=== PATIENT | female | born 1955 | race Caucasian/White ===

== ENCOUNTER 2019-06-24 10:07 | Outpatient (CLI) | payer MEDICARE, SELFPAY ==
[2019-06-24 10:50] LABS: Hemoglobin 11.7 g/dL (12.0-15.0); Mean Corpuscular HGB Conc 31.6 g/dl (32-36); Mean Corpuscular Hemoglobin 30.5 pg (26-34); Mean Corpuscular Volume 96.6 fl (80-100); Mean Platelet Volume 9.6 fl (7.4-10.4); Platelet Count Result 159 k/mm3 (150-375); Red Blood Count 3.83 M/mm3 (4.2-5.4); Red Cell Distribution Width 13.7 % (11.5-14.5); White Blood Count 4.2 K/mm3 (4.5-10.0)
[2019-06-24 10:52] LABS: Add Urine Microscopic? NO; Appearance Urine Clear (Clear); Bilirubin Urine Negative (Negative); Blood Urine Negative (Negative); Color Urine Yellow (Yellow); Glucose Urine UA Negative (Negative); Ketones Urine Negative (Negative); Leukocyte Esterase Ur Negative LEU/UL (Negative); Nitrate Urine Negative (Negative); Protein Urine Negative (Negative); Specific Grav Ur 1.021 (1.001-1.035); Urobilinogen Urine Negative mg/dL (<2.0)
[2019-06-24 11:02] LABS: Alanine Aminotransferase 18 U/L (4-35); Albumin Level 4.1 g/dL (3.5-5.1); Alkaline Phosphatase 88 U/L (38-126); Aspartate Amino Transferase 24 U/L (14-36); Bilirubin,Total 0.3 mg/dL (0.2-1.3); Blood Urea Nitrogen 20 mg/dL (7-17); CRP 0.8 mg/dL (<1.0); Calcium 9.1 mg/dL (8.4-10.2); Carbon Dioxide 27 mmol/L (22-30); Chloride 107 mmol/L (98-107); Estimated Glomerular Filt Rate > 60; Glucose 76 mg/dL (65-105); Sodium 139 mmol/L (137-145)
== END 2019-06-24 10:08 | disposition home or self-care (01) ==
PROVIDERS: PCP Internal Medicine; Visit Provider Internal Medicine
DX: M06.4 Inflammatory polyarthropathy (principal)
CPT/HCPCS: 36415; 80053; 81003; 85027; 86140

== ENCOUNTER 2020-01-25 12:08 | Outpatient (CLI) | payer MEDICARE, SELFPAY ==
[2020-01-25 13:16] LABS: Hematocrit 35.8 % (37.0-47.0); Hemoglobin 11.2 g/dL (12.0-15.0); Mean Corpuscular HGB Conc 31.3 g/dl (32-36); Mean Corpuscular Hemoglobin 30.7 pg (26-34); Mean Corpuscular Volume 98.1 fl (80-100); Mean Platelet Volume 9.8 fl (7.4-10.4); Platelet Count Result 199 k/mm3 (150-375); Red Blood Count 3.65 M/mm3 (4.2-5.4); Red Cell Distribution Width 16.4 % (11.5-14.5)
[2020-01-25 13:27] LABS: Add Urine Microscopic? YES; Appearance Urine Clear (Clear); Bilirubin Urine Negative (Negative); Blood Urine Negative (Negative); Color Urine Yellow (Yellow); Glucose Urine UA Negative (Negative); Ketones Urine Negative (Negative); Leukocyte Esterase Ur Trace LEU/UL (Negative); Nitrate Urine Negative (Negative); Protein Urine Negative (Negative); RBC Urine 0-2 /hpf (0-2); Specific Grav Ur 1.017 (1.001-1.035); Squamous Epithelial Cell Urine Occasional /hpf (Few); Urobilinogen Urine Negative mg/dL (<2.0); WBC Urine 0-3 /hpf
[2020-01-25 13:35] LABS: Alanine Aminotransferase 18 U/L (4-35); Albumin Level 4.1 g/dL (3.5-5.1); Alkaline Phosphatase 83 U/L (38-126); Anion Gap 5 mmol/L (8-16); Aspartate Amino Transferase 25 U/L (14-36); Bilirubin,Total 0.4 mg/dL (0.2-1.3); Blood Urea Nitrogen 22 mg/dL (7-17); CRP 0.7 mg/dL (<1.0); Calcium 9.5 mg/dL (8.4-10.2); Carbon Dioxide 28 mmol/L (22-30); Chloride 106 mmol/L (98-107); Estimated Glomerular Filt Rate 50; Glucose 82 mg/dL (65-105); Sodium 139 mmol/L (137-145)
[2020-01-25 14:02] LABS: Erythrocyte Sedimentation Rate 28 mm/hr (0-20)
== END 2020-01-25 12:09 | disposition home or self-care (01) ==
LOC: ANHLAB 12:10
PROVIDERS: PCP Internal Medicine; Visit Provider Internal Medicine
DX: L93.0 Discoid lupus erythematosus (principal); M19.90 Unspecified osteoarthritis, unspecified site
CPT/HCPCS: 36415; 80053; 81001; 85027; 85652; 86140

== ENCOUNTER 2020-03-30 09:16 | Outpatient (CLI) | payer MEDICARE, SELFPAY ==
--- NOTE | ~2020-03-30 | MM_ITS ---
EXAMINATION: MM screening [facility] BI w juany HISTORY: Screening mammogram TECHNIQUE: Craniocaudal and mediolateral oblique 3-D tomosynthesis images were obtained and synthetic 2-D images were generated. CAD analysis was submitted and interpreted. COMPARISON: 03/03/2019, 02/26/2018, 02/21/2017 BREAST PARENCHYMAL COMPOSITION: The breasts are almost entirely fatty. FINDINGS: There is no evidence of suspicious mass, calcification, or architectural distortion to sugg est malignancy in either breast. There has been no suspicious interval change. IMPRESSION: 1. No mammographic evidence of malignancy. 2. Recommend routine screening mammography in one year. BI-RADS Category 1: Negative Reviewed, dictated and finalized at location A. 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
== END 2020-03-30 09:17 | disposition home or self-care (01) ==
LOC: ANHIMG 09:21
PROVIDERS: PCP Internal Medicine; Visit Provider Obstetrics & Gynecology
DX: Z12.31 Encounter for screening mammogram for malignant neoplasm of breast (principal)
CPT/HCPCS: 77063; 77067

== ENCOUNTER 2021-04-28 10:23 | Outpatient (CLI) | payer MEDICARE, SELFPAY ==
[2021-04-28 10:52] LABS: Hematocrit 43.2 % (37.0-47.0); Hemoglobin 13.2 g/dL (12.0-15.0); Mean Corpuscular HGB Conc 30.6 g/dl (32-36); Mean Corpuscular Hemoglobin 31.1 pg (26-34); Mean Corpuscular Volume 101.9 fl (80-100); Mean Platelet Volume 8.8 fl (7.4-10.4); Platelet Count Result 192 k/mm3 (150-375); Red Blood Count 4.24 M/mm3 (4.2-5.4); Red Cell Distribution Width 14.1 % (11.5-14.5); White Blood Count 5.3 K/mm3 (4.5-10.0)
[2021-04-28 11:41] LABS: Add Urine Microscopic? NO; Appearance Urine Clear (Clear); Bilirubin Urine Negative (Negative); Blood Urine Negative (Negative); Color Urine Colorless (Yellow); Glucose Urine UA Negative (Negative); Ketones Urine Negative (Negative); Leukocyte Esterase Ur Negative LEU/UL (Negative); Nitrate Urine Negative (Negative); Protein Urine Negative (Negative); Specific Grav Ur 1.006 (1.001-1.035); Urobilinogen Urine Negative mg/dL (<2.0)
[2021-04-28 11:43] LABS: Alanine Aminotransferase 23 U/L (4-35); Albumin Level 4.5 g/dL (3.5-5.1); Alkaline Phosphatase 92 U/L (38-126); Anion Gap 10 mmol/L (8-16); Aspartate Amino Transferase 36 U/L (14-36); Bilirubin,Total 0.5 mg/dL (0.2-1.3); Blood Urea Nitrogen 15 mg/dL (7-17); CRP 0.9 mg/dL (<1.0); Carbon Dioxide 28 mmol/L (22-30); Chloride 105 mmol/L (98-107); Estimated Glomerular Filt Rate 56; Glucose 88 mg/dL (65-110); Sodium 143 mmol/L (137-145)
[2021-04-28 12:49] LABS: Erythrocyte Sedimentation Rate 16 mm/hr (0-20)
[2021-05-02 12:55] LABS: NIL 0.02 IU/mL; Quantiferon TB Plus, 1T NEGATIVE (NEGATIVE); TB1-NIL 0.04 IU/mL; TB2-NIL 0.03 IU/mL
== END 2021-04-28 10:24 | disposition home or self-care (01) ==
LOC: ANHLAB 10:25
PROVIDERS: PCP Internal Medicine; Visit Provider Internal Medicine
DX: M06.041 Rheumatoid arthritis without rheumatoid factor, right hand (principal); M06.042 Rheumatoid arthritis without rheumatoid factor, left hand; M19.90 Unspecified osteoarthritis, unspecified site; M06.9 Rheumatoid arthritis, unspecified; Z79.899 Other long term (current) drug therapy; Z11.59 Encounter for screening for other viral diseases
CPT/HCPCS: 36415; 80053; 81003; 85027; 85652; 86140; 86480

== ENCOUNTER 2021-06-22 10:27 | Outpatient (CLI) | payer MEDICARE, SELFPAY ==
--- NOTE | ~2021-06-22 | MM_ITS ---
EXAMINATION: MM screening [facility] w juany HISTORY: Screening TECHNIQUE: Craniocaudal and mediolateral oblique 3-D tomosynthesis images were obtained and synthetic 2-D images were generated. CAD analysis was submitted and interpreted. COMPARISON: Comparison to multiple prior studies sequentially, with oldest reviewed study dated 01/14. BREAST PARENCHYMAL COMPOSITION: The breasts are almost entirely fatty. FINDINGS: There is no evidence of suspicious mass, calcification, or architectural distortion to sugg est malignancy in either breast. There has been no suspicious interval change. IMPRESSION: 1. No mammographic evidence of malignancy. 2. Recommend routine screening mammography in one year. BI-RADS Category 1: Negative Reviewed, dictated and finalized at location A. 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
== END 2021-06-22 10:28 | disposition home or self-care (01) ==
LOC: ANHIMG 10:28
PROVIDERS: PCP Obstetrics & Gynecology; Visit Provider Obstetrics & Gynecology
DX: Z12.31 Encounter for screening mammogram for malignant neoplasm of breast (principal)
CPT/HCPCS: 77063; 77067

== ENCOUNTER 2022-09-04 14:57 | Outpatient (CLI) | payer MEDICARE, MEDICAID, SELFPAY ==
--- NOTE | ~2022-09-04 | MM_ITS ---
EXAMINATION: MM screening [facility] BI w juany HISTORY: Screening mammogram TECHNIQUE: Craniocaudal and mediolateral oblique 3-D tomosynthesis images were obtained and synthetic 2-D images were generated. CAD analysis was submitted and interpreted. COMPARISON: 06/22/2021, 03/30/2020, 03/03/2019 BREAST PARENCHYMAL COMPOSITION: There are scattered areas of fibroglandular density. FINDINGS: No suspicious mass, calcification, or architectural distortion are identified in either juaquin ast to suggest malignancy. There has been no suspicious interval change. IMPRESSION: 1. No mammographic evidence of malignancy. 2. Recommend routine screening mammography in one year. BI-RADS Category 1: Negative Reviewed, dictated and finalized at location A.
== END 2022-09-04 14:58 | disposition home or self-care (01) ==
PROVIDERS: PCP Internal Medicine; Visit Provider Obstetrics & Gynecology
DX: Z12.31 Encounter for screening mammogram for malignant neoplasm of breast (principal)
CPT/HCPCS: 36415; 77063; 77067; 80053; 81001; 85027; 85652; 86140; 86706; 87340; 96365; 96366; Q5104; A9270; J7050

== ENCOUNTER 2024-06-20 09:22 | Outpatient (CLI) | payer MEDICARE, MEDICAID, SELFPAY ==
--- NOTE | ~2024-06-20 | MM_ITS ---
EXAMINATION: MM screening bob BI w juany HISTORY: Screening mammogram TECHNIQUE: Craniocaudal and mediolateral oblique 3-D tomosynthesis images were obtained and synthetic 2-D images were generated. CAD analysis was submitted and interpreted. COMPARISON: 09/04/2022, 06/22/2021, 03/30/2020 BREAST PARENCHYMAL COMPOSITION:Not Dense. The breasts are almost entirely fatty FINDINGS: No suspicious mass, calcification, or architectural distortion are identified in either juaquin ast to suggest malignancy. There has been no suspicious interval change. IMPRESSION: No mammographic evidence of malignancy. Recommend routine screening mammography in one year. BI-RADS Category 1: Negative Reviewed, dictated and finalized at location .
--- OUTSIDE RECORDS SUMMARY | 2024-06-20 09:26 | XMS_ITS ---
Author Organization [facility] S Address [address] [place] [address] Phone Care Team Providers Care [employer] Name Role Phone LZI DOYLE, ELOINA ORTEGA Unavailable [phone] Problems Includes: Active, inactive, and resolved Problems All Visits Onset Date Resolved Date Provider Condition S tatus Vitamin Deficiency 08/13/2018 ELOINA CHAIDEZ MD Active Last Documented On 9 7:40AM ; [facility] Panic Disorder 12/14/2017 ELOINA Lew Active Last Documented On 8 7:49AM ; [facility] Psychophysiological Insomnia 08/17/2016 ELOINA LYNCH MD Active Last Documented On 7 9:38AM ; [facility] Anemia 02/16/2016 ELOINA LYNCH MD Ac tive Last Documented On 6 9:21AM ; [facility] Cath Mitral Regurgitation 07/28/2012 ELOINA LYNCH MD Active Last Documented On 3 11:16AM ; [facility] 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 ELOINA LYNCH MD Active Last Documented On 3 11:15AM ; [facility] Migraine Headache 07/28/2012 ELOINA Adrian MD Active Last Documented On 0 10:11AM ; [facility] 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 ELOINA LYNCH MD Inactive Last Documented On 3 2:59PM ; [facility] Major Depression, Recurrent 07/14/2012 ELOINA LYNCH MD Active Last Documented On 3 12:01PM ; [facility] Fracture Hip 05/08/2012 Unknown ELOINA LYNCH MD Resolved Last Documented On 3 10:58AM ; [facility] Generalized Anxiety Disorder 05/08/2012 ELOINA LYNCH MD Active Last Documented On 3 1:29PM ; [facility] Gerd 05/08/2012 ELOINA LYNCH MD Ac tive Last Documented On 3 1:28PM ; [facility] Hypertension Systemic 05/08/2012 ELOINA CUEVAS MD Active Last Documented On 3 1:28PM ; [facility] Hypothyroidism 05/08/2012 ELOINA eLw Active Last Documented On 3 1:28PM ; [facility] Pelvic Fracture 05/08/2012 Unknown ELOINA LYNCH MD Resolved Last Documented On 3 10:58AM ; [facility] Plan of Treatment Instructions to patient Lose weight Last Documented On 3 11:32AM ; [facility] Lose weight - continue elva jorge l meal plan Last Documented On 2 12:40PM ; [facility] Lose weight - portion contro l Last Documented On 2 9:03AM ; [facility] Lose weight Last Documented On 1 9:39AM ; [facility] Lose weight Last Documented On 1 10:29AM ; [facility] Lose weight Last Documented On 0 9:42AM ; [facility] Education and Decision Aids were provided during visit for: Patient education about medi cation ---Education was given on medication(s) and diagnosis. I reviewed the risks, benefits and side effects of patient's medications Last Documented On 3 11:10AM ; [facility] Discussed calming techniques such as breathing exercises and other relaxation techniques Last Documented On 3 11:10AM ; [facility] Counseling for nutrition/eden ght management provided Last Documented On 3 11:32AM ; [facility] Discussed good sleep hygiene habits Last Documented On 3 11:32AM ; [facility] Discussed calming techniques such as breathing exercises and other relaxation techniques if and when anxious Last Documented On 2 12:40PM ; [facility] Counseling for nutrition/eden ght management provided Last Documented On 2 11:28AM ; [facility] Patient education about medi cation --- I educated patient on medication(s) and diagnosis. I reviewed the risks, benefits and side effects of patient's medications Last Documented On 2 10:23AM ; [facility] Discussed calming techniques such as breathing exercises and other relaxation techniques Last Documented On 2 10:23AM ; [facility] Counseling for nutrition/eden ght management provided Last Documented On 2 10:56AM ; [facility] Discussed good sleep hygiene habits Last Documented On 2 10:56AM ; [facility] Patient education about medi cation --- I educated patient on medication(s) and diagnosis. I reviewed the risks, benefits and side effects of patient's medications Last Documented On 1 9:09AM ; [facility] Discussed calming techniques such as breathing exercises and other relaxation techniques Last Documented On 1 9:09AM ; [facility] Counseling for nutrition/eden ght management provided Last Documented On 1 9:39AM ; [facility] Discussed good sleep hygiene habits Last Documented On 1 9:39AM ; [facility] Patient education about medi cation --- I educated patient on medication(s) and diagnosis. I reviewed the risks, benefits and side effects of patient's medications Last Documented On 1 10:04AM ; [facility] Discussed calming techniques such as breathing exercises and other relaxation techniques Last Documented On 1 10:04AM ; [facility] Counseling for nutrition/eden ght management provided Last Documented On 1 10:29AM ; [facility] Patient education about medi cation --- I educated patient on medication(s) and diagnosis. I reviewed the risks, benefits and side effects of patient's medications Last Documented On 0 8:56AM ; [facility] Discussed calming techniques such as breathing exercises and other relaxation techniques Last Documented On 0 8:56AM ; [facility] Counseling for nutrition/eden ght management provided Last Documented On 0 9:42AM ; [facility] Patient education about a pr oper diet Last Documented On 0 9:27AM ; [facility] Patient education about medi cation --- I educated patient on medication(s) and diagnosis. I reviewed the risks, benefits and side effects of patient's medications Last Documented On 0 9:04AM ; [facility] Discussed calming techniques such as breathing exercises and other relaxation techniques Last Documented On 0 9:04AM ; [facility] Counseling for nutrition/eden ght management provided Last Documented On 0 9:27AM ; [facility] Patient education about a pr oper diet Last Documented On 9 9:36AM ; [facility] Patient education about medi cation --- I educated patient on medication(s) and diagnosis. I reviewed the risks, benefits and side effects of patient's medications Last Documented On 9 9:10AM ; [facility] Discussed calming techniques such as breathing exercises and other relaxation techniques Last Documented On 9 9:10AM ; [facility] Counseling for nutrition/eden ght management provided Last Documented On 9 9:36AM ; [facility] Discussed good sleep hygiene habits Last Documented On 9 11:16PM ; [facility] Patient education about a pr oper diet Last Documented On 9 10:09AM ; [facility] Patient education about medi cation --- I educated patient on medication(s) and diagnosis. I reviewed the risks, benefits and side effects of patient's medications Last Documented On 9 9:49AM ; [facility] Discussed calming techniques such as breathing exercises and other relaxation techniques Last Documented On 9 9:49AM ; [facility] Counseling for nutrition/eden ght management provided Last Documented On 9 10:09AM ; [facility] Discussed good sleep hygiene habits Last Documented On 9 7:37AM ; [facility] Patient education about a pr oper diet Last Documented On 9 10:41AM ; [facility] Patient education about medi cation --- I educated patient on medication(s) and diagnosis. I reviewed the risks, benefits and side effects of patient's medications Last Documented On 9 10:19AM ; [facility] Discussed calming techniques such as breathing exercises and other relaxation techniques Last Documented On 9 10:19AM ; [facility] Counseling for nutrition/eden ght management provided Last Documented On 9 10:41AM ; [facility] Discussed good sleep hygiene habits Last Documented On 9 8:00PM ; [facility] Patient education about a pr oper diet Last Documented On 8 9:51AM ; [facility] Patient education about medi cation --- I educated patient on medication(s) and diagnosis. I reviewed the risks, benefits and side effects of patient's medications Last Documented On 8 9:42AM ; [facility] Discussed calming techniques such as breathing exercises and other relaxation techniques Last Documented On 8 9:42AM ; [facility] Counseling for nutrition/eden ght management provided Last Documented On 8 9:51AM ; [facility] Patient education about medi cation --- I educated patient on medication(s) and diagnosis. I reviewed the risks, benefits and side effects of patient's medications Last Documented On 8 9:30AM ; [facility] Discussed calming techniques such as breathing exercises and other relaxation techniques Last Documented On 8 9:30AM ; [facility] Counseling for nutrition/eden ght management provided Last Documented On 8 4:00AM ; [facility] Discussed good sleep hygiene habits Last Documented On 8 4:00AM ; [facility] Patient education about medi cation --- I educated patient on medication(s) and diagnosis. I reviewed the risks, benefits and side effects of patient's medications Last Documented On 8 9:34AM ; [facility] Discussed calming techniques such as breathing exercises and other relaxation techniques Last Documented On 8 9:34AM ; [facility] Patient counseling I discuss ed risk, benefits, and side effects of sleep aid - Trazodone including the possibility of sleep related behaviors i.e. sleepwalking, sleeptalking, sleepdriving, etc... Pt verbalized understanding Last Documented On 8 9:58AM ; [facility] Patient education about medi cation --- I educated patient on medication(s) and diagnosis. I reviewed the risks, benefits and side effects of patient's medications Last Documented On 7 9:04AM ; [facility] Discussed calming techniques such as breathing exercises/meditation and other relaxation techniques Last Documented On 7 9:04AM ; [facility] Counseling for nutrition/eden ght management provided Last Documented On 7 7:04PM ; [facility] Patient education about medi cation --- I educated patient on medication(s) and diagnosis. I reviewed the risks, benefits and side effects of patient's medications Last Documented On 6 9:02AM ; [facility] Discussed calming techniques such as breathing exercises/meditation and other relaxation techniques Last Documented On 6 9:02AM ; [facility] Counseling for nutrition/eden ght management provided Last Documented On 6 7:52AM ; [facility] Discussed good sleep hygiene habits Last Documented On 6 7:52AM ; [facility] Patient education about medi cation --- I educated patient on medication(s) and diagnosis. I reviewed the risks, benefits and side effects of patient's medications Last Documented On 6 9:02AM ; [facility] Discussed calming techniques such as breathing exercises/meditation and other relaxation techniques Last Documented On 6 9:02AM ; [facility] Counseling for nutrition/eden ght management provided Last Documented On 6 10:11AM ; [facility] Patient education about medi cation --- I educated patient on medication(s) and diagnosis. I reviewed the risks, benefits and side effects of patient's medications Last Documented On 5 9:32AM ; [facility] Discussed calming techniques such as breathing exercises/meditation and other relaxation techniques Last Documented On 5 9:32AM ; [facility] Counseling for nutrition/eden ght management provided Last Documented On 5 9:31PM ; [facility] Patient education about medi cation --- I educated patient on medication(s) and diagnosis. I reviewed the risks, benefits and side effects of patient's medications Last Documented On 5 11:02AM ; [facility] Discussed calming techniques such as breathing exercises/meditation and other relaxation techniques Last Documented On 5 10:14AM ; [facility] Counseling for nutrition/eden ght management provided Last Documented On 5 11:02AM ; [facility] Patient education about medi cation --- I educated patient on medication(s) and diagnosis. I reviewed the risks, benefits and side effects of patient's medications Last Documented On 5 11:41AM ; [facility] Discussed calming techniques such as breathing exercises/meditation and other relaxation techniques Last Documented On 5 10:32AM ; [facility] Counseling for nutrition/eden ght management provided Last Documented On 5 11:41AM ; [facility] Discussed good sleep hygiene habits Last Documented On 5 11:41AM ; [facility] Patient education about medi cation --- I educated patient on medication(s) and diagnosis. I reviewed the risks, benefits and side effects of patient's medications Last Documented On 4 6:33PM ; [facility] Discussed calming techniques such as breathing exercises/meditation and other relaxation techniques Last Documented On 4 9:03AM ; [facility] Counseling for nutrition/eden ght management provided Last Documented On 4 6:33PM ; [facility] Patient education about medi cation --- I educated patient on medication(s) and diagnosis. I reviewed the risks, benefits and side effects of patient's medications Last Documented On 4 11:50AM ; [facility] Discussed calming techniques such as breathing exercises/meditation and other relaxation techniques Last Documented On 4 9:43AM ; [facility] Counseling for nutrition/eden ght management provided Last Documented On 4 11:50AM ; [facility] Patient education about medi cation --- I educated patient on medication(s) and diagnosis Last Documented On 3 11:36AM ; [facility] Discussed calming techniques such as breathing exercises/meditation and other relaxation techniques Last Documented On 3 9:34AM ; [facility] Counseling for nutrition/eden ght management provided Last Documented On 3 11:36AM ; [facility] Reviewed side effects and Ri sks/Benefits analysis Last Documented On 3 11:36AM ; [facility] Patient education about medi cation --- I educated patient on medication(s) and diagnosis Last Documented On 3 11:14PM ; [facility] Discussed calming techniques such as yoga meditation to help relieve some anxiety symptoms Last Documented On 3 11:01PM ; [facility] Discussed calming techniques such as breathing exercises and other relaxation techniques Last Documented On 3 11:01PM ; [facility] Discussed good sleep hygiene habits Last Documented On 3 11:14PM ; [facility] Assessments Includes: Assessments for all patient encounters Findings Encounter Date Generalized anxiety disorder TELEHEALTH with MET EULALIO LYNCH MD 05/23/2022 Last Documented On 3 9:24AM ; [facility] Major depression, recurrent TELEHEALTH with LAUREN LYNCH MD 05/23/2022 Last Documented On 3 9:24AM ; [facility] Migraine headache TELEHEALTH with ELOINA CUEVAS MD 05/23/2022 Last Documented On 3 9:24AM ; [facility] Panic disorder TELEHEALTH with ELOINA CASTELLANOS MD 05/23/2022 Last Documented On 3 9:24AM ; [facility] Psychophysiological insomnia TELEHEALTH with MET EULALIO LYNCH MD 05/23/2022 Last Documented On 3 9:24AM ; [facility] Generalized anxiety disorder TELEHEALTH with MET EULALIO LYNCH MD 11/23/2021 Last Documented On 2 9:31AM ; [facility] Major depression, recurrent TELEHEALTH with LAUREN LYNCH MD 11/23/2021 Last Documented On 2 9:31AM ; [facility] Migraine headache TELEHEALTH with ELOINA CUEVAS MD 11/23/2021 Last Documented On 2 9:31AM ; [facility] Panic disorder TELEHEALTH with ELOINA CASTELLANOS MD 11/23/2021 Last Documented On 2 9:31AM ; [facility] Psychophysiological insomnia TELEHEALTH with MET EULALIO LYNCH MD 11/23/2021 Last Documented On 2 9:31AM ; [facility] Generalized anxiety disorder TELEHEALTH with MET EULALIO LYNCH MD 05/17/2021 Last Documented On 2 9:04AM ; [facility] Major depression, recurrent TELEHEALTH with LAUREN LYNCH MD 05/17/2021 Last Documented On 2 9:04AM ; [facility] Migraine headache TELEHEALTH with ELOINA CUEVAS MD 05/17/2021 Last Documented On 2 9:04AM ; [facility] Panic disorder TELEHEALTH with ELOINA CASTELLANOS MD 05/17/2021 Last Documented On 2 9:04AM ; [facility] Psychophysiological insomnia TELEHEALTH with MET ODIA BARBARA LYNCH MD 05/17/2021 Last Documented On 2 9:04AM ; [facility] Generalized anxiety disorder TELEHEALTH with MET EULALIO LYNCH MD 11/22/2020 Last Documented On 1 9:00AM ; [facility] Major depression, recurrent TELEHEALTH with LAUREN LYNCH MD 11/22/2020 Last Documented On 1 9:00AM ; [facility] Migraine headache TELEHEALTH with ELOINA CUEVAS MD 11/22/2020 Last Documented On 1 9:00AM ; [facility] Panic disorder TELEHEALTH with ELOINA CASTELLANOS MD 11/22/2020 Last Documented On 1 9:00AM ; [facility] Psychophysiological insomnia TELEHEALTH with MET EULALIO LYNCH MD 11/22/2020 Last Documented On 1 9:00AM ; [facility] Generalized anxiety disorder TELEHEALTH with MET EULALIO LYNCH MD 05/25/2020 Last Documented On 1 9:49AM ; [facility] Major depression, recurrent TELEHEALTH with LAUREN LYNCH MD 05/25/2020 Last Documented On 1 9:49AM ; [facility] Migraine headache TELEHEALTH with ELOINA CUEVAS MD 05/25/2020 Last Documented On 1 9:49AM ; [facility] Panic disorder TELEHEALTH with ELOINA CASTELLANOS MD 05/25/2020 Last Documented On 1 9:49AM ; [facility] Psychophysiological insomnia TELEHEALTH with MET EULALIO LYNCH MD 05/25/2020 Last Documented On 1 9:49AM ; [facility] Generalized anxiety disorder GENERAL OFF ICE VISIT with ELOINA LYNCH MD 12/03/2019 Last Documented On 0 1:39AM ; [facility] Major depression, recurrent GENERAL OFFI CE VISIT with ELOINA LYNCH MD 12/03/2019 Last Documented On 0 1:39AM ; [facility] Migraine headache GENERAL OFFICE VISIT with LAUREN LYNCH MD 12/03/2019 Last Documented On 0 1:39AM ; [facility] Panic disorder GENERAL OFFICE VISIT with STEFFEN LYNCH MD 12/03/2019 Last Documented On 0 1:39AM ; [facility] Psychophysiological insomnia GENERAL OFF ICE VISIT with ELOINA LYNCH MD 12/03/2019 Last Documented On 0 1:39AM ; [facility] Generalized anxiety disorder GENERAL OFF ICE VISIT with ELOINA LYNCH MD 07/24/2019 Last Documented On 0 7:13AM ; [facility] Major depression, recurrent GENERAL OFFI CE VISIT with ELOINA LYNCH MD 07/24/2019 Last Documented On 0 7:13AM ; [facility] Panic disorder GENERAL OFFICE VISIT with STEFFEN LYNCH MD 07/24/2019 Last Documented On 0 7:13AM ; [facility] Psychophysiological insomnia GENERAL OFF ICE VISIT with ELOINA LYNCH MD 07/24/2019 Last Documented On 0 7:13AM ; [facility] Generalized anxiety disorder GENERAL OFF ICE VISIT with ELOINA LYNCH MD 02/25/2019 Last Documented On 9 11:25PM ; [facility] Major depression, recurrent GENERAL OFFI CE VISIT with ELOINA LYNCH MD 02/25/2019 Last Documented On 9 11:25PM ; [facility] Panic disorder GENERAL OFFICE VISIT with STEFFEN LYNCH MD 02/25/2019 Last Documented On 9 11:25PM ; [facility] Psychophysiological insomnia GENERAL OFF ICE VISIT with ELOINA LYNCH MD 02/25/2019 Last Documented On 9 11:25PM ; [facility] Generalized anxiety disorder GENERAL OFF ICE VISIT with ELOINA LYNCH MD 09/19/2018 Last Documented On 9 7:44AM ; [facility] Major depression, recurrent GENERAL OFFI CE VISIT with ELOINA LYNCH MD 09/19/2018 Last Documented On 9 7:44AM ; [facility] Panic disorder GENERAL OFFICE VISIT with STEFFEN LYNCH MD 09/19/2018 Last Documented On 9 7:44AM ; [facility] Psychophysiological insomnia GENERAL OFF ICE VISIT with ELOINA LYNCH MD 09/19/2018 Last Documented On 9 7:44AM ; [facility] Vitamin deficiency GENERAL OFFICE VISIT with MET EULALIO LYNCH MD 09/19/2018 Last Documented On 9 7:44AM ; [facility] Generalized anxiety disorder GENERAL OFF ICE VISIT with ELOINA LYNCH MD 06/12/2018 Last Documented On 9 8:08PM ; [facility] Major depression, recurrent GENERAL OFFI CE VISIT with ELOINA LYNCH MD 06/12/2018 Last Documented On 9 8:08PM ; [facility] Panic disorder GENERAL OFFICE VISIT with STEFFEN LYNCH MD 06/12/2018 Last Documented On 9 8:08PM ; [facility] Psychophysiological insomnia GENERAL OFF ICE VISIT with ELOINA LYNCH MD 06/12/2018 Last Documented On 9 8:08PM ; [facility] Generalized anxiety disorder GENERAL OFF ICE VISIT with ELOINA LYNCH MD 02/20/2018 Last Documented On 8 7:56AM ; [facility] Major depression, recurrent GENERAL OFFI CE VISIT with ELOINA LYNCH MD 02/20/2018 Last Documented On 8 7:56AM ; [facility] Panic disorder GENERAL OFFICE VISIT with STEFFEN LYNCH MD 02/20/2018 Last Documented On 8 7:56AM ; [facility] Psychophysiological insomnia GENERAL OFF ICE VISIT with ELOINA LYNCH MD 02/20/2018 Last Documented On 8 7:56AM ; [facility] Generalized anxiety disorder GENERAL OFF ICE VISIT with ELOINA LYNCH MD 10/23/2017 Last Documented On 8 4:01AM ; [facility] Major depression, recurrent GENERAL OFFI CE VISIT with ELOINA LYNCH MD 10/23/2017 Last Documented On 8 4:01AM ; [facility] Psychophysiological insomnia GENERAL OFF ICE VISIT with ELOINA LYNCH MD 10/23/2017 Last Documented On 8 4:01AM ; [facility] Generalized anxiety disorder GENERAL OFF ICE VISIT with ELOINA LYNCH MD 04/24/2017 Last Documented On 8 1:20AM ; [facility] Major depression, recurrent GENERAL OFFI CE VISIT with ELOINA LYNCH MD 04/24/2017 Last Documented On 8 1:20AM ; [facility] Psychophysiological insomnia GENERAL OFF ICE VISIT with ELOINA LYNCH MD 04/24/2017 Last Documented On 8 1:20AM ; [facility] Generalized anxiety disorder GENERAL OFF ICE VISIT with ELOINA LYNCH MD 08/17/2016 Last Documented On 7 7:11PM ; [facility] Major depression, recurrent GENERAL OFFI CE VISIT with ELOINA LYNCH MD 08/17/2016 Last Documented On 7 7:11PM ; [facility] Psychophysiological insomnia GENERAL OFF ICE VISIT with ELOINA LYNCH MD 08/17/2016 Last Documented On 7 7:11PM ; [facility] Generalized anxiety disorder GENERAL OFF ICE VISIT with ELOINA LYNCH MD 02/16/2016 Last Documented On 6 7:54AM ; [facility] Major depression, recurrent GENERAL OFFI CE VISIT with ELOINA LYNCH MD 02/16/2016 Last Documented On 6 7:54AM ; [facility] Persistent insomnia GENERAL OFFICE VISIT with ME MATTIE LYNCH MD 02/16/2016 Last Documented On 6 7:54AM ; [facility] Generalized anxiety disorder GENERAL OFF ICE VISIT with ELOINA LYNCH MD 08/15/2015 Last Documented On 6 10:12AM ; [facility] Major depression, recurrent GENERAL OFFI CE VISIT with ELOINA LYNCH MD 08/15/2015 Last Documented On 6 10:12AM ; [facility] Persistent insomnia GENERAL OFFICE VISIT with ME MATTIE LYNCH MD 08/15/2015 Last Documented On 6 10:12AM ; [facility] Generalized anxiety disorder GENERAL OFF ICE VISIT with ELOINA LYNCH MD 03/15/2015 Last Documented On 5 9:33PM ; [facility] Major depression, recurrent GENERAL OFFI CE VISIT with ELOINA LYNCH MD 03/15/2015 Last Documented On 5 9:33PM ; [facility] Persistent insomnia GENERAL OFFICE VISIT with ME MATTIE LYNCH MD 03/15/2015 Last Documented On 5 9:33PM ; [facility] Generalized anxiety disorder GENERAL OFF ICE VISIT with ELOINA LYNCH MD 10/26/2014 Last Documented On 5 3:37PM ; [facility] Major depression, recurrent GENERAL OFFI CE VISIT with ELOINA LYNCH MD 10/26/2014 Last Documented On 5 3:37PM ; [facility] Persistent insomnia GENERAL OFFICE VISIT with ME MATTIE LYNCH MD 10/26/2014 Last Documented On 5 3:37PM ; [facility] Generalized anxiety disorder GENERAL OFF ICE VISIT with ELOINA LYNCH MD 05/14/2014 Last Documented On 5 11:43AM ; [facility] Major depression, recurrent GENERAL OFFI CE VISIT with ELOINA LYNCH MD 05/14/2014 Last Documented On 5 11:43AM ; [facility] Persistent insomnia GENERAL OFFICE VISIT with ME MATTIE LYNCH MD 05/14/2014 Last Documented On 5 11:43AM ; [facility] Persistent insomnia * PHONE CALL with ELOINA LYNCH MD 03/16/2014 Last Documented On 4 5:05PM ; [facility] Generalized anxiety disorder GENERAL OFF ICE VISIT with ELOINA LYNCH MD 12/17/2013 Last Documented On 4 6:38PM ; [facility] Major depression, recurrent GENERAL OFFI CE VISIT with ELOINA LYNCH MD 12/17/2013 Last Documented On 4 6:38PM ; [facility] Persistent insomnia GENERAL OFFICE VISIT with ME MATTIE LYNCH MD 12/17/2013 Last Documented On 4 6:38PM ; [facility] Generalized anxiety disorder GENERAL OFF ICE VISIT with ELOINA LYNCH MD 07/20/2013 Last Documented On 4 11:56AM ; [facility] Major depression, recurrent GENERAL OFFI CE VISIT with ELOINA LYNCH MD 07/20/2013 Last Documented On 4 11:56AM ; [facility] Persistent insomnia GENERAL OFFICE VISIT with ME MATTIE LYNCH MD 07/20/2013 Last Documented On 4 11:56AM ; [facility] Generalized anxiety disorder GENERAL OFF ICE VISIT with ELOINA LYNCH MD 01/19/2013 Last Documented On 3 11:45AM ; [facility] Major depression, recurrent GENERAL OFFI CE VISIT with ELOINA LYNCH MD 01/19/2013 Last Documented On 3 11:45AM ; [facility] Persistent insomnia GENERAL OFFICE VISIT with ME MATTIE LYNCH MD 01/19/2013 Last Documented On 3 11:45AM ; [facility] Generalized anxiety disorder GENERAL OFF ICE VISIT with ELOINA LYNCH MD 07/28/2012 Last Documented On 3 11:16PM ; [facility] Major depression, recurrent GENERAL OFFI CE VISIT with ELOINA LYNCH MD 07/28/2012 Last Documented On 3 11:16PM ; [facility] Organic insomnia due to ment al disorder GENERAL OFFICE VISIT with ELOINA LYNCH MD 07/28/2012 Last Documented On 3 11:16PM ; [facility] Instructions Includes: Instructions for all patient encounters Instructions to patient Lose weight Last Documented On 3 11:32AM ; [facility] Lose weight - continue elva jorge l meal plan Last Documented On 2 12:40PM ; [facility] Lose weight - portion contro l Last Documented On 2 9:03AM ; [facility] Lose weight Last Documented On 1 9:39AM ; [facility] Lose weight Last Documented On 1 10:29AM ; [facility] Lose weight Last Documented On 0 9:42AM ; [facility] Education and Decision Aids were provided during visit for: Patient education about medi cation ---Education was given on medication(s) and diagnosis. I reviewed the risks, benefits and side effects of patient's medications Last Documented On 3 11:10AM ; [facility] Discussed calming techniques such as breathing exercises and other relaxation techniques Last Documented On 3 11:10AM ; [facility] Counseling for nutrition/eden ght management provided Last Documented On 3 11:32AM ; [facility] Discussed good sleep hygiene habits Last Documented On 3 11:32AM ; [facility] Discussed calming techniques such as breathing exercises and other relaxation techniques if and when anxious Last Documented On 2 12:40PM ; [facility] Counseling for nutrition/eden ght management provided Last Documented On 2 11:28AM ; [facility] Patient education about medi cation --- I educated patient on medication(s) and diagnosis. I reviewed the risks, benefits and side effects of patient's medications Last Documented On 2 10:23AM ; [facility] Discussed calming techniques such as breathing exercises and other relaxation techniques Last Documented On 2 10:23AM ; [facility] Counseling for nutrition/eden ght management provided Last Documented On 2 10:56AM ; [facility] Discussed good sleep hygiene habits Last Documented On 2 10:56AM ; [facility] Patient education about medi cation --- I educated patient on medication(s) and diagnosis. I reviewed the risks, benefits and side effects of patient's medications Last Documented On 1 9:09AM ; [facility] Discussed calming techniques such as breathing exercises and other relaxation techniques Last Documented On 1 9:09AM ; [facility] Counseling for nutrition/eden ght management provided Last Documented On 1 9:39AM ; [facility] Discussed good sleep hygiene habits Last Documented On 1 9:39AM ; [facility] Patient education about medi cation --- I educated patient on medication(s) and diagnosis. I reviewed the risks, benefits and side effects of patient's medications Last Documented On 1 10:04AM ; [facility] Discussed calming techniques such as breathing exercises and other relaxation techniques Last Documented On 1 10:04AM ; [facility] Counseling for nutrition/eden ght management provided Last Documented On 1 10:29AM ; [facility] Patient education about medi cation --- I educated patient on medication(s) and diagnosis. I reviewed the risks, benefits and side effects of patient's medications Last Documented On 0 8:56AM ; [facility] Discussed calming techniques such as breathing exercises and other relaxation techniques Last Documented On 0 8:56AM ; [facility] Counseling for nutrition/eden ght management provided Last Documented On 0 9:42AM ; [facility] Patient education about a pr oper diet Last Documented On 0 9:27AM ; [facility] Patient education about medi cation --- I educated patient on medication(s) and diagnosis. I reviewed the risks, benefits and side effects of patient's medications Last Documented On 0 9:04AM ; [facility] Discussed calming techniques such as breathing exercises and other relaxation techniques Last Documented On 0 9:04AM ; [facility] Counseling for nutrition/eden ght management provided Last Documented On 0 9:27AM ; [facility] Patient education about a pr oper diet Last Documented On 9 9:36AM ; [facility] Patient education about medi cation --- I educated patient on medication(s) and diagnosis. I reviewed the risks, benefits and side effects of patient's medications Last Documented On 9 9:10AM ; [facility] Discussed calming techniques such as breathing exercises and other relaxation techniques Last Documented On 9 9:10AM ; [facility] Counseling for nutrition/eden ght management provided Last Documented On 9 9:36AM ; [facility] Discussed good sleep hygiene habits Last Documented On 9 11:16PM ; [facility] Patient education about a pr oper diet Last Documented On 9 10:09AM ; [facility] Patient education about medi cation --- I educated patient on medication(s) and diagnosis. I reviewed the risks, benefits and side effects of patient's medications Last Documented On 9 9:49AM ; [facility] Discussed calming techniques such as breathing exercises and other relaxation techniques Last Documented On 9 9:49AM ; [facility] Counseling for nutrition/eden ght management provided Last Documented On 9 10:09AM ; [facility] Discussed good sleep hygiene habits Last Documented On 9 7:37AM ; [facility] Patient education about a pr oper diet Last Documented On 9 10:41AM ; [facility] Patient education about medi cation --- I educated patient on medication(s) and diagnosis. I reviewed the risks, benefits and side effects of patient's medications Last Documented On 9 10:19AM ; [facility] Discussed calming techniques such as breathing exercises and other relaxation techniques Last Documented On 9 10:19AM ; [facility] Counseling for nutrition/eden ght management provided Last Documented On 9 10:41AM ; [facility] Discussed good sleep hygiene habits Last Documented On 9 8:00PM ; [facility] Patient education about a pr oper diet Last Documented On 8 9:51AM ; [facility] Patient education about medi cation --- I educated patient on medication(s) and diagnosis. I reviewed the risks, benefits and side effects of patient's medications Last Documented On 8 9:42AM ; [facility] Discussed calming techniques such as breathing exercises and other relaxation techniques Last Documented On 8 9:42AM ; [facility] Counseling for nutrition/eden ght management provided Last Documented On 8 9:51AM ; [facility] Patient education about medi cation --- I educated patient on medication(s) and diagnosis. I reviewed the risks, benefits and side effects of patient's medications Last Documented On 8 9:30AM ; [facility] Discussed calming techniques such as breathing exercises and other relaxation techniques Last Documented On 8 9:30AM ; [facility] Counseling for nutrition/eden ght management provided Last Documented On 8 4:00AM ; [facility] Discussed good sleep hygiene habits Last Documented On 8 4:00AM ; [facility] Patient education about medi cation --- I educated patient on medication(s) and diagnosis. I reviewed the risks, benefits and side effects of patient's medications Last Documented On 8 9:34AM ; [facility] Discussed calming techniques such as breathing exercises and other relaxation techniques Last Documented On 8 9:34AM ; [facility] Patient counseling I discuss ed risk, benefits, and side effects of sleep aid - Trazodone including the possibility of sleep related behaviors i.e. sleepwalking, sleeptalking, sleepdriving, etc... Pt verbalized understanding Last Documented On 8 9:58AM ; [facility] Patient education about medi cation --- I educated patient on medication(s) and diagnosis. I reviewed the risks, benefits and side effects of patient's medications Last Documented On 7 9:04AM ; [facility] Discussed calming techniques such as breathing exercises/meditation and other relaxation techniques Last Documented On 7 9:04AM ; [facility] Counseling for nutrition/eden ght management provided Last Documented On 7 7:04PM ; [facility] Patient education about medi cation --- I educated patient on medication(s) and diagnosis. I reviewed the risks, benefits and side effects of patient's medications Last Documented On 6 9:02AM ; [facility] Discussed calming techniques such as breathing exercises/meditation and other relaxation techniques Last Documented On 6 9:02AM ; [facility] Counseling for nutrition/eden ght management provided Last Documented On 6 7:52AM ; [facility] Discussed good sleep hygiene habits Last Documented On 6 7:52AM ; [facility] Patient education about medi cation --- I educated patient on medication(s) and diagnosis. I reviewed the risks, benefits and side effects of patient's medications Last Documented On 6 9:02AM ; [facility] Discussed calming techniques such as breathing exercises/meditation and other relaxation techniques Last Documented On 6 9:02AM ; [facility] Counseling for nutrition/eden ght management provided Last Documented On 6 10:11AM ; [facility] Patient education about medi cation --- I educated patient on medication(s) and diagnosis. I reviewed the risks, benefits and side effects of patient's medications Last Documented On 5 9:32AM ; [facility] Discussed calming techniques such as breathing exercises/meditation and other relaxation techniques Last Documented On 5 9:32AM ; [facility] Counseling for nutrition/eden ght management provided Last Documented On 5 9:31PM ; [facility] Patient education about medi cation --- I educated patient on medication(s) and diagnosis. I reviewed the risks, benefits and side effects of patient's medications Last Documented On 5 11:02AM ; [facility] Discussed calming techniques such as breathing exercises/meditation and other relaxation techniques Last Documented On 5 10:14AM ; [facility] Counseling for nutrition/eden ght management provided Last Documented On 5 11:02AM ; [facility] Patient education about medi cation --- I educated patient on medication(s) and diagnosis. I reviewed the risks, benefits and side effects of patient's medications Last Documented On 5 11:41AM ; [facility] Discussed calming techniques such as breathing exercises/meditation and other relaxation techniques Last Documented On 5 10:32AM ; [facility] Counseling for nutrition/eden ght management provided Last Documented On 5 11:41AM ; [facility] Discussed good sleep hygiene habits Last Documented On 5 11:41AM ; [facility] Patient education about medi cation --- I educated patient on medication(s) and diagnosis. I reviewed the risks, benefits and side effects of patient's medications Last Documented On 4 6:33PM ; [facility] Discussed calming techniques such as breathing exercises/meditation and other relaxation techniques Last Documented On 4 9:03AM ; [facility] Counseling for nutrition/eden ght management provided Last Documented On 4 6:33PM ; [facility] Patient education about medi cation --- I educated patient on medication(s) and diagnosis. I reviewed the risks, benefits and side effects of patient's medications Last Documented On 4 11:50AM ; [facility] Discussed calming techniques such as breathing exercises/meditation and other relaxation techniques Last Documented On 4 9:43AM ; [facility] Counseling for nutrition/eden ght management provided Last Documented On 4 11:50AM ; [facility] Patient education about medi cation --- I educated patient on medication(s) and diagnosis Last Documented On 3 11:36AM ; [facility] Discussed calming techniques such as breathing exercises/meditation and other relaxation techniques Last Documented On 3 9:34AM ; [facility] Counseling for nutrition/eden ght management provided Last Documented On 3 11:36AM ; [facility] Reviewed side effects and Ri sks/Benefits analysis Last Documented On 3 11:36AM ; [facility] Patient education about medi cation --- I educated patient on medication(s) and diagnosis Last Documented On 3 11:14PM ; [facility] Discussed calming techniques such as yoga meditation to help relieve some anxiety symptoms Last Documented On 3 11:01PM ; [facility] Discussed calming techniques such as breathing exercises and other relaxation techniques Last Documented On 3 11:01PM ; [facility] Discussed good sleep hygiene habits Last Documented On 3 11:14PM ; [facility] Medical Equipment - Implanted Devices Includes: Current and historical Devices No Medical Equipment Recorded Medications Includes: Current and historical Medications Current Medications (continue as prescribed) Sertraline HCl 100 MG Oral Tablet 07/16/2022 Provider: ELOINA LYNCH MD Diagnosis: Major depressive disorder, recurrent, moderate TAKE 2 TABLETS BY MOUTH AT B EDTIME DIRECTED Last Documented On 3 11:54AM By Barbara Lynch MD ; [facility] Topiramate 50 MG Oral Tablet 07/16/2022 Provider: ELOINA LYNCH MD Diagnosis: Migraine w/o aur a, not intractable, w/o status migrainosus TAKE ONE TABLET BY MOUTH DOMINIK RY MORNING AND TAKE TWO TABLETS BY MOUTH EVERY EVENING DIRECTED Last Documented On 3 11:54AM By Barbara Lynch MD ; [facility] clonazePAM 0.5 MG Oral Tablet 06/14/2022 Provider: ELOINA LYNCH MD Diagnosis: Panic disorder [ episodic paroxysmal anxiety] ud - as directed as directed take as needed for anxiety Last Documented On 06/14/2022 5:44PM By Barbara Lynch MD ; [facility] buPROPion HCl ER (XL) 300 MG Oral Tablet Extended Release 24 Hour 05/17/2022 Provider: ELOINA CARLSON MD Diagnosis: TAKE ONE TABLET BY MOUTH EVERY MORNING Last Documented On 3 12:20PM By Barbara Lynch MD ; [facility] traZODone HCl 100 MG Oral Tablet 05/17/2022 Provider: ELOINA LYNCH MD Diagnosis: Psychophysiologi c insomnia DIRECTED, TAKE 2 -3 TABLE TS AT BEDTIME Last Documented On 3 12:20PM By Barbara Lynch MD ; [facility] QUEtiapine Fumarate 50 MG Oral Tablet 03/19/2022 Provider: ELOINA LYNCH MD Diagnosis: Insomnia, unspec ified as directed --2 at bedtime Last Documented On 2 12:36PM By Barbara Lynch MD ; [facility] busPIRone HCl 15 MG Oral Tablet 02/20/2022 Provider: ELOINA LYNCH MD Diagnosis: Generalized anxi ety disorder One tablet three times a day Last Documented On 02/20/2022 6:33PM By Barbara Lynch MD ; [facility] Remicade 100 MG Intravenous Solution Reconstituted 02/2022 Provider: Diagnosis: 1 q 2 weeks for 1 month then 1 infusion q 2 joey hs Last Documented On 2 11:24AM By DEMETRIA ARZATE ; [facility] Torsemide 10 MG Oral Tablet 10/25/2021 Provider: Diagnosis: 2 tabs daily Last Documented On 2 11:23AM By DEMETRIA ARZATE ; [facility] Levothyroxine Sodium 50 MCG Oral Tablet 05/16/2021 Oumar brooks: KP BALL MD Diagnosis: 1 tab daily with 175 mcg 1.5 tabs daily Last Documented On 2 10:52AM By DEMETRIA ARZATE ; [facility] Levothyroxine Sodium 175 MCG Oral Tablet 11/14/2020 Provider: MARTELL ROBERTS MD Diagnosis: Take 1.5 tabs daily Last Documented On 11/22/2020 9:32AM By DEMETRIA ARZATE ; [facility] cloNIDine HCl 0.1 MG Oral Tablet 11/14/2020 Provider : MARTELL ROBERTS MD Diagnosis: 1 tab prn if BP 160/? Last Documented On 11/22/2020 9:32AM By DEMETRIA ARZATE ; [facility] Amiodarone HCl 200 MG Oral Tablet 10/14/2020 Provide r: MARTELL ROBERTS MD Diagnosis: 1/2 tab daily Last Documented On 11/22/2020 9:33AM By DEMETRIA ARZATE ; [facility] Medical [facility] Metoprolol Succinate ER 50 M G Oral Tablet Extended Release 24 Hour 10/14/2020 Provider: MARTELL ROBERTS MD Diagnosis: 1/2 tab daily Last Documented On 11/22/2020 9:33AM By DEMETRIA ARZATE ; [facility] Medical [facility] Adult Aspirin EC Low Strengt h 81 MG Oral Tablet Delayed Release 05/25/2020 Provider: Diagnosis: 1 tab daily Last Documented On 1 10:14AM By DEMETRIA ARZATE ; [facility] Vitamin D3 25 MCG (1000 UT) Oral Tablet Chewable 05/25/2020 Provider: KP BALL MD Diagnosis: 1 tab bid otc Last Documented On 1 10:13AM By DEMETRIA ARZATE ; [facility] Eliquis 5 MG Oral Tablet 11/17/2019 Provider: Diagnosis: 1 tab bid Last Documented On 12/03/2019 9:29AM By DEMETRIA ARZATE ; [facility] Hydroxychloroquine Sulfate 200MG Oral Tablet 9 Provider: TRISTAN CORTES MD Diagnosis: 1 TAB BID Last Documented On 9 10:38AM By DEMETRIA ARZATE ; [facility] L-Lysine 500MG Oral Tablet 02/20/2018 Provider: Diagnosis: 1 tab bid otc Last Documented On 02/20/2018 9:43AM By DEMETRIA ARZATE ; [facility] Olmesartan Medoxomil 40MG Oral Tablet 02/20/2018 Pro vider: Diagnosis: 1 tab daily Last Documented On 02/20/2018 9:45AM By DEMETRIA ARZATE ; [facility] Potassium Chloride ER 10MEQ Oral Tablet, control led-release 02/20/2018 Provider: Diagnosis: 1 tablet daily in the am Last Documented On 02/20/2018 9:46AM By DEMETRIA ARZATE ; [facility] Calcium 1000 + D [id number] Oral Tablet 8 Provider: Diagnosis: 2 a day Last Documented On 8 10:09AM By Barbara Lynch MD ; [facility] amLODIPine Besylate 10 MG OR TABS 01/19/2013 Provide r: Diagnosis: Last Documented On 3 10:02AM By JACQUELINE ARZATE ; [facility] Hair Vitamins OR TABS 01/19/2013 Provider: Diagnosis: 1 in the a.m. 1 in the p.m. Last Documented On 3 10:05AM By JACQUELINE ARZATE ; [facility] Mupirocin 2% EX OINT 07/28/2012 Provider: Diagnosis: Last Documented On 3 11:22AM By JACQUELINE ALVAREZ ; [facility] Hydrocortisone 2.5% EX CREA 07/28/2012 Provider: Diagnosis: Last Documented On 3 11:23AM By JACQUELINE ALVAREZ ; [facility] Betamethasone Dipropionate 0.05% EX OINT 07/28/2012 Provider: Diagnosis: Last Documented On 3 11:23AM By JACQUELINE ALVAREZ ; [facility] Clobetasol Propionate 0.05% EX CREA 07/28/2012 Provi jovany: Diagnosis: Last Documented On 3 11:22AM By JACQUELINE ALVAREZ ; [facility] ZyrTEC Allergy 10 MG OR CAPS 07/28/2012 Provider: Diagnosis: Last Documented On 3 11:19AM By JACQUELINE ALVAREZ ; [facility] Omeprazole 20 MG OR CPDR 07/28/2012 Provider: Diagnosis: Last Documented On 3 11:18AM By JACQUELINE ALVAREZ ; [facility] Past Medications on file Zoloft 100 MG Oral Tablet 01/15/2022 - 07/16/2022 Provider: ELOINA CASTELLANOS MD Diagnosis: Major depressive disorder, recurrent, moderate as directed -- 2 tablets at bedtime Last Documented On 3 11:54AM By Barbara Lynch MD ; [facility] Topiramate 50 MG Oral Tablet 01/15/2022 - 07/16/2022 Provider: ELOINA LYNCH MD Diagnosis: Migraine w/o aur a, not intractable, w/o status migrainosus as directed - 1 in am and 2 in evening Last Documented On 11:54AM By Barbara Lynch MD ; [facility] traZODone HCl 100 MG Oral Tablet 12/13/2021 - 05/17/2022 Provider: ELOINA LYNCH MD Diagnosis: Psychophysiologi c insomnia as directed 2 - 3 tablets at bed time Last Documented On 12:20PM By Barbara Lynch MD ; [facility] traZODone HCl 100 MG Oral Tablet 10/19/2021 - 12/13/2021 Provider: ELOINA YLNCH MD Diagnosis: Psychophysiologi c insomnia as directed 2 - 3 tablets at bed time Last Documented On 12/13/2021 6:36PM By Barbara Lynch MD ; [facility] Topiramate 50 MG Oral Tablet 07/17/2021 - 01/15/2022 Provider: ELOINA LYNCH MD Diagnosis: Migraine w/o aur a, not intractable, w/o status migrainosus as directed - 1 in am and 2 in evening Last Documented On 01/15/2022 2:36PM By Barbara Lynch MD ; [facility] clonazePAM 0.5 MG Oral Tablet 06/16/2021 - 06/14/2022 Provider: ELOINA LYNCH MD Diagnosis: Panic disorder [episodic paroxysmal anxiety] ud - as directed as directed take as needed for anxiety Last Documented On 06/14/2022 5:34PM By Barbara Lynch MD ; [facility] Zoloft 100 MG Oral Tablet 05/22/2021 - 01/15/2022 Provider: ELOINA CASTELLANOS MD Diagnosis: Major depressive disorder, recurrent, moderate as directed -- 2 tablets at bedtime Last Documented On 01/15/2022 2:36PM By Barbara Lynch MD ; [facility] QUEtiapine Fumarate 50 MG Oral Tablet 03/16/2021 - 03/19/2022 Provider: ELOINA LYNCH MD Diagnosis: Insomnia, unspec ified as directed --2 at bedtime Last Documented On 12:36PM By Barbara Lynch MD ; [facility] buPROPion HCl ER (XL) 300 MG Oral Tablet Extended Release 24 Hour 03/16/2021 - 05/23/2022 Provider: ELOINA LYNCH MD Diagnosis: Major depressive disorder, recurrent, moderate 1 tablet every morning Last Documented On 3 11:28AM By DEMETRIA ARZATE ; [facility] busPIRone HCl 15 MG Oral Tablet 01/17/2021 - 02/20/2022 Provider: ELOINA LYNCH MD Diagnosis: Generalized anxi ety disorder One tablet three times a day Last Documented On 02/20/2022 6:33PM By Barbara Lynch MD ; [facility] traZODone HCl 100 MG Oral Tablet 12/16/2020 - 10/19/2021 Provider: ELOINA LYNCH MD Diagnosis: Psychophysiologi c insomnia as directed 2 - 3 tablets at bed time Last Documented On 10/19/2021 1:49PM By Barbara Lynch MD ; [facility] Topiramate 50 MG Oral Tablet 11/22/2020 - 07/17/2021 Provider: ELOINA LYNCH MD Diagnosis: Migraine w/o aur a, not intractable, w/o status migrainosus as directed - 1 in am and 2 in evening Last Documented On 07/17/2021 2:57PM By Barbara Lynch MD ; [facility] Iron 325 (65 Fe) MG Oral Tablet 11/22/2020 - 11/23/2021 Provider: KP SHORT MD Diagnosis: 2 tabs qod Last Documented On 2 11:12AM By DEMETRIA ARZATE ; [facility] traZODone HCl 100 MG Oral Tablet 10/14/2020 - 12/16/2020 Provider: ELOINA LYNCH MD Diagnosis: Psychophysiologi c insomnia as directed 2 - 3 tablets at bed time Last Documented On 12/16/2020 4:06PM By Barbara Lynch MD ; [facility] busPIRone HCl 15 MG Oral Tablet 10/14/2020 - 01/17/2021 Provider: ELOINA LYNCH MD Diagnosis: Generalized anxi ety disorder One tablet three times a day Last Documented On 01/17/2021 9:53AM By Barbara Lynch MD ; [facility] buPROPion HCl ER (XL) 300 MG Oral Tablet Extended Release 24 Hour 06/16/2020 - 03/16/2021 Provider: ELOINA LYNCH MD Diagnosis: Major depressive disorder, recurrent, moderate 1 tablet every morning Last Documented On 03/16/2021 3:31PM By Barbara Lynch MD ; [facility] QUEtiapine Fumarate 50 MG Oral Tablet 06/16/2020 - 03/16/2021 Provider: ELOINA LYNCH MD Diagnosis: Insomnia, unspec ified as directed --2 at bedtime Last Documented On 03/16/2021 3:32PM By Barbara Lynch MD ; [facility] Topiramate 50 MG Oral Tablet 05/25/2020 - 11/22/2020 Provider: ELOINA LYNCH MD Diagnosis: Migraine w/o aur a, not intractable, w/o status migrainosus as directed - 1 in am and 2 in evening Last Documented On 11/22/2020 9:51AM By Barbara Lynch MD ; [facility] Amiodarone HCl 200 MG Oral Tablet 05/25/2020 - 021 Provider: MARTELL ROBERTS MD Diagnosis: pt states she takes 100 mg daily for Afib Last Documented On 10:10AM By DEMETRIA GARDNER Stephanie ; [facility] buPROPion HCl ER (XL) 300 MG Oral Tablet Extended Release 24 Hour 05/17/2020 - 06/16/2020 Provider: ELOINA LYNCH MD Diagnosis: Major depressive disorder, recurrent, moderate 1 tablet every morning Last Documented On 06/16/2020 2:03PM By Barbara Lynch MD ; [facility] Zoloft 100 MG Oral Tablet 05/17/2020 - 05/22/2021 Provider: ELOINA CASTELLANOS MD Diagnosis: Major depressive disorder, recurrent, moderate as directed -- 2 tablets at bedtime Last Documented On 05/22/2021 6:20PM By Barbara Lynch MD ; [facility] traZODone HCl 100 MG Oral Tablet 01/14/2020 - 10/14/2020 Provider: ELOINA LYNCH MD Diagnosis: Psychophysiologi c insomnia as directed 2 - 3 tablets at bed time Last Documented On 10/14/2020 2:22PM By Barbara Lynch MD ; [facility] Aimovig 70 MG/ML Subcutaneous Solution Auto-injector 12/03/2019 - 01/02/2020 Provider: ELOINA LYNCH MD Diagnosis: Migraine w/o aur a, not intractable, w/o status migrainosus as directed Last Documented On 0 10:16AM By Barbara Lynch MD ; [facility] Bystolic 5 MG Oral Tablet 12/03/2019 - 11/22/2020 Prov ider: Diagnosis: 1 tab daily Last Documented On 11/22/2020 9:15AM By DEMETRIA ARZATE ; [facility] Aimovig 70 MG/ML Subcutaneous Solution Auto-injector 12/03/2019 - 11/22/2020 Provider: ELOINA LYNCH MD Diagnosis: Migraine w/o aur a, not intractable, w/o status migrainosus 1 Capsule every morning Last Documented On 11/22/2020 9:15AM By DEMETRIA ARZATE ; [facility] Amiodarone HCl 200 MG Oral Tablet 11/16/2019 - 021 Provider: MARTELL ROBERTS MD Diagnosis: pt states she takes 75 mg daily for Afib Last Documented On 1 10:10AM By DEMETRIA ARZATE ; [facility] busPIRone HCl 15 MG Oral Tablet 10/13/2019 - 10/14/2020 Provider: ELOINA LYNCH MD Diagnosis: Generalized anxi ety disorder One tablet three times a day Last Documented On 10/14/2020 2:22PM By Barbara Lynch MD ; [facility] Clopidogrel Bisulfate 75 MG Oral Tablet 10/12/2019 - 05/25/2020 Provider: KP SHORT MD Diagnosis: 1 tab daily Last Documented On 1 10:12AM By DEMETRIA ARZATE ; [facility] QUEtiapine Fumarate 50 MG Oral Tablet 06/16/2019 - 06/16/2020 Provider: ELOINA LYNCH MD Diagnosis: Insomnia, unspec ified as directed --2 at bedtime Last Documented On 06/16/2020 2:03PM By Barbara Lynch MD ; [facility] Zoloft 100 MG Oral Tablet 05/18/2019 - 05/17/2020 Provider: ELOINA CASTELLANOS MD Diagnosis: Major depressive disorder, recurrent, moderate as directed -- 2 tablets at bedtime Last Documented On 05/17/2020 2:58PM By Barbara Lynch MD ; [facility] buPROPion HCl ER (XL) 300 MG Oral Tablet Extended Release 24 Hour 05/18/2019 - 05/17/2020 Provider: ELOINA LYNCH MD Diagnosis: Major depressive disorder, recurrent, moderate 1 tablet every morning Last Documented On 05/17/2020 3:00PM By Barbara Lynch MD ; [facility] traZODone HCl 100 MG Oral Tablet 05/18/2019 - 01/14/2020 Provider: ELOINA LYNCH MD Diagnosis: Psychophysiologi c insomnia as directed 2 - 3 tablets at bed time Last Documented On 01/14/2020 6:05PM By Barbara Lynch MD ; [facility] Vitamin D3 25 MCG (1000 UT) Oral Tablet Chewable 02/25/2019 - 05/25/2020 Provider: KP BALL MD Diagnosis: 1 tab daily otc Last Documented On 10:13AM By DEMETRIA ARZATE ; [facility] Leflunomide 10 MG Oral Tablet 02/25/2019 - 07/24/2019 Provider: Diagnosis: [address] Grajeda ([place]) Last Documented On 07/24/2019 9:21AM By DEMETRIA ARZATE ; [facility] Emgality 120 MG/ML Subcutaneous Solution Prefilled Syringe 02/25/2019 - 12/03/2019 Provider: KP SHORT MD Diagnosis: 1 injection once a month Last Documented On 12/03/2019 9:13AM By DEMETRIA ARZATE ; [facility] busPIRone HCl 15MG Oral Tablet 09/22/2018 - 10/13/2019 Provider: ELOINA LYNCH MD Diagnosis: Generalized anxi ety disorder One tablet three times a day Last Documented On 10/13/2019 9:39AM By Barbara Lynch MD ; [facility] traZODone HCl 100MG Oral Tablet 09/22/2018 - 05/18/2019 Provider: ELOINA LYNCH MD Diagnosis: Psychophysiologi c insomnia as directed 2 - 3 tablets at bed time Last Documented On 05/18/2019 3:42PM By Barbara Lynch MD ; [facility] clonazePAM 0.5MG Oral Tablet 09/22/2018 - 06/16/2021 Provider: ELOINA LYNCH MD Diagnosis: Panic disorder [episodic paroxysmal anxiety] ud - as directed as directed take as needed for anxiety Last Documented On 06/16/2021 4:42PM By Barbara Lynch MD ; [facility] QUEtiapine Fumarate 50MG Oral Tablet 09/22/2018 - 06/16/2019 Provider: ELOINA LYNCH MD Diagnosis: Insomnia, unspec ified as directed --2 at bedtime Last Documented On 06/16/2019 1:19PM By Barbara Lynch MD ; [facility] buPROPion HCl ER (XL) 300MG Oral Tablet Extended Release 24 Hour 09/22/2018 - 05/18/2019 Provider: ELOINA LYNCH MD Diagnosis: Major depressive disorder, recurrent, moderate 1 tablet every morning Last Documented On 0 11:29AM By Barbara Lynch MD ; [facility] Zoloft 100MG Oral Tablet 09/22/2018 - 05/18/2019 Provider: ELOINA CASTELLANOS MD Diagnosis: Major depressive disorder, recurrent, moderate as directed -- 2 tablets at bedtime Last Documented On 05/18/2019 1:45PM By Barbara Lynch MD ; [facility] traZODone HCl 100MG Oral Tablet 09/15/2018 - 09/19/2018 Provider: ELOINA LYNCH MD Diagnosis: Psychophysiologi c insomnia as directed 2 - 3 tablets at bed time Last Documented On 09/22/2018 6:38AM By Barbara Lynch MD ; [facility] Mupirocin Calcium 2% External Cream 07/02/2018 - 09/19/2018 Provider: KP SHORT MD Diagnosis: apply once a day prn to affected areas Last Documented On 9 10:10AM By DEMETRIA ARZATE ; [facility] Zoloft 100MG Oral Tablet 06/14/2018 - 09/19/2018 Provider: ELOINA CASTELLANOS MD Diagnosis: Major depressive disorder, recurrent, moderate as directed -- 2 tablets at bedtime Last Documented On 09/22/2018 6:38AM By Barbara Lynch MD ; [facility] Rexulti 0.5MG Oral Tablet 06/14/2018 - 06/14/2018 Provider: ELOINA CASTELLANOS MD Diagnosis: Major depressive disorder, recurrent, moderate as directed -- taper down to 0.5 mg a day for 1 week then stop Last Documented On 06/14/2018 8:02PM By Barbara Lynch MD ; [facility] busPIRone HCl 15MG Oral Tablet 06/14/2018 - 09/19/2018 Provider: ELOINA LYNCH MD Diagnosis: Generalized anxi ety disorder One tablet three times a day Last Documented On 09/22/2018 6:38AM By Barbara Lynch MD ; [facility] traZODone HCl 100MG Oral Tablet 06/14/2018 - 09/15/2018 Provider: ELOINA LYNCH MD Diagnosis: Psychophysiologi c insomnia as directed 2 - 3 tablets at bed time Last Documented On 09/15/2018 1:53PM By Barbara Lynch MD ; [facility] clonazePAM 0.5MG Oral Tablet 06/14/2018 - 09/19/2018 Provider: ELOINA LYNCH MD Diagnosis: Panic disorder [episodic paroxysmal anxiety] ud - as directed as directed take as needed for anxiety Last Documented On 09/22/2018 6:38AM By Barbara Lynch MD ; [facility] buPROPion HCl ER (XL) 300MG Oral Tablet Extended Release 24 Hour 06/14/2018 - 09/19/2018 Provider: ELOINA LYNCH MD Diagnosis: Major depressive disorder, recurrent, moderate 1 tablet every morning Last Documented On 09/22/2018 6:38AM By Barbara Lynch MD ; [facility] QUEtiapine Fumarate 50MG Oral Tablet 06/12/2018 - 09/19/2018 Provider: ELOINA LYNCH MD Diagnosis: Insomnia, unspec ified as directed --2 at bedtime Last Documented On 09/22/2018 6:38AM By Barbara Lynch MD ; [facility] QUEtiapine Fumarate 50MG Oral Tablet 06/12/2018 - 06/12/2018 Provider: ELOINA LYNCH MD Diagnosis: Insomnia, unspec ified as directed Last Documented On 06/12/2018 1:50PM By Barbara Lynch MD ; [facility] BuPROPion HCl ER (XL) 300MG Oral Tablet Extended Release 24 Hour 05/19/2018 - 06/12/2018 Provider: ELOINA LYNCH MD Diagnosis: Major depressive disorder, recurrent, moderate 1 tablet every morning Last Documented On 06/14/2018 5:52PM By Barbara Lynch MD ; [facility] Zoloft 100MG Oral Tablet 05/19/2018 - 06/12/2018 Provider: ELOINA CASTELLANOS MD Diagnosis: Major depressive disorder, recurrent, moderate as directed -- 2 tablets at bedtime Last Documented On 06/14/2018 5:52PM By Barbara Lynch MD ; [facility] QUEtiapine Fumarate 50MG Oral Tablet 05/19/2018 - 06/12/2018 Provider: ELOINA LYNCH MD Diagnosis: Insomnia, unspec ified One tablet at bed time Last Documented On 9 11:14AM By Barbara Lynch MD ; [facility] Rexulti 1MG Oral Tablet 04/24/2018 - 09/19/2018 Provider: ELOINA CASTELLANOS MD Diagnosis: Major depressive disorder, recurrent, moderate as directed -- 1 tab a day Last Documented On 9 10:33AM By Barbara Lynch MD ; [facility] ClonazePAM 0.5MG Oral Tablet 03/05/2018 - 06/12/2018 Provider: ELOINA LYNCH MD Diagnosis: Panic disorder [episodic paroxysmal anxiety] ud - as directed as directed take as needed for anxiety Last Documented On 06/14/2018 5:52PM By Barbara Lnych MD ; [facility] QUEtiapine Fumarate 50MG Oral Tablet 03/05/2018 - 05/19/2018 Provider: ELOINA LYNCH MD Diagnosis: Insomnia, unspec ified One tablet at bed time Last Documented On 9 10:42PM By Barbara Lynch MD ; [facility] TraZODone HCl 100MG Oral Tablet 03/05/2018 - 06/12/2018 Provider: ELOINA LYNCH MD Diagnosis: Psychophysiologi c insomnia as directed 2 - 3 tablets at bed time Last Documented On 06/14/2018 5:52PM By Barbara Lynch MD ; [facility] BuPROPion HCl ER (XL) 300MG Oral Tablet Extended Release 24 Hour 03/05/2018 - 05/19/2018 Provider: ELOINA LYNCH MD Diagnosis: Major depressive disorder, recurrent, moderate 1 tablet every morning Last Documented On 9 10:41PM By Barbara Lynch MD ; [facility] Zoloft 100MG Oral Tablet 03/05/2018 - 05/19/2018 Provider: ELOINA CASTELLANOS MD Diagnosis: Major depressive disorder, recurrent, moderate as directed -- 2 tablets at bedtime Last Documented On 9 10:41PM By Barbara Lynch MD ; [facility] BusPIRone HCl 15MG Oral Tablet 03/05/2018 - 06/12/2018 Provider: ELOINA LYNCH MD Diagnosis: Generalized anxi ety disorder One tablet three times a day Last Documented On 06/14/2018 5:52PM By Barbara Lynch MD ; [facility] Rexulti 1MG Oral Tablet 02/20/2018 - 04/24/2018 Provider: ELOINA CASTELLANOS MD Diagnosis: Major depressive disorder, recurrent, moderate as directed -- 1 tab a day Last Documented On 04/24/2018 3:40PM By Barbara Lynch MD ; [facility] TraZODone HCl 100MG Oral Tablet 11/11/2017 - 02/20/2018 Provider: ELOINA LYNCH MD Diagnosis: Psychophysiologi c insomnia as directed 3 tablets at bed time Last Documented On 03/05/2018 7:54AM By Barbara Lynch MD ; [facility] QUEtiapine Fumarate 50MG Oral Tablet 11/11/2017 - 02/20/2018 Provider: ELOINA LYNCH MD Diagnosis: Insomnia, unspec ified One tablet at bed time Last Documented On 03/05/2018 7:55AM By Barbara Lynch MD ; [facility] BusPIRone HCl 15MG Oral Tablet 11/11/2017 - 02/20/2018 Provider: ELOINA LYNCH MD Diagnosis: Generalized anxi ety disorder One tablet three times a day Last Documented On 03/05/2018 7:54AM By Barbara Lynch MD ; [facility] Zoloft 100MG Oral Tablet 11/11/2017 - 02/20/2018 Provider: ELOINA CASTELLANOS MD Diagnosis: Major depressive disorder, recurrent, moderate as directed -- 2 tablets at bedtime Last Documented On 03/05/2018 7:54AM By [facility]bara Lynch MD ; [facility] Rexulti 0.5MG Oral Tablet 10/23/2017 - 06/12/2018 Provider: ELOINA LYNCH MD Diagnosis: Major depressive disorder, recurrent, moderate as directed -- 0.5 mg a day for 1 week then 1 mg a day thereafter Last Documented On 06/14/2018 5:52PM By Barbara Lynch MD ; [facility] Acidophilus Oral Tablet 10/23/2017 - 11/22/2020 Provid er: Diagnosis: Last Documented On 11/22/2020 9:16AM By DEMETRIA ARZATE ; [facility] ClonazePAM 0.5MG Oral Tablet 10/23/2017 - 02/20/2018 Provider: ELOINA LYNCH MD Diagnosis: Generalized anxi ety disorder ud - as directed as directed take as needed for anxiety Last Documented On 03/05/2018 7:54AM By Barbara Lynch MD ; [facility] Hydroxychloroquine Sulfate 200MG Oral Tablet 8 - 06/12/2018 Provider: Diagnosis: Last Documented On 9 10:37AM By DEMETRIA ARZATE ; [facility] MethylPREDNISolone 4MG Oral Tablet Therapy Pack 10/08/2017 - 02/20/2018 Provider: Diagnosis: Last Documented On 02/20/2018 9:50AM By DEMETRIA ARZATE ; [facility] ClonazePAM 0.5MG Oral Tablet 08/05/2017 - 10/23/2017 Provider: ELOINA LYNCH MD Diagnosis: Generalized anxi ety disorder ud - as directed as directed take as needed for anxiety Last Documented On 8 10:33AM By Barbara Lynch MD ; [facility] BusPIRone HCl 15MG Oral Tablet 04/29/2017 - 10/23/2017 Provider: ELOINA LYNCH MD Diagnosis: Generalized anxi ety disorder One tablet three times a day Last Documented On 11/11/2017 3:51AM By Barbara Lynch MD ; [facility] TraZODone HCl 100MG Oral Tablet 04/29/2017 - 10/23/2017 Provider: ELOINA LYNCH MD Diagnosis: Psychophysiologi c insomnia as directed 3 tablets at bed time Last Documented On 11/11/2017 3:51AM By Barbara Lynch MD ; [facility] BuPROPion HCl ER (XL) 300MG Oral Tablet, extended-release 24 hour 04/29/2017 - 02/20/2018 Provider: ELOINA LYNCH MD Diagnosis: Major depressive disorder, recurrent, moderate 1 tablet every morning Last Documented On 03/05/2018 7:54AM By Barbara Lynch MD ; [facility] Zoloft 100MG Oral Tablet 04/29/2017 - 10/23/2017 Provider: ELOINA CASTELLANOS MD Diagnosis: Major depressive disorder, recurrent, moderate as directed -- 2 tablets at bedtime Last Documented On 11/11/2017 3:51AM By Barbara Lynch MD ; [facility] QUEtiapine Fumarate 50MG Oral Tablet 04/29/2017 - 10/23/2017 Provider: ELOINA LYNCH MD Diagnosis: Insomnia, unspec ified One tablet at bed time Last Documented On 11/11/2017 3:51AM By Barbara Lynch MD ; [facility] TraZODone HCl 100MG Oral Tablet 04/22/2017 - 04/24/2017 Provider: ELOINA LYNCH MD Diagnosis: Insomnia, unspec ified as directed 3 tablets at bed time Last Documented On 04/29/2017 1:10AM By Barbara Lynch MD ; [facility] BusPIRone HCl 15MG Oral Tablet 12/18/2016 - 04/24/2017 Provider: ELOINA LYNCH MD Diagnosis: Generalized anxi ety disorder One tablet three times a day Last Documented On 04/29/2017 1:10AM By Barbara Lynch MD ; [facility] TraZODone HCl 100MG Oral Tablet 10/16/2016 - 04/22/2017 Provider: ELOINA LYNCH MD Diagnosis: Insomnia, unspec ified as directed 3 tablets at bed time Last Documented On 04/22/2017 1:46PM By Barbara Lynch MD ; [facility] BuPROPion HCl ER (XL) 300MG Oral Tablet, extended-release 24 hour 10/16/2016 - 04/24/2017 Provider: ELOINA LYNCH MD Diagnosis: Major depressive disorder, recurrent, moderate 1 tablet every morning Last Documented On 04/29/2017 1:10AM By Barbara Lynch MD ; [facility] Zoloft 100MG Oral Tablet 10/16/2016 - 04/24/2017 Provider: ELOINA CASTELLANOS MD Diagnosis: Major depressive disorder, recurrent, moderate as directed -- 2 tablets at bedtime Last Documented On 04/29/2017 1:10AM By Barbara Lynch MD ; [facility] Rozerem 8MG Oral Tablet 10/16/2016 - 04/24/2017 Provider: ELOINA LYNCH MD Diagnosis: Psychophysiologi c insomnia One tablet at bed time -- 24 tabs samples given on 08/17/16 --she uses it 1 x a week only Last Documented On 8 9:38AM By YOUNG ARZATE ; [facility] BusPIRone HCl 15MG Oral Tablet 10/16/2016 - 12/18/2016 Provider: ELOINA LYNCH MD Diagnosis: Generalized anxi ety disorder One tablet three times a day Last Documented On 7 11:18AM By Barbara Lynch MD ; [facility] Zoloft 100MG Oral Tablet 10/15/2016 - 08/17/2016 Provider: ELOINA CASTELLANOS MD Diagnosis: Major depressive disorder, recurrent, moderate as directed -- 2 tablets at bedtime Last Documented On 10/16/2016 7:08PM By Barbara Lynch MD ; [facility] QUEtiapine Fumarate 50MG Oral Tablet 10/15/2016 - 04/24/2017 Provider: ELOINA LYNCH MD Diagnosis: Insomnia, unspec ified One tablet at bed time Last Documented On 04/29/2017 1:10AM By Barbara Lynch MD ; [facility] BuPROPion HCl ER (XL) 300MG Oral Tablet, extended-release 24 hour 10/15/2016 - 08/17/2016 Provider: ELOINA LYNCH MD Diagnosis: Major depressive disorder, recurrent, moderate 1 tablet every morning Last Documented On 10/16/2016 7:08PM By Barbara Lynch MD ; [facility] Etodolac 200MG Oral Capsule 08/17/2016 - 02/20/2018 Pr ovider: DMITRY TRUJILLO MD Diagnosis: 1 twice a day Last Documented On 02/20/2018 9:50AM By DEMETRIA ARZATE ; [facility] ClonazePAM 0.5MG Oral Tablet 08/17/2016 - 08/05/2017 Provider: ELOINA LYNCH MD Diagnosis: Generalized anxi ety disorder ud - as directed as directed take as needed for anxiety Last Documented On 08/05/2017 4:57PM By Barbara Lynch MD ; [facility] QUEtiapine Fumarate 50MG Oral Tablet 08/15/2016 - 07/24/2019 Provider: ELOINA LYNCH MD Diagnosis: Insomnia, unspec ified One tablet at bed time Last Documented On 0 10:16AM By Barbara Lynch MD ; [facility] TraZODone HCl 100MG Oral Tablet 08/15/2016 - 08/17/2016 Provider: ELOINA YLNCH MD Diagnosis: Insomnia, unspec ified as directed 3 tablets at bed time Last Documented On 10/16/2016 7:08PM By Barbara Lynch MD ; [facility] BuPROPion HCl ER (XL) 300 MG Tablet, extended-release 24 hour 04/12/2016 - 10/15/2016 Provider: ELOINA LYNCH MD Diagnosis: Major depressive disorder, recurrent, moderate 1 tablet every morning Last Documented On 10/15/2016 1:41PM By Barbara Lynch MD ; [facility] BuPROPion HCl ER (XL) 300 MG Tablet Extended Release 24 Hour 04/02/2016 - 04/12/2016 Provider: ELOINA LYNCH MD Diagnosis: Major depressive disorder, recurrent, moderate 1 tablet every morning Last Documented On 04/12/2016 4:05PM By Barabra Lynch MD ; [facility] BusPIRone HCl 15 MG Tablet 04/02/2016 - 08/17/2016 Provider: ELOINA LYNCH MD Diagnosis: Generalized anxi ety disorder One tablet three times a day Last Documented On 10/16/2016 7:08PM By Barbara Lynch MD ; [facility] BusPIRone HCl 15 MG Tablet 03/16/2016 - 02/16/2016 Provider: ELOINA LYNCH MD Diagnosis: Generalized anxi ety disorder One tablet three times a day Last Documented On 04/02/2016 7:54AM By Barbara Lynch MD ; [facility] Rozerem 8 MG Tablet 02/16/2016 - 08/17/2016 Provider: ELOINA LYNCH MD Diagnosis: Oth insomnia not due to a substance or known physiol cond One tablet at bed time -- 24 tabs samples given on 02/16/16 --she uses it 1 x a week only Last Documented On 10/16/2016 7:08PM By Barbara Lynch MD ; [facility] TraZODone HCl 100 MG Tablet 01/16/2016 - 08/15/2016 Provider: ELOINA LYNCH MD Diagnosis: Insomnia, unspec ified as directed 3 tablets at bed time Last Documented On 08/15/2016 3:58PM By Barbara Lynch MD ; [facility] QUEtiapine Fumarate 50 MG Tablet 01/16/2016 - 08/15/2016 Provider: ELOINA LYNCH MD Diagnosis: Insomnia, unspec ified One tablet at bed time Last Documented On 08/15/2016 4:04PM By Barbara Lynch MD ; [facility] Zoloft 100 MG Tablet 01/16/2016 - 08/15/2016 Provider: ELOINA LYNCH MD Diagnosis: Major depressive disorder, recurrent, moderate as directed 2 tablets at bedtime Last Documented On 08/15/2016 4:00PM By Barbara Lynch MD ; [facility] Levothyroxine Sodium 50 MCG Tablet 12/15/2015 - 11/22/2020 Provider: DMITRY Lew Diagnosis: 1 daily Last Documented On 11/22/2020 9:31AM By DEMETRIA ARZATE ; [facility] BuPROPion HCl ER (XL) 300 MG Tablet, extended-release 24 hour 10/13/2015 - 02/16/2016 Provider: ELOINA LYNCH MD Diagnosis: Major depressive disorder, recurrent, moderate 1 tablet every morning Last Documented On 04/02/2016 7:54AM By Barbara Lynch MD ; [facility] ClonazePAM 0.5 MG Tablet 08/15/2015 - 08/17/2016 Provider: ELOINA LYNCH MD Diagnosis: Generalized anxi ety disorder ud - as directed as directed take as needed for anxiety --- has meds -- about 6 left Last Documented On 08/17/2016 9:48AM By Barbara Lynch MD ; [facility] Rozerem 8 MG Tablet 08/15/2015 - 02/16/2016 Provider: ELOINA LYNCH MD Diagnosis: Oth insomnia not due to a substance or known physiol cond One tablet at bed time --36 samples given + silenor 3 mg 1 tab at sa --24 tablets samples to alternate with rozerem Last Documented On 02/16/2016 9:44AM By Barbara Lynch MD ; [facility] QUEtiapine Fumarate 50 MG Tablet 06/17/2015 - 01/16/2016 Provider: ELOINA LYNCH MD Diagnosis: Insomnia, unspec ified One tablet at bed time Last Documented On 6 11:00AM By Barbara Lynch MD ; [facility] Zoloft 100 MG Tablet 06/17/2015 - 01/16/2016 Provider: ELOINA LYNCH MD Diagnosis: Major depressive disorder, recurrent, moderate as directed 2 tablets at bedtime Last Documented On 6 10:59AM By Barbara Lynch MD ; [facility] TraZODone HCl 100 MG Tablet 06/17/2015 - 01/16/2016 Provider: ELOINA LYNCH MD Diagnosis: Insomnia, unspec ified as directed 3 tablets at bed time Last Documented On 6 11:00AM By Barbara Lynch MD ; [facility] traZODone HCl 100 MG OR TABS 06/16/2015 - 07/16/2015 Oumar brooks: Diagnosis: Insomnia, unspec ified 3 tablets at bed time Last Documented On 06/16/2015 5:12PM By GEO FLOR ; [facility] Zoloft 100 MG OR TABS 06/16/2015 - 07/16/2015 Provider : Diagnosis: Major depressive disorder, recurrent, moderate 2 tablets at bedtime Last Documented On 06/16/2015 5:20PM By GEO FLOR ; [facility] QUEtiapine Fumarate 50 MG OR TABS 06/16/2015 - 016 Provider: Diagnosis: Insomnia, unspec ified One tablet at bed time Last Documented On 06/16/2015 5:09PM By GEO FLOR ; [facility] BusPIRone HCl 15 MG Tablet 05/17/2015 - 03/16/2016 Provider: ELOINA LYNCH MD Diagnosis: Generalized anxi ety disorder One tablet three times a day Last Documented On 03/16/2016 4:01PM By Barbara Lynch MD ; [facility] busPIRone HCl 15 MG OR TABS 05/16/2015 - 06/15/2015 Pr ovider: Diagnosis: Generalized anxi ety disorder One tablet three times a day Last Documented On 05/16/2015 5:19PM By GEO FLOR ; [facility] BuPROPion HCl ER (XL) 300 MG Tablet, extended-release 24 hour 03/15/2015 - 10/13/2015 Provider: ELOINA LYNCH MD Diagnosis: Major depressive disorder, recurrent, moderate 1 tablet every morning Last Documented On 10/13/2015 3:54PM By Barbara Lynch MD ; [facility] Rozerem 8 MG Tablet 03/15/2015 - 08/15/2015 Provider: ELOINA LYNCH MD Diagnosis: Oth insomnia not due to a substance or known physiol cond One tablet at bed time --60 samples given + silenor 3 mg 1 tab at sa -- 8 tablet samples to try Last Documented On 08/15/2015 9:42AM By Barbara Lynch MD ; [facility] Rozerem 8 MG Tablet 10/31/2014 - 03/15/2015 Provider: ELOINA LYNCH MD Diagnosis: PERSISTENT INSOM DWIGHT One tablet at bed time -- 24 samples given Last Documented On 5 10:04AM By Barbara Lynch MD ; [facility] QUEtiapine Fumarate 50 MG Tablet 10/26/2014 - 08/15/2015 Provider: ELOINA CASTELLANOS MD Diagnosis: PERSISTENT INSOM DWIGHT One tablet at bed time Last Documented On 6 9:05AM By SETRADA OROZCO LPN ; [facility] Rozerem 8 MG Tablet 10/26/2014 - 02/16/2016 Provider: ELOINA LYNCH MD Diagnosis: PERSISTENT INSOM DWIGHT One tablet at bed time Last Documented On 6 9:06AM By ESTRADA OROZCO LPN ; [facility] TraZODone HCl 100 MG Tablet 10/26/2014 - 02/16/2016 Provider: ELOINA CASTELLANOS MD Diagnosis: PERSISTENT INSOM DWIGHT as directed 3 at bedtime Last Documented On 6 9:10AM By ESTRADA OROZCO LPN ; [facility] Wellbutrin SR 150 MG Tablet, extended-release 12 hour 10/26/2014 - 08/17/2016 Provider: ELOINA LYNCH MD Diagnosis: MAJOR DEPRESSION DISORDER/RECURRENT as directed 1 in the morning, 1 in the PM Last Documented On 7 9:11AM By ESTRADA OROZCO LPN ; [facility] Zoloft 100 MG Tablet 10/26/2014 - 02/16/2016 Provider: ELOINA LYNCH MD Diagnosis: MAJOR DEPRESSION DISORDER/RECURRENT as directed 2 tabs at bedtime Last Documented On 6 9:07AM By ESTRADA OROZCO LPN ; [facility] BusPIRone HCl 15 MG Tablet 10/26/2014 - 05/16/2015 Provider: ELOINA LYNCH MD Diagnosis: GENERALIZED ANXI ETY DIS One tablet three times a day Last Documented On 05/16/2015 5:19PM By GEO FLOR ; [facility] Meloxicam 7.5 MG Tablet 10/26/2014 - 08/17/2016 Provid er: DMITRY TRUJILLO MD Diagnosis: Take 1 tablet by mouth daily Last Documented On 08/17/2016 9:38AM By Barbara Lynch MD ; [facility] Estradiol 1 MG Tablet 10/26/2014 - 08/15/2015 Provider : Diagnosis: Take 1 tablet by mouth every morning Last Documented On 6 9:05AM By ESTRADA OROZCO LPN ; [facility] BusPIRone HCl 15 MG Tablet 10/14/2014 - 10/26/2014 Provider: ELOINA LYNCH MD Diagnosis: GENERALIZED ANXI ETY DIS One tablet three times a day Last Documented On 5 10:53AM By Barbara Lynch MD ; [facility] Levothyroxine Sodium 25 MCG Tablet 10/13/2014 - 10/31/2014 Provider: DMITRY Lew Diagnosis: Take 1/2 tab at bedtime Last Documented On 10/31/2014 3:33PM By Barbara Lynch MD ; [facility] Levothyroxine Sodium 175 MCG Tablet 08/13/2014 - 11/22/2020 Provider: DMITRY TRUJILLO MD Diagnosis: HYPOTHYROIDISM N OS Take 1 tablet daily at bedtime Last Documented On 11/22/2020 9:31AM By DEMETRIA ARZATE ; [facility] clonazePAM 0.5 MG OR TABS 06/16/2014 - 08/15/2015 Provider: ELOINA LYNCH MD Diagnosis: GENERALIZED ANXI ETY DIS take as needed for anxiety Last Documented On 08/15/2015 9:43AM By Barbara Lynch MD ; [facility] Rozerem 8 MG OR TABS 05/14/2014 - 10/26/2014 Provider: ELOINA LYNCH MD Diagnosis: PERSISTENT INSOM DWIGHT Last Documented On 5 10:54AM By Barbara Lynch MD ; [facility] Wellbutrin SR 150 MG OR TB12 05/14/2014 - 10/26/2014 Provider: ELOINA LYNCH MD Diagnosis: MAJOR DEPRESSION DISORDER/RECURRENT 1 in the morning, 1 in the PM Last Documented On 5 10:54AM By Barbara Lynch MD ; [facility] QUEtiapine Fumarate 50 MG OR TABS 05/14/2014 - 10/26/2014 Provider: ELOINA CASTELLANOS MD Diagnosis: PERSISTENT INSOM DWIGHT Last Documented On 5 10:55AM By Barbara Lynch MD ; [facility] Sertraline HCl 100 MG OR TABS 05/14/2014 - 02/25/2019 Provider: ELOINA LYNCH MD Diagnosis: MAJOR DEPRESSION DISORDER/RECURRENT 2 tablets a day Last Documented On 02/25/2019 9:22AM By DEMETRIA ARZATE ; [facility] traZODone HCl 100 MG OR TABS 05/14/2014 - 10/26/2014 Provider: ELOINA CASTELLANOS MD Diagnosis: PERSISTENT INSOM DWIGHT 3 at bedtime Last Documented On 5 10:54AM By Barbara Lynch MD ; [facility] busPIRone HCl 15 MG OR TABS 05/14/2014 - 10/14/2014 Provider: ELOINA LYNCH MD Diagnosis: GENERALIZED ANXI ETY DIS Last Documented On 10/14/2014 9:11AM By Barbara Lynch MD ; [facility] QUEtiapine Fumarate 25 MG OR TABS 05/14/2014 - 015 Provider: Diagnosis: Last Documented On 5 10:34AM By ESTRADA OROZCO LPN ; [facility] Valsartan 320 MG OR TABS 05/14/2014 - 02/20/2018 Provi jovany: Diagnosis: Last Documented On 02/20/2018 9:45AM By DEMETRIA ARZATE ; [facility] Potassium Chloride 10 MEQ/50ML IV SOLN 05/14/2014 - Provider: Diagnosis: Last Documented On 02/20/2018 9:46AM By DEMETRIA ARZATE ; [facility] Levothyroxine Sodium 25 MCG OR TABS 05/14/2014 - 10/26 Provider: Diagnosis: take 1/2 at bedtime Last Documented On 5 10:26AM By ESTRADA OROZCO LPN ; [facility] Levothyroxine Sodium 175 MCG OR TABS 05/14/2014 - 10/13 Provider: Diagnosis: Last Documented On 5 10:25AM By ESTRADA OROZCO LPN ; [facility] clonazePAM 0.5 MG OR TABS 05/14/2014 - 10/26/2014 Prov ider: Diagnosis: take as needed for anxiety Last Documented On 5 10:28AM By ESTRADA OROZCO LPN ; [facility] valACYclovir HCl 1 GM OR TABS 05/14/2014 - 02/16/2016 Provider: Diagnosis: prn Last Documented On 6 9:10AM By ESTRADA OROZCO LPN ; [facility] Meloxicam 15 MG OR TABS 05/14/2014 - 10/26/2014 Provid er: Diagnosis: prn Last Documented On 5 10:33AM By ESTRADA OROZCO LPN ; [facility] busPIRone HCl 15 MG OR TABS 04/16/2014 - 05/14/2014 Provider: ELOINA LYNCH MD Diagnosis: GENERALIZED ANXI ETY DIS Last Documented On 5 11:02AM By Barbara Lynch MD ; [facility] traZODone HCl 100 MG OR TABS 03/16/2014 - 05/14/2014 Provider: ELOINA CASTELLANOS MD Diagnosis: PERSISTENT INSOM DWIGHT 2 at bedtime Last Documented On 5 11:02AM By Barbara Lynch MD ; [facility] traZODone HCl 100 MG OR TABS 12/17/2013 - 03/16/2014 Provider: ELOINA CASTELLANOS MD Diagnosis: PERSISTENT INSOM DWIGHT --may try 1 and 1/2 to 2 at bedtime w/o Rozerem if this will work for her Last Documented On 03/16/2014 5:04PM By Barbara Lynch MD ; [facility] Rozerem 8 MG OR TABS 12/17/2013 - 05/14/2014 Provider: ELOINA LYNCH MD Diagnosis: PERSISTENT INSOM DWIGHT will try Silenor in place si nce she is on a medicare gap--given 6 samples Last Documented On 5 11:08AM By Barbara Lynch MD ; [facility] Sertraline HCl 100 MG OR TABS 12/17/2013 - 05/14/2014 Provider: ELOINA LYNCH MD Diagnosis: MAJOR DEPRESSION DISORDER/RECURRENT 2 tablets a day Last Documented On 5 11:06AM By Barbara Lynch MD ; [facility] busPIRone HCl 15 MG OR TABS 12/17/2013 - 04/16/2014 Provider: ELOINA LYNCH MD Diagnosis: GENERALIZED ANXI ETY DIS Last Documented On 5 10:30AM By Barbara Lynch MD ; [facility] QUEtiapine Fumarate 25 MG OR TABS 12/17/2013 - 10/26/2014 Provider: ELOINA CASTELLANOS MD Diagnosis: PERSISTENT INSOM DWIGHT Last Documented On 5 10:35AM By ESTRADA OROZCO LPN ; [facility] Wellbutrin SR 150 MG OR TB12 12/17/2013 - 05/14/2014 Provider: ELOINA LYNCH MD Diagnosis: MAJOR DEPRESSION DISORDER/RECURRENT 1 in the morning, 1 in the PM Last Documented On 5 11:08AM By Barbraa Lynch MD ; [facility] Hydroxychloroquine Sulfate 200 MG OR TABS 12/17/2013 - 06/12/2018 Provider: Diagnosis: one tablet daily Last Documented On 9 10:38AM By DEMETRIA ARZATE ; [facility] Rozerem 8 MG OR TABS 07/20/2013 - 12/17/2013 Provider: ELOINA LYNCH MD Diagnosis: PERSISTENT INSOM DWIGHT Last Documented On 12/17/2013 6:37PM By Barbara Lynch MD ; [facility] traZODone HCl 100 MG OR TABS 07/20/2013 - 12/17/2013 Provider: ELOINA CASTELLANOS MD Diagnosis: PERSISTENT INSOM DWIGHT Last Documented On 12/17/2013 6:37PM By Barbara Lynch MD ; [facility] QUEtiapine Fumarate 25 MG OR TABS 07/20/2013 - 12/17/2013 Provider: ELOINA CASTELLANOS MD Diagnosis: PERSISTENT INSOM DWIGHT Last Documented On 12/17/2013 9:41AM By Barbara Lynch MD ; [facility] Wellbutrin SR 150 MG OR TB12 07/20/2013 - 12/17/2013 Provider: ELOINA LYNCH MD Diagnosis: MAJOR DEPRESSION DISORDER/RECURRENT 1 in the morning, 1 in the PM Last Documented On 12/17/2013 9:41AM By Barbara Lynch MD ; [facility] Sertraline HCl 100 MG OR TABS 07/20/2013 - 12/17/2013 Provider: ELOINA LYNCH MD Diagnosis: MAJOR DEPRESSION DISORDER/RECURRENT 2 tablets a day Last Documented On 12/17/2013 6:37PM By Barbara Lynch MD ; [facility] clonazePAM 0.5 MG OR TABS 07/20/2013 - 05/14/2014 Provider: ELOINA LYNCH MD Diagnosis: GENERALIZED ANXI ETY DIS Last Documented On 5 10:44AM By ESTRADA OROZCO LPN ; [facility] busPIRone HCl 15 MG OR TABS 07/20/2013 - 12/17/2013 Provider: ELOINA LYNCH MD Diagnosis: GENERALIZED ANXI ETY DIS Last Documented On 12/17/2013 6:37PM By Barbara Lynch MD ; [facility] Torsemide 20 MG OR TABS 07/20/2013 - 11/23/2021 Provid er: Diagnosis: Last Documented On 2 11:22AM By DEMETRIA ARZATE ; [facility] traZODone HCl 100 MG OR TABS 01/19/2013 - 07/20/2013 Provider: ELOINA CASTELLANOS MD Diagnosis: PERSISTENT INSOM DWIGHT Last Documented On 4 10:15AM By Barbara Lynch MD ; [facility] Rozerem 8 MG OR TABS 01/19/2013 - 07/20/2013 Provider: ELOINA LYNCH MD Diagnosis: PERSISTENT INSOM DWIGHT given samples of Rozerem - 4 8 tablets--she said it is costing her $98 per month --so samples given to help her out Last Documented On 4 10:15AM By Barbara Lynch MD ; [facility] clonazePAM 0.5 MG OR TABS 01/19/2013 - 07/20/2013 Provider: ELOINA LYNCH MD Diagnosis: GENERALIZED ANXI ETY DIS 1/2 to 1 tablet daily as nee ded for anxiety---has meds left Last Documented On 4 10:15AM By Barbara Lynch MD ; [facility] Sertraline HCl 100 MG OR TABS 01/19/2013 - 07/20/2013 Provider: ELOINA LYNCH MD Diagnosis: MAJOR DEPRESSION DISORDER/RECURRENT Last Documented On 4 10:15AM By Barbara Lynch MD ; [facility] Wellbutrin SR 150 MG OR TB12 01/19/2013 - 07/20/2013 Provider: ELOINA LYNCH MD Diagnosis: MAJOR DEPRESSION DISORDER/RECURRENT 1 in the morning, 1 in the PM Last Documented On 4 10:15AM By Barbara Lynch MD ; [facility] QUEtiapine Fumarate 25 MG OR TABS 01/19/2013 - 07/20/2013 Provider: ELOINA LYNCH MD Diagnosis: GENERALIZED ANXI ETY DIS Last Documented On 4 10:15AM By Barbara Lynch MD ; [facility] Sertraline HCl 100 MG OR TABS 01/19/2013 - 01/19/2013 Provider: Diagnosis: 2 in the a.m. Last Documented On 3 10:34AM By Barbara Lynch MD ; [facility] Potassium Chloride ER 10 MEQ OR CPCR 01/19/2013 - 06/2015 Provider: Diagnosis: Last Documented On 6 9:11AM By ESTRADA OROZCO LPN ; [facility] Furosemide 40 MG OR TABS 01/19/2013 - 07/20/2013 Provi jovany: Diagnosis: Last Documented On 4 9:47AM By JACQUELINE ARZATE ; [facility] busPIRone HCl 15 MG OR TABS 01/19/2013 - 07/20/2013 Provider: ELOINA LYNCH MD Diagnosis: GENERALIZED ANXI ETY DIS Last Documented On 4 10:15AM By Barbara Lynch MD ; [facility] traZODone HCl 100 MG OR TABS 07/28/2012 - 01/19/2013 Provider: ELOINA CASTELLANOS MD Diagnosis: INSOMNIA DT MENT AL DISOR Last Documented On 3 11:18AM By Barbara Lynch MD ; [facility] Rozerem 8 MG OR TABS 07/28/2012 - 01/19/2013 Provider: ELOINA LYNCH MD Diagnosis: INSOMNIA DT MENT AL DISOR Last Documented On 3 11:18AM By Barbara Lynch MD ; [facility] Zoloft 100 MG OR TABS 07/28/2012 - 10/26/2014 Provider: ELOINA CASTELLANOS MD Diagnosis: MAJOR DEPRESSION DISORDER/RECURRENT 2 tabs at bedtime Last Documented On 5 10:53AM By Barbara Lynch MD ; [facility] QUEtiapine Fumarate 25 MG OR TABS 07/28/2012 - 01/19/2013 Provider: ELOINA LYNCH MD Diagnosis: GENERALIZED ANXI ETY DIS Last Documented On 3 10:34AM By [facility] MD ; [facility] clon[facility]AM [facility].5 MG OR TABS 07/28/2012 - 01/19/2013 Provider: ELOINA LYNCH MD Diagnosis: GENERALIZED ANXI ETY DIS 1/2 to 1 tablet daily as nee ded for anxiety---has 25 left Last Documented On 3 11:18AM By Barbara Lynch MD ; [facility] Wellbutrin SR 150 MG OR TB12 07/28/2012 - 01/19/2013 Provider: ELOINA LYNCH MD Diagnosis: MAJOR DEPRESSION DISORDER/RECURRENT 1 in the morning, 1 in the PM Last Documented On 3 10:34AM By Barbara Lynch MD ; [facility] Bystolic 10 MG OR TABS 07/28/2012 - 12/03/2019 Provide r: Diagnosis: Last Documented On 12/03/2019 9:30AM By DEMETRIA ARZATE ; [facility] Plaquenil 200 MG OR TABS 07/28/2012 - 01/19/2013 Provi jovany: Diagnosis: 1/2 tablet twice daily Last Documented On 3 9:57AM By JACQUELINE ARZATE ; [facility] Topiramate 50 MG OR TABS 07/28/2012 - 05/23/2022 Provi jovany: Diagnosis: Last Documented On 3 11:26AM By DEMETRIA ARZATE ; [facility] kcl 20meq OR TABS 07/28/2012 - 01/19/2013 Provider: Diagnosis: Last Documented On 3 9:56AM By JACQUELINE ARZATE ; [facility] Estradiol 2 MG OR TABS 07/28/2012 - 10/26/2014 Provide r: Diagnosis: Last Documented On 5 10:31AM By ESTRADA OROZCO LPN ; [facility] Levothyroxine Sodium 25 MCG OR TABS 07/28/2012 - 10/26 Provider: Diagnosis: Last Documented On 5 10:25AM By ESTRADA OROZCO LPN ; [facility] Levothyroxine Sodium 175 MCG OR TABS 07/28/2012 - 10/13 Provider: Diagnosis: Last Documented On 5 10:25AM By ESTRADA OROZCO LPN ; [facility] Furosemide 20 MG OR TABS 07/28/2012 - 01/19/2013 Provi jovany: Diagnosis: Last Documented On 3 9:55AM By JACQUELINE ARZATE ; [facility] Diovan 320 MG OR TABS 07/28/2012 - 02/20/2018 Provider : Diagnosis: Last Documented On 02/20/2018 9:45AM By DEMETRIA ARZATE ; [facility] S busPIRone HCl 15 MG OR TABS 07/28/2012 - 01/19/2013 Provider: ELOINA LYNCH MD Diagnosis: GENERALIZED ANXI ETY DIS Last Documented On 3 10:34AM By Barbara Lynch MD ; [facility] L-Lysine 1000 MG OR TABS 07/28/2012 - 02/20/2018 Provi jovany: Diagnosis: Last Documented On 02/20/2018 9:42AM By DEMETRIA ARZATE ; [facility] S Calcium 1500 MG OR TABS 07/28/2012 - 04/24/2017 Provid er: Diagnosis: Last Documented On 8 10:09AM By Barbara Lynch MD ; [facility] busPIRone HCl 15 MG OR TABS 05/08/2012 - 07/28/2012 Pr ovider: Diagnosis: as needed Last Documented On 3 11:50AM By Barbara Lynch MD ; [facility] Zoloft 100 MG OR TABS 05/08/2012 - 07/28/2012 Provider : Diagnosis: 2 tabs at bedtime Last Documented On 3 11:50AM By Barbara Lynch MD ; [facility] Rozerem 8 MG OR TABS 05/08/2012 - 07/28/2012 Provider: Diagnosis: Last Documented On 3 11:50AM By Barbara Lynch MD ; [facility] clonazePAM 0.5 MG OR TABS 05/08/2012 - 07/28/2012 Prov ider: Diagnosis: 1/2 to 1 tablet daily as needed for anxiety Last Documented On 3 11:50AM By Barbara Lynch MD ; [facility] Wellbutrin SR 150 MG OR TB12 05/08/2012 - 07/28/2012 P rovider: Diagnosis: 1 in the morning, 1 in the PM Last Documented On 3 11:50AM By Barbara Lynch MD ; [facility] traZODone HCl 100 MG OR TABS 05/08/2012 - 07/28/2012 P rovider: Diagnosis: Last Documented On 3 11:50AM By Barbara Lynch MD ; [facility] traZODone HCl 50 MG OR TABS 05/08/2012 - 07/20/2013 Pr ovider: Diagnosis: 1/2 three times daily as needed Last Documented On 4 9:47AM By JACQUELINE ARZATE ; [facility] QUEtiapine Fumarate 25 MG OR TABS 05/08/2012 - 013 Provider: Diagnosis: Last Documented On 3 11:50AM By Barbara Lynch MD ; [facility] Medications Administered Includes: Administered Medications in patient's chart No Administered Medications Recorded Results Includes: Results from 06/21/2023 through 06/20/2024 No Results Recorded For Specified Dates History of Present Illness History of Present Illness not supported for this document type No History of Present Illness Recorded Social History Description Last Updated No coffee consumption -- dri nks 3 - 4 cans of diet soda a week and no tea or no coffee 11/23/2021 Last Documented On 2 9:31AM ; [facility] Current nonsmoker 11/22/2020 Last Documented On 1 9:00AM ; [facility] Non-smoker 12/03/2019 Last Documented On 0 1:39AM ; [facility] Work history -- Disabled 06/14/2018 Last Documented On 9 8:08PM ; [facility] Marital history -- ~Pt was born and raised in [place], [place]. Pt was closer to her mother growing up. Both parents are . She has 1 son and 1 daughter. She had 12th grade education. She used to work at [employer] from 1990 - 1999 and then at [employer] from 05/1999 - 04/2002. Pt is now disabled. Her hobbies include sewing and making wreaths. She denied having any past and pending legal history 06/14/2018 Last Documented On 9 8:08PM ; [facility] No tobacco use 02/20/2018 Last Documented On 8 7:56AM ; [facility] Not using alcohol 05/08/2012 Last Documented On 3 1:32PM ; [facility] Not using drugs (Illicit) 05/08/2012 Last Documented On 3 1:32PM ; [facility] Smoking status : Never smoked 05/08/2012 Last Documented On 3 1:32PM ; [facility] Procedures and Surgical History Surgical History Last Updated History of hysterectomy 11/05/2017 Last Documented On 8 4:01AM ; [facility] History of Prior Surgery: Hy sterectomy ~Thyroidectomy ~Oophorectomy ~Cyst removal from breast ~Cholecystectomy -- 1999 but still has on and off diarrhea ~Tonsillectomy ~Cardiac cath with no stent placement 10/26/2014 Last Documented On 5 3:37PM ; [facility] Medical History Includes: Medical History in patient's chart Description Last Updated History of sinusitis - given Doxycycline 100 mg, Fluconazole 150 mg and Mupirocin ointment 2% on 05/08/22; Cefuroxime 500 mg 07/20/19 05/23/2022 Last Documented On 3 9:24AM ; [facility] History of COVID-19 infectio n - 2019 -- had bad respiratory sx, lost her sense of smell and then she had COVID again 2019 - pt still cannot smell perfumes or natural gas 11/23/2021 Last Documented On 2 9:31AM ; [facility] History of coronavirus 2019- nCoV vaccine - Pfizer #1 01/2021 #2 02/2021 #3 none 11/23/2021 Last Documented On 2 9:31AM ; [facility] History of dental bridge wor k - given Amoxil 500 mg 09/21/21,09/12/21 and 07/18/20;given Amoxil 500 mg and Fluconazole 150 mg 09/23/19 11/23/2021 Last Documented On 2 9:31AM ; [facility] Primary Care Provider: Dr. Solo Ball ~Dr. Hernando Jernigan -- Drapery Worker -- [place] ~Dr. Jada Grajeda -- Route Salesman ~Dr. Martell Roberts -- Chancery Clerk ~Dr. Jorge Guzamn -- Dentist ~Dr. Jacek Banks -- Vascular Surgeon at [facility] ~Dr. Adrienne King S -- Sleep/Dental device ~Dr. 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 Jacek Banks (vascular surgeon) 07/201912/03/2019 Last Documented On 0 1:39AM ; [facility] History of obstructive sleep apnea - Home Sleep Study ordered by Dr. Yuriy Ball 09/2019 -- mild sleep apnea -- patient trying to adjust to dental device 12/03/2019 Last Documented On 0 1:39AM ; [facility] History of vitamin deficienc y - Vitamin D = 30 on 12/26/18 -- started on Vitamin D 1000 mg 1 daily 02/25/2019 Last Documented On 9 11:25PM ; [facility] History of fall risk -- #1 f ell in parking lot 12/2016 -- had initial nosebleed --did not go to ER 02/25/2019 Last Documented On 9 11:25PM ; [facility] History of fracture of the hip and pelvi s -- stress fractures 03/05/2018 Last Documented On 8 7:56AM ; [facility] History of mitral valve prolapse 018 Last Documented On 8 1:20AM ; [facility] History of mitral regurgitation 04/24/19 18 Last Documented On 8 1:20AM ; [facility] History of irritable bowel syndrome 05/2015 Last Documented On 6 10:12AM ; [facility] Several hip and pelvic fractures probabl y secondary to stress fractures ~ 07/20/2013 Last Documented On 4 11:56AM ; [facility] History of GERD 01/19/2013 Last Documented On 3 11:45AM ; [facility] History of hypertension 01/19/2013 Last Documented On 3 11:45AM ; [facility] History of hypothyroidism 01/19/2013 Last Documented On 3 11:45AM ; [facility] History of pelvic fracture 01/19/2013 Last Documented On 3 11:45AM ; [facility] History of migraine headache 07/28/2012 Last Documented On 3 11:16PM ; [facility] History of discoid lupus erythematosus 0 07/28/2012 Last Documented On 3 11:16PM ; [facility] Family History Includes: Family History in patient's chart Description Last Updated Maternal grandfather's history of alcoho lism -- grandfather 10/26/2014 Last Documented On 5 3:37PM ; [facility] Sororal history of depression -- sister 10/26/2014 Last Documented On 5 3:37PM ; [facility] Sister---depression ~Grandfather--alcoho lism 05/14/2014 Last Documented On 5 11:43AM ; [facility] Family history of alcoholism in grandfat her 05/08/2012 Last Documented On 3 1:32PM ; [facility] Family history of depression in sister 0 05/08/2012 Last Documented On 3 1:32PM ; [facility] Review of Systems Review of Systems not supported for this document type No Review of Systems Recorded Mental Status No Mental Status Recorded Functional Status No Functional Status Recorded Physical Exam Physical Exam not supported for this document type No Physical Exam Recorded Allergies Includes: Active, inactive, and resolved Allergies Substance Type Reaction Onset Date Resolved Date Statu s Sulfa Antibiotics Allergy Hives / Urticaria 05/08/2012 Active Last Documented On 09/18/2023 9:10AM ; [facility] Note: Imported from external source. Silvadine Allergy peels skin 05/08/2012 Active Last Documented On 09/18/2023 9:10AM ; [facility] Note: Imported from external source. Penicillin V Potassium Intolerance yeast infection 05/08/2012 Active Last Documented On 09/18/2023 9:10AM ; [facility] Note: Imported from external source. Omnipaque Allergy Hives / Urticaria 05/08/2012 Active Last Documented On 09/18/2023 9:10AM ; [facility] Note: Imported from external source. Neosporin Allergy Skin Rashes / Eruption of skin 05/08/2012 Active Last Documented On 09/18/2023 9:10AM ; [facility] Note: Imported from external source. Lisinopril Allergy cough 05/08/2012 Active Last Documented On 09/18/2023 9:10AM ; [facility] Note: Imported from external source. Latex Allergy skin peels off 05/08/2012 Acti ve Last Documented On 09/18/2023 9:10AM ; [facility] Note: Imported from external source. Bandaging Tape Allergy PEELS OFF SKIN 05/08/2012 Active Last Documented On 09/18/2023 9:10AM ; [facility] Note: Imported from external source. Bacitracin Allergy Skin Rashes / Eruption of skin 05/08/2012 Active Last Documented On 09/18/2023 9:10AM ; [facility] Note: Imported from external source. Insurance Includes: Active Insurance Policies Plan Name Member ID Group # Subscriber Relationship Effect florinda Dates 1 - [facility] [employer] [facility] [employer] [id number] [address] Knapp Clinical Notes Includes: Signed Clinical Notes starting from 05/04/2022 No Clinical Notes Recorded
--- OUTSIDE RECORDS SUMMARY | 2024-06-20 09:26 | XMS_ITS ---
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 Role Phone Mary Beauchamp Unavailable [phone] zzzzMigration, zzzzProvider Unavailable Unav ailable Allergies Allergen (clinical drug ingredient) Drug/Non Drug Allergy documented on EMR Reaction Allergy Type Onset Date Status Azithromycin Unknown Drug Allergy 09/14/2017 Act florinda bacitracin Bacitracin Unknown Drug Allergy 09/14/2017 Acti ve clarithromycin Clarithromycin Unknown Drug Allergy 018 Active Iodine Unknown Drug Allergy 09/14/2017 Active Lisinopril Unknown Drug Allergy 09/14/2017 Activ e polymyxin B Polymyxin B Sulfate Unknown Drug Allergy 09/14 Active Latex Latex Unknown Allergy 09/14/2017 Active neomycin Neomycin Unknown Drug Allergy 09/14/2017 Active Substance with penicillin structure and antibacterial mechanism of action (substance) Penicillins Unknown Drug Allergy 09/14/2017 Active Substance with sulfonamide structure and antibacterial mechanism of action (substance) Sulfa Antibiotics Unknown Drug Allergy 09/14/2017 Active REASON FOR VISIT EMR-Miguel Medications Medication SIG (Take, Route, Frequency, Duration) Notes Start Date End Date Status Etodolac 400 MG take 1 tablet (400 mg) by oral route 2 times per day with food for 30 days Oral 2 for 30 Active Sertraline HCl 100 MG take 1 tablet (100 mg) by oral route once daily Oral 1 Active traZODone HCl 100 MG take 1 tablet (100 mg) by oral route once daily at bedtime Oral 1 Active Hydroxychloroquine Sulfate 200 MG take 1 tablet (200 mg) by oral route once daily Oral 1 Active Plaquenil 200 MG take 2 tablets (400 mg) by oral route once daily for 30 days Oral 1 for 30 03/18/2018 Active Bystolic oral *Pick strength-form from [facility] for eRX* Active buPROPion HCl ER (XL) 300 MG take 1 tablet (300 mg) by oral route once daily Oral 1 Active Torsemide 20 MG take 1 tablet (20 mg) by oral route once daily Oral 1 Active Valsartan 320 MG take 1 tablet (320 mg) by oral route once daily Oral 1 Active Medrol 4 MG take as directed for 6 days Oral for 6 10/08/2017 Active Omeprazole 20 MG take 1 capsule (20 mg) by oral route once daily before a meal Oral 1 Active Calcium + Vitamin D3 600-5 MG-MCG Oral Active amLODIPine Besylate 10 MG take 1 tablet (10 mg) by oral route once daily Oral 1 Active Potassium Acetate 100 % use as directed MISCELLANEOUS *Pick strength-form from [facility] for eRX* Active buPROPion HCl 100 MG Oral Active Levothyroxine Sodium 175 MCG take 1 tablet (175 mcg) by oral route once daily Oral 1 Active Encounters Encounter Location Date Provider Diagnosis [facility] [address] [place] [address] 02/03/2023 zzzzProvider zzzzMigration Plan Of Treatment No Information Progress Notes * Jumana BURGESSOB:1955 (69 yo F)Acc No.[id number]:02/03/2023 Patient: Mackenzie JALLOH :1955 A ge:67 Y S ex:Female Address:[address] [place] [address], [id number] Subjective: * Chief Complaints: * E MR-Miguel * Medical History: * Surgical History: O vary removal; [id number] lump; [id number]; [id number]; [id number]; [id number]; 2017-10-08 * Hospitalization/Major Diagno stic Procedure: * Social History: M igrated Social History: M igrated Social History: Substance Use :: Tobacco :: Never. * Medications: T akingLevothyroxine Sodium 175 MCG Tablet take 1 tablet (175 mcg) by oral route once daily Oral 1 buPROPion HCl ER (XL) 300 MG Tablet Extended Release 24 Hour take 1 tablet (300 mg) by oral route once daily Oral 1 Potassium Acetate 100 % Powder use as directed MISCELLANEOUS , Notes to Pharmacist: *Pick strength-form from [facility] for eRX*Calcium + Vitamin D3 600-5 MG-MCG Tablet Oral Etodolac 400 MG Tablet take 1 tablet (400 mg) by oral route 2 times per day with food for 30 days Oral 2 Medrol 4 MG Tablet Therapy Pack take as directed for 6 days Oral Bystolic oral , Notes to Pharmacist: *Pick strength-form from [facility] for eRX*Hydroxychloroquine Sulfate 200 MG Tablet take 1 tablet (200 mg) by oral route once daily Oral 1 amLODIPine Besylate 10 MG Tablet take 1 tablet (10 mg) by oral route once daily Oral 1 Torsemide 20 MG Tablet take 1 tablet (20 mg) by oral route once daily Oral 1 Plaquenil 200 MG Tablet take 2 tablets (400 mg) by oral route once daily for 30 days Oral 1 Valsartan 320 MG Tablet take 1 tablet (320 mg) by oral route once daily Oral 1 traZODone HCl 100 MG Tablet take 1 tablet (100 mg) by oral route once daily at bedtime Oral 1 Omeprazole 20 MG Capsule Delayed Release take 1 capsule (20 mg) by oral route once daily before a meal Oral 1 Sertraline HCl 100 MG Tablet take 1 tablet (100 mg) by oral route once daily Oral 1 buPROPion HCl 100 MG Tablet Oral Taking Levothyroxine Sodium 175 MCG Tablet take 1 tablet (175 mcg) by oral route once daily Oral 1 Taking buPROPion HCl ER (XL) 300 MG Tablet Extended Release 24 Hour take 1 tablet (300 mg) by oral route once daily Oral 1 Taking Potassium Acetate 100 % Powder use as directed MISCELLANEOUS , Notes to Pharmacist: *Pick strength-form from [facility] for eRX*Taking Calcium + Vitamin D3 600-5 MG-MCG Tablet Oral Taking Etodolac 400 MG Tablet take 1 tablet (400 mg) by oral route 2 times per day with food for 30 days Oral 2 Taking Medrol 4 MG Tablet Therapy Pack take as directed for 6 days Oral Taking Bystolic oral , Notes to Pharmacist: *Pick strength-form from [facility] for eRX*Taking Hydroxychloroquine Sulfate 200 MG Tablet take 1 tablet (200 mg) by oral route once daily Oral 1 Taking amLODIPine Besylate 10 MG Tablet take 1 tablet (10 mg) by oral route once daily Oral 1 Taking Torsemide 20 MG Tablet take 1 tablet (20 mg) by oral route once daily Oral 1 Taking Plaquenil 200 MG Tablet take 2 tablets (400 mg) by oral route once daily for 30 days Oral 1 Taking Valsartan 320 MG Tablet take 1 tablet (320 mg) by oral route once daily Oral 1 Taking traZODone HCl 100 MG Tablet take 1 tablet (100 mg) by oral route once daily at bedtime Oral 1 Taking Omeprazole 20 MG Capsule Delayed Release take 1 capsule (20 mg) by oral route once daily before a meal Oral 1 Taking Sertraline HCl 100 MG Tablet take 1 tablet (100 mg) by oral route once daily Oral 1 Taking buPROPion HCl 100 MG Tablet Oral * Allergies: A zithromycin: Allergy - Onset Date 09/14/2017Bacitracin: Allergy - Onset Date 09/14/2017Clarithromycin: Allergy - Onset Date 09/14/2017Iodine: Allergy - Onset Date 09/14/2017Lisinopril: Allergy - Onset Date 09/14/2017Polymyxin B Sulfate: Allergy - Onset Date 09/14/2017Latex: Allergy - Onset Date 09/14/2017Neomycin: Allergy - Onset Date 09/14/2017Penicillins: Allergy - Onset Date 09/14/2017Sulfa Antibiotics: Allergy - Onset Date 09/14/2017 Objective: * Vitals: * Physical Examination: Assessment: Plan: * Treatment: * Procedure Codes: * * Date:
--- OUTSIDE RECORDS SUMMARY | 2024-06-20 09:26 | XMS_ITS | Clinical Summary ---
Author Organization [facility] Address [address] [place] [address] Phone Care Team Providers Care Trommel Tender Name Role Phone ELOINA LYNCH MD Unavailable [phone] Reason for Visit and Chief Complaint CHART UPDATE Problems Includes: Problems addressed during this encounter and other active Problems All Visits Onset Date Resolved Date Provider Condition S tatus Vitamin Deficiency 08/13/2018 Active Last Documented On 3 5:52PM ; [facility] Panic Disorder 12/14/2017 Active Last Documented On 3 5:51PM ; [facility] Psychophysiological Insomnia 08/17/2016 Active Last Documented On 3 5:50PM ; [facility] Anemia 02/16/2016 Active Last Documented On 3 5:50PM ; [facility] Cath Mitral Regurgitation 07/28/2012 Active Last Documented On 3 5:45PM ; 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 Major Depression, Recurrent 07/14/2012 Active Last Documented On 3 5:45PM ; [facility] Generalized Anxiety Disorder 05/08/2012 Active Last Documented On 3 5:43PM ; [facility] Gerd 05/08/2012 Active Last Documented On 3 5:43PM ; [facility] Hypertension Systemic 05/08/2012 Act florinda Last Documented On 3 5:43PM ; [facility] Hypothyroidism 05/08/2012 Active Last Documented On 3 5:43PM ; [facility] Plan of Treatment Future Appointments Date Time Location Provi jovany PSYCH ADULT FOLLOW UP 06/30/2024 10:00AM [facility] OUP-PSY ELOINA LYNCH MD Last Documented On 4 10:24AM ; [facility] Assessments Includes: Assessments from this encounter No Assessments Recorded Medical Equipment - Implanted Devices Includes: Current Devices No Medical Equipment Recorded Medications Includes: Medications discussed during this encounter and other current Medications Current Medications (continue as prescribed) Remicade 100 MG Intravenous Solution Reconstituted 08/2023 Provider: Diagnosis: 1 q 2 weeks for 1 month then 1 infusion q 2 joey hs Last Documented On 09/18/2023 9:29AM By DEMETRIA ARZATE ; [facility] traZODone HCl 100 MG Oral Tablet 09/13/2023 Provider: ELOINA LYNCH MD Diagnosis: Psychophysiologi c insomnia TAKE 2 TO 3 TABLETS BY MOUTH AT BEDTIME Last Documented On 09/13/2023 4:05PM By Barbara Lynch MD ; [facility] hydrALAZINE HCl 10 MG Oral Tablet 09/10/2023 Provide r: MARTELL ROBERTS MD Diagnosis: 1 tab daily Last Documented On 09/18/2023 9:29AM By DEMETRIA ARZATE ; [facility] Leflunomide 20 MG Oral Tablet 08/19/2023 Provider: Diagnosis: 1 tab daily Last Documented On 09/18/2023 9:30AM By DEMETRIA ARZATE ; [facility] Sertraline HCl 100 MG Oral Tablet 07/18/2023 Provide r: ELOINA LYNCH MD Diagnosis: 2 tabs po qd Last Documented On 07/18/2023 1:36PM By Barbara Lynch MD ; [facility] Sotalol HCl 80 MG Oral Tablet 07/18/2023 Provider: MARTELL ROBERTS MD Diagnosis: 1 tab bid Last Documented On 09/18/2023 9:30AM By DEMETRIA ARZATE ; [facility] buPROPion HCl ER (XL) 300 MG Oral Tablet Extended Release 24 Hour 06/19/2023 Provider: ELOINA LYNCH MD Diagnosis: Major depressive disorder, recurrent, unspecified TAKE ONE TABLET BY MOUTH DOMINIK RY MORNING Last Documented On 06/19/2023 10:14AM By Barbara Lynch MD ; [facility] Sertraline HCl 100 MG Oral Tablet 06/18/2023 Provide r: Diagnosis: 2 tabs po qd Last Documented On 07/18/2023 1:31PM By DEMETRIA ARZATE ; [facility] Torsemide 20 MG Oral Tablet 05/31/2023 Provider: Diagnosis: 1 tab daily Last Documented On 05/31/2023 9:23AM By DEMETRIA ARZATE ; [facility] busPIRone HCl 15 MG Oral Tablet 04/22/2023 Provider: ELOINA LYNCH MD Diagnosis: Generalized anxi ety disorder One tablet three times a day Last Documented On 04/22/2023 2:27PM By Barbara Lynch MD ; [facility] QUEtiapine Fumarate 50 MG Oral Tablet 03/14/2023 Provider: ELOINA LYNCH MD Diagnosis: Insomnia, unspec ified as directed 2 tablets at bedtime Last Documented On 03/14/2023 11:47AM By Barbara Lynch MD ; [facility] Dicyclomine HCl 20 MG Oral Tablet 02/28/2023 Provider: ELOINA LYNCH MD Diagnosis: Irritable bowel syndrome with constipation One tablet daily Last Documented On 02/28/2023 10:10AM By Barbara Lynch MD ; [facility] clonazePAM 0.5 MG OR TABS 06/14/2022 Provider: ME MATTIE LYNCH MD Diagnosis: Panic disorder [ episodic paroxysmal anxiety] ud - as directed as directed take as needed for anxiety Last Documented On 08/11/2022 5:27PM By Barbara Lynch MD ; [facility] Levothyroxine Sodium 50 MCG OR TABS 05/16/2021 Provi jovany: Diagnosis: 1 tab daily with 175 mcg 1.5 tabs daily Last Documented On 08/11/2022 5:27PM By DEMETRIA ARZATE ; [facility] Levothyroxine Sodium 175 MCG OR TABS 11/14/2020 Prov ider: Diagnosis: Take 1.5 tabs daily Last Documented On 08/11/2022 5:27PM By DEMETRIA ARZATE ; [facility] cloNIDine HCl 0.1 MG OR TABS 11/14/2020 Provider: Diagnosis: 1 tab prn if BP 160/? Last Documented On 08/11/2022 5:27PM By DEMETRIA ARZATE ; [facility] Vitamin D3 25 MCG (1000 UT) OR CHEW 05/25/2020 Oumar brooks: Diagnosis: 1 tab bid otc Last Documented On 08/11/2022 5:27PM By DEMETRIA ARZATE ; [facility] Adult Aspirin EC Low Strength 81 MG OR TBEC 05/25/2020 Provider: Diagnosis: 1 tab daily Last Documented On 08/11/2022 5:27PM By DEMETRIA ARZATE ; [facility] Eliquis 5 MG OR TABS 11/17/2019 Provider: Diagnosis: 1 tab bid Last Documented On 08/11/2022 5:27PM By DEMETRIA ARZATE ; [facility] Hydroxychloroquine Sulfate 200 MG OR TABS 06/12/2018 Provider: Diagnosis: 1 TAB BID Last Documented On 08/11/2022 5:27PM By DEMETRIA ARZAET ; [facility] Potassium Chloride ER 10 MEQ OR TBCR 02/20/2018 Prov ider: Diagnosis: 1 tablet daily in the am Last Documented On 08/11/2022 5:27PM By DEMETRIA ARZATE ; [facility] Olmesartan Medoxomil 40 MG OR TABS 02/20/2018 Provid er: Diagnosis: 1 tab daily Last Documented On 08/11/2022 5:27PM By DEMETRIA ARZATE ; [facility] L-Lysine 500 MG OR TABS 02/20/2018 Provider: Diagnosis: 1 tab bid otc Last Documented On 08/11/2022 5:27PM By DEMETRIA ARZATE ; [facility] Calcium 1000 + D 1000-800 MG-UNIT OR TABS 04/24/2017 Provider: Diagnosis: 2 a day Last Documented On 08/11/2022 5:27PM By Barbara Lynch MD ; [facility] amLODIPine Besylate 10 MG OR TABS 01/19/2013 Provide r: Diagnosis: Last Documented On 08/11/2022 5:27PM By JACQUELINE ARZATE ; [facility] Hair Vitamins OR TABS 01/19/2013 Provider: Diagnosis: 1 in the a.m. 1 in the p.m. Last Documented On 08/11/2022 5:27PM By JACQUELINE ARZATE ; [facility] Betamethasone Dipropionate 0.05% EX OINT 07/28/2012 Provider: Diagnosis: Last Documented On 08/11/2022 5:27PM By JACQUELINE ALVAREZ ; [facility] Hydrocortisone 2.5% EX CREA 07/28/2012 Provider: Diagnosis: Last Documented On 08/11/2022 5:27PM By JACQUELINE ALVAREZ ; [facility] Omeprazole 20 MG OR CPDR 07/28/2012 Provider: Diagnosis: Last Documented On 08/11/2022 5:27PM By JACQUELINE ALVAREZ ; [facility] ZyrTEC Allergy 10 MG OR CAPS 07/28/2012 Provider: Diagnosis: Last Documented On 08/11/2022 5:27PM By JACQUELINE ALVAREZ ; [facility] Clobetasol Propionate 0.05% EX CREA 07/28/2012 Provi jovany: Diagnosis: Last Documented On 08/11/2022 5:27PM By JACQUELINE ALVAREZ ; [facility] Mupirocin 2% EX OINT 07/28/2012 Provider: Diagnosis: Last Documented On 08/11/2022 5:27PM By JACQUELINE ALVAREZ ; [facility] Past Medications on file Sertraline HCl 100 MG Oral Tablet 01/17/2023 - 07/16/2023 Provider: ELOINA LYNCH MD Diagnosis: Major depressive disorder, recurrent, moderate as directed -2 tabs daily Last Documented On 01/17/2023 10:58AM By Barbara Lynch MD ; [facility] Topiramate 50 MG Oral Tablet 01/17/2023 - 07/16/2023 Provider: ELOINA LYNCH MD Diagnosis: Migraine w/o aur a, not intractable, w/o status migrainosus one tablet every morning and 2 tablets every evening Last Documented On 01/17/2023 10:58AM By Barbara Lynch MD ; [facility] Amiodarone HCl 200 MG OR TABS 05/25/2020 - 06/24/2020 Provider: Diagnosis: pt states she takes 100 mg daily for Afib Last Documented On 08/11/2022 5:27PM By DEMETRIA ARZATE ; [facility] Aimovig 70 MG/ML SC SOAJ 12/03/2019 - 01/02/2020 Provider: ELOINA LYNCH MD Diagnosis: Migraine w/o aur a, not intractable, w/o status migrainosus as directed Last Documented On 08/11/2022 5:27PM By Barbara Lynch MD ; [facility] Medications Administered Includes: Administered Medications from this encounter No Administered Medications Recorded Results Includes: Results discussed during this encounter No Results Recorded For Specified Dates History of Present Illness Includes: History of Present Illness from this encounter No History of Present Illness Recorded Social History No Social History Recorded - Smoking Status Unknown Medical History Includes: Medical History addressed during this encounter Description Last Updated Primary Care Provider: Dr. Solo Bradford/ ANT Valencialorna Jernigan -- Ballistics Expert -- Vandana Grajeda -- Wet Primer Powder Blender Dr. Martell Roberts -- Rebar Fabricator Dr. Jorge Guzman -- Dentist Dr. Jacek Banks -- Vascular Surgeon at [facility] Dr. Adrienne King, BUBBA -- Sleep/Dental device Dr. Jamaal Silverio -- GastroenterologistDiagnoses: Fever blisters -- given Valacyclovir 1 gm 05/07/23Sinusitis - given Doxycycline 100 mg, Fluconazole 150 mg and Mupirocin ointment 2% on 05/08/22; Cefuroxime 500 mg 07/20/19. Herpes Zoster - Shingles 12/2022 and 2 weeks later had another secondary shingles -- having residual sores so was given Bactroban ointmentAtrial fibrillation - 07/2019Mitral regurgitationMitral valve prolapseSystemic hypertensionVenous thrombosis of deep vessels of lower extremity - 3 blood clots behind the right knee -- had dye injected 08/10/19 and 08/12/19 -- has residual nerve damage -- unable to feel right foot -- fingers/toes tingle -- symptoms started 07/2019 with leg and hand numbness and her right arm turning blueThrombophlebitis of deep veins of upper extremities - 1 blood clot right forearm -- procedure done 08/11/19 -- residual nerve damage -- fingers tingle --symptoms started 07/2019 with leg and hand numbness and her right arm turning blue. Obstructive sleep apnea - Home Sleep Study ordered by Dr. Yuriy Bradford 09/2019 -- mild sleep apnea -- patient trying to adjust to dental device. GERDIrritable bowel syndrome. Vitamin deficiency - Vitamin D = 30 on 12/26/18 -- started on Vitamin D 1000 mg 1 daily. Hypothyroidism. Discoid lupus erythematosus. Pelvic fractureFracture of the hip and pelvis -- stress fracturesRight carpal tunnel syndrome - discovered by Dr. Jacek Banks (vascular surgeon) 07/2019. Migraine headache. COVID-19 infection - 2019 -- had bad respiratory sx, lost her sense of smell and then she had COVID again 2019 - pt still cannot smell perfumes or natural gas. AnemiaSeveral hip and pelvic fractures probably secondary to stress fractures Fall risk -- #1 fell in parking lot 12/2016 -- had initial nosebleed --did not go to ERProcedural: Coronavirus 2019-nCoV vaccine - Pfizer #1 01/2021 #2 02/2021 #3 none Dental bridge work - given Amoxil 500 mg 04/17/23; given Amoxil 500 mg 09/21/21,09/12/21 and 07/18/20;given Amoxil 500 mg and Fluconazole 150 mg 09/23/19Cardioversion 04/18/23 but only helped for a few daysTransthoracic Echocardiogram -- 05/23/23 -- Irregular rhythm; moderate concentric left ventricular hypertrophy; normal global left ventricular systolic function. Ejection fraction is visually estimated at 55-60%; mild enlargement of the left atrium; atrial septum bowed toward the right, consistent with left atrial pressures; normal structure of the mitral valve; moderate mitral valve regurgitation; normal structure of the aortic valve; normal structure of the tricuspid valve; mild pulmonary hypertension based on right ventricular systolic pressure; estimated peak RSVP is 40-44 mmHg; mild tricuspid regurgitation.Surgical: Thyroidectomy Oophorectomy Cyst removal from breast Cholecystectomy -- 1999 but still has on and off diarrhea Tonsillectomy Cardiac cath with no stent placementHysterectomy 06/24/2023 Last Documented On 12:34PM ; [facility] Family History Includes: Family History addressed during this encounter No Family History Recorded Review of Systems Includes: Review of Systems from this encounter No Review of Systems Recorded Mental Status Includes: Mental Status from this encounter No Mental Status Recorded Functional Status Includes: Functional Status from this encounter No Functional Status Recorded Physical Exam Includes: Physical Exam from this encounter No Physical Exam Recorded Allergies Includes: Active Allergies Substance Type Reaction Onset Date Resolved Date Statu s Sulfa Antibiotics Allergy Hives / Urticaria 05/08/2012 Active Last Documented On 09/18/2023 9:10AM ; [facility] Note: Imported from external source. Silvadine Allergy peels skin 05/08/2012 Active Last Documented On 09/18/2023 9:10AM ; [facility] Note: Imported from external source. Penicillin V Potassium Intolerance yeast infection 05/08/2012 Active Last Documented On 09/18/2023 9:10AM ; [facility] Note: Imported from external source. Omnipaque Allergy Hives / Urticaria 05/08/2012 Active Last Documented On 09/18/2023 9:10AM ; [facility] Note: Imported from external source. Neosporin Allergy Skin Rashes / Eruption of skin 05/08/2012 Active Last Documented On 09/18/2023 9:10AM ; [facility] Note: Imported from external source. Lisinopril Allergy cough 05/08/2012 Active Last Documented On 09/18/2023 9:10AM ; [facility] Note: Imported from external source. Latex Allergy skin peels off 05/08/2012 Acti ve Last Documented On 09/18/2023 9:10AM ; [facility] Note: Imported from external source. Bandaging Tape Allergy PEELS OFF SKIN 05/08/2012 Active Last Documented On 09/18/2023 9:10AM ; [facility] Note: Imported from external source. Bacitracin Allergy Skin Rashes / Eruption of skin 05/08/2012 Active Last Documented On 09/18/2023 9:10AM ; [facility] Note: Imported from external source. Encounters Encounter Provider Location Date Check-In Time Check-Out Time Diagnosis CHART UPDATE ELOINA LYNCH MD [facility] 12:26PM 11:59PM Insurance Includes: Active Insurance Policies Plan Name Member ID Group # Subscriber Relationship Effect florinda Dates 1 - [employer] [id number] [address] Knapp Clinical Notes Includes: Clinical Notes from this encounter * Progress note Date Encounter Last Documented by 06/24/2023 CHART UPDATE Last documented on 06/24/2023; 12:41 PM, DEMETRIA ARZATE; [facility] Active Problems & Conditions - Anemia - Cath Mitral Regurgitation - Cutaneous Lupus Erythematosus Discoid - Generalized Anxiety Disorder - Gerd - Hypertension Systemic - Hypothyroidism - Major Depression, Recurrent - Migraine Headache - Panic Disorder - Psychophysiological Insomnia - Vitamin Deficiency Current Medication - Adult Aspirin EC Low Strength 81 MG Tablet Delayed Release as directed 1 tab daily, 0 days, 0 refills - amLODIPine Besylate 10 MG Tablet 1 Capsule every morning 0 days, 0 refills - Betamethasone Dipropionate 0.05% Ointment as directed 0 days, 0 refills - buPROPion HCl ER (XL) 300 MG Oral Tablet Extended Release 24 Hour TAKE ONE TABLET BY MOUTH EVERY MORNING, 30 days, 5 refills - busPIRone HCl 15 MG Oral Tablet One tablet three times a day, 30 days, 11 refills - Calcium 1000 + D 1000-800 MG-UNIT Tablet as directed 2 a day, 0 days, 0 refills - Clobetasol Propionate 0.05% Cream as directed 0 days, 0 refills - clonazePAM 0.5 MG Tablet as directed ud - as directed as directed take as needed for anxiety, 30 days, 0 refills - cloNIDine HCl 0.1 MG Tablet as directed 1 tab prn if BP 160/?, 30 days, 0 refills - [facility] Vitamin D3 25 MCG (1000 UT) Tablet Chewable as directed 1 tab bid otc, 0 days, 0 refills - Dicyclomine HCl 20 MG Oral Tablet One tablet daily, 30 days, 1 refills - Eliquis 5 MG Tablet 1 tab bid, 30 days, 0 refills - Flecainide Acetate 50 MG Oral Tablet as directed 1 tab bid, 30 days, 0 refills - Hair Vitamins Tablet as directed 1 in the a.m. 1 in the p.m., 0 days, 0 refills - Hydrocortisone 2.5% Cream as directed 0 days, 0 refills - Hydroxychloroquine Sulfate 200 MG Tablet as directed 1 TAB BID, 0 days, 0 refills - Levothyroxine Sodium 175 MCG Tablet as directed Take 1.5 tabs daily, 30 days, 0 refills - Levothyroxine Sodium 50 MCG Tablet as directed 1 tab daily with 175 mcg 1.5 tabs daily, 90 days, 0 refills - L-Lysine 500 MG Tablet One tablet twice a day 1 tab bid otc, 0 days, 0 refills - Metoprolol Succinate ER 50 MG Tablet Extended Release 24 Hour as directed 1/2 tab daily, 30 days, 0 refills - Mupirocin 2% Ointment as directed 0 days, 0 refills - Olmesartan Medoxomil 40 MG Tablet One tablet daily 1 tab daily, 0 days, 0 refills - Omeprazole 20 MG Capsule Delayed Release 1 capsule daily 0 days, 0 refills - Potassium Chloride ER 10 MEQ Tablet Extended Release One tablet daily 1 tablet daily in the am, 0 days, 0 refills - QUEtiapine Fumarate 50 MG Oral Tablet as directed 2 tablets at bedtime, 30 days, 11 refills - Remicade 100 MG Intravenous Solution Reconstituted as directed 1 q 2 weeks for 1 month then 1 infusion q 2 months -- on hold due to heart problems (05/31/23), 0 days, 0 refills - Sertraline HCl 100 MG Oral Tablet as directed -2 tabs daily, 30 days, 5 refills - Topiramate 50 MG Oral Tablet one tablet every morning and 2 tablets every evening, 30 days, 5 refills - Torsemide 10 MG Tablet as directed 2 tabs daily, 90 days, 0 refills - Torsemide 20 MG Oral Tablet as directed 1 tab daily, 0 days, 0 refills - traZODone HCl 100 MG Oral Tablet TAKE 2 TO 3 TABLETS BY MOUTH AT BEDTIME, 30 days, 1 refills - ZyrTEC Allergy 10 MG Capsule 1 capsule daily 0 days, 0 refills Past Medical/Surgical History Primary Care Provider: Dr. Yuriy Bradford/ Caroline Villalobos, TRANSITIONAL CARE LIAISON Dr. Hernando Jernigan -- Ballistics Expert -- [place] Dr. Jada Grajeda -- Wet Primer Powder Blender Dr. Martell Roberts -- Rebar Fabricator Dr. Jorge Guzman -- Dentist Dr. Jacek Banks -- Vascular Surgeon at [facility] Dr. Adrienne King DDS -- Sleep/Dental device Dr. Jamaal Silverio -- Automated Cutting Machine Operator Diagnoses: Fever blisters -- given Valacyclovir 1 gm 05/07/23 Sinusitis - given Doxycycline 100 mg, Fluconazole 150 mg and Mupirocin ointment 2% on 05/08/22; Cefuroxime 500 mg 07/20/19. 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 Obstructive sleep apnea - Home Sleep Study ordered by Dr. Yuriy Bradford 09/2019 -- mild sleep apnea -- patient trying to adjust to dental device. GERD Irritable bowel syndrome. Vitamin deficiency - Vitamin D = 30 on 12/26/18 -- started on Vitamin D 1000 mg 1 daily. Hypothyroidism. Discoid lupus erythematosus. Pelvic fracture Fracture of the hip and pelvis -- stress fractures Right carpal tunnel syndrome - discovered by Dr. Jacek Banks (vascular surgeon) 07/2019. Migraine headache. COVID-19 infection - 2018 -- had bad respiratory sx, lost her sense of smell and then she had COVID again 2019 - pt still cannot smell perfumes or natural gas. Anemia Several hip and pelvic fractures probably secondary to stress fractures - Fall risk -- #1 fell in parking lot 12/2016 -- had initial nosebleed --did not go to ER Procedural: - Coronavirus 2019-nCoV vaccine - Pfizer #1 01/2021 #2 02/2021 #3 none - Dental bridge work - given Amoxil 500 mg 04/17/23; given Amoxil 500 mg 09/21/21,09/12/21 and 07/18/20;given Amoxil 500 mg and Fluconazole 150 mg 09/23/19 Cardioversion 04/18/23 but only helped for a few days Transthoracic Echocardiogram -- 05/23/23 -- Irregular rhythm; moderate concentric left ventricular hypertrophy; normal global left ventricular systolic function. Ejection fraction is visually estimated at 55-60%; mild enlargement of the left atrium; atrial septum bowed toward the right, consistent with left atrial pressures; normal structure of the mitral valve; moderate mitral valve regurgitation; normal structure of the aortic valve; normal structure of the tricuspid valve; mild pulmonary hypertension based on right ventricular systolic pressure; estimated peak RSVP is 40-44 mmHg; mild tricuspid regurgitation. Surgical: Thyroidectomy Oophorectomy Cyst removal from breast Cholecystectomy -- 1999 but still has on and off diarrhea Tonsillectomy Cardiac cath with no stent placement Hysterectomy Allergies - Bacitracin Reaction: Skin Rashes / Eruption of skin - Bandaging Tape Reaction: PEELS OFF SKIN - Latex Reaction: skin peels off - Lisinopril Reaction: cough - Neosporin Reaction: Skin Rashes / Eruption of skin - Omnipaque Reaction: Hives / Urticaria - Penicillin V Potassium (Intolerance) Reaction: yeast infection - Silvadine Reaction: peels skin - Sulfa Antibiotics Reaction: Hives / Urticaria
--- OUTSIDE RECORDS SUMMARY | 2024-06-20 09:26 | XMS_ITS ---
Author Organization [facility] lópez Address [address] [place] [address] Care Team Providers Care Mechanical Tech Name Role Phone Mary Beauchamp Unavailable [phone] zzzzMigration, zzzzProvider Unavailable Unav ailable REASON FOR VISIT [facility] Encounters Encounter Location Date Provider Diagnosis [facility] [address] [place] [address] 02/02/2023 zzzzProvider zzzzMigration Plan Of Treatment Medication Medication Name Sig Start Date Stop Date Notes Plaquenil 200 MG take 2 tablets (400 mg) by oral route once daily for 30 days Oral 1 for 30 Progress Notes * Jumana BURGESSOB:1955 (69 yo F)Acc No.[id number]:02/02/2023 Patient: Mackenzie JALLOH :1955 A ge:67 Y S ex:Female Address:[address] [place] [address], [id number] * Refills Stop Plaquenil Tablet, 200 MG, Oral, 60, take 2 tablets (400 mg) by oral route once daily for 30 days, , 30 Subjective: * Chief Complaints: * E MR-Miguel * Medical History: * Surgical History: * Hospitalization/Major Diagno stic Procedure: * Medications: Objective: * Vitals: * Physical Examination: Assessment: Plan: * Treatment: * Procedure Codes: * * Date:
--- OUTSIDE RECORDS SUMMARY | 2024-06-20 09:27 | XMS_ITS ---
Care Plan - [facility] Created on: June 20, 2024 EVENS BURGESS : 1955 Sex: Female Author Organization [facility] Address [address] [place] [address] Phone Care Team Providers Care Arson And Bomb Investigator Name Role Phone LIZ DOYLE, ELOINA ORTEGA Unavailable [phone]
--- OUTSIDE RECORDS SUMMARY | 2024-06-20 09:27 | XMS_ITS | Clinical Summary ---
Author Organization [facility] S Address [address] [place] [address] Phone Care Team Providers Care Technology Integration Specialist Name Role Phone LIZ DOYLE, ELOINA ORTEGA Unavailable [phone] Reason for Visit and Chief Complaint The Chief Complaint is: follow up for depression/anxiety Problems Includes: Problems addressed during this encounter and other active Problems Current Visit Onset Date Resolved Date Provider Conditio n Status Panic Disorder 12/14/2017 ELOINA Lew Active Last Documented On 8 7:49AM ; [facility] Psychophysiological Insomnia 08/17/2016 ELOINA LYNCH MD Active Last Documented On 7 9:38AM ; [facility] Migraine Headache 07/28/2012 ELOINA Adrian MD Active Last Documented On 0 10:11AM ; [facility] Major Depression, Recurrent 07/14/2012 ELOINA LYNCH MD Active Last Documented On 3 12:01PM ; [facility] Generalized Anxiety Disorder 05/08/2012 ELOINA LYNCH MD Active Last Documented On 3 1:29PM ; [facility] Past Visits Onset Date Resolved Date Provider Condition Status Vitamin Deficiency 08/13/2018 ELOINA CHAIDEZ MD Active Last Documented On 9 7:40AM ; [facility] Anemia 02/16/2016 ELOINA LYNCH MD Ac tive Last Documented On 6 9:21AM ; [facility] Cath Mitral Regurgitation 07/28/2012 ELOINA LYNCH MD Active Last Documented On 3 11:16AM ; [facility] 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 Major Depressive Disorder, recurrent - continue Bupropion XL 300 mg 1 tablet in the morning and Zoloft 100 mg 2 tabs at bedtime 2. Generalized Anxiety Disorder - continue Buspirone 15 mg 1 tablet 2 or 3 times a day 3. Psychophysiological Insomnia - continue Trazodone 100 mg 2 - 3 tablets at bedtime and Quetiapine 50 mg 2 tablets at bedtime for her racing thoughts which seems to help 4. Panic Disorder - continue Clonazepam 0.5 mg 1/2 to 1 tablet daily as needed only for severe anxiety/panic 5. Migraine Headache - Topamax 50 mg 1 in am and 2 in evening - 05/25/20 - Last Documented On 01/05/2022 9:31AM ; [facility] Instructions to patient Lose weight - continue elva jorge l meal plan Last Documented On 2 12:40PM ; [facility] Education and Decision Aids were provided during visit for: Discussed calming techniques such as breathing exercises and other relaxation techniques if and when anxious Last Documented On 2 12:40PM ; [facility] Counseling for nutrition/eden ght management provided Last Documented On 2 11:28AM ; [facility] Assessments Includes: Assessments from this encounter Findings - Migraine headache - Last Documented On 01/05/2022 9:31AM ; [facility] - Major depression, recurrent - Last Documented On 01/05/2022 9:31AM ; [facility] - Psychophysiological insomnia - Last Documented On 01/05/2022 9:31AM ; [facility] - Generalized anxiety disorder - Last Documented On 01/05/2022 9:31AM ; [facility] - Panic disorder - Last Documented On 01/05/2022 9:31AM ; [facility] Instructions Includes: Instructions from this encounter Instructions to patient Lose weight - continue elva jorge l meal plan Last Documented On 2 12:40PM ; [facility] Education and Decision Aids were provided during visit for: Discussed calming techniques such as breathing exercises and other relaxation techniques if and when anxious Last Documented On 2 12:40PM ; [facility] Counseling for nutrition/eden ght management provided Last Documented On 2 11:28AM ; [facility] Medical Equipment - Implanted Devices Includes: Current Devices No Medical Equipment Recorded Medications Includes: Medications discussed during this encounter and other current Medications Discontinued / Stopped on this date KP BALL MD on 11/22/2020 [facility] Iron 325 (65 Fe) MG Oral Tablet Provi jovany: KP BALL MD Diagnosis: Last Documented On 2 11:12AM By DEMETRIA ARZATE ; [facility] Torsemide 20 MG OR TABS Provider: Diagnosis: Last Documented On 2 11:22AM By DEMETRIA ARZATE ; [facility] Current Medications (continue as prescribed) Sertraline HCl 100 MG Oral Tablet 07/16/2022 Provider: ELOINA LYNCH MD Diagnosis: Major depressive disorder, recurrent, moderate TAKE 2 TABLETS BY MOUTH AT B EDTIME DIRECTED Last Documented On 3 11:54AM By Barbara Lynch MD ; [facility] Topiramate 50 MG Oral Tablet 07/16/2022 Provider: ELOINA LYNCH MD Diagnosis: Migraine w/o aur a, not intractable, w/o status migrainosus TAKE ONE TABLET BY MOUTH DOMINIK RY MORNING AND TAKE TWO TABLETS BY MOUTH EVERY EVENING DIRECTED Last Documented On 3 11:54AM By Barbara Lynch MD ; [facility] clonazePAM 0.5 MG Oral Tablet 06/14/2022 Provider: ELOINA LYNCH MD Diagnosis: Panic disorder [ episodic paroxysmal anxiety] ud - as directed as directed take as needed for anxiety Last Documented On 06/14/2022 5:44PM By Barbara Lynch MD ; [facility] buPROPion HCl ER (XL) 300 MG Oral Tablet Extended Release 24 Hour 05/17/2022 Provider: ELOINA CARLSON MD Diagnosis: TAKE ONE TABLET BY MOUTH EVERY MORNING Last Documented On 3 12:20PM By Barbara Lynch MD ; [facility] traZODone HCl 100 MG Oral Tablet 05/17/2022 Provider: ELOINA LYNCH MD Diagnosis: Psychophysiologi c insomnia DIRECTED, TAKE 2 -3 TABLE TS AT BEDTIME Last Documented On 3 12:20PM By Barbara Lynch MD ; [facility] QUEtiapine Fumarate 50 MG Oral Tablet 03/19/2022 Provider: ELOINA LYNCH MD Diagnosis: Insomnia, unspec ified as directed --2 at bedtime Last Documented On 2 12:36PM By Barbara Lynch MD ; [facility] busPIRone HCl 15 MG Oral Tablet 02/20/2022 Provider: ELOINA LYNCH MD Diagnosis: Generalized anxi ety disorder One tablet three times a day Last Documented On 02/20/2022 6:33PM By Barbara Lynch MD ; [facility] Remicade 100 MG Intravenous Solution Reconstituted 02/2022 Provider: Diagnosis: 1 q 2 weeks for 1 month then 1 infusion q 2 joey hs Last Documented On 2 11:24AM By DEMETRIA ARZATE ; [facility] Torsemide 10 MG Oral Tablet 10/25/2021 Provider: Diagnosis: 2 tabs daily Last Documented On 2 11:23AM By DEMETRIA ARZATE ; [facility] Levothyroxine Sodium 50 MCG Oral Tablet 05/16/2021 Oumar brooks: KP BALL MD Diagnosis: 1 tab daily with 175 mcg 1.5 tabs daily Last Documented On 2 10:52AM By DEMETRIA ARZATE ; [facility] Levothyroxine Sodium 175 MCG Oral Tablet 11/14/2020 Provider: MARTELL ROBERTS MD Diagnosis: Take 1.5 tabs daily Last Documented On 11/22/2020 9:32AM By DEMETRIA ARZATE ; [facility] cloNIDine HCl 0.1 MG Oral Tablet 11/14/2020 Provider : MARTELL ROBERTS MD Diagnosis: 1 tab prn if BP 160/? Last Documented On 11/22/2020 9:32AM By DEMETRIA ARZATE ; [facility] Amiodarone HCl 200 MG Oral Tablet 10/14/2020 Provide r: MARTELL ROBERTS MD Diagnosis: 1/2 tab daily Last Documented On 11/22/2020 9:33AM By DEMETRIA ARZATE ; [facility] Metoprolol Succinate ER 50 M G Oral Tablet Extended Release 24 Hour 10/14/2020 Provider: MARTELL ROBERTS MD Diagnosis: 1/2 tab daily Last Documented On 11/22/2020 9:33AM By DEMETRIA ARZATE ; [facility] Adult Aspirin EC Low Strengt h 81 MG Oral Tablet Delayed Release 05/25/2020 Provider: Diagnosis: 1 tab daily Last Documented On 1 10:14AM By DEMETRIA ARZATE ; [facility] Vitamin D3 25 MCG (1000 UT) Oral Tablet Chewable 05/25/2020 Provider: KP BALL MD Diagnosis: 1 tab bid otc Last Documented On 1 10:13AM By DEMETRIA ARZATE ; [facility] Eliquis 5 MG Oral Tablet 11/17/2019 Provider: Diagnosis: 1 tab bid Last Documented On 12/03/2019 9:29AM By DEMETRIA ARZATE ; [facility] Hydroxychloroquine Sulfate 200MG Oral Tablet 9 Provider: TRISTAN CORTES MD Diagnosis: 1 TAB BID Last Documented On 9 10:38AM By DEMETRIA ARZATE ; [facility] L-Lysine 500MG Oral Tablet 02/20/2018 Provider: Diagnosis: 1 tab bid otc Last Documented On 02/20/2018 9:43AM By DEMETRIA ARZATE ; [facility] Olmesartan Medoxomil 40MG Oral Tablet 02/20/2018 Pro vider: Diagnosis: 1 tab daily Last Documented On 02/20/2018 9:45AM By DEMETRIA ARZATE ; [facility] Potassium Chloride ER 10MEQ Oral Tablet, control led-release 02/20/2018 Provider: Diagnosis: 1 tablet daily in the am Last Documented On 02/20/2018 9:46AM By DEMETRIA ARZATE ; [facility] Calcium 1000 + D [id number] Oral Tablet 8 Provider: Diagnosis: 2 a day Last Documented On 8 10:09AM By Barbara Lynch MD ; [facility] amLODIPine Besylate 10 MG OR TABS 01/19/2013 Provide r: Diagnosis: Last Documented On 3 10:02AM By JACQUELINE ARZATE ; [facility] Hair Vitamins OR TABS 01/19/2013 Provider: Diagnosis: 1 in the a.m. 1 in the p.m. Last Documented On 3 10:05AM By JACQUELINE ARZATE ; [facility] Mupirocin 2% EX OINT 07/28/2012 Provider: Diagnosis: Last Documented On 3 11:22AM By JACQUELINE ALVAREZ ; [facility] Hydrocortisone 2.5% EX CREA 07/28/2012 Provider: Diagnosis: Last Documented On 3 11:23AM By JACQUELINE ALVAREZ ; [facility] Betamethasone Dipropionate 0.05% EX OINT 07/28/2012 Provider: Diagnosis: Last Documented On 3 11:23AM By JACQUELINE ALVAREZ ; [facility] Clobetasol Propionate 0.05% EX CREA 07/28/2012 Provi jovany: Diagnosis: Last Documented On 3 11:22AM By JACQUELINE ALVAREZ ; [facility] ZyrTEC Allergy 10 MG OR CAPS 07/28/2012 Provider: Diagnosis: Last Documented On 3 11:19AM By JACQUELINE ALVAREZ ; [facility] Omeprazole 20 MG OR CPDR 07/28/2012 Provider: Diagnosis: Last Documented On 3 11:18AM By JACQUELINE ALVAREZ ; [facility] Past Medications on file Amiodarone HCl 200 MG Oral Tablet 05/25/2020 - 021 Provider: MARTELL ROBERTS MD Diagnosis: pt states she takes 100 mg daily for Afib Last Documented On 1 10:10AM By DEMETRIA ARZATE ; [facility] Aimovig 70 MG/ML Subcutaneous Solution Auto-injector 12/03/2019 - 01/02/2020 Provider: ELOINA LYNCH MD Diagnosis: Migraine w/o aur a, not intractable, w/o status migrainosus as directed Last Documented On 0 10:16AM By Barbara Lynch MD ; [facility] traZODone HCl 100 MG OR TABS 06/16/2015 - 07/16/2015 P rovider: Diagnosis: Insomnia, unspec ified 3 tablets at bed time Last Documented On 06/16/2015 5:12PM By GEO FLOR ; [facility] Zoloft 100 MG OR TABS 06/16/2015 - 07/16/2015 Provider : Diagnosis: Major depressive disorder, recurrent, moderate 2 tablets at bedtime Last Documented On 06/16/2015 5:20PM By GEO FLOR ; [facility] QUEtiapine Fumarate 50 MG OR TABS 06/16/2015 - 016 Provider: Diagnosis: Insomnia, unspec ified One tablet at bed time Last Documented On 06/16/2015 5:09PM By GEO FLOR ; [facility] busPIRone HCl 15 MG OR TABS 05/16/2015 - 06/15/2015 Pr ovider: Diagnosis: Generalized anxi ety disorder One tablet three times a day Last Documented On 05/16/2015 5:19PM By GEO FLOR ; [facility] Medications Administered Includes: Administered Medications from this encounter No Administered Medications Recorded Vital Signs Includes: Vital Signs from this encounter Vital Name 11/23/2021 11:30A Blood Pressure Sitting L 114/54 BP Cuff Size Regular Pulse Rate-Sitting (bpm) 60 Pulse Rhythm Regular Height (in) 64 Weight (lb) 290 Body Mass Index (kg/m2) 49.8 Body Surface Area (m2) 2.3 Note: self reported vitals Last Documented: On 11/23/2021 11:30A M ; [facility] Results Includes: Results discussed during this encounter No Results Recorded For Specified Dates History of Present Illness Includes: History of Present Illness from this encounter HPI EVENS BURGESS is a 66 year old female. - Allergy list reviewed - Past medical history reviewed - Medication list reviewed - Current/previous labs reviewed - labs from 11/21/21 showed: Cholesterol = 173, Triglycerides = 137, HDL = 75, LDL = 76, Glucose = 77, TSH = 0.83, T4 = 1.4, CBC/MCHC = 31.1, U/A = Protein = trace, Leukoctye = trace, RBC = 3-10, Calcium Oxalate Crystals = moderate, C&S = mixed genital augustin/normal This visit was conducted with use of interactive audio and video telecommunication system with real time communication between the patient and the provider. Patient consent for virtual visit obtained today. Total time spent with patient via audio and video telecommunication 30 minutes. Pt reported that she just got stressed because she was in a hurry to get her quilt done in preparation for her niece's baby shower and finally she got it done last Saturday11/17/21 and the baby shower occurred last Saturday11/19/21 so now she is able to rest and take a break. Her RA pain got exacerbated when she was quilting but she is on Remicade which makes her tired but she also has VICENTE and has dental device but she is not sure if it is working for her. She is not sure if she is still snoring. She has not been feeling as depressed. The Wellbutrin and Zoloft are helping with her mood. Pt has been motivated in general in doing daily tasks. Sleep has been good. The Trazodone seems to help with her sleep. She also takes Seroquel which calms her down. No TD noted/reported. Pt has not been napping/sleeping too much during the daytime. Appetite is good. Pt has not been feeling as bad about self. Pt is able to focus and concentrate for the most part, but at times she gets easily distracted. She has misplaced certain items so she will try to organize her closet so she can find some things that she has misplaced. Pt denied having any psychomotor restlessness. Pt denied suicidal thoughts. Pt denied having any delusions/hallucinations. Pt gets occ anxious. The Buspar seems to help. She has not even used the klonopin prescribed last 06/16/21, she still has the 20 tabs. Pt has not had any significant mood swings. Pt has not been as irritable. HEr CMP and Lipid Panel done last 11/22/21 were WNL. Her U/A showed some rbc and some calcium oxalate crystals so was asked to discuss this with PCP. So far the topamax seems to help prevent her migraine headaches. MENTAL STATUS EXAM: Sensorium - alert, oriented to name, place, and time Attitude - cooperative Gait - ambulatory Sleep - good - compliant with dental device Interest/Energy/Motivation - good, occ tired Guilt/Worthlessness - absent Concentration/Attention Span - able to focus and concentrate, at times gets distracted Memory Recall - fairly good Appetite - good - on 05/17/21 pt weighed 290 lbs and on 11/23/21 she weighed the same Suicidal Thoughts - absent Homicidal Thoughts - absent Delusions - absent Hallucinations - absent Appearance - casually groomed Motor Behavior - calm Eye Contact - intermittent Speech - fluent Mood - not as depressed, was stressed when she was trying to finish her quilt but better now Affect - pleasant Thought Process - coherent Insight and Judgment - intact Social History Description Last Updated No coffee consumption -- dri nks 3 - 4 cans of diet soda a week and no tea or no coffee 11/23/2021 Last Documented On 2 9:31AM ; [facility] Work history -- Disabled 06/14/2018 Last Documented On 2 11:07AM ; [facility] Marital history -- ~Pt was born and raised in [place], [place]. Pt was closer to her mother growing up. Both parents are . She has 1 son and 1 daughter. She had 12th grade education. She used to work at [employer] from 1990 - 1999 and then at [employer] from 05/1999 - 04/2002. Pt is now disabled. Her hobbies include sewing and making wreaths. She denied having any past and pending legal history 06/14/2018 Last Documented On 2 11:07AM ; [facility] Not using alcohol 05/08/2012 Last Documented On 2 11:07AM ; [facility] Not using drugs (Illicit) 05/08/2012 Last Documented On 2 11:07AM ; [facility] Smoking status : Never smoked 05/08/2012 Last Documented On 11:07AM ; [facility] Procedures and Surgical History Includes: Procedures from this encounter Procedures Code Diagnosis Performing Provider Service L ocation Service Date education and instructions Last Documented On 11:07AM ; [facility] I discussed the risks, benef its and side effects of Quetiapine to the patient including the possibility of metabolic and motor side effects such as tardive dyskinesia Last Documented On 11:28AM ; [facility] I recommended a healthy sunny nced diet and exercise as tolerated and approved by their primary care physician. ~ I recommended that the patient cut back on caffeine and/or avoid caffeine. ~ Pt to call 911 and /or go to the nearest emergency room or call me if suicidal/homicidal ideation or other serious concerns arise. ~ I gave instructions to call me should there be any questions or concerns. ~ The patient verbalized understanding and agreed to treatment plan Last Documented On 12:40PM ; [facility] dangerousness assessment: suicide risk - not macy cidal 3085F Last Documented On 11:37AM ; [facility] use of tobacco assessment performed 1000F Last Documented On 11:07AM ; [facility] patient screened for future fall risk - no recen t falls 3288F Last Documented On 2 11:07AM ; [facility] review of medications documented 1160F Last Documented On 11:07AM ; [facility] screening for adult depressi on: impression and score - please see above treatment and PHQ score Last Documented On 11:07AM ; [facility] standardized depression screening: posit florinda for symptoms Last Documented On 11:07AM ; [facility] encouragement to exercise Last Documented On 11:28AM ; [facility] Clinical summary provided to patient Last Documented On 08/11/202 2 11:28AM ; [facility] PHQ-9: total score 5 Last Documented On 2 12:38PM ; [facility] Surgical History Last Updated History of hysterectomy 11/05/2017 Last Documented On 2 11:07AM ; [facility] History of Prior Surgery: Hy sterectomy ~Thyroidectomy ~Oophorectomy ~Cyst removal from breast ~Cholecystectomy -- 2000 but still has on and off diarrhea ~Tonsillectomy ~Cardiac cath with no stent placement 10/26/2014 Last Documented On 2 11:07AM ; [facility] Medical History Includes: Medical History addressed during this encounter Description Last Updated History of sinusitis - given Cefuroxime 500 mg 07/20/19 05/23/2022 Last Documented On 2 11:07AM ; [facility] History of COVID-19 infectio n - 2019 -- had bad respiratory sx, lost her sense of smell and then she had COVID again 2019 - pt still cannot smell perfumes or natural gas 11/23/2021 Last Documented On 2 9:31AM ; [facility] History of coronavirus 2019- nCoV vaccine - Pfizer #1 01/2021 #2 02/2021 #3 none 11/23/2021 Last Documented On 2 9:31AM ; [facility] History of dental bridge wor k - given Amoxil 500 mg 09/21/21,09/12/21 and 07/18/20;given Amoxil 500 mg and Fluconazole 150 mg 09/23/19 11/23/2021 Last Documented On 2 9:31AM ; [facility] Primary Care Provider: Dr. Solo Ball ~Dr. Hernando Jernigan -- Vice President Biostatistics -- Vandana ~Dr. Jada Grajeda -- Promotion Officer ~Dr. Martell Roberts -- Dental Lab Technician ~Dr. Jorge Guzman -- Dentist ~Dr. Jacek Banks -- Vascular Surgeon at [facility] ~Dr. Adrienne King S -- Sleep/Dental device ~Dr. 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 Jacek Banks (vascular surgeon) 07/201912/03/2019 Last Documented On 2 11:07AM ; [facility] History of obstructive sleep apnea - Home Sleep Study ordered by Dr. Yuriy Ball 09/2019 -- mild sleep apnea -- patient trying to adjust to dental device 12/03/2019 Last Documented On 2 11:07AM ; [facility] History of vitamin deficienc y - Vitamin D = 30 on 12/26/18 -- started on Vitamin D 1000 mg 1 daily 02/25/2019 Last Documented On 2 11:07AM ; [facility] History of fall risk -- #1 f ell in parking lot 12/2016 -- had initial nosebleed --did not go to ER 02/25/2019 Last Documented On 2 11:07AM ; [facility] History of fracture of the hip and pelvi s -- stress fractures 03/05/2018 Last Documented On 2 11:07AM ; [facility] History of mitral valve prolapse 018 Last Documented On 2 11:07AM ; [facility] History of mitral regurgitation 04/24/19 18 Last Documented On 2 11:07AM ; [facility] History of irritable bowel syndrome 05/2015 Last Documented On 2 11:07AM ; [facility] Several hip and pelvic fractures probabl y secondary to stress fractures ~ 07/20/2013 Last Documented On 2 11:07AM ; [facility] History of GERD 01/19/2013 Last Documented On 2 11:07AM ; [facility] History of hypertension 01/19/2013 Last Documented On 2 11:07AM ; [facility] History of hypothyroidism 01/19/2013 Last Documented On 2 11:07AM ; [facility] History of pelvic fracture 01/19/2013 Last Documented On 2 11:07AM ; [facility] History of migraine headache 07/28/2012 Last Documented On 2 11:07AM ; [facility] History of discoid lupus erythematosus 0 07/28/2012 Last Documented On 2 11:07AM ; [facility] Family History Includes: Family History addressed during this encounter Description Last Updated Maternal grandfather's history of alcoho lism -- grandfather 10/26/2014 Last Documented On 2 11:07AM ; [facility] Sororal history of depression -- sister 10/26/2014 Last Documented On 2 11:07AM ; [facility] Review of Systems Includes: Review of Systems from this encounter Systemic: Feeling poorly (malaise) - occasionally tired. No fever, no chills, and no night sweats. Head: Headache and sinus pain. Neck: No neck pain and no neck stiffness. Eyes: No vision problems, no itching of the eyes, and no eye pain. Otolaryngeal: No hearing loss, no earache, no nasal discharge, no hoarseness, and no sore throat. Cardiovascular: No chest pain or discomfort, no palpitations, and the heart rate was not fast. Pulmonary: No dyspnea, no cough, and no wheezing. Gastrointestinal: No heartburn. No nausea and no vomiting. Diarrhea and constipation. Genitourinary: Increased urinary frequency. No dysuria. Endocrine: No polydipsia and no excessive sweating. Musculoskeletal: No muscle aches. Pain localized to one or more joints and joint stiffness localized to one or more joints. Neurological: No dizziness, no vertigo, no fainting, and no motor disturbances. Skin: No pruritus. Skin lesion:. No rash. Mental Status Includes: Mental Status from this encounter Description Major depression, recurrent Functional Status Includes: Functional Status from this encounter No Functional Status Recorded Physical Exam Includes: Physical Exam from this encounter Allergies Includes: Active Allergies Substance Type Reaction Onset Date Resolved Date Statu s Sulfa Antibiotics Allergy Hives / Urticaria 05/08/2012 Active Last Documented On 09/18/2023 9:10AM ; [facility] Note: Imported from external source. Silvadine Allergy peels skin 05/08/2012 Active Last Documented On 09/18/2023 9:10AM ; [facility] Note: Imported from external source. Penicillin V Potassium Intolerance yeast infection 05/08/2012 Active Last Documented On 09/18/2023 9:10AM ; [facility] Note: Imported from external source. Omnipaque Allergy Hives / Urticaria 05/08/2012 Active Last Documented On 09/18/2023 9:10AM ; [facility] Note: Imported from external source. Neosporin Allergy Skin Rashes / Eruption of skin 05/08/2012 Active Last Documented On 09/18/2023 9:10AM ; [facility] Note: Imported from external source. Lisinopril Allergy cough 05/08/2012 Active Last Documented On 09/18/2023 9:10AM ; [facility] Note: Imported from external source. Latex Allergy skin peels off 05/08/2012 Acti ve Last Documented On 09/18/2023 9:10AM ; [facility] Note: Imported from external source. Bandaging Tape Allergy PEELS OFF SKIN 05/08/2012 Active Last Documented On 09/18/2023 9:10AM ; [facility] Note: Imported from external source. Bacitracin Allergy Skin Rashes / Eruption of skin 05/08/2012 Active Last Documented On 09/18/2023 9:10AM ; [facility] Note: Imported from external source. Encounters Encounter Provider Location Date Check-In Time Check- Out Time Diagnosis [facility] ELOINA LYNCH MD [facility] 2 11:06AM 11:59PM Migraine Headache,Ирина r Depression, Recurrent,Gen eralized Anxiety Disorder,Psyc hophysiologic al Insomnia,Christina c Disorder Insurance Includes: Active Insurance Policies Plan Name Member ID Group # Subscriber Relationship Effect florinda Dates 1 - [employer] [id number] [place] [place] Self Clinical Notes Includes: Clinical Notes from this encounter No Clinical Notes Recorded
--- OUTSIDE RECORDS SUMMARY | 2024-06-20 09:27 | XMS_ITS | Clinical Summary ---
Author Organization [facility] Address [address] [place] [address] Phone Care Team Providers Care Toll Operator Name Role Phone LIZ DOYLE, ELOINA ORTEGA Unavailable [phone] Reason for Visit and Chief Complaint The Chief Complaint is: follow up for depression/anxiety Problems Includes: Problems addressed during this encounter and other active Problems Current Visit Onset Date Resolved Date Provider Conditio n Status Panic Disorder 12/14/2017 ELOINA Lew Active Last Documented On 8 7:49AM ; [facility] Psychophysiological Insomnia 08/17/2016 ELOINA LYNCH MD Active Last Documented On 7 9:38AM ; [facility] Migraine Headache 07/28/2012 ELOINA Adrian MD Active Last Documented On 0 10:11AM ; [facility] Major Depression, Recurrent 07/14/2012 ELOINA LYNCH MD Active Last Documented On 3 12:01PM ; [facility] Generalized Anxiety Disorder 05/08/2012 ELOINA LYNCH MD Active Last Documented On 3 1:29PM ; [facility] Past Visits Onset Date Resolved Date [...] tive Last Documented On 3 1:28PM ; [facility] Hypertension Systemic 05/08/2012 ELOINA CUEVAS MD Active Last Documented On 3 1:28PM ; [facility] Hypothyroidism 05/08/2012 ELOINA Lew Active Last Documented On 3 1:28PM ; [facility] Plan of Treatment 1. Major Depressive [...] evening - 05/25/20 - Last Documented On 06/12/2022 9:24AM ; [facility] Instructions to patient Lose weight Last Documented On 3 11:32AM ; [facility] Education and Decision Aids were provided during visit for: Patient education about medi cation ---Education was given on medication(s) and diagnosis. I reviewed the risks, benefits and side effects of patient's medications Last Documented On 3 11:10AM ; [facility] Discussed calming techniques such as breathing exercises and other relaxation techniques Last Documented On 3 11:10AM ; [facility] Counseling for nutrition/eden ght management provided Last Documented On 3 11:32AM ; [facility] Discussed good sleep hygiene habits Last Documented On 3 11:32AM ; [facility] Assessments Includes: Assessments from this encounter Findings - Migraine headache - Last Documented On 06/12/2022 9:24AM ; [facility] - Major depression, recurrent - Last Documented On 06/12/2022 9:24AM ; [facility] - Psychophysiological insomnia - Last Documented On 06/12/2022 9:24AM ; [facility] - Generalized anxiety disorder - Last Documented On 06/12/2022 9:24AM ; [facility] - Panic disorder - Last Documented On 06/12/2022 9:24AM ; [facility] Instructions Includes: Instructions from this encounter Instructions to patient Lose weight Last Documented On 3 11:32AM ; [facility] Education and Decision Aids were provided during visit for: Patient education about medi cation ---Education was given on medication(s) and diagnosis. I reviewed the risks, benefits and side effects of patient's medications Last Documented On 3 11:10AM ; [facility] Discussed calming techniques such as breathing exercises and other relaxation techniques Last Documented On 3 11:10AM ; [facility] Counseling for nutrition/eden ght management provided Last Documented On 3 11:32AM ; [facility] Discussed good sleep hygiene habits Last Documented On 3 11:32AM ; [facility] Medical Equipment - Implanted Devices Includes: Current Devices No Medical Equipment Recorded Medications Includes: Medications discussed during this encounter and other current Medications Discontinued / Stopped on this date ELOINA LYNCH MD on 03/16/2021 buPROPion HCl ER (XL) 300 MG Oral Tablet Extended Release 24 Hour Provider: ELOINA LYNCH MD Diagnosis: Major depressive disorder, recurrent, moderate Last Documented On 3 11:28AM By DEMETRIA ARZATE ; [facility] Topiramate 50 MG OR TABS Provider: Diagnosis: Last Documented On 3 11:26AM By DEMETRIA ARZATE ; [facility] Current Medications (continue as prescribed) Sertraline HCl 100 MG Oral Tablet 07/16/2022 Provider: ELOINA LYNCH MD Diagnosis: Major depressive disorder, recurrent, moderate TAKE 2 TABLETS BY MOUTH AT B EDTIME DIRECTED Last Documented On 3 11:54AM By Barbara Lynch MD ; [facility] Topiramate 50 MG Oral Tablet 07/16/2022 Provider: ELOINA LYNCH MD Diagnosis: Migraine w/o aur a, not intractable, w/o status migrainosus TAKE ONE TABLET BY MOUTH DOMINIK RY MORNING AND TAKE TWO TABLETS BY MOUTH EVERY EVENING DIRECTED Last Documented On 3 11:54AM By Barbara Lynch MD ; [facility] clonazePAM 0.5 MG Oral Tablet 06/14/2022 Provider: ELOINA LYNCH MD Diagnosis: Panic disorder [ episodic paroxysmal anxiety] ud - as directed as directed take as needed for anxiety Last Documented On 06/14/2022 5:44PM By Barbara Lynch MD ; [facility] buPROPion HCl ER (XL) 300 MG Oral Tablet Extended Release 24 Hour 05/17/2022 Provider: ELOINA CARLSON MD Diagnosis: TAKE ONE TABLET BY MOUTH EVERY MORNING Last Documented On 3 12:20PM By Barbara Lynch MD ; [facility] traZODone HCl 100 MG Oral Tablet 05/17/2022 Provider: ELOINA LYNCH MD Diagnosis: Psychophysiologi c insomnia DIRECTED, TAKE 2 -3 TABLE TS AT BEDTIME Last Documented On 3 12:20PM By Barbara Lynch MD ; [facility] QUEtiapine Fumarate 50 MG Oral Tablet 03/19/2022 Provider: ELOINA LYNCH MD Diagnosis: Insomnia, unspec ified as directed --2 at bedtime Last Documented On 2 12:36PM By Barbara Lynch MD ; [facility] busPIRone HCl 15 MG Oral Tablet 02/20/2022 Provider: ELOINA LYNCH MD Diagnosis: Generalized anxi ety disorder One tablet three times a day Last Documented On 02/20/2022 6:33PM By Barbara Lynch MD ; [facility] Remicade 100 MG Intravenous Solution Reconstituted 02/2022 Provider: Diagnosis: 1 q 2 weeks for 1 month then 1 infusion q 2 joey hs Last Documented On 2 11:24AM By DEMETRIA ARZATE ; [facility] Torsemide 10 MG Oral Tablet 10/25/2021 Provider: Diagnosis: 2 tabs daily Last Documented On 2 11:23AM By DEMETRIA ARZATE ; [facility] Levothyroxine Sodium 50 MCG Oral Tablet 05/16/2021 Oumar hinesder: KP BALL MD Diagnosis: 1 tab daily with 175 mcg 1.5 tabs daily Last Documented On 2 10:52AM By DEMETRIA ARZATE ; [facility] Levothyroxine Sodium 175 MCG Oral Tablet 11/14/2020 Provider: MARTELL ROBERTS MD Diagnosis: Take 1.5 tabs daily Last Documented On 11/22/2020 9:32AM By DEMETRIA ARZATE ; [facility] cloNIDine HCl 0.1 MG Oral Tablet 11/14/2020 Provider : MARTELL ROBERTS MD Diagnosis: 1 tab prn if BP 160/? Last Documented On 11/22/2020 9:32AM By DEMETRIA ARZATE ; [facility] Amiodarone HCl 200 MG Oral Tablet 10/14/2020 Provide r: MARTELL ROBERTS MD Diagnosis: 1/2 tab daily Last Documented On 11/22/2020 9:33AM By DEMETRIA ARZATE ; [facility] Metoprolol Succinate ER 50 M G Oral Tablet Extended Release 24 Hour 10/14/2020 Provider: MARTELL ROBERTS MD Diagnosis: 1/2 tab daily Last Documented On 11/22/2020 9:33AM By DEMETRIA ARZATE ; [facility] Adult Aspirin EC Low Strengt h 81 MG Oral Tablet Delayed Release 05/25/2020 Provider: Diagnosis: 1 tab daily Last Documented On 1 10:14AM By DEMETRIA ARZATE ; [facility] Vitamin D3 25 MCG (1000 UT) Oral Tablet Chewable 05/25/2020 Provider: KP BALL MD Diagnosis: 1 tab bid otc Last Documented On 1 10:13AM By DEMETRIA ARZATE ; [facility] Eliquis 5 MG Oral Tablet 11/17/2019 Provider: Diagnosis: 1 tab bid Last Documented On 12/03/2019 9:29AM By DEMETRIA ARZATE ; [facility] Hydroxychloroquine Sulfate 200MG Oral Tablet 9 Provider: TRISTAN CORTES MD Diagnosis: 1 TAB BID Last Documented On 9 10:38AM By DEMETRIA ARZATE ; [facility] L-Lysine 500MG Oral Tablet 02/20/2018 Provider: Diagnosis: 1 tab bid otc Last Documented On 02/20/2018 9:43AM By DEMETRIA ARZATE ; [facility] Olmesartan Medoxomil 40MG Oral Tablet 02/20/2018 Pro vider: Diagnosis: 1 tab daily Last Documented On 02/20/2018 9:45AM By DEMETRIA ARZATE ; [facility] Potassium Chloride ER 10MEQ Oral Tablet, control led-release 02/20/2018 Provider: Diagnosis: 1 tablet daily in the am Last Documented On 02/20/2018 9:46AM By DEMETRIA ARZATE ; [facility] Calcium 1000 + D [id number] Oral Tablet 8 Provider: Diagnosis: 2 a day Last Documented On 8 10:09AM By Barbara Lynch MD ; [facility] amLODIPine Besylate 10 MG OR TABS 01/19/2013 Provide r: Diagnosis: Last Documented On 3 10:02AM By JACQUELINE ARZATE ; [facility] Hair Vitamins OR TABS 01/19/2013 Provider: Diagnosis: 1 in the a.m. 1 in the p.m. Last Documented On 3 10:05AM By JACQUELINE ARZATE ; [facility] Mupirocin 2% EX OINT 07/28/2012 Provider: Diagnosis: Last Documented On 3 11:22AM By JACQUELINE ALVAREZ ; [facility] Hydrocortisone 2.5% EX CREA 07/28/2012 Provider: Diagnosis: Last Documented On 3 11:23AM By JACQUELINE ALVAREZ ; [facility] Betamethasone Dipropionate 0.05% EX OINT 07/28/2012 Provider: Diagnosis: Last Documented On 3 11:23AM By JACQUELINE ALVAREZ ; [facility] Clobetasol Propionate 0.05% EX CREA 07/28/2012 Provi jovany: Diagnosis: Last Documented On 3 11:22AM By JACQUELINE ALVAREZ ; [facility] ZyrTEC Allergy 10 MG OR CAPS 07/28/2012 Provider: Diagnosis: Last Documented On 3 11:19AM By JACQUELINE ALVAREZ ; [facility] Omeprazole 20 MG OR CPDR 07/28/2012 Provider: Diagnosis: Last Documented On 3 11:18AM By JACQUELINE ALVAREZ ; [facility] Past Medications on file Amiodarone HCl 200 MG Oral Tablet 05/25/2020 - 021 Provider: MARTELL ROBERTS MD Diagnosis: pt states she takes 100 mg daily for Afib Last Documented On 1 10:10AM By DEMETRIA ARZATE ; [facility] Aimovig 70 MG/ML Subcutaneous Solution Auto-injector 12/03/2019 - 01/02/2020 Provider: ELOINA LYNCH MD Diagnosis: Migraine w/o aur a, not intractable, w/o status migrainosus as directed Last Documented On 0 10:16AM By Barbara Lynch MD ; [facility] traZODone HCl 100 MG OR TABS 06/16/2015 - 07/16/2015 P rovider: Diagnosis: Insomnia, unspec ified 3 tablets at bed time Last Documented On 06/16/2015 5:12PM By GEO FLOR ; [facility] Zoloft 100 MG OR TABS 06/16/2015 - 07/16/2015 Provider : Diagnosis: Major depressive disorder, recurrent, moderate 2 tablets at bedtime Last Documented On 06/16/2015 5:20PM By GEO FLOR ; [facility] QUEtiapine Fumarate 50 MG OR TABS 06/16/2015 - 016 Provider: Diagnosis: Insomnia, unspec ified One tablet at bed time Last Documented On 06/16/2015 5:09PM By GEO FLOR ; [facility] busPIRone HCl 15 MG OR TABS 05/16/2015 - 06/15/2015 Pr ovider: Diagnosis: Generalized anxi ety disorder One tablet three times a day Last Documented On 05/16/2015 5:19PM By GEO FLOR ; [facility] Medications Administered Includes: Administered Medications from this encounter No Administered Medications Recorded Vital Signs Includes: Vital Signs from this encounter Vital Name 05/23/2022 11:34A Blood Pressure Sitting L 134/116 BP Cuff Size Regular Pulse Rate-Sitting (bpm) 116 Pulse Rhythm Regular Height (in) 64 Weight (lb) 276 Body Mass Index 47.4 Body Surface Area 2.2 Note: self reported vitals Last Documented: On 05/23/2022 11:34A M ; [facility] Results Includes: Results discussed during this encounter No Results Recorded For Specified Dates History of Present Illness Includes: History of Present Illness from this encounter CLIFF BURGESS is a 67 year old female. - Allergy list reviewed - Past medical history reviewed - Medication list reviewed - Current/previous labs reviewed - labs from 11/21/21 showed: Cholesterol = 173, HDL = 75, LDL = 76, Triglycerides = 137, Glucose = 77, TSH = 0.83, FT4 - 1.4 Pt reported that she had a rough holiday last year. Her daughter who weighs 500 lbs passed out and was sent to the ER. Due to her wt she got transported to [place] and just had CT of the chest and was sent back to [facility] and was hospitalized for 1 month last Feb through Mar 2022 due to pneumonia and PE. While was at [place] ERhas not been feeling depressed. Pt has not been as anxious. Pt denied having any mood swings. Pt has not been as irritable. Pt has been motivated in general in doing daily tasks. Sleep has been good. Pt has not been napping/sleeping too much during the daytime. Pt has not been feeling as tired. Appetite is good. Pt has not been feeling as bad about self. Pt is able to focus and concentrate for the most part. Pt denied having any psychomotor restlessness. Pt denied suicidal thoughts. Pt denied having any delusions/hallucinations. MENTAL STATUS EXAM: Sensorium - alert, oriented to name, place, and time Attitude - cooperative Gait - ambulatory Sleep - trouble falling asleep, compliant with dental device Interest/Energy/Motivation - good Guilt/Worthlessness - absent Concentration/Attention Span - able to focus and concentrate Memory Recall - fairly good Appetite - good - on 11/23/21 pt weighed 290 lbs and on 05/23/22 she weighed 276 lbs so she lost 14 lbs Suicidal Thoughts - absent Homicidal Thoughts - absent Delusions - absent Hallucinations - absent Appearance - casually groomed Motor Behavior - calm Eye Contact - intermittent Speech - fluent Mood - not depressed Affect - stable Thought Process - coherent Insight and Judgment - intact Social History Description Last Updated No coffee consumption -- dri nks 3 - 4 cans of diet soda a week and no tea or no coffee 11/23/2021 Last Documented On 3 11:10AM ; [facility] Work history -- Disabled 06/14/2018 Last Documented On 3 11:10AM ; [facility] Marital history -- ~Pt was born and raised in [place], [place]. Pt was closer to her mother growing up. Both parents are . She has 1 son and 1 daughter. She had 12th grade education. She used to work at [employer] from 1990 - 1999 and then at [employer] from 05/1999 - 04/2002. Pt is now disabled. Her hobbies include sewing and making wreaths. She denied having any past and pending legal history 06/14/2018 Last Documented On 3 11:10AM ; [facility] Not using alcohol 05/08/2012 Last Documented On 3 11:10AM ; [facility] Not using drugs (Illicit) 05/08/2012 Last Documented On 3 11:10AM ; [facility] Smoking status : Never smoked 05/08/2012 Last Documented On 3 11:10AM ; [facility] Procedures and Surgical History Includes: Procedures from this encounter Procedures Code Diagnosis Performing Provider Service L ocation Service Date education and instructions Last Documented On 3 11:10AM ; [facility] I discussed the risks, benef its and side effects of Quetiapine to the patient including the possibility of metabolic and motor side effects such as tardive dyskinesia Last Documented On 3 11:32AM ; [facility] dangerousness assessment: suicide risk -not suic idal 3085F Last Documented On 3 11:10AM ; [facility] use of tobacco assessment performed 1000F Last Documented On 3 11:10AM ; [facility] patient screened for future fall risk - no recen t falls 3288F Last Documented On 3 11:10AM ; [facility] review of medications documented 1160F Last Documented On 3 11:10AM ; [facility] screening for adult depressi on: impression and score - please see above treatment and PHQ score Last Documented On 3 11:10AM ; [facility] standardized depression screening: posit florinda for symptoms Last Documented On 3 11:10AM ; [facility] encouragement to exercise Last Documented On 3 11:10AM ; [facility] Clinical summary provided to patient Last Documented On 3 11:10AM ; [facility] PHQ-9: total score Last Documented On 3 11:32AM ; [facility] Surgical History Last Updated History of hysterectomy 11/05/2017 Last Documented On 3 11:10AM ; [facility] History of Prior Surgery: Hy sterectomy ~Thyroidectomy ~Oophorectomy ~Cyst removal from breast ~Cholecystectomy -- 1999 but still has on and off diarrhea ~Tonsillectomy ~Cardiac cath with no stent placement 10/26/2014 Last Documented On 3 11:10AM ; [facility] Medical History Includes: Medical History addressed during this encounter Description Last Updated History of sinusitis - given Doxycycline 100 mg, Fluconazole 150 mg and Mupirocin ointment 2% on 05/08/22; Cefuroxime 500 mg 07/20/19 05/23/2022 Last Documented On 3 9:24AM ; [facility] History of COVID-19 infectio n - 2018 -- had bad respiratory sx, lost her sense of smell and then she had COVID again 2019 - pt still cannot smell perfumes or natural gas 11/23/2021 Last Documented On 3 11:10AM ; [facility] History of coronavirus 2019- nCoV vaccine - [place]ocits #1 01/2021 #2 02/2021 #3 none 11/23/2021 Last Documented On 3 11:10AM ; [facility] History of dental bridge wor k - given Amoxil 500 mg 09/21/21,09/12/21 and 07/18/20;given Amoxil 500 mg and Fluconazole 150 mg 09/23/19 11/23/2021 Last Documented On 3 11:10AM ; [facility] Primary Care Provider: Dr. Solo Ball ~Dr. Hernando Jernigan -- Weigher Bulker -- Vandana ~Dr. Jada Grajeda -- Supervisor Title ~Dr. Martell Roberts -- Forwarder Operator ~Dr. Jorge Guzman -- Dentist ~Dr. Jacek Banks -- Vascular Surgeon at [facility] ~Dr. Adrienne King, S -- Sleep/Dental device ~Dr. 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 Jacek Banks (vascular surgeon) 07/201912/03/2019 Last Documented On 3 11:10AM ; [facility] History of obstructive sleep apnea - Home Sleep Study ordered by Dr. Yuriy Ball 09/2019 -- mild sleep apnea -- patient trying to adjust to dental device 12/03/2019 Last Documented On 3 11:10AM ; [facility] History of vitamin deficienc y - Vitamin D = 30 on 12/26/18 -- started on Vitamin D 1000 mg 1 daily 02/25/2019 Last Documented On 3 11:10AM ; [facility] History of fall risk -- #1 f ell in parking lot 12/2016 -- had initial nosebleed --did not go to ER 02/25/2019 Last Documented On 3 11:10AM ; [facility] History of fracture of the hip and pelvi s -- stress fractures 03/05/2018 Last Documented On 3 11:10AM ; [facility] History of mitral valve prolapse 018 Last Documented On 3 11:10AM ; [facility] History of mitral regurgitation 04/24/19 18 Last Documented On 3 11:10AM ; [facility] History of irritable bowel syndrome 05/2015 Last Documented On 3 11:10AM ; [facility] Several hip and pelvic fractures probabl y secondary to stress fractures ~ 07/20/2013 Last Documented On 3 11:10AM ; [facility] History of GERD 01/19/2013 Last Documented On 3 11:10AM ; [facility] History of hypertension 01/19/2013 Last Documented On 3 11:10AM ; [facility] History of hypothyroidism 01/19/2013 Last Documented On 3 11:10AM ; [facility] History of pelvic fracture 01/19/2013 Last Documented On 3 11:10AM ; [facility] History of migraine headache 07/28/2012 Last Documented On 3 11:10AM ; [facility] History of discoid lupus erythematosus 0 07/28/2012 Last Documented On 3 11:10AM ; [facility] Family History Includes: Family History addressed during this encounter Description Last Updated Maternal grandfather's history of alcoho lism -- grandfather 10/26/2014 Last Documented On 3 11:10AM ; [facility] Sororal history of depression -- sister 10/26/2014 Last Documented On 3 11:10AM ; [facility] Sister---depression ~Grandfather--alcoho lism 05/14/2014 Last Documented On 3 11:10AM ; [facility] Family history of alcoholism in grandfat her 05/08/2012 Last Documented On 3 11:10AM ; [facility] Family history of depression in sister 0 05/08/2012 Last Documented On 3 11:10AM ; [facility] Review of Systems Includes: Review of Systems from this encounter Systemic: Feeling poorly (malaise) - occasionally tired. No fever, no chills, and no night sweats. Head: Headache associated with head congestion, facial pain, and sinus pain. Neck: No neck pain and no neck stiffness. Eyes: No vision problems, no itching of the eyes, and no eye pain. Otolaryngeal: No hearing loss and no earache. Nasal discharge, postnasal drip, epistaxis, and nasal passage blockage (stuffiness). No hoarseness and no sore throat. Cardiovascular: Chest pain or discomfort. No palpitations and the heart rate was not fast. Pulmonary: Dyspnea - occasionally, cough, and coughing up sputum. No wheezing. Gastrointestinal: No heartburn. No nausea and no vomiting. Diarrhea and constipation. Genitourinary: Increased urinary frequency. Endocrine: Polydipsia. No excessive sweating. Musculoskeletal: No muscle aches. Pain localized to one or more joints and joint stiffness localized to one or more joints. Neurological: Dizziness. No vertigo, no fainting, and no motor disturbances. [...] 9:10AM ; [facility] Note: Imported from external source. Silvadine Allergy peels skin 05/08/2012 Active Last Documented On 09/18/2023 9:10AM ; [facility] Note: Imported from external source. Penicillin V Potassium Intolerance yeast infection 05/08/2012 Active Last Documented On 09/18/2023 9:10AM ; [facility] Note: Imported from external source. Omnipaque Allergy Hives / Urticaria 05/08/2012 Active Last Documented On 09/18/2023 9:10AM ; [facility] Note: Imported from external source. Neosporin Allergy Skin Rashes / Eruption of skin 05/08/2012 Active Last Documented On 09/18/2023 9:10AM ; [facility] Note: Imported from external source. Lisinopril Allergy cough 05/08/2012 Active Last Documented On 09/18/2023 9:10AM ; [facility] Note: Imported from external source. Latex Allergy skin peels off 05/08/2012 Acti ve Last Documented On 09/18/2023 9:10AM ; [facility] Note: Imported from external source. Bandaging Tape Allergy PEELS OFF SKIN 05/08/2012 Active Last Documented On 09/18/2023 9:10AM ; [facility] Note: Imported from external source. Bacitracin Allergy Skin Rashes / Eruption of skin 05/08/2012 Active Last Documented On 09/18/2023 9:10AM ; [facility] [facility] Note: Imported from external source. Encounters Encounter Provider Location Date Check-In Time Check- Out Time Diagnosis [facility] METEULALIO LYNCH MD [facility] 11:09AM 11:59PM Migraine Headache,Ирина r Depression, Recurrent,Gen eralized Anxiety Disorder,Psyc hophysiologic al Insomnia,Christina c Disorder Insurance Includes: Active Insurance Policies Plan Name Member ID Group # Subscriber Relationship Effect florinda Dates 1 - [employer] [id number] [place] Self Clinical Notes Includes: Clinical Notes from this encounter No Clinical Notes Recorded
--- OUTSIDE RECORDS SUMMARY | 2024-06-20 09:27 | XMS_ITS | Clinical Summary ---
Author Organization [facility] S Address [address] [place] [address] Phone Care Team Providers Care Hull Grinder Name Role Phone LIZ DOYLE, ELOINA ORTEGA Unavailable [phone] Reason for Visit and Chief Complaint The Chief Complaint is: follow up for depression/anxiety Problems Includes: Problems addressed during this encounter and other active Problems Current Visit Onset Date Resolved Date Provider Conditio n Status Panic Disorder 12/14/2017 ELOINA Lew Active Last Documented On 8 7:49AM ; [facility] Psychophysiological Insomnia 08/17/2016 ELOINA LYNCH MD Active Last Documented On 7 9:38AM ; [facility] Migraine Headache 07/28/2012 ELOINA Adrian MD Active Last Documented On 0 10:11AM ; [facility] Major Depression, Recurrent 07/14/2012 ELOINA LYNCH MD Active Last Documented On 3 12:01PM ; [facility] Generalized Anxiety Disorder 05/08/2012 ELOINA LYNCH MD Active Last Documented On 3 1:29PM ; [facility] Past Visits Onset Date Resolved Date Provider Condition Status Vitamin Deficiency 08/13/2018 ELOINA CHAIDEZ MD Active Last Documented On 9 7:40AM ; [facility] Anemia 02/16/2016 ELOINA LYNCH MD Ac tive Last Documented On 6 9:21AM ; [facility] Cath Mitral Regurgitation 07/28/2012 ELOINA LYNCH MD Active Last Documented On 3 11:16AM ; [facility] 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 Major Depressive Disorder, [...] for severe anxiety/panic 5. Migraine Headache - Aimovig 70 mg SQ once a month --denied by insurance, increase Topamax 50 mg 1 in am and 2 in evening - 05/25/20 - Last Documented On 01/20/2021 9:00AM ; [facility] Instructions to patient Lose weight Last Documented On 9:39AM ; [facility] Education and Decision Aids were provided during visit for: Patient education about medi cation --- I educated patient on medication(s) and diagnosis. I reviewed the risks, benefits and side effects of patient's medications Last Documented On 9:09AM ; [facility] Discussed calming techniques such as breathing exercises and other relaxation techniques Last Documented On 9:09AM ; [facility] Counseling for nutrition/eden ght management provided Last Documented On 9:39AM ; [facility] Discussed good sleep hygiene habits Last Documented On 9:39AM ; [facility] Assessments Includes: Assessments from this encounter Findings - Migraine headache - Last Documented On 01/20/2021 9:00AM ; [facility] - Major depression, recurrent - Last Documented On 01/20/2021 9:00AM ; [facility] - Psychophysiological insomnia - Last Documented On 01/20/2021 9:00AM ; [facility] - Generalized anxiety disorder - Last Documented On 01/20/2021 9:00AM ; [facility] - Panic disorder - Last Documented On 01/20/2021 9:00AM ; [facility] Instructions Includes: Instructions from this encounter Instructions to patient Lose weight Last Documented On 9:39AM ; [facility] Education and Decision Aids were provided during visit for: Patient education about medi cation --- I educated patient on medication(s) and diagnosis. I reviewed the risks, benefits and side effects of patient's medications Last Documented On 9:09AM ; [facility] Discussed calming techniques such as breathing exercises and other relaxation techniques Last Documented On 9:09AM ; [facility] Counseling for nutrition/eden ght management provided Last Documented On 9:39AM ; [facility] Discussed good sleep hygiene habits Last Documented On 9:39AM ; [facility] Medical Equipment - Implanted Devices Includes: Current Devices No Medical Equipment Recorded Medications Includes: Medications discussed during this encounter and other current Medications Discontinued / Stopped on this date on 12/03/2019 Bystolic 5 MG Oral Tablet Provider: Diagnosis: Last Documented On 11/22/2020 9:15AM By DEMETRIA ARZATE ; [facility] Aim[facility]ig 70 MG/ML Subcutaneous Solution Auto-injector Provider: ELOINA LYNCH MD Diagnosis: Migraine w/o aur a, not intractable, w/o status migrainosus Last Documented On 11/22/2020 9:15AM By DEMETRIA ARZATE ; [facility] Acidophilus Oral Tablet Provider: Diagnosis: Last Documented On 11/22/2020 9:16AM By DEMETRIA ARZATE ; [facility] Levothyroxine Sodium 50 MCG Tablet Provid er: DMITRY TRUJILLO MD Diagnosis: Last Documented On 11/22/2020 9:31AM By DEMETRIA ARZATE ; [facility] Levothyroxine Sodium 175 MCG Tablet Provi jovany: DMITRY TRUJILLO MD Diagnosis: HYPOTHYROIDISM N OS Last Documented On 11/22/2020 9:31AM By DEMETRIA ARZATE ; [facility] New / Renewed during this visit ELOINA LYNCH MD on 11/22/2020 Topiramate 50 MG Oral Tablet Provider: ELOINA LYNCH MD 30 day supply: 90 tablet, 5 refills Diagnosis: Migraine w/o aura, not intractable, w/o status migrainosus as directed - 1 in am and 2 in evening Pharmacy: [facility] [address] [facility] [address], [address] - Last Documented On 07/17/2021 2:57PM By Barbara Lynch MD ; [facility] Current Medications (continue as prescribed) Sertraline HCl 100 MG Oral Tablet 07/16/2022 Provider: ELOINA LYNCH MD Diagnosis: Major depressive disorder, recurrent, moderate TAKE 2 TABLETS BY MOUTH AT B EDTIME DIRECTED Last Documented On 3 11:54AM By Barbara Lynch MD ; [facility] Topiramate 50 MG Oral Tablet 07/16/2022 Provider: ELOINA LYNCH MD Diagnosis: Migraine w/o aur a, not intractable, w/o status migrainosus TAKE ONE TABLET BY MOUTH ODMINIK RY MORNING AND TAKE TWO TABLETS BY MOUTH EVERY EVENING DIRECTED Last Documented On 3 11:54AM By Barbara Lynch MD ; [facility] clonazePAM 0.5 MG Oral Tablet 06/14/2022 Provider: ELOINA LYNCH MD Diagnosis: Panic disorder [ episodic paroxysmal anxiety] ud - as directed as directed take as needed for anxiety Last Documented On 06/14/2022 5:44PM By Barbara Lynch MD ; [facility] buPROPion HCl ER (XL) 300 MG Oral Tablet Extended Release 24 Hour 05/17/2022 Provider: ELONIA CARLSON MD Diagnosis: TAKE ONE TABLET BY MOUTH EVERY MORNING Last Documented On 3 12:20PM By Barbara Lynch MD ; [facility] traZODone HCl 100 MG Oral Tablet 05/17/2022 Provider: ELOINA LYNCH MD Diagnosis: Psychophysiologi c insomnia DIRECTED, TAKE 2 -3 TABLE TS AT BEDTIME Last Documented On 3 12:20PM By Barbara Lynch MD ; [facility] QUEtiapine Fumarate 50 MG Oral Tablet 03/19/2022 Provider: ELOINA LYNCH MD Diagnosis: Insomnia, unspec ified as directed --2 at bedtime Last Documented On 2 12:36PM By Barbara Lynch MD ; [facility] busPIRone HCl 15 MG Oral Tablet 02/20/2022 Provider: ELOINA LYNCH MD Diagnosis: Generalized anxi ety disorder One tablet three times a day Last Documented On 02/20/2022 6:33PM By Barbara Lynch MD ; [facility] Remicade 100 MG Intravenous Solution Reconstituted 02/2022 Provider: Diagnosis: 1 q 2 weeks for 1 month then 1 infusion q 2 joey hs Last Documented On 2 11:24AM By DEMETRIA ARZTAE ; [facility] Torsemide 10 MG Oral Tablet 10/25/2021 Provider: Diagnosis: 2 tabs daily Last Documented On 2 11:23AM By DEMETRIA ARZATE ; [facility] Levothyroxine Sodium 50 MCG Oral Tablet 05/16/2021 Oumar brooks: KP BALL MD Diagnosis: 1 tab daily with 175 mcg 1.5 tabs daily Last Documented On 2 10:52AM By DEMETRIA ARZATE ; [facility] Levothyroxine Sodium 175 MCG Oral Tablet 11/14/2020 Provider: MARTELL ROBERTS MD Diagnosis: Take 1.5 tabs daily Last Documented On 11/22/2020 9:32AM By DEMETRIA ARZATE ; [facility] cloNIDine HCl 0.1 MG Oral Tablet 11/14/2020 Provider : MARTELL ROBERTS MD Diagnosis: 1 tab prn if BP 160/? Last Documented On 11/22/2020 9:32AM By DEMETRIA ARZATE ; [facility] Amiodarone HCl 200 MG Oral Tablet 10/14/2020 Provide r: MARTELL ROBERTS MD Diagnosis: 1/2 tab daily Last Documented On 11/22/2020 9:33AM By DEMETRIA RAZATE ; [facility] Metoprolol Succinate ER 50 M G Oral Tablet Extended Release 24 Hour 10/14/2020 Provider: MARTELL ROBERTS MD Diagnosis: 1/2 tab daily Last Documented On 11/22/2020 9:33AM By DEMETRIA ARZATE ; [facility] Adult Aspirin EC Low Strengt h 81 MG Oral Tablet Delayed Release 05/25/2020 Provider: Diagnosis: 1 tab daily Last Documented On 10:14AM By DEMETRIA ARZATE ; [facility] Vitamin D3 25 MCG (1000 UT) Oral Tablet Chewable 05/25/2020 Provider: KP BALL MD Diagnosis: 1 tab bid otc Last Documented On 10:13AM By DEMETRIA ARZATE ; [facility] Eliquis 5 MG Oral Tablet 11/17/2019 Provider: Diagnosis: 1 tab bid Last Documented On 12/03/2019 9:29AM By DEMETRIA ARZATE ; [facility] Hydroxychloroquine Sulfate 200MG Oral Tablet 9 Provider: TRISTAN CORTES MD Diagnosis: 1 TAB BID Last Documented On 9 10:38AM By DEMETRIA ARZATE ; [facility] L-Lysine 500MG Oral Tablet 02/20/2018 Provider: Diagnosis: 1 tab bid otc Last Documented On 02/20/2018 9:43AM By DEMETRIA ARZATE ; [facility] Olmesartan Medoxomil 40MG Oral Tablet 02/20/2018 Pro vider: Diagnosis: 1 tab daily Last Documented On 02/20/2018 9:45AM By DEMETRIA ARZATE ; [facility] Potassium Chloride ER 10MEQ Oral Tablet, control led-release 02/20/2018 Provider: Diagnosis: 1 tablet daily in the am Last Documented On 02/20/2018 9:46AM By DEMETRIA ARZATE ; [facility] Calcium 1000 + D [id number] Oral Tablet 8 Provider: Diagnosis: 2 a day Last Documented On 8 10:09AM By Barbara Lynch MD ; [facility] Medical [facility] amLODIPine Besylate 10 MG OR TABS 01/19/2013 Provide r: Diagnosis: Last Documented On 3 10:02AM By JACQUELINE ARZATE ; [facility] Hair Vitamins OR TABS 01/19/2013 Provider: Diagnosis: 1 in the a.m. 1 in the p.m. Last Documented On 3 10:05AM By JACQUELINE ARZATE ; [facility] Mupirocin 2% EX OINT 07/28/2012 Provider: Diagnosis: Last Documented On 3 11:22AM By JACQUELINE ALVAREZ ; [facility] Hydrocortisone 2.5% EX CREA 07/28/2012 Provider: Diagnosis: Last Documented On 3 11:23AM By JACQUELINE ALVAREZ ; [facility] Betamethasone Dipropionate 0.05% EX OINT 07/28/2012 Provider: Diagnosis: Last Documented On 3 11:23AM By JACQUELINE ALVAREZ ; [facility] Clobetasol Propionate 0.05% EX CREA 07/28/2012 Provi jovany: Diagnosis: Last Documented On 3 11:22AM By JACQUELINE ALVAREZ ; [facility] ZyrTEC Allergy 10 MG OR CAPS 07/28/2012 Provider: Diagnosis: Last Documented On 3 11:19AM By JACQUELINE ALVAREZ ; [facility] Omeprazole 20 MG OR CPDR 07/28/2012 Provider: Diagnosis: Last Documented On 3 11:18AM By JACQUELINE ALVAREZ ; [facility] Medical [facility] Past Medications on file Amiodarone HCl 200 MG Oral Tablet 05/25/2020 - 021 Provider: MARTELL ROBERTS MD Diagnosis: pt states she takes 100 mg daily for Afib Last Documented On 1 10:10AM By DEMETRIA ARZATE ; [facility] Medical [facility] Aimovig 70 MG/ML Subcutaneous Solution Auto-injector 12/03/2019 - 01/02/2020 Provider: ELOINA LYNCH MD Diagnosis: Migraine w/o aur a, not intractable, w/o status migrainosus as directed Last Documented On 0 10:16AM By Barbara Lynch MD ; [facility] traZODone HCl 100 MG OR TABS 06/16/2015 - 07/16/2015 P rovider: Diagnosis: Insomnia, unspec ified 3 tablets at bed time Last Documented On 06/16/2015 5:12PM By GEO FLOR ; [facility] Zoloft 100 MG OR TABS 06/16/2015 - 07/16/2015 Provider : Diagnosis: Major depressive disorder, recurrent, moderate 2 tablets at bedtime Last Documented On 06/16/2015 5:20PM By GEO FLOR ; [facility] QUEtiapine Fumarate 50 MG OR TABS 06/16/2015 - 016 Provider: Diagnosis: Insomnia, unspec ified One tablet at bed time Last Documented On 06/16/2015 5:09PM By GEO FLOR ; [facility] busPIRone HCl 15 MG OR TABS 05/16/2015 - 06/15/2015 Pr ovider: Diagnosis: Generalized anxi ety disorder One tablet three times a day Last Documented On 05/16/2015 5:19PM By GEO FLOR ; [facility] Medications Administered Includes: Administered Medications from this encounter No Administered Medications Recorded Vital Signs Includes: Vital Signs from this encounter Vital Name 11/22/2020 09:44A Blood Pressure Sitting L 144/79 BP Cuff Size Regular Pulse Rate-Sitting (bpm) 61 Pulse Rhythm Regular Height (in) 64 Weight (lb) 290 Body Mass Index (kg/m2) 49.8 Body Surface Area (m2) 2.3 Note: self reported vitals Last Documented: On 11/22/2020 9:45AM ; [facility] Results Includes: Results discussed during this encounter No Results Recorded For Specified Dates History of Present Illness Includes: History of Present Illness from this encounter CLIFF BURGESS is a 65 year old female. - Allergy list reviewed - Past medical history reviewed - Medication reconciliation performed - Current/previous labs reviewed - labs from 10/26/20 showed: Iron = 34, Ferritin = 5, Cholesterol = 213, HDL = 74, Triglycerides = 93, LDL = 120, Glucose = 95, Albumin = 3.6, TSH = 1.13, T4 = 1.5, RBC = 3.65, Hgb = 10.1, Hct = 33, MCHC = 30.6, RDW =15.2, B12 = 509, Folate = 17.3 This visit was conducted with use of interactive audio and video telecommunication system with real time communication between the patient and the provider. Patient consent for virtual visit obtained today. Total time spent with patient via audio and video telecommunication 30 minutes. Mackenzie reported that she is just feeling somewhat tired physically due to iron deficiency anemia. Her labs done 10/26/2020 showed iron level was low at 34, ferritin level was low at 5% and saturation was low at 8. Her CBC showed low hemoglobin 10.1 and hematocrit low at 33. Blood sugar was normal at 95, cholesterol 213, LDL 120. She was prescribed iron but she had side effects of constipation and then diarrhea. She also has IBS on top of that. She was referred to Dr. Silverio to find the source of possible bleeding; however, she had colonoscopy June 2019 and was negative. She is also having issues with her blood pressure. Today's blood pressure was 144/79. She was on Bystolic 10 mg a day but could not afford it and so was changed to Metoprolol ER 50 mg a day but could not tolerate it so Dr. Ball asked her to break it in half but still her blood pressure is not under control. She was given Clonidine if her systolic pressure goes higher than 160. At times, she gets anxious. She used Klonopin a month ago but she has 3 or 4 left out of the [address] back several years ago. She occasionally gets anxious but no major panic attacks. She is not as down or depressed. The Bupropion and Seroquel seem to be still helping. She denied having any mood swings. She is still motivated in general to do things; however, she usually stays at home and does not go much to places unless one of her family members asks her to drive them to places. At times, she still tends to overeat but was reminded to follow through a low fat low carb diet. She has had difficulty with focusing and concentrating for quite a while, especially when she reads. She has difficulty processing and absorbing information and I suggested using Focalin but since she is on a donut hole I can just defer that until she has medication coverage. I also suggested applying to [employer] so that even her generic medications will be relatively cheaper. Sleep has been good in general with the Trazodone. There are days that she is more motivated than others. She denied feeling bad about herself. She denied having any psychomotor restlessness. She denied having any suicidal thoughts. No delusions or hallucinations. She denied having any mood swings. She denied having any motor side effects from the Seroquel. MENTAL STATUS EXAM: Sensorium - alert, oriented to name, place, and time Attitude - cooperative Gait - ambulatory Sleep - good - compliant with dental device Interest/Energy/Motivation - good Guilt/Worthlessness - absent Concentration/Attention Span - able to focus and concentrate Memory Recall - fairly good Appetite - good - on 05/25/20 pt weighed 290 lbs and on 11/22/20 she weighed the same. Suicidal Thoughts - absent Homicidal Thoughts - [...] cans of diet soda a week and 2 glasses of decaf tea a day and no coffee 11/22/2020 Last Documented On 1 9:00AM ; [facility] Current nonsmoker 11/22/2020 Last Documented On 1 9:00AM ; [facility] Work history -- Disabled 06/14/2018 Last Documented On 1 9:09AM ; [facility] Marital history -- ~Pt was born and raised in [place], [place]. Pt was closer to her mother growing up. Both parents are . She has 1 son and 1 daughter. She had 12th grade education. She used to work at [employer] from 1990 - 1999 and then at [employer] from 05/1999 - 04/2002. Pt is now disabled. Her hobbies include sewing and making wreaths. She denied having any past and pending legal history 06/14/2018 Last Documented On 1 9:09AM ; [facility] No tobacco use 02/20/2018 Last Documented On 9:09AM ; [facility] Not using alcohol 05/08/2012 Last Documented On 9:09AM ; [facility] Not using drugs (Illicit) 05/08/2012 Last Documented On 9:09AM ; [facility] Smoking Status Unknown Procedures and Surgical History Includes: Procedures from this encounter Procedures Code Diagnosis Performing Provider Service L ocation Service Date education and instructions Last Documented On 9:09AM ; [facility] I discussed the risks, benef its and side effects of Quetiapine to the patient including the possibility of metabolic and motor side effects such as tardive dyskinesia Last Documented On 9:39AM ; [facility] I explained the rationale fo r the medication choices and discussed the possible risks, benefits, side effects and alternative treatment options (including no treatment). ~ I recommended a healthy balanced diet and exercise as tolerated and approved by their primary care physician. ~ I recommended that the patient cut back on caffeine and/or avoid caffeine. ~ I recommended that the patient avoid nicotine, alcohol, and illicit substances since these can be detrimental to one's health and that these cannot be combined with psychotropic medications. ~ I discussed about safety plan i.e., to call 911 and /or go to the nearest emergency room or call me if suicidal/homicidal ideation or other serious concerns arise. ~ I gave instructions to call me should there be any questions or concerns. ~ The patient verbalized understanding and agreed to treatment plan Last Documented On 9:09AM ; [facility] use of tobacco assessment performed 1000F Last Documented On 9:09AM ; [facility] patient screened for future fall risk - no recen t falls 3288F Last Documented On 9:09AM ; [facility] review of medications documented 1160F Last Documented On 9:09AM ; [facility] assessment of suicide risk performed - n ot suicidal Last Documented On 9:44AM ; [facility] screening for adult depressi on: impression and score - please see above treatment and PHQ score Last Documented On 9:09AM ; [facility] standardized depression screening: posit florinda for symptoms Last Documented On 9:09AM ; [facility] encouragement to exercise Last Documented On 9:39AM ; [facility] Clinical summary provided to patient Last Documented On 9:39AM ; [facility] PHQ-9: total score Last Documented On 1 9:39AM ; [facility] Surgical History Last Updated History of hysterectomy 11/05/2017 Last Documented On 9:09AM ; [facility] History of Prior Surgery: Hy sterectomy ~Thyroidectomy ~Oophorectomy ~Cyst removal from breast ~Cholecystectomy -- 1999 but still has on and off diarrhea ~Tonsillectomy ~Cardiac cath with no stent placement 10/26/2014 Last Documented On 9:09AM ; [facility] Medical History Includes: Medical History addressed during this encounter Description Last Updated History of sinusitis - given Cefuroxime 500 mg 07/20/19 05/23/2022 Last Documented On 1 9:09AM ; [facility] History of anemia 11/22/2020 Last Documented On 1 9:00AM ; [facility] History of dental bridge wor k - given Amoxil 500 mg 07/18/20;given Amoxil 500 mg and Fluconazole 150 mg 09/23/19 11/22/2020 Last Documented On 1 9:00AM ; [facility] Primary Care Provider: Dr. Solo Ball ~Dr. Jernigan -- Kennel Aide -- Vandana ~Dr. Jada Grajeda -- Cylinder Dyer ~Dr. Martell Roberts -- Registered Nurse Cardiovascular Icu ~Dr. Jorge Guzman -- Dentist ~Dr. Jacek Banks -- Vascular Surgeon at [facility] ~Dr. Adrienne King, S -- Sleep/Dental device ~Dr. 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 Jacek Banks (vascular surgeon) 07/201912/03/2019 Last Documented On 1 9:09AM ; [facility] History of obstructive sleep apnea - Home Sleep Study ordered by Dr. Yuriy Ball 09/2019 -- mild sleep apnea -- patient trying to adjust to dental device 12/03/2019 Last Documented On 1 9:09AM ; [facility] History of vitamin deficienc y - Vitamin D = 30 on 12/26/18 -- started on Vitamin D 1000 mg 1 daily 02/25/2019 Last Documented On 1 9:09AM ; [facility] History of fall risk -- #1 f ell in parking lot 12/2016 -- had initial nosebleed --did not go to ER 02/25/2019 Last Documented On 1 9:09AM ; [facility] History of fracture of the hip and pelvi s -- stress fractures 03/05/2018 Last Documented On 1 9:09AM ; [facility] History of mitral valve prolapse 018 Last Documented On 1 9:09AM ; [facility] History of mitral regurgitation 04/24/19 18 Last Documented On 1 9:09AM ; [facility] History of irritable bowel syndrome 05/2015 Last Documented On 1 9:09AM ; [facility] hip and pelvic fractures probabl y secondary to stress fractures ~ 07/20/2013 Last Documented On 1 9:09AM ; [facility] History of GERD 01/19/2013 Last Documented On 1 9:09AM ; [facility] History of hypertension 01/19/2013 Last Documented On 1 9:09AM ; [facility] History of hypothyroidism 01/19/2013 Last Documented On 1 9:09AM ; [facility] History of pelvic fracture 01/19/2013 Last Documented On 1 9:09AM ; [facility] History of migraine headache 07/28/2012 Last Documented On 1 9:09AM ; [facility] History of discoid lupus erythematosus 0 07/28/2012 Last Documented On 1 9:09AM ; [facility] Family History Includes: Family History addressed during this encounter Description Last Updated Maternal grandfather's history of alcoho lism -- grandfather 10/26/2014 Last Documented On 1 9:09AM ; [facility] Sororal history of depression -- sister 10/26/2014 Last Documented On 1 9:09AM ; [facility] Review of Systems Includes: Review of Systems from this encounter Systemic: Feeling poorly (malaise) - occasionally tired. No fever, no chills, and no night sweats. Recent weight change. Head: Headache and sinus pain. Neck: No neck pain and no neck stiffness. Eyes: No vision problems, no itching of the eyes, and no eye pain. Otolaryngeal: No hearing loss, no earache, no nasal discharge, no hoarseness, and no sore throat. Cardiovascular: Chest pain or discomfort - occasionally and palpitations. The heart rate was not fast. Pulmonary: Dyspnea. No cough and no wheezing. Gastrointestinal: No heartburn. No nausea and no vomiting. Abdominal pain, diarrhea, and constipation. Genitourinary: No increase in urinary frequency. No dysuria. Endocrine: Polydipsia. No excessive sweating. Musculoskeletal: No muscle aches. Pain localized to one or more joints and joint stiffness localized to one or more joints. Neurological: Dizziness. No vertigo, no fainting, and no motor disturbances. Skin: No pruritus. No skin lesions and no rash. Mental Status Includes: Mental Status from this encounter Description Major depression, recurrent Functional Status Includes: Functional Status from this encounter No Functional Status Recorded Physical Exam Includes: Physical Exam from this encounter Allergies Includes: Active Allergies Substance Type Reaction Onset Date Resolved Date Statu s Sulfa Antibiotics Allergy Hives / Urticaria 05/08/2012 Active Last Documented On 09/18/2023 9:10AM ; [facility] Note: Imported from external source. Silvadine Allergy peels skin 05/08/2012 Active Last Documented On 09/18/2023 9:10AM ; [facility] Note: Imported from external source. Penicillin V Potassium Intolerance yeast infection 05/08/2012 Active Last Documented On 09/18/2023 9:10AM ; [facility] Note: Imported from external source. Omnipaque Allergy Hives / Urticaria 05/08/2012 Active Last Documented On 09/18/2023 9:10AM ; [facility] Note: Imported from external source. Neosporin Allergy Skin Rashes / Eruption of skin 05/08/2012 Active Last Documented On 09/18/2023 9:10AM ; [facility] Note: Imported from external source. Lisinopril Allergy cough 05/08/2012 Active Last Documented On 09/18/2023 9:10AM ; [facility] Note: Imported from external source. Latex Allergy skin peels off 05/08/2012 Acti ve Last Documented On 09/18/2023 9:10AM ; [facility] Note: Imported from external source. Bandaging Tape Allergy PEELS OFF SKIN 05/08/2012 Active Last Documented On 09/18/2023 9:10AM ; [facility] Note: Imported from external source. Bacitracin Allergy Skin Rashes / Eruption of skin 05/08/2012 Active Last Documented On 09/18/2023 9:10AM ; [facility] Note: Imported from external source. Encounters Encounter Provider Location Date Check-In Time Check- Out Time Diagnosis [facility] ELOINA LYNCH MD [facility] 1 9:07AM 11:59PM Migraine Headache,Ирина r Depression, Recurrent,Gen eralized Anxiety Disorder,Psyc hophysiologic al Insomnia,Christina c Disorder Insurance Includes: Active Insurance Policies Plan Name Member ID Group # Subscriber Relationship Effect florinda Dates 1 - [facility] Activehours [id number] MACKENZIE BURGESS Self Clinical Notes Includes: Clinical Notes from this encounter No Clinical Notes Recorded
--- OUTSIDE RECORDS SUMMARY | 2024-06-20 09:27 | XMS_ITS | Patient Health Record ---
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 Name Role Phone Mary Beauchamp Unavailable [phone] Reason For Referral No Information Medications Medication SIG (Take, Route, Frequency, Duration) Notes Start Date End Date Status Bystolic oral *Pick strength-form from [employer] for eRX* Active buPROPion HCl ER (XL) 300 MG take 1 tablet (300 mg) by oral route once daily Oral 1 Active Torsemide 20 MG take 1 tablet (20 mg) by oral route once daily Oral 1 Active Levothyroxine Sodium 175 MCG take 1 tablet (175 mcg) by oral route once daily Oral 1 Active Valsartan 320 MG take 1 tablet (320 mg) by oral route once daily Oral 1 Active Potassium Acetate 100 % use as directed MISCELLANEOUS *Pick strength-form from [employer] for eRX* Active Medrol 4 MG take as directed for 6 days Oral for 6 10/08/2017 Active Plaquenil 200 MG take 2 tablets (400 mg) by oral route once daily for 30 days Oral 1 for 30 03/18/2018 Active Etodolac 400 MG take 1 tablet (400 mg) by oral route 2 times per day with food for 30 days Oral 2 for 30 Active Omeprazole 20 MG take 1 capsule (20 mg) by oral route once daily before a meal Oral 1 Active Calcium + Vitamin D3 600-5 MG-MCG Oral Active Sertraline HCl 100 MG take 1 tablet (100 mg) by oral route once daily Oral 1 Active traZODone HCl 100 MG take 1 tablet (100 mg) by oral route once daily at bedtime Oral 1 Active amLODIPine Besylate 10 MG take 1 tablet (10 mg) by oral route once daily Oral 1 Active Hydroxychloroquine Sulfate 200 MG take 1 tablet (200 mg) by oral route once daily Oral 1 Active buPROPion HCl 100 MG Oral Active Plan Of Treatment No Information Insurance Providers Payer Name Payer Address Payer Phone Subscriber Number Group Number Insured Name Patient Relationship to Insured Coverage Start Date Coverage End Date DO NOT USE - use ins id # [id number] Lizzeth Mackenzie Self - patient is the insured Medical (General) History Surgical History Surgery Date(Month/Year) thyroid; 2017-10-08 breast lump; 2017-10-08 gallbladder; 2017-10-08 Hysterectomy; 2017-10-08 Tonsillectomy; 2017-10-08 Ovary removal; 2017-10-08
--- OUTSIDE RECORDS SUMMARY | 2024-06-20 09:27 | XMS_ITS | Clinical Summary ---
Author Organization [facility] Address [address] [place] [address] Phone Care Team Providers Care Sales Promoter Name Role Phone ELOINA LYNCH MD Unavailable [phone] Reason for Visit and Chief Complaint The Chief Complaint is: Follow up for depression/anxiety Problems Includes: Problems addressed during this encounter and other active Problems Current Visit Onset Date Resolved Date Provider Conditio n Status Panic Disorder 12/14/2017 Active Last Documented On 3 5:51PM ; [facility] Psychophysiological Insomnia 08/17/2016 Active Last Documented On 3 5:50PM ; [facility] Migraine Headache 07/28/2012 Active Last Documented On 3 5:45PM ; [facility] Major Depression, Recurrent 07/14/2012 Active Last Documented On 3 5:45PM ; [facility] Generalized Anxiety Disorder 05/08/2012 Active Last Documented On 3 5:43PM ; [facility] Past Visits Onset Date Resolved Date Provider Condition Status Vitamin Deficiency 08/13/2018 Active Last Documented On 3 5:52PM ; [facility] Anemia 02/16/2016 Active Last Documented On 3 5:50PM ; [facility] Cath Mitral Regurgitation 07/28/2012 Active Last Documented On 3 5:45PM ; [facility] 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 Last Documented On 3 5:45PM ; [facility] Gerd 05/08/2012 Active Last Documented On 3 5:43PM ; [facility] Hypertension Systemic 05/08/2012 Act florinda Last Documented On 3 5:43PM ; [facility] Hypothyroidism 05/08/2012 Active Last Documented On 3 5:43PM ; [facility] Plan of Treatment Major Depressive Disorder, recurrent - Bupropion XL 300 mg 1 tablet in the morning and Zoloft 100 mg 2 tabs at bedtime Generalized Anxiety Disorder - Buspirone 15 mg 1 tablet 2 or 3 times a day Psychophysiological Insomnia - Trazodone 100 mg 2 - 3 tablets at bedtime and Quetiapine 50 mg 2 tablets at bedtime for her racing thoughts which seems to help Panic Disorder - Clonazepam 0.5 mg 1/2 to 1 tablet daily as needed only for severe anxiety/panic - has not used lately Migraine Headache - Topamax 50 mg 1 in am and 2 in evening - 05/25/20 IBS - Dicyclomine 20 mg a day for IBS - Last Documented On 09/23/2023 1:54AM ; [facility] Future Appointments Date Time Location Provi jovany PSYCH ADULT FOLLOW UP 06/30/2024 10:00AM [facility] OUP-TIARRA LYNCH MD Last Documented On 4 10:24AM ; [facility] Education and Decision Aids were provided during visit for: Discussed good sleep hygiene habits Last Documented On 4 1:51AM ; [facility] Calming techniques such as b reathing exercises/meditation and other relaxation techniques Last Documented On 4 1:51AM ; [facility] Assessments Includes: Assessments from this encounter Findings - Migraine headache - Last Documented On 09/23/2023 1:54AM ; [facility] - Major depression, recurrent - Last Documented On 09/23/2023 1:54AM ; [facility] - Psychophysiological insomnia - Last Documented On 09/23/2023 1:54AM ; [facility] - Generalized anxiety disorder - Last Documented On 09/23/2023 1:54AM ; [facility] - Panic disorder - Last Documented On 09/23/2023 1:54AM ; [facility] Instructions Includes: Instructions from this encounter Education and Decision Aids were provided during visit for: Discussed good sleep hygiene habits Last Documented On 4 1:51AM ; [facility] Calming techniques such as b reathing exercises/meditation and other relaxation techniques Last Documented On 1:51AM ; [facility] Medical Equipment - Implanted Devices Includes: Current Devices No Medical Equipment Recorded Medications Includes: Medications discussed during this encounter and other current Medications Discontinued / Stopped on this date MARTELL ROBERTS MD on 05/10/2023 Flecainide Acetate 50 MG Oral Tablet Prov ider: MARTELL ROBERTS MD Diagnosis: Last Documented On 09/18/2023 9:11AM By DEMETRIA ARZATE ; [facility] Torsemide 10 MG OR TABS Provider: Diagnosis: Last Documented On 09/18/2023 9:12AM By DEMETRIA ARZATE ; [facility] Metoprolol Succinate ER 50 MG OR TB24 Pro vider: Diagnosis: Last Documented On 09/18/2023 9:12AM By DEMETRIA ARZATE ; [facility] Current Medications (continue as prescribed) Remicade 100 MG Intravenous Solution Reconstituted 08/2023 Provider: Diagnosis: 1 q 2 weeks for 1 month then 1 infusion q 2 joey hs Last Documented On 09/18/2023 9:29AM By DEMETRIA ARZATE ; [facility] traZODone HCl 100 MG Oral Tablet 09/13/2023 Provider: ELOINA LYNCH MD Diagnosis: Psychophysiologi c insomnia TAKE 2 TO 3 TABLETS BY MOUTH AT BEDTIME Last Documented On 09/13/2023 4:05PM By Barbara Lynch MD ; [facility] hydrALAZINE HCl 10 MG Oral Tablet 09/10/2023 Provide r: MARTELL ROBERTS MD Diagnosis: 1 tab daily Last Documented On 09/18/2023 9:29AM By DEMETRIA ARZATE ; [facility] Leflunomide 20 MG Oral Tablet 08/19/2023 Provider: Diagnosis: 1 tab daily Last Documented On 09/18/2023 9:30AM By DEMETRIA ARZATE ; [facility] Sertraline HCl 100 MG Oral Tablet 07/18/2023 Provide r: ELOINA LYNCH MD Diagnosis: 2 tabs po qd Last Documented On 07/18/2023 1:36PM By Barbara Lynch MD ; [facility] Sotalol HCl 80 MG Oral Tablet 07/18/2023 Provider: MARTELL ROBERTS MD Diagnosis: 1 tab bid Last Documented On 09/18/2023 9:30AM By DEMETRIA ARZATE ; [facility] buPROPion HCl ER (XL) 300 MG Oral Tablet Extended Release 24 Hour 06/19/2023 Provider: ELOINA LYNCH MD Diagnosis: Major depressive disorder, recurrent, unspecified TAKE ONE TABLET BY MOUTH DOMINIK RY MORNING Last Documented On 06/19/2023 10:14AM By Barbara Lynch MD ; [facility] Sertraline HCl 100 MG Oral Tablet 06/18/2023 Provide r: Diagnosis: 2 tabs po qd Last Documented On 07/18/2023 1:31PM By DEMETRIA ARZATE ; [facility] Torsemide 20 MG Oral Tablet 05/31/2023 Provider: Diagnosis: 1 tab daily Last Documented On 05/31/2023 9:23AM By DEMETRIA ARZATE ; [facility] busPIRone HCl 15 MG Oral Tablet 04/22/2023 Provider: ELOINA LYNCH MD Diagnosis: Generalized anxi ety disorder One tablet three times a day Last Documented On 04/22/2023 2:27PM By Barbara Lynch MD ; [facility] QUEtiapine Fumarate 50 MG Oral Tablet 03/14/2023 Provider: ELOINA LYNCH MD Diagnosis: Insomnia, unspec ified as directed 2 tablets at bedtime Last Documented On 03/14/2023 11:47AM By Barbara Lynch MD ; [facility] Dicyclomine HCl 20 MG Oral Tablet 02/28/2023 Provider: ELOINA LYNCH MD Diagnosis: Irritable bowel syndrome with constipation One tablet daily Last Documented On 02/28/2023 10:10AM By Barbara Lynch MD ; [facility] clonazePAM 0.5 MG OR TABS 06/14/2022 Provider: ME MATTIE LYNCH MD Diagnosis: Panic disorder [ episodic paroxysmal anxiety] ud - as directed as directed take as needed for anxiety Last Documented On 08/11/2022 5:27PM By Barbara Lycnh MD ; [facility] Levothyroxine Sodium 50 MCG OR TABS 05/16/2021 Provi jovany: Diagnosis: 1 tab daily with 175 mcg 1.5 tabs daily Last Documented On 08/11/2022 5:27PM By DEMETRIA ARZATE ; [facility] Levothyroxine Sodium 175 MCG OR TABS 11/14/2020 Prov ider: Diagnosis: Take 1.5 tabs daily Last Documented On 08/11/2022 5:27PM By DEMETRIA ARZATE ; [facility] cloNIDine HCl 0.1 MG OR TABS 11/14/2020 Provider: Diagnosis: 1 tab prn if BP 160/? Last Documented On 08/11/2022 5:27PM By DEMETRIA ARZATE ; [facility] Vitamin D3 25 MCG (1000 UT) OR CHEW 05/25/2020 P rovider: Diagnosis: 1 tab bid otc Last Documented On 08/11/2022 5:27PM By DEMETRIA ARZATE ; [facility] Adult Aspirin EC Low Strength 81 MG OR TBEC 05/25/2020 Provider: Diagnosis: 1 tab daily Last Documented On 08/11/2022 5:27PM By DEMETRIA ARZATE ; [facility] Eliquis 5 MG OR TABS 11/17/2019 Provider: Diagnosis: 1 tab bid Last Documented On 08/11/2022 5:27PM By DEMETRIA ARZATE ; [facility] Hydroxychloroquine Sulfate 200 MG OR TABS 06/12/2018 Provider: Diagnosis: 1 TAB BID Last Documented On 08/11/2022 5:27PM By DEMETRIA ARZATE ; [facility] Potassium Chloride ER 10 MEQ OR TBCR 02/20/2018 Prov ider: Diagnosis: 1 tablet daily in the am Last Documented On 08/11/2022 5:27PM By DEMETRIA ARZATE ; [facility] Olmesartan Medoxomil 40 MG OR TABS 02/20/2018 Provid er: Diagnosis: 1 tab daily Last Documented On 08/11/2022 5:27PM By DEMETRIA ARZATE ; [facility] L-Lysine 500 MG OR TABS 02/20/2018 Provider: Diagnosis: 1 tab bid otc Last Documented On 08/11/2022 5:27PM By DEMETRIA ARZATE ; [facility] Calcium 1000 + D 1000-800 MG-UNIT OR TABS 04/24/2017 Provider: Diagnosis: 2 a day Last Documented On 08/11/2022 5:27PM By Barbara Lynch MD ; [facility] amLODIPine Besylate 10 MG OR TABS 01/19/2013 Provide r: Diagnosis: Last Documented On 08/11/2022 5:27PM By JACQUELINE ARZATE ; [facility] Hair Vitamins OR TABS 01/19/2013 Provider: Diagnosis: 1 in the a.m. 1 in the p.m. Last Documented On 08/11/2022 5:27PM By JACQUELINE ARZATE ; [facility] Betamethasone Dipropionate 0.05% EX OINT 07/28/2012 Provider: Diagnosis: Last Documented On 08/11/2022 5:27PM By JACQUELINE ALVAREZ ; [facility] Hydrocortisone 2.5% EX CREA 07/28/2012 Provider: Diagnosis: Last Documented On 08/11/2022 5:27PM By JACQUELINE ALVAREZ ; [facility] Omeprazole 20 MG OR CPDR 07/28/2012 Provider: Diagnosis: Last Documented On 08/11/2022 5:27PM By JACQUELINE ALVAREZ ; [facility] ZyrTEC Allergy 10 MG OR CAPS 07/28/2012 Provider: Diagnosis: Last Documented On 08/11/2022 5:27PM By JACQUELINE ALVAREZ ; [facility] Clobetasol Propionate 0.05% EX CREA 07/28/2012 Provi jovany: Diagnosis: Last Documented On 08/11/2022 5:27PM By JACQUELINE ALVAREZ ; [facility] Mupirocin 2% EX OINT 07/28/2012 Provider: Diagnosis: Last Documented On 08/11/2022 5:27PM By JACQUELINE ALVAREZ ; [facility] Past Medications on file Sertraline HCl 100 MG Oral Tablet 01/17/2023 - 07/16/2023 Provider: ELOINA LYNCH MD Diagnosis: Major depressive disorder, recurrent, moderate as directed -2 tabs daily Last Documented On 01/17/2023 10:58AM By Barbara Lynch MD ; [facility] Topiramate 50 MG Oral Tablet 01/17/2023 - 07/16/2023 Provider: ELOINA LYNCH MD Diagnosis: Migraine w/o aur a, not intractable, w/o status migrainosus one tablet every morning and 2 tablets every evening Last Documented On 01/17/2023 10:58AM By Barbara Lynch MD ; [facility] Amiodarone HCl 200 MG OR TABS 05/25/2020 - 06/24/2020 Provider: Diagnosis: pt states she takes 100 mg daily for Afib Last Documented On 08/11/2022 5:27PM By DEMETRIA ARZATE ; [facility] Aimovig 70 MG/ML SC SOAJ 12/03/2019 - 01/02/2020 Provider: ELOINA LYNCH MD Diagnosis: Migraine w/o aur a, not intractable, w/o status migrainosus as directed Last Documented On 08/11/2022 5:27PM By Barbara Lynch MD ; [facility] Medications Administered Includes: Administered Medications from this encounter No Administered Medications Recorded Vital Signs Includes: Vital Signs from this encounter Vital Name 09/18/2023 09:37A Blood Pressure Sitting L 142/83 BP Cuff Size Regular Pulse Rate-Sitting (bpm) 73 Pulse Rhythm Regular Height (in) 64 Weight (lb) 295 Body Mass Index 50.6 Body Surface Area 2.3 Note: self reported vitals Last Documented: On 09/18/2023 9:38AM ; [facility] Results Includes: Results discussed during this encounter No Results Recorded For Specified Dates History of Present Illness Includes: History of Present Illness from this encounter CLIFF BURGESS is a 68 year old female. - Allergy list reviewed - Past medical history reviewed - Medication list reviewed - Current/previous labs reviewed - labs from 09/17/23 showed: Cholesterol - 185, HDL - 77, LDL - 83, Triglycerides - 157, Glucose - 77, TSH - 3.39, Free T4 - 1.2, Sed rate - 11, WBC - 3.4, RBC - 4.26, B12 - 689, Folate - 20.3, Creatinine - 0.82, Vitamin D - 70 Pt has not been feeling as depressed although at times may be down and not as motivated due to health issues. Pt occ gets anxious. Pt talked about ongoing health issues. The cardioversion done last 04/2023 and 06/2023 did not really work for her. She is on Sotalol and at times BP can be high. She reported some left knee pain. Her last lab 05/23/23 showed glucose 75 amd TSH 6.95. Pt denied having any mood swings. Pt has not been as irritable. Pt has been motivated in general in doing daily tasks. Sleep has been good but at times has trouble sleeping. Pt has not been napping/sleeping too much during the daytime. Pt occ gets tired. Appetite is good. Pt has not been feeling as bad about self. Pt is able to focus and concentrate for the most part but at times gets distracted and inattentive. Pt denied having any psychomotor restlessness. Pt denied suicidal thoughts. Pt denied having any delusions/hallucinations. Overall her psych meds are still helping her. No major panic attacks. MENTAL STATUS EXAM: Sensorium - alert, oriented to name, place, and time Attitude - cooperative Gait - ambulatory Sleep - at times has difficulty staying asleep due to urinary frequency Interest/Energy/Motivation - some days tired and not as motivated Guilt/Worthlessness - absent Concentration/Attention Span - able to focus and concentrate Memory Recall - fairly good Appetite - good - on 05/31/23 pt weighed 295 lbs and on 09/18/23 she weighed the same Suicidal Thoughts - absent Homicidal Thoughts - absent Delusions - absent Hallucinations - absent Appearance - casually groomed Motor Behavior - calm Eye Contact - intermittent Speech - fluent Mood - not as depressed Affect - at times anxious Thought Process - coherent Insight and Judgment - intact Social History Description Last Updated Caffeine use: No caffeinated beverages.Tobacco use: Smoking status: Never smoker.Alcohol: Not using alcohol.Drug Use: Not using drugs (Illicit).Work: Work history -- Disabled.Marital: Marital history -- Pt was born and raised in [place], [place]. Pt was closer to her mother growing up. Both parents are . She has 1 son and 1 daughter. She had 12th grade education. She used to work at [employer] from 1990 - 1999 and then at [employer] from 05/1999 - 04/2002. Pt is now disabled. Her hobbies include sewing and making wreaths. She denied having any past and pending legal history. 09/18/2023 Last Documented On 4 9:06AM ; [facility] Tobacco non-user - Never Smoker 09/18/19 Last Documented On 4 1:54AM ; [facility] Smoking Status Unknown Procedures and Surgical History Includes: Procedures from this encounter Procedures Code Diagnosis Performing Provider Service Location Service Date PSYCHOTHERAPY 30 MIN W/ [place] [address] Major depressive disorder, recurrent, moderate, Generalized anxiety disorder, Panic disorder [episodic paroxysmal anxiety], Psychophysiologic insomnia ELOINA LYNCH MD [facility] 09/18/2023 Last Documented On 4 1:58PM ; [facility] education and instructions Last Documented On 4 9:05AM ; [facility] supportive care and encourag ement--given positive reinforcement to keep patient motivated and active Last Documented On 4 9:46AM ; [facility] I discussed the risks, benef its and side effects of Quetiapine to the patient including the possibility of metabolic and motor side effects such as tardive dyskinesia Last Documented On 4 9:35AM ; [facility] ~* Call [phone] and /or go t o the nearest emergency room or call me if suicidal/homicidal ideation or other serious concerns arise. ~ ~* I gave instructions to call me should there be any questions or concerns. ~ ~* Patient voiced understanding and agreed to treatment plan Last Documented On 4 9:35AM ; [facility] dangerousness assessment: no suicide risk 3085F Last Documented On 4 9:05AM ; [facility] use of tobacco assessment performed 1000F Last Documented On 4 9:06AM ; [facility] patient screened for future fall risk: documentation of any fall with injury in past year - no recent falls 1100F Last Documented On 4 9:06AM ; [facility] review of medications documented 1160F Last Documented On 4 9:06AM ; [facility] assessment of suicide risk performed - n ot suicidal Last Documented On 4 9:36AM ; [facility] screening for adult depressi on: impression and score - please see above for treatment and PHQ score Last Documented On 4 9:06AM ; [facility] standardized depression screening: posit florinda for symptoms Last Documented On 4 9:06AM ; [facility] encouragement to exercise - balanced jem l plan, low fat low carb diet Last Documented On 4 9:35AM ; [facility] Clinical summary provided to patient Last Documented On 4 9:05AM ; [facility] PHQ-9: total score 6 Last Documented On 4 1:51AM ; [facility] Medical History Includes: Medical History addressed during this encounter Description Last Updated Primary Care Provider: Dr. Solo Bradford - going to [facility] -- pt will stay with someone in that officeDrPreeti Jernigan -- Molecular Biology Professor -- [place] Dr. 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 Martell Roberts/Virgen Ward NP -- Coffee Sampler Dr. Jorge Guzman -- Dentist Dr. Jacek Banks -- Vascular Surgeon at [facility] Dr. Joey Bautista -- ElectrophysiologistDiagnoses: Fever blisters -- given Valacyclovir 1 gm [...] 09/2019 -- mild sleep apnea -- patient wearing dental device -- 09/2023GERDIrritable bowel syndrome. Vitamin deficiency - Vitamin D [...] and pelvic fractures probably secondary to stress fracturesKnee pain -- left -- 09/2023 Fall risk -- #1 fell in parking lot 12/2016 -- had initial nosebleed --did not go to ERProcedural: Coronavirus 2019-nCoV vaccine - Pfizer #1 01/2021 #2 02/2021 #3 none Dental bridge work - given Amoxil 500 mg 04/17/23; given Amoxil 500 mg 09/21/21,09/12/21 and 07/18/20;given Amoxil 500 mg and Fluconazole 150 mg 09/23/19Cardioversion 04/18/23 but only helped for a few days; cardioversion 06/2023 -- did not work for longSurgical: Thyroidectomy Oophorectomy Cyst removal from breast Cholecystectomy -- 1999 but still has on and off diarrhea Tonsillectomy Cardiac cath with no stent placementHysterectomy 09/18/2023 Last Documented On 4 9:45AM ; [facility] Family History Includes: Family History addressed during this encounter Description Last Updated Maternal grandfather's: Alco holism -- grandfatherSororal: Depression -- sister 09/18/2023 Last Documented On 4 9:06AM ; [facility] Review of Systems Includes: Review of Systems from this encounter Systemic: Feeling poorly (malaise) - occasionally tired. No fever, no chills, and no night sweats. Recent weight change. Head: Headache and sinus pain. Neck: Neck symptoms. No neck pain and no neck stiffness. Eyes: Vision problems. No itching of the eyes and no eye pain. Otolaryngeal: No hearing loss and no earache. Nasal discharge. No hoarseness and no sore throat. Cardiovascular: Chest pain or discomfort - occasionally and palpitations. The heart rate was not fast. Pulmonary: Dyspnea - occasionally. No cough and no wheezing. Gastrointestinal: Appetite and heartburn. No nausea and no vomiting. Abdominal pain, diarrhea, and constipation. Genitourinary: Increased urinary frequency. No dysuria. Endocrine: No polydipsia and no excessive sweating. Musculoskeletal: Muscle aches, pain localized to one or more joints, and joint stiffness localized to one or [...] Last Documented On 09/18/2023 9:10AM ; [facility] Note: Imported from external source. Silvadine Allergy peels skin 05/08/2012 Active Last Documented On 09/18/2023 9:10AM ; [facility] Note: Imported from external source. Penicillin V Potassium Intolerance yeast infection 05/08/2012 Active Last Documented On 09/18/2023 9:10AM ; [facility] Note: Imported from external source. Omnipaque Allergy Hives / Urticaria 05/08/2012 Active Last Documented On 09/18/2023 9:10AM ; [facility] Note: Imported from external source. Neosporin Allergy Skin Rashes / Eruption of skin 05/08/2012 Active Last Documented On 09/18/2023 9:10AM ; [facility] Note: Imported from external source. Lisinopril Allergy cough 05/08/2012 Active Last Documented On 09/18/2023 9:10AM ; [facility] Note: Imported from external source. Latex Allergy skin peels off 05/08/2012 Acti ve Last Documented On 09/18/2023 9:10AM ; [facility] Note: Imported from external source. Bandaging Tape Allergy PEELS OFF SKIN 05/08/2012 Active Last Documented On 09/18/2023 9:10AM ; [facility] Note: Imported from external source. Bacitracin Allergy Skin Rashes / Eruption of skin 05/08/2012 Active Last Documented On 09/18/2023 9:10AM ; [facility] Note: Imported from external source. Encounters Encounter Provider Location Date Check-In Time Check-Out Time Diagnosis TELEHEALTH ADULT PSYCH ESTABLISHED ELOINA LYNCH MD [facility] 09/18/19 9:06AM 11:59PM Migraine Headache,Ирина r Depression, Recurrent,Gen eralized Anxiety Disorder,Psyc hophysiologic al Insomnia,Christina c Disorder Insurance Includes: Active Insurance Policies Plan Name Member ID Group # Subscriber Relationship Effect florinda Dates 1 - [employer] [id number] [place] BURGESS Self Clinical Notes Includes: Clinical Notes from this encounter * Progress note Date Encounter Last Documented by 09/18/2023 TELEHEALTH ADULT PSYCH ESTABLISH ED Last documented on 09/23/2023; 1:54 AM, ELOINA LYNCH MD; [facility] Top of Document Medication psychotherapy 30 minutes Patient gave verbal consent for Telehealth 09/18/23. Location of patient: patient's home Location of provider: provider's office Patient was alone for the session. This visit was conducted with use of interactive audio and video telecommunication system with real time communication between the patient and the provider. Patient consent for virtual visit obtained today. Total time spent with patient via audio and video telecommunication 30 minutes. Active Problems & Conditions - Anemia - Cath Mitral Regurgitation - Cutaneous Lupus Erythematosus Discoid - Generalized Anxiety Disorder - Gerd - Hypertension Systemic - Hypothyroidism - Major Depression, Recurrent - Migraine Headache - Panic Disorder - Psychophysiological Insomnia - Vitamin Deficiency Chief Complaint The Chief Complaint is: Follow up for depression/anxiety. History of Present Illness EVENS BURGESS is a 68 year old female. - Allergy list reviewed - Past medical history reviewed - Medication list reviewed - Current/previous labs reviewed - labs from 09/17/23 showed: Cholesterol - 185, HDL - 77, LDL - 83, Triglycerides - 157, Glucose - 77, TSH - 3.39, Free T4 - 1.2, Sed rate - 11, WBC - 3.4, RBC - 4.26, B12 - 689, Folate - 20.3, Creatinine - 0.82, Vitamin D - 70 Pt has not been feeling as depressed although at times may be down and not as motivated due to health issues. Pt occ gets anxious. Pt talked about ongoing health issues. The cardioversion done last 04/2023 and 06/2023 did not really work for her. She is on Sotalol and at times BP can be high. She reported some left knee pain. Her last lab 05/23/23 showed glucose 75 amd TSH 6.95. Pt denied having any mood swings. Pt has not been as irritable. Pt has been motivated in general in doing daily tasks. Sleep has been good but at times has trouble sleeping. Pt has not been napping/sleeping too much during the daytime. Pt occ gets tired. Appetite is good. Pt has not been feeling as bad about self. Pt is able to focus and concentrate for the most part but at times gets distracted and inattentive. Pt denied having any psychomotor restlessness. Pt denied suicidal thoughts. Pt denied having any delusions/hallucinations. Overall her psych meds are still helping her. No major panic attacks. MENTAL STATUS EXAM: Sensorium - alert, oriented to name, place, and time Attitude - cooperative Gait - ambulatory Sleep - at times has difficulty staying asleep due to urinary frequency Interest/Energy/Motivation - some days tired and not as motivated Guilt/Worthlessness - absent Concentration/Attention Span - able to focus and concentrate Memory Recall - fairly good Appetite - good - on 05/31/23 pt weighed 295 lbs and on 09/18/23 she weighed the same Suicidal Thoughts - absent Homicidal Thoughts - absent Delusions - absent Hallucinations - absent Appearance - casually groomed Motor Behavior - calm Eye Contact - intermittent Speech - fluent Mood - not as depressed Affect - at times anxious Thought Process - coherent Insight and Judgment - intact Current Medication - Adult Aspirin EC Low [...] the p.m., 0 days, 0 refills - hydrALAZINE HCl 10 MG Oral Tablet as directed 1 tab daily, 30 days, 0 refills - Hydrocortisone 2.5% Cream as directed 0 days, 0 refills - Hydroxychloroquine Sulfate 200 MG Tablet as directed 1 TAB BID, 0 days, 0 refills - Leflunomide 20 MG Oral Tablet as directed 1 tab daily, 30 days, 0 refills - Levothyroxine Sodium 175 MCG Tablet as directed Take 1.5 tabs daily, 30 days, 0 refills - Levothyroxine Sodium 50 MCG Tablet as directed 1 tab daily with 175 mcg 1.5 tabs daily, 90 days, 0 refills - L-Lysine 500 MG Tablet One tablet twice a day 1 tab bid otc, 0 days, 0 refills - Mupirocin 2% Ointment [...] 1 month then 1 infusion q 2 months, 0 days, 0 refills - Sertraline HCl 100 MG Oral Tablet 2 tabs po qd, 30 days, 0 refills - Sertraline HCl 100 MG Oral Tablet 2 tabs po qd, 30 days, 5 refills - Sotalol HCl 80 MG Oral Tablet as directed 1 tab bid, 90 days, 0 refills - Torsemide 20 MG Oral Tablet as directed 1 tab daily, 0 days, 0 refills - traZODone HCl 100 MG Oral Tablet TAKE 2 TO 3 TABLETS BY MOUTH AT BEDTIME, 30 days, 5 refills - ZyrTEC Allergy 10 MG Capsule 1 capsule daily 0 days, 0 refills - - No side effects reported- No motor side effects reported i.e., no extrapyramidal side effects and no tardive dyskinesia. AIMS - 0 Past Medical/Surgical History Primary Care Provider: Dr. Yuriy Bradford - going to [facility] -- pt will stay with someone in that office Dr. Hernando Jernigan -- Molecular Biology Professor -- [place] Dr. 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 Martell Roberts/Virgen Ward NP -- Coffee Sampler Dr. Jorge Guzman -- Dentist Dr. Jacek Banks -- Vascular Surgeon at [facility] Dr. Joey Bautista -- Chief Client Officer Diagnoses: Fever blisters -- given Valacyclovir 1 [...] 09/2019 -- mild sleep apnea -- patient wearing dental device -- 09/2023 GERD Irritable bowel syndrome. Vitamin deficiency - [...] pelvic fractures probably secondary to stress fractures Knee pain -- left -- 09/2023 - Fall risk -- #1 fell in [...] 04/18/23 but only helped for a few days; cardioversion 06/2023 -- did not work for long Surgical: Thyroidectomy Oophorectomy Cyst removal from breast Cholecystectomy -- 1999 but still has on and off diarrhea Tonsillectomy Cardiac cath with no stent placement Hysterectomy User Defined 4 Previous Psychiatric Hospitalizations: Patient was at [facility] Mar [address] Reyes, since at that time her was leaving her. Previous Psychiatric Treatments: Patient saw Jeovanny Bentley and Sloane Skelton for therapy/counseling. Previous Psychiatric Medications: Rexulti 1 mg a day 05/2018 -- it helped with her mood but she thought that it caused weight gain Social History Tobacco use: Tobacco non-user - Never Smoker. Caffeine use: No caffeinated beverages. Tobacco use: Smoking status: Never smoker. Alcohol: Not using alcohol. Drug Use: Not using drugs (Illicit). Work: Work history -- Disabled. Marital: Marital history -- Pt was born and raised in [place], [place]. Pt was closer to her mother growing up. Both parents are . She has 1 son and 1 daughter. She had 12th grade education. She used to work at [employer] from 1990 - 1999 and then at [employer] from 05/1999 - 04/2002. Pt is now disabled. Her hobbies include sewing and making wreaths. She denied having any past and pending legal history. Allergies - Bacitracin Reaction: Skin Rashes / Eruption of skin - Bandaging Tape Reaction: PEELS OFF SKIN - Latex Reaction: skin peels off - Lisinopril Reaction: cough - Neosporin Reaction: Skin Rashes / Eruption of skin - Omnipaque Reaction: Hives / Urticaria - Penicillin V Potassium (Intolerance) Reaction: yeast infection - Silvadine Reaction: peels skin - Sulfa Antibiotics Reaction: Hives / Urticaria Family History Maternal grandfather's: Alcoholism -- grandfather Sororal: Depression -- sister Review Of Systems Systemic: Feeling poorly (malaise) - occasionally tired. No fever, no chills, and no night sweats. Recent weight change. Head: Headache and sinus pain. Neck: Neck symptoms. No neck pain and no neck stiffness. Eyes: Vision problems. No itching of the eyes and no eye pain. Otolaryngeal: No hearing loss and no earache. Nasal discharge. No hoarseness and no sore throat. Cardiovascular: Chest pain or discomfort - occasionally and palpitations. The heart rate was not fast. Pulmonary: Dyspnea - occasionally. No cough and no wheezing. Gastrointestinal: Appetite and heartburn. No nausea and no vomiting. Abdominal pain, diarrhea, and constipation. Genitourinary: Increased urinary frequency. No dysuria. Endocrine: No polydipsia and no excessive sweating. Musculoskeletal: Muscle aches, pain localized to one or more joints, and joint stiffness localized to one or more joints. Neurological: Dizziness. No vertigo, no fainting, and no motor disturbances. Skin: No pruritus. Skin lesion:. No rash. Physical Findings - Vitals taken 09/18/2023 09:37 am self reported vitals BP-Sitting L 142/83 mmHg BP Cuff Size Regular Pulse Rate-Sitting 73 bpm Pulse Rhythm Regular Height 64 in Weight 295 lbs Body Mass Index 50.6 kg/m2 Body Surface Area 2.3 m2 Tests Educational Testing: Questionnaires PHQ-9: Value PHQ-9: total score 6 Assessment - Migraine headache - Major depression, recurrent - Psychophysiological insomnia - Generalized anxiety disorder - Panic disorder Therapy - Dangerousness assessment: no suicide risk. - Encouragement to exercise - balanced meal plan, low fat low carb diet. - Supportive care and encouragement--given positive reinforcement to keep patient motivated and active. - Education and instructions. - Assessment of suicide risk performed - not suicidal - Clinical summary provided to patient. I discussed the risks, benefits and side effects of Quetiapine to the patient including the possibility of metabolic and motor side effects such as tardive dyskinesia. * Call [phone] and /or go to the nearest emergency room or call me if suicidal/homicidal ideation or other serious concerns arise. * I gave instructions to call me should there be any questions or concerns. * Patient voiced understanding and agreed to treatment plan. Counseling/Education - Discussed good sleep hygiene habits - Calming techniques such as breathing exercises/meditation and other relaxation techniques Plan Major Depressive Disorder, recurrent - Bupropion XL 300 mg 1 tablet in the morning and Zoloft 100 mg 2 tabs at bedtime Generalized Anxiety Disorder - Buspirone 15 mg 1 tablet 2 or 3 times a day Psychophysiological Insomnia - Trazodone 100 mg 2 - 3 tablets at bedtime and Quetiapine 50 mg 2 tablets at bedtime for her racing thoughts which seems to help Panic Disorder - Clonazepam 0.5 mg 1/2 to 1 tablet daily as needed only for severe anxiety/panic - has not used lately Migraine Headache - Topamax 50 mg 1 in am and 2 in evening - 05/25/20 IBS - Dicyclomine 20 mg a day for IBS Practice Management Use of tobacco assessment performed and patient screened for future fall risk documentation of any fall with injury in past year - no recent falls Review of medications documented; Standardized depression screening: positive for symptoms and for adult impression and score - please see above for treatment and PHQ score.
--- OUTSIDE RECORDS SUMMARY | 2024-06-20 09:27 | XMS_ITS ---
Care Plan - [facility] Created on: June 20, 2024 EVENS BURGESS : 1955 Sex: Female Author Organization [facility] Address [address] [place] [id number] Phone Care Team Providers Care Yard Operator Name Role Phone LIZ DOYLE, ELOINA ORTEGA Unavailable [phone]
--- OUTSIDE RECORDS SUMMARY | 2024-06-20 09:27 | XMS_ITS | Clinical Summary ---
Author Organization [facility] Address [address] [place] [address] Phone Care Team Providers Care Bilingual Office Assistant Name Role Phone ELOINA LYNCH MD Unavailable [phone] Reason for Visit and Chief Complaint The Chief Complaint is: Follow up for depression/anxiety Problems Includes: Problems addressed during this encounter and other active Problems Current Visit Onset Date Resolved Date Provider Conditio n Status Panic Disorder 12/14/2017 Active Last Documented On 3 5:51PM ; [facility] Psychophysiological Insomnia 08/17/2016 Active Last Documented On 3 5:50PM ; [facility] Migraine Headache 07/28/2012 Active Last Documented On 3 5:45PM ; [facility] Major Depression, Recurrent 07/14/2012 Active Last Documented On 3 5:45PM ; [facility] Generalized Anxiety Disorder 05/08/2012 Active Last Documented On 3 5:43PM ; [facility] Past Visits Onset Date Resolved Date Provider Condition Status Vitamin Deficiency 08/13/2018 Active Last Documented On 3 5:52PM ; [facility] Anemia 02/16/2016 Active Last Documented On 3 5:50PM ; [facility] Cath Mitral Regurgitation 07/28/2012 Active Last Documented On 3 5:45PM ; [facility] 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 Last Documented On 3 5:45PM ; [facility] Gerd 05/08/2012 Active Last Documented On 3 5:43PM ; [facility] Hypertension Systemic 05/08/2012 Act florinda Last Documented On 3 5:43PM ; [facility] Hypothyroidism 05/08/2012 Active Last Documented On 3 5:43PM ; [facility] Plan of Treatment Major Depressive Disorder, recurrent [...] which seems to help Panic Disorder - continue Clonazepam 0.5 mg 1/2 to 1 tablet daily as needed only for severe anxiety/panic - has not used lately Migraine Headache - Topamax 50 mg 1 in am and 2 in evening - 05/25/20 - Last Documented On 12/10/2022 9:09AM ; [facility] Future Appointments Date Time Location Provi jovany PSYCH ADULT FOLLOW UP 06/30/2024 10:00AM [facility] ELOINA LYNCH MD Last Documented On 4 10:24AM ; [facility] Education and Decision Aids were provided during visit for: Discussed good sleep hygiene habits Last Documented On 3 11:17AM ; [facility] Assessments Includes: Assessments from this encounter Findings - Migraine headache - Last Documented On 12/10/2022 9:09AM ; [facility] - Major depression, recurrent - Last Documented On 12/10/2022 9:09AM ; [facility] - Psychophysiological insomnia - Last Documented On 12/10/2022 9:09AM ; [facility] - Generalized anxiety disorder - Last Documented On 12/10/2022 9:09AM ; [facility] - Panic disorder - Last Documented On 12/10/2022 9:09AM ; [facility] Instructions Includes: Instructions from this encounter Education and Decision Aids were provided during visit for: Discussed good sleep hygiene habits Last Documented On 3 11:17AM ; [facility] Medical Equipment - Implanted Devices Includes: Current Devices No Medical Equipment Recorded Medications Includes: Medications discussed during this encounter and other current Medications Current Medications (continue as prescribed) Remicade 100 MG Intravenous Solution Reconstituted 08/2023 Provider: Diagnosis: 1 q 2 weeks for 1 month then 1 infusion q 2 joey hs Last Documented On 09/18/2023 9:29AM By DEMETRIA ARZATE ; [facility] traZODone HCl 100 MG Oral Tablet 09/13/2023 Provider: ELOINA LYNCH MD Diagnosis: Psychophysiologi c insomnia TAKE 2 TO 3 TABLETS BY MOUTH AT BEDTIME Last Documented On 09/13/2023 4:05PM By Barbara Lynch MD ; [facility] hydrALAZINE HCl 10 MG Oral Tablet 09/10/2023 Provide r: MARTELL ROBERTS MD Diagnosis: 1 tab daily Last Documented On 09/18/2023 9:29AM By DEMETRIA ARZATE ; [facility] Leflunomide 20 MG Oral Tablet 08/19/2023 Provider: Diagnosis: 1 tab daily Last Documented On 09/18/2023 9:30AM By DEMETRIA ARZATE ; [facility] Sertraline HCl 100 MG Oral Tablet 07/18/2023 Provide r: ELOINA LYNCH MD Diagnosis: 2 tabs po qd Last Documented On 07/18/2023 1:36PM By Barbara Lynch MD ; [facility] Sotalol HCl 80 MG Oral Tablet 07/18/2023 Provider: MARTELL ROBERTS MD Diagnosis: 1 tab bid Last Documented On 09/18/2023 9:30AM By DEMETRIA ARZATE ; [facility] buPROPion HCl ER (XL) 300 MG Oral Tablet Extended Release 24 Hour 06/19/2023 Provider: ELOINA LYNCH MD Diagnosis: Major depressive disorder, recurrent, unspecified TAKE ONE TABLET BY MOUTH DOMINIK RY MORNING Last Documented On 06/19/2023 10:14AM By Barbara Lynch MD ; [facility] Sertraline HCl 100 MG Oral Tablet 06/18/2023 Provide r: Diagnosis: 2 tabs po qd Last Documented On 07/18/2023 1:31PM By DEMETRIA ARZATE ; [facility] Torsemide 20 MG Oral Tablet 05/31/2023 Provider: Diagnosis: 1 tab daily Last Documented On 05/31/2023 9:23AM By DEMETRIA ARZATE ; [facility] busPIRone HCl 15 MG Oral Tablet 04/22/2023 Provider: ELOINA LYNCH MD Diagnosis: Generalized anxi ety disorder One tablet three times a day Last Documented On 04/22/2023 2:27PM By Barbara Lynch MD ; [facility] QUEtiapine Fumarate 50 MG Oral Tablet 03/14/2023 Provider: ELOINA LYNCH MD Diagnosis: Insomnia, unspec ified as directed 2 tablets at bedtime Last Documented On 03/14/2023 11:47AM By Barbara Lynch MD ; [facility] Dicyclomine HCl 20 MG Oral Tablet 02/28/2023 Provider: ELOINA LYNCH MD Diagnosis: Irritable bowel syndrome with constipation One tablet daily Last Documented On 02/28/2023 10:10AM By Barbara Lynch MD ; [facility] clonazePAM 0.5 MG OR TABS 06/14/2022 Provider: ME MATTIE LYNCH MD Diagnosis: Panic disorder [ episodic paroxysmal anxiety] ud - as directed as directed take as needed for anxiety Last Documented On 08/11/2022 5:27PM By Barbara Lynch MD ; [facility] Levothyroxine Sodium 50 MCG OR TABS 05/16/2021 Provi jovany: Diagnosis: 1 tab daily with 175 mcg 1.5 tabs daily Last Documented On 08/11/2022 5:27PM By DEMETRIA ARZATE ; [facility] Levothyroxine Sodium 175 MCG OR TABS 11/14/2020 Prov ider: Diagnosis: Take 1.5 tabs daily Last Documented On 08/11/2022 5:27PM By DEMETRIA ARZATE ; [facility] cloNIDine HCl 0.1 MG OR TABS 11/14/2020 Provider: Diagnosis: 1 tab prn if BP 160/? Last Documented On 08/11/2022 5:27PM By DEMETRIA ARZATE ; [facility] Vitamin D3 25 MCG (1000 UT) OR CHEW 05/25/2020 P rovider: Diagnosis: 1 tab bid otc Last Documented On 08/11/2022 5:27PM By DEMETRIA ARZATE ; [facility] Adult Aspirin EC Low Strength 81 MG OR TBEC 05/25/2020 Provider: Diagnosis: 1 tab daily Last Documented On 08/11/2022 5:27PM By DEMETRIA ARZATE ; [facility] Eliquis 5 MG OR TABS 11/17/2019 Provider: Diagnosis: 1 tab bid Last Documented On 08/11/2022 5:27PM By DEMETRIA ARZATE ; [facility] Hydroxychloroquine Sulfate 200 MG OR TABS 06/12/2018 Provider: Diagnosis: 1 TAB BID Last Documented On 08/11/2022 5:27PM By DEMETRIA ARZATE ; [facility] Potassium Chloride ER 10 MEQ OR TBCR 02/20/2018 Prov ider: Diagnosis: 1 tablet daily in the am Last Documented On 08/11/2022 5:27PM By DEMETRIA ARZATE ; [facility] Olmesartan Medoxomil 40 MG OR TABS 02/20/2018 Provid er: Diagnosis: 1 tab daily Last Documented On 08/11/2022 5:27PM By DEMETRIA ARZATE ; [facility] L-Lysine 500 MG OR TABS 02/20/2018 Provider: Diagnosis: 1 tab bid otc Last Documented On 08/11/2022 5:27PM By DEMETRIA ARZATE ; [facility] Calcium 1000 + D 1000-800 MG-UNIT OR TABS 04/24/2017 Provider: Diagnosis: 2 a day Last Documented On 08/11/2022 5:27PM By Barbara Lynch MD ; [facility] amLODIPine Besylate 10 MG OR TABS 01/19/2013 Provide r: Diagnosis: Last Documented On 08/11/2022 5:27PM By JACQUELINE ARZATE ; [facility] Hair Vitamins OR TABS 01/19/2013 Provider: Diagnosis: 1 in the a.m. 1 in the p.m. Last Documented On 08/11/2022 5:27PM By JACQUELINE ARZATE ; [facility] Betamethasone Dipropionate 0.05% EX OINT 07/28/2012 Provider: Diagnosis: Last Documented On 08/11/2022 5:27PM By JACQUELINE ALVAREZ ; [facility] Hydrocortisone 2.5% EX CREA 07/28/2012 Provider: Diagnosis: Last Documented On 08/11/2022 5:27PM By JACQUELINE ALVAREZ ; [facility] Omeprazole 20 MG OR CPDR 07/28/2012 Provider: Diagnosis: Last Documented On 08/11/2022 5:27PM By JACQUELINE ALVAREZ ; [facility] ZyrTEC Allergy 10 MG OR CAPS 07/28/2012 Provider: Diagnosis: Last Documented On 08/11/2022 5:27PM By JACQUELINE ALVAREZ ; [facility] Clobetasol Propionate 0.05% EX CREA 07/28/2012 Provi jovany: Diagnosis: Last Documented On 08/11/2022 5:27PM By JACQUELINE ALVAREZ ; [facility] Mupirocin 2% EX OINT 07/28/2012 Provider: Diagnosis: Last Documented On 08/11/2022 5:27PM By JACQUELINE ALVAREZ ; [facility] Past Medications on file Sertraline HCl 100 MG Oral Tablet 01/17/2023 - 07/16/2023 Provider: ELOINA LYNCH MD Diagnosis: Major depressive disorder, recurrent, moderate as directed -2 tabs daily Last Documented On 01/17/2023 10:58AM By Barbara Lynch MD ; [facility] Topiramate 50 MG Oral Tablet 01/17/2023 - 07/16/2023 Provider: ELOINA LYNCH MD Diagnosis: Migraine w/o aur a, not intractable, w/o status migrainosus one tablet every morning and 2 tablets every evening Last Documented On 01/17/2023 10:58AM By Barbara Lynch MD ; [facility] Amiodarone HCl 200 MG OR TABS 05/25/2020 - 06/24/2020 Provider: Diagnosis: pt states she takes 100 mg daily for Afib Last Documented On 08/11/2022 5:27PM By DEMETRIA ARZATE ; [facility] Aimovig 70 MG/ML SC SOAJ 12/03/2019 - 01/02/2020 Provider: ELOINA LYNCH MD Diagnosis: Migraine w/o aur a, not intractable, w/o status migrainosus as directed Last Documented On 08/11/2022 5:27PM By Barbara Lynch MD ; [facility] Medications Administered Includes: Administered Medications from this encounter No Administered Medications Recorded Vital Signs Includes: Vital Signs from this encounter Vital Name 11/21/2022 11:07A Blood Pressure Sitting R 132/93 BP Cuff Size Regular Pulse Rate-Sitting (bpm) 82 Pulse Rhythm Regular Height (in) 64 Weight (lb) 293 Body Mass Index 50.3 Body Surface Area 2.3 Note: self reported vitals Last Documented: On 12/10/2022 9:05AM ; [facility] Results Includes: Results discussed during this encounter No Results Recorded For Specified Dates History of Present Illness Includes: History of Present Illness from this encounter HPI MACKENZIE BURGESS is a 67 year old female. - Past medical history reviewed - Medication list reviewed Mackenzie reported that her daughter in June and so she is just having difficulty adjusting to the loss of her daughter. She is going through her normal grieving period. At times she gets anxious. She denied mood swinggs. She denied suicidal thoughts. Some days she is not as motivated but tries to keep herself busy. She occ gets tired. She is still able to focus and concentrate for the most part. She has been busy sewing and is getting ready to do a lot of projects for her [employer]. However, at times she is having difficulty with her hands because of her rheumatoid arthritis and osteoarthritis. She is also worried about her granddaughter who has not been answering her phone calls. She was close to this granddaughter and did not understand why she is not answering her phone calls. She said that her son moved back in with her again because her son broke up with his girlfriend. She said that she had some labs done from [facility] ordered by Dr. Bradford so this will be obtained as part of the metabolic lab monitoring. Sleep has been good in general with the Trazodone. The combination of Bupropion and Quetiapine along with Buspar seems to help with mood and anxiety. Appetite is good. She has not used the Klonopin much. She denied panic attacks. The Topamax seems to help with her migraine headaches. She denied motor side effects from the Quetiapine. She is also on Zoloft which seems to help with her depressive symptoms. MENTAL STATUS EXAM: Sensorium - alert, oriented to name, place, and time Attitude - cooperative Gait - ambulatory Sleep - good Interest/Energy/Motivation - some days she is not as motivated, occasionally tired Guilt/Worthlessness - absent Concentration/Attention Span - able to focus and concentrate Memory Recall - fairly good Appetite - good Suicidal Thoughts - absent Homicidal Thoughts - absent Delusions - absent Hallucinations - absent Appearance - casually groomed Motor Behavior - calm Eye Contact - intermittent Speech - fluent Mood - not as depressed but going through normal grieving period Affect - not as anxious Thought Process - coherent Insight and Judgment - intact Social History Description Last Updated Tobacco non-user - Never Smoker 11/22/19 Last Documented On 3 9:09AM ; [facility] Caffeine use: No coffee cons umption -- drinks 3 - 4 cans of diet soda a week and no tea or no coffee.Tobacco use: Smoking status: Never smoker.Alcohol: Not using alcohol.Drug Use: Not using drugs (Illicit).Work: Work history -- Disabled.Marital: Marital history -- Pt was born and raised in [place], [place]. Pt was closer to her mother growing up. Both parents are . She has 1 son and 1 daughter. She had 12th grade education. She used to work at [employer] from 1990 - 1999 and then at [employer] from 05/1999 - 04/2002. Pt is now disabled. Her hobbies include sewing and making wreaths. She denied having any past and pending legal history. 11/21/2022 Last Documented On 3 11:15AM ; [facility] Smoking Status Unknown Procedures and Surgical History Includes: Procedures from this encounter Procedures Code Diagnosis Performing Provider Service L ocation Service Date education and instructions Last Documented On 3 11:07AM ; [facility] I discussed the risks, benef its and side effects of Quetiapine to the patient including the possibility of metabolic and motor side effects such as tardive dyskinesia Last Documented On 3 11:17AM ; [facility] ~* Call [phone] and /or go t o the nearest emergency room or call me if suicidal/homicidal ideation or other serious concerns arise. ~ ~* I gave instructions to call me should there be any questions or concerns. ~ ~* Patient voiced understanding and agreed to treatment plan Last Documented On 3 11:17AM ; [facility] dangerousness assessment: no suicide risk 3085F Last Documented On 3 11:07AM ; [facility] use of tobacco assessment performed 1000F Last Documented On 3 11:18AM ; [facility] patient screened for future fall risk: documentation of any fall with injury in past year - no recent falls 1100F Last Documented On 3 11:17AM ; [facility] review of medications documented 1160F Last Documented On 3 11:17AM ; [facility] assessment of suicide risk performed - n ot suicidal Last Documented On 3 11:18AM ; [facility] screening for adult depressi on: impression and score - please see above treatment and PHQ score Last Documented On 3 11:18AM ; [facility] standardized depression screening: posit florinda for symptoms Last Documented On 3 11:18AM ; [facility] Clinical summary provided to patient Last Documented On 3 11:07AM ; [facility] PHQ-9: total score 4 Last Documented On 3 2:21PM ; [facility] Medical History Includes: Medical History addressed during this encounter Description Last Updated Primary Care Provider: Dr. Solo Jernigan -- Certified Registered Locksmith -- [place] Dr. Jada Grajeda -- Rn Cardiology Dr. Martell Roberts -- Candy Maker Dr. Jorge Guzman -- Dentist Dr. Jacek Banks -- Vascular Surgeon at [facility] Dr. Adrienne King, [place] -- Sleep/Dental device Dr. Jamaal Silverio -- GastroenterologistDiagnoses: Sinusitis - given Doxycycline 100 mg, Fluconazole 150 mg and Mupirocin ointment 2% on 05/08/22; Cefuroxime 500 mg 07/20/19. Atrial fibrillation - 07/2019Mitral regurgitationMitral valve prolapseSystemic hypertensionVenous [...] bridge work - given Amoxil 500 mg 09/21/21,09/12/21 and 07/18/20;given Amoxil 500 mg and Fluconazole 150 mg 09/23/19urgical: Thyroidectomy Oophorectomy Cyst removal from breast Cholecystectomy -- 1999 but still has on and off diarrhea Tonsillectomy Cardiac cath with no stent placementHysterectomy 11/21/2022 Last Documented On 3 11:14AM ; [facility] Family History Includes: Family History addressed during this encounter Description Last Updated Maternal grandfather's: [employer] -- grandfatherSororal: Depression -- sister 11/21/2022 Last Documented On 3 11:16AM ; [facility] Review of Systems Includes: Review of Systems from this encounter Systemic: Feeling poorly (malaise) feels tired occasionally. No fever, no chills, and no night sweats. Head: Headache - occasionally, facial pain, and sinus pain. Neck: No neck pain and no neck stiffness. Eyes: No vision problems. Itching of the eyes. No eye pain. Otolaryngeal: No hearing loss, no earache, no nasal discharge, no hoarseness, and no sore throat. Cardiovascular: No chest pain or discomfort. Palpitations and fast heart rate. Pulmonary: Dyspnea and cough. No wheezing. Gastrointestinal: No heartburn. No nausea and no vomiting. Diarrhea. No constipation. Genitourinary: No increase in urinary frequency. [...] Active Last Documented On 09/18/2023 9:10AM ; [facility] Note: Imported from external source. Silvadine Allergy peels skin 05/08/2012 Active Last Documented On 09/18/2023 9:10AM ; [facility] Note: Imported from external source. Penicillin V Potassium Intolerance yeast infection 05/08/2012 Active Last Documented On 09/18/2023 9:10AM ; [facility] Note: Imported from external source. Omnipaque Allergy Hives / Urticaria 05/08/2012 Active Last Documented On 09/18/2023 9:10AM ; [facility] Note: Imported from external source. Neosporin Allergy Skin Rashes / Eruption of skin 05/08/2012 Active Last Documented On 09/18/2023 9:10AM ; [facility] Note: Imported from external source. Lisinopril Allergy cough 05/08/2012 Active Last Documented On 09/18/2023 9:10AM ; [facility] Note: Imported from external source. Latex Allergy skin peels off 05/08/2012 Acti ve Last Documented On 09/18/2023 9:10AM ; [facility] Note: Imported from external source. Bandaging Tape Allergy PEELS OFF SKIN 05/08/2012 Active Last Documented On 09/18/2023 9:10AM ; [facility] Note: Imported from external source. Bacitracin Allergy Skin Rashes / Eruption of skin 05/08/2012 Active Last Documented On 09/18/2023 9:10AM ; [facility] Note: Imported from external source. Encounters Encounter Provider Location Date Check-In Time Check-Out Time Diagnosis TELEHEALTH ADULT PSYCH ESTABLISHED METODIA BARBARA LYNCH MD [facility] 11/22/19 11:03AM 11:59PM Generalized Anxiety Disorder,Major Depression, Recurrent,Migr kurt Headache,Panic Disorder,Psych ophysiological Insomnia Insurance Includes: Active Insurance Policies Plan Name Member ID Group # Subscriber Relationship Effect florinda Dates 1 - [employer] [id number] MACKENZIE BURGESS Self Clinical Notes Includes: Clinical Notes from this encounter * Progress note Date Encounter Last Documented by 11/21/2022 TELEHEALTH ADULT PSYCH ESTABLISH ED Last documented on 12/10/2022; 9:09 AM, ELOINA LYNCH MD; [facility] Top of Document Medication psychotherapy -- 45 minutes Patient gave verbal consent for Telehealth 11/21/22 Location of patient: patient's home Location of provider: provider's office Patient was alone for the session. This visit was conducted with use of interactive audio and video telecommunication system with real time communication between the patient and the provider. Patient consent for virtual visit obtained today. Total time spent with patient via audio and video telecommunication 45 minutes. Active Problems & Conditions - Anemia - Cath Mitral Regurgitation - Generalized Anxiety Disorder - Gerd - Hypertension Systemic - Hypothyroidism - Lupus Erythematosus Discoid - Major Depression, Recurrent - Migraine Headache - Panic Disorder - Psychophysiological Insomnia - Vitamin Deficiency Chief Complaint The Chief Complaint is: Follow up for depression/anxiety. History of Present Illness MACKENZIE BURGESS is a 67 year old female. - Past medical history reviewed - Medication list reviewed Mackenzie reported that her daughter in June and so she is just having difficulty adjusting to the loss of her daughter. She is going through her normal grieving period. At times she gets anxious. She denied mood swinggs. She denied suicidal thoughts. Some days she is not as motivated but tries to keep herself busy. She occ gets tired. She is still able to focus and concentrate for the most part. She has been busy sewing and is getting ready to do a lot of projects for her [employer]. However, at times she is having difficulty with her hands because of her rheumatoid arthritis and osteoarthritis. She is also worried about her granddaughter who has not been answering her phone calls. She was close to this granddaughter and did not understand why she is not answering her phone calls. She said that her son moved back in with her again because her son broke up with his girlfriend. She said that she had some labs done from [facility] ordered by Dr. Bradford so this will be obtained as part of the metabolic lab monitoring. Sleep has been good in general with the Trazodone. The combination of Bupropion and Quetiapine along with Buspar seems to help with mood and anxiety. Appetite is good. She has not used the Klonopin much. She denied panic attacks. The Topamax seems to help with her migraine headaches. She denied motor side effects from the Quetiapine. She is also on Zoloft which seems to help with her depressive symptoms. MENTAL STATUS EXAM: Sensorium - alert, oriented to name, place, and time Attitude - cooperative Gait - ambulatory Sleep - good Interest/Energy/Motivation - some days she is not as motivated, occasionally tired Guilt/Worthlessness - absent Concentration/Attention Span - able to focus and concentrate Memory Recall - fairly good Appetite - good Suicidal Thoughts - absent Homicidal Thoughts - absent Delusions - absent Hallucinations - absent Appearance - casually groomed Motor Behavior - calm Eye Contact - intermittent Speech - fluent Mood - not as depressed but going through normal grieving period Affect - not as anxious Thought Process - coherent Insight and Judgment - intact Current Medication - Adult Aspirin EC Low Strength 81 MG Tablet Delayed Release as directed 1 tab daily, 0 days, 0 refills - Amiodarone HCl 200 MG Tablet as directed 1/2 tab daily, 30 days, 0 refills - amLODIPine Besylate 10 MG Tablet 1 Capsule every morning 0 days, 0 refills - Betamethasone Dipropionate 0.05% Ointment as directed 0 days, 0 refills - buPROPion HCl ER (XL) 300 MG Tablet Extended Release 24 Hour TAKE ONE TABLET BY MOUTH EVERY MORNING, 30 days, 11 refills - busPIRone HCl 15 MG Tablet One tablet three times a day One tablet three times a day, 30 [...] bid otc, 0 days, 0 refills - Eliquis 5 MG Tablet 1 [...] 0 refills - QUEtiapine Fumarate 50 MG Tablet as directed as directed --2 at bedtime, 30 days, 11 refills - Remicade 100 MG Solution Reconstituted as directed 1 q 2 weeks for 1 month then 1 infusion q 2 months, 0 days, 0 refills - Sertraline HCl 100 MG Tablet TAKE 2 TABLETS BY MOUTH AT BEDTIME DIRECTED, 30 days, 5 refills - Topiramate 50 MG Tablet TAKE ONE TABLET BY MOUTH EVERY MORNING AND TAKE TWO TABLETS BY MOUTH EVERY EVENING DIRECTED, 30 days, 5 refills - Torsemide 10 MG Tablet as directed 2 tabs daily, 90 days, 0 refills - ZyrTEC Allergy 10 MG Capsule 1 capsule daily 0 days, 0 refills - - No side effects reported Past Medical/Surgical History Primary Care Provider: Dr. Yuriy Jernigan -- Certified Registered Locksmith -- [place] Dr. Jada Grajeda -- Rn Cardiology Dr. Martell Roberts -- Candy Maker Dr. Jorge Guzman -- Dentist Dr. Jacek Banks -- Vascular Surgeon at [facility] Dr. Adrienne King, DDS -- Sleep/Dental device Dr. Jamaal Silverio -- Acquisition Associate Diagnoses: Sinusitis - given Doxycycline 100 mg, Fluconazole 150 mg and Mupirocin ointment 2% on 05/08/22; Cefuroxime 500 mg 07/20/19. Atrial fibrillation - 07/2019 Mitral regurgitation Mitral [...] bridge work - given Amoxil 500 mg 09/21/21,09/12/21 and 07/18/20;given Amoxil 500 mg and Fluconazole 150 mg 09/23/19 Surgical: Thyroidectomy Oophorectomy Cyst removal from breast Cholecystectomy -- 1999 but still has on and off diarrhea Tonsillectomy Cardiac cath with no stent placement Hysterectomy User Defined 4 Previous Psychiatric Hospitalizations: Patient was at [facility] Mar [address] Reyes, since at that time her was leaving her. Previous Psychiatric Treatments: Patient saw Jeovanny Bentley and Sloane Skelton for therapy/counseling. Previous Psychiatric Medications: Rexulti 1 mg a day 05/2018 -- it helped with her mood but she thought that it caused weight gain Social History Tobacco use: Tobacco non-user - Never Smoker. Caffeine use: No coffee consumption -- drinks 3 - 4 cans of diet soda a week and no tea or no coffee. Tobacco use: Smoking status: Never smoker. Alcohol: Not using alcohol. Drug Use: Not using drugs (Illicit). Work: Work history -- Disabled. Marital: Marital history -- Pt was born and raised in [place], [place]. Pt was closer to her mother growing up. Both parents are . She has 1 son and 1 daughter. She had 12th grade education. She used to work at [employer] from 1990 - 1999 and then at [employer] from 05/1999 - 04/2002. Pt is now [...] Review Of Systems Systemic: Feeling poorly (malaise) feels tired occasionally. No fever, no chills, and no night sweats. Head: Headache - occasionally, facial pain, and sinus pain. Neck: No neck pain and no neck stiffness. Eyes: No vision problems. Itching of the eyes. No eye pain. Otolaryngeal: No hearing loss, no earache, no nasal discharge, no hoarseness, and no sore throat. Cardiovascular: No chest pain or discomfort. Palpitations and fast heart rate. Pulmonary: Dyspnea and cough. No wheezing. Gastrointestinal: No heartburn. No nausea and no vomiting. Diarrhea. No constipation. Genitourinary: No increase in urinary frequency. No dysuria. Endocrine: Polydipsia. No excessive sweating. Musculoskeletal: No muscle aches. Pain localized to one or more joints and joint stiffness localized to one or more joints. Neurological: No dizziness, no vertigo, no fainting, and no motor disturbances. Skin: No pruritus. Skin lesion:. No rash. Physical Findings - Vitals taken 11/21/2022 11:07 am self reported vitals BP-Sitting R 132/93 mmHg BP Cuff Size Regular Pulse Rate-Sitting 82 bpm Pulse Rhythm Regular Height 64 in Weight 293 lbs Body Mass Index 50.3 kg/m2 Body Surface Area 2.3 m2 Tests Educational Testing: Questionnaires PHQ-9: Value PHQ-9: total score 4 Assessment - Migraine headache - Major depression, recurrent - Psychophysiological insomnia - Generalized anxiety disorder - Panic disorder Therapy - Dangerousness assessment: no suicide risk. - Education and instructions. - Assessment of suicide risk performed - not suicidal - Clinical summary provided to patient. I discussed the risks, benefits and side effects of Quetiapine to the patient including the possibility of metabolic and motor side effects such as tardive dyskinesia. * Call [phone] and /or go to the nearest emergency room or call me if suicidal/homicidal ideation or other serious concerns arise. * I gave instructions to call me should there be any questions or concerns. * Patient voiced understanding and agreed to treatment plan. Counseling/Education - Supportive care and encouragement--given positive reinforcement to keep patient motivated and active, offered grief supportive therapy, calming techniques, meditation, keeping herself busy with sewing - Discussed good sleep hygiene habits Plan StartCited - Other Follow-up 02/28/23 EndCited Major Depressive Disorder, recurrent - Bupropion XL [...] which seems to help Panic Disorder - continue Clonazepam 0.5 mg 1/2 to 1 tablet daily as needed only for severe anxiety/panic - has not used lately Migraine Headache - Topamax 50 mg 1 in am and 2 in evening - 05/25/20 Practice Management Use of tobacco assessment performed and patient screened for future fall risk documentation of any fall with injury in past year - no recent falls Review of medications documented; Standardized depression screening: positive for symptoms and for adult impression and score - please see above treatment and PHQ score.
--- OUTSIDE RECORDS SUMMARY | 2024-06-20 09:27 | XMS_ITS | Clinical Summary ---
Author Organization [facility] S Address [address] [place] [address] Phone Care Team Providers Care Community Artist Name Role Phone LIZ DOYLE, ELOINA ORTEGA Unavailable [phone] Reason for Visit and [...] Active Last Documented On 7 9:38AM ; [facility] Migraine Headache 07/28/2012 ELOINA Adrian MD Active Last Documented On 0 10:11AM ; [facility] Major Depression, Recurrent 07/14/2012 ELOINA LYNCH MD Active Last Documented On 3 12:01PM ; [facility] Generalized Anxiety Disorder 05/08/2012 ELOINA LYNCH MD Active Last Documented On 3 1:29PM ; [facility] Past Visits Onset Date Resolved Date Provider Condition Status Vitamin Deficiency 08/13/2018 ELOINA CHAIDEZ MD Active Last Documented On 9 7:40AM ; [facility] Anemia 02/16/2016 ELOINA LYNCH MD Ac tive Last Documented On 6 9:21AM ; [facility] Cath Mitral Regurgitation 07/28/2012 ELOINA LYNCH MD Active Last Documented On 3 11:16AM ; [facility] 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 Major Depressive [...] evening - 05/25/20 - Last Documented On 06/12/2021 9:04AM ; [facility] Instructions to patient Lose weight - portion contro l Last Documented On 2 9:03AM ; [facility] Education and [...] 2 10:56AM ; [facility] Assessments Includes: Assessments from this encounter Findings - Migraine headache - Last Documented On 06/12/2021 9:04AM ; [facility] - Major depression, recurrent - Last Documented On 06/12/2021 9:04AM ; [facility] - Psychophysiological insomnia - Last Documented On 06/12/2021 9:04AM ; [facility] - Generalized anxiety disorder - Last Documented On 06/12/2021 9:04AM ; [facility] - Panic disorder - Last Documented On 06/12/2021 9:04AM ; [facility] Instructions Includes: Instructions from this encounter Instructions to patient Lose weight - portion contro l Last Documented On 2 9:03AM ; [facility] Education and [...] 2 10:56AM ; [facility] Medical Equipment - Implanted Devices Includes: Current Devices No Medical Equipment Recorded Medications Includes: Medications discussed during this encounter and other current Medications Current Medications (continue as prescribed) Sertraline [...] Last Documented On 3 12:20PM By Barbara Lynhc MD ; [facility] QUEtiapine Fumarate 50 MG Oral Tablet 03/19/2022 Provider: EOLINA LYNCH MD Diagnosis: Insomnia, unspec ified as [...] On 2 10:52AM By DEMETRIA ARZATE ; [facility] Medical [facility] Levothyroxine Sodium 175 MCG Oral Tablet 11/14/2020 Provider: MARTELL ROBERTS MD Diagnosis: Take 1.5 tabs daily Last Documented On 11/22/2020 9:32AM By DEMETRIA ARZATE ; [facility] cloNIDine HCl 0.1 MG Oral Tablet 11/14/2020 Provider : MARTELL ROBERTS MD Diagnosis: 1 tab prn if BP 160/? Last Documented On 11/22/2020 9:32AM By DEMETRIA ARZATE ; [facility] Amiodarone HCl 200 MG Oral Tablet 10/14/2020 Provide r: MARTELL ROBERTS MD Diagnosis: 1/2 tab daily Last Documented On 11/22/2020 9:33AM By DEMETRIA ARZATE ; [facility] Medical [facility] Metoprolol Succinate ER 50 M G Oral Tablet Extended Release 24 Hour 10/14/2020 Provider: MARTELL ROBERTS MD Diagnosis: 1/2 tab daily Last Documented On 11/22/2020 9:33AM By DEMETRIA ARZATE ; [facility] Medical [facility] Adult Aspirin EC Low Strengt h 81 MG Oral Tablet Delayed Release 05/25/2020 Provider: Diagnosis: 1 tab daily Last Documented On 1 10:14AM By DEMETRIA ARZATE ; [facility] Medical Group [facility] Vitamin D3 25 MCG (1000 UT) Oral Tablet Chewable 05/25/2020 Provider: KP BALL MD Diagnosis: 1 tab bid otc Last Documented On 1 10:13AM By DEMETRIA ARZATE ; [facility] Medical [facility] Eliquis 5 MG Oral Tablet 11/17/2019 Provider: Diagnosis: 1 tab bid Last Documented On 12/03/2019 9:29AM By DEMETRIA ARZATE ; [facility] Medical [facility] Hydroxychloroquine Sulfate 200MG Oral Tablet 9 Provider: TRISTAN CORTES MD Diagnosis: 1 TAB BID Last Documented On 9 10:38AM By DEMETIRA ARZATE ; [facility] Medical [facility] L-Lysine 500MG Oral Tablet 02/20/2018 Provider: Diagnosis: 1 tab bid otc Last Documented On 02/20/2018 9:43AM By DEMETRIA ARZATE ; [facility] Olmesartan Medoxomil 40MG Oral Tablet 02/20/2018 Pro vider: Diagnosis: 1 tab daily Last Documented On 02/20/2018 9:45AM By DEMETRIA ARZATE ; [facility] Potassium Chloride ER 10MEQ Oral Tablet, control led-release 02/20/2018 Provider: Diagnosis: 1 tablet daily in the am Last Documented On 02/20/2018 9:46AM By DEMETRIA ARZATE ; [facility] Calcium 1000 + D [id number] Oral Tablet 8 Provider: Diagnosis: 2 a day Last Documented On 8 10:09AM By Barbara Lynch MD ; [facility] amLODIPine Besylate 10 MG OR TABS 01/19/2013 Provide r: Diagnosis: Last Documented On 3 10:02AM By JACQUELINE ARZATE ; [facility] Hair Vitamins OR TABS 01/19/2013 Provider: Diagnosis: 1 in the a.m. 1 in the p.m. Last Documented On 3 10:05AM By JACQUELINE ARZATE ; [facility] Medical [facility] Mupirocin 2% EX OINT 07/28/2012 Provider: Diagnosis: Last Documented On 3 11:22AM By JACQUELINE ALVAREZ ; [facility] Hydrocortisone 2.5% EX CREA 07/28/2012 Provider: Diagnosis: Last Documented On 3 11:23AM By JACQUELINE ALVAREZ ; [facility] Betamethasone Dipropionate 0.05% EX OINT 07/28/2012 Provider: Diagnosis: Last Documented On 3 11:23AM By JACQUELINE ALVAREZ ; [facility] Medical [facility] Clobetasol Propionate 0.05% EX CREA 07/28/2012 Provi jovany: Diagnosis: Last Documented On 3 11:22AM By JACQUELINE ALVAREZ ; [facility] ZyrTEC Allergy 10 MG OR CAPS 07/28/2012 Provider: Diagnosis: Last Documented On 3 11:19AM By JACQUELINE ALVAREZ ; [facility] Omeprazole 20 MG OR CPDR 07/28/2012 Provider: Diagnosis: Last Documented On 3 11:18AM By JACQUELINE ALVAREZ ; [facility] Past Medications on file Amiodarone HCl 200 [...] GEO FLOR ; [facility] busPIRone HCl 15 MG OR TABS 05/16/2015 - 06/15/2015 Pr ovider: Diagnosis: Generalized anxi ety disorder One tablet three times a day Last Documented On 05/16/2015 5:19PM By GEO FLOR ; [facility] Medications Administered Includes: Administered Medications from this encounter No Administered Medications Recorded Vital Signs Includes: Vital Signs from this encounter Vital Name 05/17/2021 11:01A Blood Pressure Sitting L 162/70 BP Cuff Size Regular Pulse Rate-Sitting (bpm) 70 Pulse Rhythm Regular Height (in) 64 Weight (lb) 290 Body Mass Index (kg/m2) 49.8 Body Surface Area (m2) 2.3 Note: self reported vitals Last Documented: On 05/17/2021 11:01A M ; [facility] Results Includes: Results discussed during this encounter No Results Recorded For Specified Dates History of Present Illness Includes: History of Present Illness from this encounter CLIFF BURGESS is a 66 year old female. - Allergy list reviewed - Past medical history reviewed - Medication list reviewed - Current/previous labs reviewed - labs from 04/28/20 showed: Glucose = 87, Cholesterol = 205, HDL = 94, LDL = 91, Triglycerides = 104, TSH = 7.10 This visit was conducted with use of interactive audio and video telecommunication system with real time communication between the patient and the provider. Patient consent for virtual visit obtained today. Total time spent with patient via audio and video telecommunication 45 minutes. Pt denied feeling as depressed. Pt seemed to be responding to her meds for her mood i.e., Zoloft, Seroquel, Bupropion. Pt has been motivated in general in doing daily tasks. Pt had COVID for the third time and so far she is dealing with it. She is taking different multivitamins to help resist any type of infection including COVID. Sleep has been good. Pt denied sleeping too much during the daytime. Pt occ gets tired. Appetite is somewhat down. Pt denied feeling bad about self. Pt is able to focus and concentrate for the most part. Pt denied having any psychomotor restlessness. Pt denied suicidal thoughts. No delusions/hallucinations. Pt occ gets anxious/stressed with family situation. Her son moved out last summer with his GF. His grandkids are still defiant and not talking to her due to their mother saying bad things about her. Pt has not had any significant mood swings. Pt has not been as irritable. MENTAL STATUS EXAM: Sensorium - alert, oriented to name, place, and time Attitude - cooperative Gait - ambulatory Sleep - good - compliant with dental device Interest/Energy/Motivation - good, occ tired Guilt/Worthlessness - absent Concentration/Attention Span - able to focus and concentrate Memory Recall - fairly good Appetite - some days decreased - on 11/22/20 pt weighed 290 lbs and on 05/17/21 she weighed the same Suicidal Thoughts - absent Homicidal Thoughts - absent Delusions - absent Hallucinations - absent Appearance - casually groomed Motor Behavior - calm Eye Contact - intermittent Speech - fluent Mood - not depressed, no mood swings, less stressed Affect - not as anxious Thought Process - coherent Insight and Judgment - intact Social History Description Last Updated No coffee consumption -- dri nks 3 - 4 cans of diet soda a week and 2 glasses of decaf tea a day and no coffee 11/23/2021 Last Documented On 2 10:23AM ; [facility] Work history -- Disabled 06/14/2018 Last Documented On 2 10:23AM ; [facility] Marital history -- ~Pt was born and raised in [place], [place]. Pt was closer to her mother growing up. Both parents are . She has 1 son and 1 daughter. She had 12th grade education. She used to work at [employer] from 1990 - 1999 and then at [employer] from 05/1999 - 04/2002. Pt is now disabled. Her hobbies include sewing and making wreaths. She denied having any past and pending legal history 06/14/2018 Last Documented On 2 10:23AM ; [facility] Not using alcohol 05/08/2012 Last Documented On 2 10:23AM ; [facility] Not using drugs (Illicit) 05/08/2012 Last Documented On 2 10:23AM ; [facility] Smoking status : Never smoked 05/08/2012 Last Documented On 2 10:23AM ; [facility] Procedures and Surgical History Includes: Procedures from this encounter Procedures Code Diagnosis Performing Provider Service L ocation Service Date education and instructions Last Documented On 2 10:23AM ; [facility] I discussed the risks, benef its and side effects of Quetiapine to the patient including the possibility of metabolic and motor side effects such as tardive dyskinesia Last Documented On 2 10:56AM ; [facility] I explained the rationale fo r [...] agreed to treatment plan Last Documented On 2 10:23AM ; [facility] dangerousness assessment: suicide risk - not macy cidal 3085F Last Documented On 11:07AM ; [facility] use of tobacco assessment performed 1000F Last Documented On 2 10:23AM ; [facility] patient screened for future fall risk - no recen t falls 3288F Last Documented On 2 10:23AM ; [facility] review of medications documented 1160F Last Documented On 2 10:23AM ; [facility] screening for adult depressi on: impression and score - please see above treatment and PHQ score Last Documented On 2 10:23AM ; [facility] standardized depression screening: posit florinda for symptoms Last Documented On 2 10:23AM ; [facility] encouragement to exercise Last Documented On 2 10:56AM ; [facility] Clinical summary provided to patient Last Documented On 2 10:56AM ; [facility] PHQ-9: total score 2 Last Documented On 2 8:57AM ; [facility] Surgical History Last Updated History of hysterectomy 11/05/2017 Last Documented On 2 10:23AM ; [facility] History of Prior Surgery: Hy sterectomy ~Thyroidectomy ~Oophorectomy ~Cyst removal from breast ~Cholecystectomy -- 1999 but still has on and off diarrhea ~Tonsillectomy ~Cardiac cath with no stent placement 10/26/2014 Last Documented On 2 10:23AM ; [facility] Medical History Includes: Medical History addressed during this encounter Description Last Updated History of sinusitis - given Cefuroxime 500 mg 07/20/19 05/23/2022 Last Documented On 2 10:23AM ; [facility] History of dental bridge wor k - given Amoxil 500 mg 07/18/20;given Amoxil 500 mg and Fluconazole 150 mg 09/23/19 11/23/2021 Last Documented On 2 10:23AM ; [facility] History of coronavirus 2019- nCoV vaccine - Pfizer #1 01/2021 #2 02/2021 #3 none 05/17/2021 Last Documented On 2 9:04AM ; [facility] Primary Care Provider: Dr. Solo Ball ~Dr. Hernando Jernigan -- Manager Machine -- [place] ~Dr. Jada Grajeda -- Industrial Tech Instructor ~Dr. Martell Roberts -- Stone Crusher Operator ~Dr. Jorge Guzman -- Dentist ~Dr. Jacek Banks -- Vascular Surgeon at [facility] ~Dr. Adrienne King, [facility] -- Sleep/Dental device ~Dr. 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 Jacek Banks (vascular surgeon) 07/201912/03/2019 Last Documented On 2 10:23AM ; [facility] History of obstructive sleep apnea - Home Sleep Study ordered by Dr. Yuriy Ball 09/2019 -- mild sleep apnea -- patient trying to adjust to dental device 12/03/2019 Last Documented On 2 10:23AM ; [facility] History of vitamin deficienc y - Vitamin D = 30 on 12/26/18 -- started on Vitamin D 1000 mg 1 daily 02/25/2019 Last Documented On 2 10:23AM ; [facility] History of fall risk -- #1 f ell in parking lot 12/2016 -- had initial nosebleed --did not go to ER 02/25/2019 Last Documented On 2 10:23AM ; [facility] History of fracture of the hip and pelvi s -- stress fractures 03/05/2018 Last Documented On 2 10:23AM ; [facility] History of mitral valve prolapse 018 Last Documented On 2 10:23AM ; [facility] History of mitral regurgitation 04/24/19 18 Last Documented On 2 10:23AM ; [facility] History of irritable bowel syndrome 05/2015 Last Documented On 2 10:23AM ; [facility] Several hip and pelvic fractures probabl y secondary to stress fractures ~ 07/20/2013 Last Documented On 2 10:23AM ; [facility] History of GERD 01/19/2013 Last Documented On 2 10:23AM ; [facility] History of hypertension 01/19/2013 Last Documented On 2 10:23AM ; [facility] History of hypothyroidism 01/19/2013 Last Documented On 2 10:23AM ; [facility] History of pelvic fracture 01/19/2013 Last Documented On 2 10:23AM ; [facility] History of migraine headache 07/28/2012 Last Documented On 2 10:23AM ; [facility] History of discoid lupus erythematosus 0 07/28/2012 Last Documented On 2 10:23AM ; [facility] Family History Includes: Family History addressed during this encounter Description Last Updated Maternal grandfather's history of alcoho lism -- grandfather 10/26/2014 Last Documented On 2 10:23AM ; [facility] Sororal history of depression -- sister 10/26/2014 Last Documented On 2 10:23AM ; [facility] Sister---depression ~Grandfather--alcoho lism 05/14/2014 Last Documented On 2 10:23AM ; [facility] Family history of alcoholism in grandfat her 05/08/2012 Last Documented On 2 10:23AM ; [facility] Family history of depression in sister 0 05/08/2012 Last Documented On 2 10:23AM ; [facility] Review of Systems Includes: Review of [...] No hoarseness and no sore throat. Cardiovascular: No chest pain or discomfort, no palpitations, and the heart rate was not fast. Pulmonary: Dyspnea - occasionally. No cough and no wheezing. Gastrointestinal: Heartburn. No nausea and no vomiting. Diarrhea and constipation. Genitourinary: No increase in urinary frequency. No dysuria. Endocrine: Polydipsia and excessive sweating. Musculoskeletal: Muscle aches, pain localized [...] Active Last Documented On 09/18/2023 9:10AM ; [facility] Note: Imported from external source. Silvadine Allergy peels skin 05/08/2012 Active Last Documented On 09/18/2023 9:10AM ; [facility] Note: Imported from external source. Penicillin V Potassium Intolerance yeast infection 05/08/2012 Active Last Documented On 09/18/2023 9:10AM ; [facility] Note: Imported from external source. Omnipaque Allergy Hives / Urticaria 05/08/2012 Active Last Documented On 09/18/2023 9:10AM ; [facility] Note: Imported from external source. Neosporin Allergy Skin Rashes / Eruption of skin 05/08/2012 Active Last Documented On 09/18/2023 9:10AM ; [facility] Note: Imported from external source. Lisinopril Allergy cough 05/08/2012 Active Last Documented On 09/18/2023 9:10AM ; [facility] Note: Imported from external source. Latex Allergy skin peels off 05/08/2012 Acti ve Last Documented On 09/18/2023 9:10AM ; [facility] Note: Imported from external source. Bandaging Tape Allergy PEELS OFF SKIN 05/08/2012 Active Last Documented On 09/18/2023 9:10AM ; [facility] Note: Imported from external source. Bacitracin Allergy Skin Rashes / Eruption of skin 05/08/2012 Active Last Documented On 09/18/2023 9:10AM ; [facility] Note: Imported from external source. Encounters Encounter Provider Location Date Check-In Time Check- Out Time Diagnosis [employer] ELOINA LYNCH MD [facility] 2 10:18AM 11:59PM Migraine Headache,Ирина r Depression, Recurrent,Gen eralized Anxiety Disorder,Psyc hophysiologic al Insomnia,Christina c Disorder Insurance Includes: Active Insurance Policies Plan Name Member ID Group # Subscriber Relationship Effect florinda Dates 1 - [facility] [employer] [id number] [place] B[address]ESS Self Clinical Notes Includes: Clinical Notes from this encounter No Clinical Notes Recorded
--- OUTSIDE RECORDS SUMMARY | 2024-06-20 09:27 | XMS_ITS | Clinical Summary ---
Author Organization [facility] Address [address] [place] [address] Phone Care Team Providers Care Public Health Aide Name Role Phone ELOINA LYNCH MD Unavailable [phone] Reason for Visit and Chief Complaint The Chief Complaint is: Follow up for depression/anxiety Problems Includes: Problems addressed during this encounter and other active Problems Current Visit Onset Date Resolved Date Provider Conditio n Status Panic Disorder 12/14/2017 Active Last Documented On 3 5:51PM ; [facility] Psychophysiological Insomnia 08/17/2016 Active Last Documented On 3 5:50PM ; [facility] Migraine Headache 07/28/2012 Active Last Documented On 3 5:45PM ; [facility] Major Depression, Recurrent 07/14/2012 Active Last Documented On 3 5:45PM ; [facility] Generalized Anxiety Disorder 05/08/2012 Active Last Documented On 3 5:43PM ; [facility] Past Visits Onset Date Resolved Date Provider Condition Status Vitamin Deficiency 08/13/2018 Active Last Documented On 3 5:52PM ; [facility] Anemia 02/16/2016 Active Last Documented On 3 5:50PM ; [facility] Cath Mitral Regurgitation 07/28/2012 Active Last Documented On 3 5:45PM ; [facility] 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 Last Documented On 3 5:45PM ; [facility] Gerd 05/08/2012 Active Last Documented On 3 5:43PM ; [facility] Hypertension Systemic 05/08/2012 Act florinda Last Documented On 3 5:43PM ; [facility] Hypothyroidism 05/08/2012 Active Last Documented On 3 5:43PM ; [facility] Plan of Treatment Major Depressive Disorder, [...] 05/25/20 IBS - Dicyclomine 20 mg a say for IBS - Last Documented On 05/31/2023 10:20AM ; [facility] Future Appointments Date Time Location Provi jovany PSYCH ADULT FOLLOW UP 06/30/2024 10:00AM [facility]TI[facility] LYNCH MD Last Documented On 4 10:24AM ; [facility] Education and Decision Aids were provided during visit for: Calming techniques such as b reathing exercises/meditation and other relaxation techniques Last Documented On 4 10:17AM ; [facility] Assessments Includes: Assessments from this encounter Findings - Migraine headache - Last Documented On 05/31/2023 10:20AM ; [facility] - Major depression, recurrent - Last Documented On 05/31/2023 10:20AM ; [facility] - Psychophysiological insomnia - Last Documented On 05/31/2023 10:20AM ; [facility] - Generalized anxiety disorder - Last Documented On 05/31/2023 10:20AM ; [facility] - Panic disorder - Last Documented On 05/31/2023 10:20AM ; [facility] Instructions Includes: Instructions from this encounter Education and Decision Aids were provided during visit for: Calming techniques such as b reathing exercises/meditation and other relaxation techniques Last Documented On 4 10:17AM ; [facility] Medical Equipment - Implanted Devices Includes: Current Devices No Medical Equipment Recorded Medications Includes: Medications discussed during this encounter and other current Medications Discontinued / Stopped on this date on 10/14/2020 Amiodarone HCl 200 MG OR TABS Provider: Diagnosis: Last Documented On 05/31/2023 9:11AM By DEMETRIA ARZATE ; [facility] Current Medications (continue as prescribed) Remicade 100 MG Intravenous Solution Reconstituted 08/2023 Provider: Diagnosis: 1 q 2 weeks for 1 month then 1 infusion q 2 joey hs Last Documented On 09/18/2023 9:29AM By DEMETRIA ARZATE ; [facility] traZODone HCl 100 MG Oral Tablet 09/13/2023 Provider: ELOINA LYNCH MD Diagnosis: Psychophysiologi c insomnia TAKE 2 TO 3 TABLETS BY MOUTH AT BEDTIME Last Documented On 09/13/2023 4:05PM By Barbara Lynch MD ; [facility] hydrALAZINE HCl 10 MG Oral Tablet 09/10/2023 Provide r: MARTELL ROBERTS MD Diagnosis: 1 tab daily Last Documented On 09/18/2023 9:29AM By DEMETRIA ARZATE ; [facility] Leflunomide 20 MG Oral Tablet 08/19/2023 Provider: Diagnosis: 1 tab daily Last Documented On 09/18/2023 9:30AM By DEMETRIA ARZATE ; [facility] Sertraline HCl 100 MG Oral Tablet 07/18/2023 Provide r: ELOINA LYNCH MD Diagnosis: 2 tabs po qd Last Documented On 07/18/2023 1:36PM By Barbara Lynch MD ; [facility] Sotalol HCl 80 MG Oral Tablet 07/18/2023 Provider: MARTELL ROBERTS MD Diagnosis: 1 tab bid Last Documented On 09/18/2023 9:30AM By DEMETRIA ARZATE ; [facility] buPROPion HCl ER (XL) 300 MG Oral Tablet Extended Release 24 Hour 06/19/2023 Provider: ELOINA LYNCH MD Diagnosis: Major depressive disorder, recurrent, unspecified TAKE ONE TABLET BY MOUTH DOMINIK RY MORNING Last Documented On 06/19/2023 10:14AM By Barbara Lynch MD ; [facility] Sertraline HCl 100 MG Oral Tablet 06/18/2023 Provide r: Diagnosis: 2 tabs po qd Last Documented On 07/18/2023 1:31PM By DEMETRIA ARZATE ; [facility] Torsemide 20 MG Oral Tablet 05/31/2023 Provider: Diagnosis: 1 tab daily Last Documented On 05/31/2023 9:23AM By DEMETRIA AZRATE ; [facility] busPIRone HCl 15 MG Oral Tablet 04/22/2023 Provider: ELOINA LYNCH MD Diagnosis: Generalized anxi ety disorder One tablet three times a day Last Documented On 04/22/2023 2:27PM By Barbara Lynch MD ; [facility] QUEtiapine Fumarate 50 MG Oral Tablet 03/14/2023 Provider: ELOINA LYNCH MD Diagnosis: Insomnia, unspec ified as directed 2 tablets at bedtime Last Documented On 03/14/2023 11:47AM By Barbara Lynch MD ; [facility] Dicyclomine HCl 20 MG Oral Tablet 02/28/2023 Provider: ELOINA LYNCH MD Diagnosis: Irritable bowel syndrome with constipation One tablet daily Last Documented On 02/28/2023 10:10AM By Barbara Lynch MD ; [facility] clonazePAM 0.5 MG OR TABS 06/14/2022 Provider: ME MATTIE LYNCH MD Diagnosis: Panic disorder [ episodic paroxysmal anxiety] ud - as directed as directed take as needed for anxiety Last Documented On 08/11/2022 5:27PM By Barbara Lynch MD ; [facility] Levothyroxine Sodium 50 MCG OR TABS 05/16/2021 Provi jovany: Diagnosis: 1 tab daily with 175 mcg 1.5 tabs daily Last Documented On 08/11/2022 5:27PM By DEMETRIA ARZATE ; [facility] Levothyroxine Sodium 175 MCG OR TABS 11/14/2020 Prov ider: Diagnosis: Take 1.5 tabs daily Last Documented On 08/11/2022 5:27PM By DEMETRIA ARZATE ; [facility] cloNIDine HCl 0.1 MG OR TABS 11/14/2020 Provider: Diagnosis: 1 tab prn if BP 160/? Last Documented On 08/11/2022 5:27PM By DEMETRIA ARZATE ; [facility] Vitamin D3 25 MCG (1000 UT) OR CHEW 05/25/2020 P rovider: Diagnosis: 1 tab bid otc Last Documented On 08/11/2022 5:27PM By DEMETRIA ARZATE ; [facility] Adult Aspirin EC Low Strength 81 MG OR TBEC 05/25/2020 Provider: Diagnosis: 1 tab daily Last Documented On 08/11/2022 5:27PM By DEMETRIA ARZATE ; [facility] Eliquis 5 MG OR TABS 11/17/2019 Provider: Diagnosis: 1 tab bid Last Documented On 08/11/2022 5:27PM By DEMETRIA ARZATE ; [facility] Hydroxychloroquine Sulfate 200 MG OR TABS 06/12/2018 Provider: Diagnosis: 1 TAB BID Last Documented On 08/11/2022 5:27PM By DEMETRIA ARZATE ; [facility] Potassium Chloride ER 10 MEQ OR TBCR 02/20/2018 Prov ider: Diagnosis: 1 tablet daily in the am Last Documented On 08/11/2022 5:27PM By DEMETRIA ARZATE ; [facility] Olmesartan Medoxomil 40 MG OR TABS 02/20/2018 Provid er: Diagnosis: 1 tab daily Last Documented On 08/11/2022 5:27PM By DEMETRIA ARZATE ; [facility] L-Lysine 500 MG OR TABS 02/20/2018 Provider: Diagnosis: 1 tab bid otc Last Documented On 08/11/2022 5:27PM By DEMETRIA ARZATE ; [facility] Calcium 1000 + D 1000-800 MG-UNIT OR TABS 04/24/2017 Provider: Diagnosis: 2 a day Last Documented On 08/11/2022 5:27PM By Barbara Lynch MD ; [facility] amLODIPine Besylate 10 MG OR TABS 01/19/2013 Provide r: Diagnosis: Last Documented On 08/11/2022 5:27PM By JACQUELINE ARZATE ; [facility] Hair Vitamins OR TABS 01/19/2013 Provider: Diagnosis: 1 in the a.m. 1 in the p.m. Last Documented On 08/11/2022 5:27PM By JACQUELINE ARZATE ; [facility] Betamethasone Dipropionate 0.05% EX OINT 07/28/2012 Provider: Diagnosis: Last Documented On 08/11/2022 5:27PM By JACQUELINE ALVAREZ ; [facility] Hydrocortisone 2.5% EX CREA 07/28/2012 Provider: Diagnosis: Last Documented On 08/11/2022 5:27PM By JACQUELINE ALVAREZ ; [facility] Omeprazole 20 MG OR CPDR 07/28/2012 Provider: Diagnosis: Last Documented On 08/11/2022 5:27PM By JACQUELINE ALVAREZ ; [facility] ZyrTEC Allergy 10 MG OR CAPS 07/28/2012 Provider: Diagnosis: Last Documented On 08/11/2022 5:27PM By JACQUELINE ALVAREZ ; [facility] Clobetasol Propionate 0.05% EX CREA 07/28/2012 Provi jovany: Diagnosis: Last Documented On 08/11/2022 5:27PM By JACQUELINE ALVAREZ ; [facility] Mupirocin 2% EX OINT 07/28/2012 Provider: Diagnosis: Last Documented On 08/11/2022 5:27PM By JACQUELINE ALVAREZ ; [facility] Past Medications on file Sertraline HCl 100 MG Oral Tablet 01/17/2023 - 07/16/2023 Provider: ELOINA LYNCH MD Diagnosis: Major depressive disorder, recurrent, moderate as directed -2 tabs daily Last Documented On 01/17/2023 10:58AM By Barbara Lynch MD ; [facility] Topiramate 50 MG Oral Tablet 01/17/2023 - 07/16/2023 Provider: ELOINA LYNCH MD Diagnosis: Migraine w/o aur a, not intractable, w/o status migrainosus one tablet every morning and 2 tablets every evening Last Documented On 01/17/2023 10:58AM By Babrara Lynch MD ; [facility] Amiodarone HCl 200 MG OR TABS 05/25/2020 - 06/24/2020 Provider: Diagnosis: pt states she takes 100 mg daily for Afib Last Documented On 08/11/2022 5:27PM By DEMETRIA ARZATE ; [facility] Aimovig 70 MG/ML SC SOAJ 12/03/2019 - 01/02/2020 Provider: ELOINA LYNCH MD Diagnosis: Migraine w/o aur a, not intractable, w/o status migrainosus as directed Last Documented On 08/11/2022 5:27PM By Barbara Lynch MD ; [facility] Medications Administered Includes: Administered Medications from this encounter No Administered Medications Recorded Vital Signs Includes: Vital Signs from this encounter Vital Name 05/31/2023 09:27A Blood Pressure Sitting L 140/83 BP Cuff Size Regular Pulse Rate-Sitting (bpm) 80 Pulse Rhythm Regular Height (in) 64 Weight (lb) 295 Body Mass Index 50.6 Body Surface Area 2.3 Note: self reported vitals Last Documented: On 05/31/2023 9:27AM ; [facility] Results Includes: Results discussed during this encounter No Results Recorded For Specified Dates History of Present Illness Includes: History of Present Illness from this encounter CLIFF BURGESS is a 68 year old female. - Allergy list reviewed - Past medical history reviewed - Medication list reviewed Pt reported feeling somewhat stressed lately due to ongoing cardiac issues. She had A Fib and was given Amniodarone then had cardioversion and after 4 days she felt some relief. She had echo done 05/23/23 which showed that her mitral regurgitation has progressed to moderate MR. She gets short of breath and just exhausted easily after walking few steps. She has not been doing much of anything due to her arthritis since her centrifuge operator stopped the Remicade due to cardiac issues and is just on Tylenol 500 mg 2 tabs tid and is getting only 25 % relief. She also has these residual shingles that have caused deep sores in her back so she was given Bactroban ointment. She is due to see VANGIE Valencia tomorrow to get more bactroban ointment. In the meantime she is trying to cope with her cardiac issues and with the loss of her daughter. She had an ok noelle and got together with her late dtr's BF and they reminisced the good memories when her dtr was younger and they enjoyed their conversation. Her psych meds are still helping in general. She took 1 klonopin last Mar since it was a big get together last over the holidays that can be stressful but got through it. Pt gets a little down but more situational. Pt gets occ anxious. Pt denied having any mood swings. Pt has not been as irritable. Pt has not been as motivated in general in doing daily tasks. Sleep has been good but occ restless, the Trazodone seems to help. Pt has been napping/sleeping too much during the daytime and gets tired easily. Appetite is good. She avoids chips but chocolate kisses are her downfall and has gained 5 lbs since last seen, she was asked to lose the weight if she were to undergo cardiac ablation since the IV will be placed in her femoral artery. She is due for another Echo on 06/06/23. Her TSH was high but levothyroxine was not adjusted. Pt denied. Pt has not been feeling as bad about self. Pt is able to focus and concentrate for the most part. Pt denied having any psychomotor restlessness. Pt denied suicidal thoughts. Pt denied having any delusions/hallucinations. MENTAL STATUS EXAM: Sensorium - alert, oriented to name, place, and time Attitude - cooperative Gait - ambulatory Sleep - difficulty staying asleep at times Interest/Energy/Motivation - not as motivated, tired easily due to cardiac issues Guilt/Worthlessness - absent Concentration/Attention Span - able to focus and concentrate Memory Recall - fairly good Appetite - good - on 02/28/23 pt weighed 290 lbs and on 05/31/23 she weighed 295 lbs so she gained 5 lbs Suicidal Thoughts - absent Homicidal Thoughts - absent Delusions - absent Hallucinations - absent Appearance - casually groomed Motor Behavior - calm Eye Contact - intermittent Speech - fluent Mood - not as depressed but worries about cardiac issues Affect - occ anxious Thought Process - coherent Insight and Judgment - intact Social History Description Last Updated Caffeine use: No caffeinated beverages.Tobacco use: Smoking status: Never smoker.Alcohol: Not using alcohol.Drug Use: Not using drugs (Illicit).Work: Work history -- Disabled.Marital: Marital history -- Pt was born and raised in [place], [place]. Pt was closer to her mother growing up. Both parents are . She has 1 son and 1 daughter. She had 12th grade education. She used to work at [employer] from 1990 - 1999 and then at [employer] from 05/1999 - 04/2002. Pt is now disabled. Her hobbies include sewing and making wreaths. She denied having any past and pending legal history. 05/31/2023 Last Documented On 4 9:30AM ; [facility] Tobacco non-user - Never Smoker 05/31/19 Last Documented On 4 10:20AM ; [facility] Smoking Status Unknown Procedures and Surgical History Includes: Procedures from this encounter Procedures Code Diagnosis Performing Provider Service L ocation Service Date education and instructions Last Documented On 4 9:03AM ; [facility] supportive care and encourag ement--given positive reinforcement to keep patient motivated and active, supportive empathic listening provided Last Documented On 4 10:18AM ; [facility] I discussed the risks, benef its and side effects of Seroquel to the patient including the possibility of metabolic and motor side effects such as tardive dyskinesia Last Documented On 4 10:17AM ; [facility] ~* Call [phone] and /or go t o the nearest emergency room or call me if suicidal/homicidal ideation or other serious concerns arise. ~ ~* I gave instructions to call me should there be any questions or concerns. ~ ~* Patient voiced understanding and agreed to treatment plan Last Documented On 4 9:24AM ; [facility] dangerousness assessment: no suicide risk 3085F Last Documented On 4 9:03AM ; [facility] use of tobacco assessment performed 1000F Last Documented On 4 9:25AM ; [facility] patient screened for future fall risk: documentation of any fall with injury in past year - no recent falls 1100F Last Documented On 4 9:24AM ; [facility] review of medications documented 1160F Last Documented On 4 9:24AM ; [facility] assessment of suicide risk performed - n ot suicidal Last Documented On 4 9:25AM ; [facility] screening for adult depressi on: impression and score - please see above for treatment and PHQ score Last Documented On 4 9:25AM ; [facility] standardized depression screening: posit florinda for symptoms Last Documented On 4 9:25AM ; [facility] encouragement to exercise - balanced jem l plan, low fat low carb diet Last Documented On 4 9:24AM ; [facility] Clinical summary provided to patient Last Documented On 4 9:03AM ; [facility] PHQ-9: total score 5 Last Documented On 4 10:17AM ; [facility] Medical History Includes: Medical History addressed during this encounter Description Last Updated Primary Care Provider: Dr. Solo Bradford/ Bridger Valencia. Hernando Jernigan -- Nylon Winder -- Vandana Grajeda -- Machinist Helper Dr. Martell Roberts -- Laboratory Animal Care Veterinarian Dr. Jorge Guzman -- Dentist Dr. Jacek Banks -- Vascular Surgeon at [facility] Dr. Adrienne King, [place] -- Sleep/Dental device Dr. Jamaal Silverio -- [...] 04/18/23 but only helped for a few daysSurgical: Thyroidectomy Oophorectomy Cyst removal from breast Cholecystectomy -- 1999 but still has on and off diarrhea Tonsillectomy Cardiac cath with no stent placementHysterectomy 05/31/2023 Last Documented On 4 10:20AM ; [facility] Family History Includes: Family History addressed during this encounter Description Last Updated Maternal grandfather's: Alco holism -- grandfatherSororal: Depression -- sister 05/31/2023 Last Documented On 4 9:03AM ; [facility] Review of Systems Includes: Review of Systems from this encounter Systemic: Feeling poorly (malaise) - occasionally tired. No fever, no chills, and no night sweats. Head: No headache. Sinus pain. Neck: No neck pain and no neck stiffness. Eyes: No vision problems, no itching of the eyes, and no eye pain. Otolaryngeal: No hearing loss, no earache, no nasal discharge, no hoarseness, and no sore throat. Cardiovascular: No chest pain or discomfort. Palpitations and fast heart rate. Pulmonary: Dyspnea - occasionally, cough, and coughing up sputum. No wheezing. Gastrointestinal: Heartburn. No nausea and no vomiting. Diarrhea and constipation. Genitourinary: Increased urinary frequency. No dysuria. Endocrine: No polydipsia and no excessive sweating. Musculoskeletal: No muscle aches and no localized joint pain. Stiffness localized to one or more joints. Neurological: Dizziness. No vertigo, no fainting, and no motor disturbances. Skin: No pruritus and no rash but has residual sores from Shingles from last 12/2022 -- pt is applying Bactroban ointment. Mental Status Includes: Mental Status from this encounter Description Major depression, recurrent Functional Status Includes: Functional Status from this encounter No Functional Status Recorded Physical Exam Includes: Physical Exam from this encounter Allergies Includes: Active Allergies Substance Type Reaction Onset Date Resolved Date Statu s Sulfa Antibiotics Allergy Hives / Urticaria 05/08/2012 Active Last Documented On 09/18/2023 9:10AM ; [facility] Note: Imported from external source. Silvadine Allergy peels skin 05/08/2012 Active Last Documented On 09/18/2023 9:10AM ; [facility] Note: Imported from external source. Penicillin V Potassium Intolerance yeast infection 05/08/2012 Active Last Documented On 09/18/2023 9:10AM ; [facility] Note: Imported from external source. Omnipaque Allergy Hives / Urticaria 05/08/2012 Active Last Documented On 09/18/2023 9:10AM ; [facility] Note: Imported from external source. Neosporin Allergy Skin Rashes / Eruption of skin 05/08/2012 Active Last Documented On 09/18/2023 9:10AM ; [facility] Note: Imported from external source. Lisinopril Allergy cough 05/08/2012 Active Last Documented On 09/18/2023 9:10AM ; [facility] Note: Imported from external source. Latex Allergy skin peels off 05/08/2012 Acti ve Last Documented On 09/18/2023 9:10AM ; [facility] Note: Imported from external source. Bandaging Tape Allergy PEELS OFF SKIN 05/08/2012 Active Last Documented On 09/18/2023 9:10AM ; [facility] Note: Imported from external source. Bacitracin Allergy Skin Rashes / Eruption of skin 05/08/2012 Active Last Documented On 09/18/2023 9:10AM ; [facility] Note: Imported from external source. Encounters Encounter Provider Location Date Check-In Time Check-Out Time Diagnosis TELEHEALTH ADULT PSYCH ESTABLISHED ELOINA LYNCH MD [facility] 05/31/19 24 9:04AM 11:59PM Migraine Headache,Ирина r Depression, Recurrent,Gen eralized Anxiety Disorder,Psyc hophysiologic al Insomnia,Christina c Disorder Insurance Includes: Active Insurance Policies Plan Name Member ID Group # Subscriber Relationship Effect florinda Dates 1 - [employer] [id number] [place] BURGESS Self Clinical Notes Includes: Clinical Notes from this encounter * Progress note Date Encounter Last Documented by 05/31/2023 TELEHEALTH ADULT PSYCH ESTABLISH ED Last documented on 05/31/2023; 10:20 AM, ELOINA LYNCH MD; [facility] Top of Document Medication psychotherapy 45 minutes Patient gave verbal consent for Telehealth 05/31/23. Location of patient: patient's home Location of [...] medical history reviewed - Medication list reviewed Pt reported feeling somewhat stressed lately due to ongoing cardiac issues. She had A Fib and was given Amniodarone then had cardioversion and after 4 days she felt some relief. She had echo done 05/23/23 which showed that her mitral regurgitation has progressed to moderate MR. She gets short of breath and just exhausted easily after walking few steps. She has not been doing much of anything due to her arthritis since her centrifuge operator stopped the Remicade due to cardiac issues and is just on Tylenol 500 mg 2 tabs tid and is getting only 25 % relief. She also has these residual shingles that have caused deep sores in her back so she was given Bactroban ointment. She is due to see VANGIE Valencia tomorrow to get more bactroban ointment. In the meantime she is trying to cope with her cardiac issues and with the loss of her daughter. She had an ok noelle and got together with her late dtr's BF and they reminisced the good memories when her dtr was younger and they enjoyed their conversation. Her psych meds are still helping in general. She took 1 klonopin last Mar since it was a big get together last over the holidays that can be stressful but got through it. Pt gets a little down but more situational. Pt gets occ anxious. Pt denied having any mood swings. Pt has not been as irritable. Pt has not been as motivated in general in doing daily tasks. Sleep has been good but occ restless, the Trazodone seems to help. Pt has been napping/sleeping too much during the daytime and gets tired easily. Appetite is good. She avoids chips but chocolate kisses are her downfall and has gained 5 lbs since last seen, she was asked to lose the weight if she were to undergo cardiac ablation since the IV will be placed in her femoral artery. She is due for another Echo on 06/06/23. Her TSH was high but levothyroxine was not adjusted. Pt denied. Pt has not been feeling as bad about self. Pt is able to focus and concentrate for the most part. Pt denied having any psychomotor restlessness. Pt denied suicidal thoughts. Pt denied having any delusions/hallucinations. MENTAL STATUS EXAM: Sensorium - alert, oriented to name, place, and time Attitude - cooperative Gait - ambulatory Sleep - difficulty staying asleep at times Interest/Energy/Motivation - not as motivated, tired easily due to cardiac issues Guilt/Worthlessness - absent Concentration/Attention Span - able to focus and concentrate Memory Recall - fairly good Appetite - good - on 02/28/23 pt weighed 290 lbs and on 05/31/23 she weighed 295 lbs so she gained 5 lbs Suicidal Thoughts - absent Homicidal Thoughts - absent Delusions - absent Hallucinations - absent Appearance - casually groomed Motor Behavior - calm Eye Contact - intermittent Speech - fluent Mood - not as depressed but worries about cardiac issues Affect - occ anxious Thought Process - coherent Insight and [...] TABLET BY MOUTH EVERY MORNING, 30 days, 0 refills - busPIRone HCl 15 MG Oral [...] Care Provider: Dr. Yuriy Bradford/ Caroline Villalobos, [employer]AM LEADER Dr. Hernando Jernigan -- Nylon Winder -- [place] Dr. Jada Grajeda -- Machinist Helper Dr. Martell Roberts -- Laboratory Animal Care Veterinarian Dr. Jorge Guzman -- Dentist Dr. Jacek Banks -- Vascular Surgeon at [facility] Dr. Adrienne King, S -- Sleep/Dental device Dr. Jamaal Silverio -- Wine Manager Diagnoses: Fever blisters -- given Valacyclovir 1 [...] but only helped for a few days Surgical: Thyroidectomy Oophorectomy Cyst removal from breast Cholecystectomy -- 1999 but still has on and off diarrhea Tonsillectomy Cardiac cath with no stent placement Hysterectomy User Defined 4 Previous Psychiatric Hospitalizations: Patient was at [facility] [address] Reyes, since at [...] -- Pt was born and raised in [place], [place]. Pt was closer to her mother growing up. Both parents are . She has 1 son and 1 daughter. She had 12th grade education. She used to work at [employer] from 1990 - 1999 and then at [employer] from 05/1999 - 04/2002. Pt is now [...] no chills, and no night sweats. Head: No headache. Sinus pain. Neck: No neck pain and no neck stiffness. Eyes: No vision problems, no itching of the eyes, and no eye pain. Otolaryngeal: No hearing loss, no earache, no nasal discharge, no hoarseness, and no sore throat. Cardiovascular: No chest pain or discomfort. Palpitations and fast heart rate. Pulmonary: Dyspnea - occasionally, cough, and coughing up sputum. No wheezing. Gastrointestinal: Heartburn. No nausea and no vomiting. Diarrhea and constipation. Genitourinary: Increased urinary frequency. No dysuria. Endocrine: No polydipsia and no excessive sweating. Musculoskeletal: No muscle aches and no localized joint pain. Stiffness localized to one or more joints. Neurological: Dizziness. No vertigo, no fainting, and no motor disturbances. Skin: No pruritus and no rash but has residual sores from Shingles from last 12/2022 -- pt is applying Bactroban ointment. Physical Findings - Vitals taken 05/31/2023 09:27 am self reported vitals BP-Sitting L 140/83 mmHg BP Cuff Size Regular Pulse Rate-Sitting 80 bpm Pulse Rhythm Regular Height 64 in Weight 295 lbs Body Mass Index 50.6 kg/m2 Body Surface Area 2.3 m2 Tests Educational Testing: Questionnaires PHQ-9: Value PHQ-9: total score 5 Assessment - Migraine headache - Major depression, recurrent - Psychophysiological insomnia - Generalized anxiety disorder - Panic disorder Therapy - Dangerousness assessment: no suicide risk. - Supportive care and encouragement--given positive reinforcement to keep patient motivated and active, supportive empathic listening provided. - Encouragement to exercise - balanced meal plan, low fat low carb diet. - Education and instructions. - Assessment of suicide risk performed - not suicidal - Clinical summary provided to patient. I discussed the risks, benefits and side effects of Seroquel to the patient including the possibility of metabolic and motor side effects such as tardive dyskinesia. * Call [phone] and /or go to the nearest emergency room or call me if suicidal/homicidal ideation or other serious concerns arise. * I gave instructions to call me should there be any questions or concerns. * Patient voiced understanding and agreed to treatment plan. Counseling/Education - Calming techniques such as breathing exercises/meditation and other relaxation techniques Plan StartCited - Other Follow-up 09/18/23 EndCited Major Depressive Disorder, recurrent - Bupropion [...] 05/25/20 IBS - Dicyclomine 20 mg a say for IBS Practice Management Use of tobacco assessment performed and patient screened for future fall risk documentation of any fall with injury in past year - no recent falls Review of medications documented; Standardized depression screening: positive for symptoms and for adult impression and score - please see above for treatment and PHQ score.
--- OUTSIDE RECORDS SUMMARY | 2024-06-20 09:28 | XMS_ITS | Clinical Summary ---
Author Organization [facility] Address [address] [place] [address] Phone Care Team Providers Care Back Digger Operator Name Role Phone LIZ DOYLE, ELOINA ORTEGA Unavailable [phone] Reason for Visit and Chief Complaint * PHONE CALL Problems Includes: Problems addressed during this encounter and other active Problems All Visits Onset Date Resolved Date Provider Condition S tatus Vitamin Deficiency 08/13/2018 ELOINA CHAIDEZ MD Active Last Documented On 9 7:40AM ; [facility] Panic Disorder 12/14/2017 ELOINA Lew Active Last Documented On 8 7:49AM ; [facility] Psychophysiological Insomnia 08/17/2016 ELOINA LYNCH MD Active Last Documented On 7 9:38AM ; [facility] Anemia 02/16/2016 ELOINA LYNCH MD Ac tive Last Documented On 6 9:21AM ; [facility] Cath Mitral Regurgitation 07/28/2012 ELOINA LYNCH MD Active Last Documented On 3 11:16AM ; 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 Migraine Headache 07/28/2012 ELOINA Adrian MD Active Last Documented On 0 10:11AM ; [facility] Major Depression, Recurrent 07/14/2012 ELOINA LYNCH MD Active Last Documented On 3 12:01PM ; [facility] Generalized Anxiety Disorder 05/08/2012 ELOINA LYNCH MD Active [facility] 1:29PM [facility] [place] 05/[facility]/2012 ELOINA LYNCH MD Ac tive Last Documented On 3 1:28PM ; [facility] Hypertension Systemic 05/08/2012 ELOINA CUEVAS MD Active Last Documented On 3 1:28PM ; [facility] Hypothyroidism 05/08/2012 ELOINA Lew Active Last Documented On 3 1:28PM ; [facility] Plan of Treatment No Plan of Treatment Recorded Assessments Includes: Assessments from this encounter No Assessments Recorded Medical Equipment - Implanted Devices Includes: Current Devices No Medical Equipment Recorded Medications Includes: Medications discussed during this encounter and other current Medications Discontinued / Stopped on this date ELOINA LYNCH MD on 06/16/2021 clonazePAM 0.5 MG Oral Tablet Provider: ELOINA LYNCH MD Diagnosis: Panic disorder [ episodic paroxysmal anxiety] Last Documented On 06/14/2022 5:34PM By Barbara Lynch MD ; [facility] New / Renewed during this visit ELOINA LYNCH MD on 06/14/2022 clonazePAM 0.5 MG Oral Tablet Provider: ELOINA LYNCH MD 30 day supply: 15 tablet, 0 refills Diagnosis: Panic disorder [episodic paroxysmal anxiety] ud - as directed as directed take as needed for anxiety Pharmacy: [facility] - [address] [place] [address], [id number] - Last Documented On 06/14/2022 5:44PM By Barbara Lynch MD ; [facility] Current Medications (continue as prescribed) Sertraline HCl 100 MG Oral Tablet 07/16/2022 Provider: ELOINA LYNCH MD Diagnosis: Major depressive disorder, recurrent, moderate TAKE 2 TABLETS BY MOUTH AT B EDTIME DIRECTED Last Documented On 3 11:54AM By Barbara Lynch MD ; [facility] Topiramate 50 MG Oral Tablet 07/16/2022 Provider: ELOINA LYNCH MD Diagnosis: Migraine w/o aur a, not intractable, w/o status migrainosus TAKE ONE TABLET BY MOUTH DOMINIK RY MORNING AND TAKE TWO TABLETS BY MOUTH EVERY EVENING DIRECTED Last Documented On 3 11:54AM By Barbara Lynch MD ; [facility] buPROPion HCl ER (XL) 300 MG Oral Tablet Extended Release 24 Hour 05/17/2022 Provider: ELOINA CARLSON MD Diagnosis: TAKE ONE TABLET BY MOUTH EVERY MORNING Last Documented On 3 12:20PM By Barbara Lynch MD ; [facility] traZODone HCl 100 MG Oral Tablet 05/17/2022 Provider: ELOINA LYNCH MD Diagnosis: Psychophysiologi c insomnia DIRECTED, TAKE 2 -3 TABLE TS AT BEDTIME Last Documented On 3 12:20PM By Barbara Lynch MD ; [facility] QUEtiapine Fumarate 50 MG Oral Tablet 03/19/2022 Provider: ELOINA LYNCH MD Diagnosis: Insomnia, unspec ified as directed --2 at bedtime Last Documented On 2 12:36PM By Barbara Lynch MD ; [facility] busPIRone HCl 15 MG Oral Tablet 02/20/2022 Provider: ELOINA LYNCH MD Diagnosis: Generalized anxi ety disorder One tablet three times a day Last Documented On 02/20/2022 6:33PM By Barbara Lynch MD ; [facility] Remicade 100 MG Intravenous Solution Reconstituted 02/2022 Provider: Diagnosis: 1 q 2 weeks for 1 month then 1 infusion q 2 joey hs Last Documented On 2 11:24AM By DEMETRIA ARZATE ; [facility] Torsemide 10 MG Oral Tablet 10/25/2021 Provider: Diagnosis: 2 tabs daily Last Documented On 2 11:23AM By DEMETRIA ARZATE ; [facility] Levothyroxine Sodium 50 MCG Oral Tablet 05/16/2021 Oumar brooks: KP BALL MD Diagnosis: 1 tab daily with 175 mcg 1.5 tabs daily Last Documented On 2 10:52AM By DEMETRIA ARZATE ; [facility] Levothyroxine Sodium 175 MCG Oral Tablet 11/14/2020 Provider: MICHELLE IRVING MD Diagnosis: Take 1.5 tabs daily Last Documented On 11/22/2020 9:32AM By DEMETRIA ARZATE ; [facility] cloNIDine HCl 0.1 MG Oral Tablet 11/14/2020 Provider : MICHELLE IRVING MD Diagnosis: 1 tab prn if BP 160/? Last Documented On 11/22/2020 9:32AM By DEMETRIA ARZATE ; [facility] Amiodarone HCl 200 MG Oral Tablet 10/14/2020 Provide r: MICHELLE IRVING MD Diagnosis: 1/2 tab daily Last Documented On 11/22/2020 9:33AM By DEMETRIA ARZATE ; [facility] Metoprolol Succinate ER 50 M G Oral Tablet Extended Release 24 Hour 10/14/2020 Provider: MICHELLE IRVING MD Diagnosis: 1/2 tab daily Last Documented On 11/22/2020 9:33AM By DEMETRIA ARZATE ; [facility] Adult Aspirin EC Low Strengt h 81 MG Oral Tablet Delayed Release 05/25/2020 Provider: Diagnosis: 1 tab daily Last Documented On 1 10:14AM By DEMETRIA ARZATE ; [facility] Vitamin D3 25 MCG (1000 UT) Oral Tablet Chewable 05/25/2020 Provider: KP BALL MD Diagnosis: 1 tab bid otc Last Documented On 1 10:13AM By DEMETRIA ARZATE ; [facility] Eliquis 5 MG Oral Tablet 11/17/2019 Provider: Diagnosis: 1 tab bid Last Documented On 12/03/2019 9:29AM By DEMETRIA ARZATE ; [facility] Hydroxychloroquine Sulfate 200MG Oral Tablet 9 Provider: TRISTAN CORTES MD Diagnosis: 1 TAB BID Last Documented On 9 10:38AM By DEMETRIA ARZATE ; [facility] L-Lysine 500MG Oral Tablet 02/20/2018 Provider: Diagnosis: 1 tab bid otc Last Documented On 02/20/2018 9:43AM By DEMETRIA ARZATE ; [facility] Olmesartan Medoxomil 40MG Oral Tablet 02/20/2018 Pro vider: Diagnosis: 1 tab daily Last Documented On 02/20/2018 9:45AM By DEMETRIA ARZATE ; [facility] Potassium Chloride ER 10MEQ Oral Tablet, control led-release 02/20/2018 Provider: Diagnosis: 1 tablet daily in the am Last Documented On 02/20/2018 9:46AM By DEMETRIA ARZATE ; [facility] Calcium 1000 + D [id number] Oral Tablet 8 Provider: Diagnosis: 2 a day Last Documented On 8 10:09AM By Barbara Lynch MD ; [facility] amLODIPine Besylate 10 MG OR TABS 01/19/2013 Provide r: Diagnosis: Last Documented On 3 10:02AM By JACQUELINE ARZATE ; [facility] Hair Vitamins OR TABS 01/19/2013 Provider: Diagnosis: 1 in the a.m. 1 in the p.m. Last Documented On 3 10:05AM By JACQUELINE ARZATE ; [facility] Mupirocin 2% EX OINT 07/28/2012 Provider: Diagnosis: Last Documented On 3 11:22AM By JACQUELINE ALVAREZ ; [facility] Hydrocortisone 2.5% EX CREA 07/28/2012 Provider: Diagnosis: Last Documented On 3 11:23AM By JACQUELINE ALVAREZ ; [facility] Betamethasone Dipropionate 0.05% EX OINT 07/28/2012 Provider: Diagnosis: Last Documented On 3 11:23AM By JACQULEINE ALVAREZ ; [facility] Clobetasol Propionate 0.05% EX CREA 07/28/2012 Provi jovany: Diagnosis: Last Documented On 3 11:22AM By JACQUELINE ALVAREZ ; [facility] ZyrTEC Allergy 10 MG OR CAPS 07/28/2012 Provider: Diagnosis: Last Documented On 3 11:19AM By JACQUELINE ALVAREZ ; [facility] Omeprazole 20 MG OR CPDR 07/28/2012 Provider: Diagnosis: Last Documented On 3 11:18AM By JACQUELINE ALVAREZ ; [facility] Past Medications on file Amiodarone HCl 200 MG Oral Tablet 05/25/2020 - 021 Provider: MICHELLE IRVING MD Diagnosis: pt states she takes 100 mg daily for Afib Last Documented On 1 10:10AM By DEMETRIA ARZATE ; [facility] Aimovig 70 MG/ML Subcutaneous Solution Auto-injector 12/03/2019 - 01/02/2020 Provider: ELOINA LYNCH MD Diagnosis: Migraine w/o aur a, not intractable, w/o status migrainosus as directed Last Documented On 0 10:16AM By Barbara Lynch MD ; [facility] traZODone HCl 100 MG OR TABS 06/16/2015 - 07/16/2015 P rovider: Diagnosis: Insomnia, unspec ified 3 tablets at bed time Last Documented On 06/16/2015 5:12PM By GEO FLOR ; [facility] Zoloft 100 MG OR TABS 06/16/2015 - 07/16/2015 Provider : Diagnosis: Major depressive disorder, recurrent, moderate 2 tablets at bedtime Last Documented On 06/16/2015 5:20PM By GEO FLOR ; [facility] QUEtiapine Fumarate 50 MG OR TABS 06/16/2015 - 016 Provider: Diagnosis: Insomnia, unspec ified One tablet at bed time Last Documented On 06/16/2015 5:09PM By GEO FLOR ; [facility] busPIRone HCl 15 MG OR TABS 05/16/2015 - 06/15/2015 Pr ovider: Diagnosis: Generalized anxi ety disorder One tablet three times a day Last Documented On 05/16/2015 5:19PM By GEO FLOR ; [facility] Medications Administered Includes: Administered Medications from this encounter No Administered Medications Recorded Results Includes: Results discussed during this encounter No Results Recorded For Specified Dates History of Present Illness Includes: History of Present Illness from this encounter No History of Present Illness Recorded Social History No Social History Recorded - Smoking Status Unknown Medical History Includes: Medical History addressed during this encounter No Medical History Recorded Family History Includes: Family History addressed during [...] Active Last Documented On 09/18/2023 9:10AM ; [facility] Note: Imported from external source. Silvadine Allergy peels skin 05/08/2012 Active Last Documented On 09/18/2023 9:10AM ; [facility] Note: Imported from external source. Penicillin V Potassium Intolerance yeast infection 05/08/2012 Active Last Documented On 09/18/2023 9:10AM ; [facility] Note: Imported from external source. Omnipaque Allergy Hives / Urticaria 05/08/2012 Active Last Documented On 09/18/2023 9:10AM ; [facility] Note: Imported from external source. Neosporin Allergy Skin Rashes / Eruption of skin 05/08/2012 Active Last Documented On 09/18/2023 9:10AM ; [facility] Note: Imported from external source. Lisinopril Allergy cough 05/08/2012 Active Last Documented On 09/18/2023 9:10AM ; [facility] Note: Imported from external source. Latex Allergy skin peels off 05/08/2012 Acti ve Last Documented On 09/18/2023 9:10AM ; [facility] Note: Imported from external source. Bandaging Tape Allergy PEELS OFF SKIN 05/08/2012 Active Last Documented On 09/18/2023 9:10AM ; [facility] Note: Imported from external source. Bacitracin Allergy Skin Rashes / Eruption of skin 05/08/2012 Active Last Documented On 09/18/2023 9:10AM ; [facility] Note: Imported from external source. Encounters Encounter Provider Location Date Check-In Time Check-Out Time Diagnosis * PHONE CALL ELOINA LYNCH MD [facility] 3 5:21PM 11:59PM Insurance Includes: Active Insurance Policies Plan Name Member ID Group # Subscriber Relationship Effect florinda Dates 1 - [facility] [employer] [id number] [place] Self Clinical Notes Includes: Clinical Notes from this encounter No Clinical Notes Recorded
--- OUTSIDE RECORDS SUMMARY | 2024-06-20 09:28 | XMS_ITS | Clinical Summary ---
Author Organization [facility] [employer] Address [address] [place] [address] Care Team Providers Care Copy And Print Associate Name Role Phone Everton Cuevas MD Unavailable Unavailable Martínez Bradford MD Primary Care Provider [phone] Source Comments [facility] [employer],non-owned Affiliates and Associated Physician Practices is amultiple site organization consisting of ambulatory clinics and hospital sitesin [place], [place], [place] and [place]. This disclosure is being madepursuant to the Care Everywhere program and may not contain all information available regarding this patient. Last updated 18.[facility] [employer] Allergies Active Allergy Reactions Criticality Noted Date Comments Adhesive Sensitivity 07/20/2011 Valdecoxib 07/20/2011 Contrast-Iodinated Agents Fo r Ct/Other 07/20/2011 Latex 07/20/2011 Lisinopril Cough 07/20/2011 Fjhltevx-Sftkwrlqsl-Emmexrnrg 2011 Penicillins Other 07/20/2011 Yeast infection Silver Sulfadiazine 07/20/2011 Sulfa Drugs 07/20/2011 Medications * Be aware that medications may not be up to date on this document. Alwaysverify current medications with the patient. Medication Sig Dispensed Refills Start Date End Date Status levothyroxine (SYNTHROID) 175 MCG tablet Take 175 mcg by mouth every evening Active omeprazole (PRILOSEC OTC) 20 MG tablet Take 20 mg by mouth daily before breakfast. Active potassium chloride (KLOR-CON 10) 10 MEQ tablet Take 10 mEq by mouth once daily. Active buPROPion XL 24hr (WELLBUTRIN-XL) 300 MG tablet Take 300 mg by mouth every morning. Active sertraline (ZOLOFT) 100 MG tablet Take 200 mg by mouth at bedtime Active cetirizine (ZYRTEC ALLERGY) 10 MG tablet Take 10 mg by mouth once daily. Active Multiple Vitamins-Minerals (HAIR VITAMINS PO) Take by mouth. Ac tive CALCIUM-VITAMIN D PO Take by mouth. Active Lysine 500 MG CAPS Take 500 mg by mouth 2 times daily. Active clobetasol (TEMOVATE) 0.05 % ointment Apply to affected area 2 times daily. Active hydrocortisone valerate 0.2 % cream - mupirocin 2 % cream 50:50 CREA Apply to affected area 2 times daily as needed. Active Betamethasone Dipropionate 0.05 % LOTN by Apply externally route. Active acetaminophen (TYLENOL) 500 MG tabletIndications: DJD (degenerative joint disease) of knee Take 2 Tabs by mouth 3 times daily. Maximum allowable Acetaminophen amount = 4 Grams (4000 mg) / 24 hours. 07/20/2011 Active amLODIPine (NORVASC) 10 MG tablet Take 10 mg by mouth once daily Active torsemide (DEMADEX) 20 MG tablet Take 20 mg by mouth once daily Active olmesartan (BENICAR) 40 MG tablet Take 40 mg by mouth once daily Active topiramate (TOPAMAX) 50 MG tablet Take 50 mg by mouth 2 times daily Active hydroxychloroquine (PLAQUENIL) 200 MG tablet Take by mouth 2 times daily Active busPIRone (BUSPAR) 15 MG tablet Take 15 mg by mouth 3 times daily Active traZODone (DESYREL) 100 MG tablet Take 200 mg by mouth at bedtime Active apixaban (ELIQUIS) 5 MG tablet Take 5 mg by mouth 2 times daily Active levothyroxine (SYNTHROID) 50 MCG tablet Take 50 mcg by mouth every evening Active HYDROcodone-acetam inophen (NORCO) 5-325 MG tablet Take 1 tablet by mouth every 6 hours as needed for Pain 12 tablet 08/13/2019 Active Additional Information Patient not taking.Reported on 09/08/2019 amiodarone (CORDARONE) 200 MG tablet Take 100 mg by mouth once daily Active QUEtiapine (SEROQUEL) 50 MG tablet Take 50 mg by mouth once daily 04/18/2020 Active nebivolol (BYSTOLIC) 5 MG tablet Take 5 mg by mouth once daily 10/12/2019 Active Galcanezumab-gnlm (EMGALITY) 120 MG/ML auto-injector pen Inject 120 mg subcutaneously Active Active Problems Problem Noted Date Diagnosed Date 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 012 Obesity 07/20/2011 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 Overview (07/20/2011): 07/20/2011 poor control despite plaquenil 400 mg for 3 years Eye exams routinely ok Family History Medical History Relation Name Comments Alcohol abuse Father Diabetes Paternal Grandfather Obesity Sister Bipolar Disorder Son Relation Name Status Comments Father Paternal Grandfather Sister Son Social History Tobacco Use Types Packs/Day Years Used Date Smoking Tobacco: Never Smokeless Tobacco: Never Alcohol Use Standard Drinks/Week Comments No 0 (1 standard drink = 0.6 oz pur e alcohol) Sex and Gender Information Value Date Recorded Sex Assigned at Female 04/26/2020 2:51 PM PHOTOVOLTAIC FABRICATION 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 Gender Identity Female 04/26/2020 2:51 PM PHOTOVOLTAIC FABRICATION TECHNICIAN Sexual Orientation Straight 04/26/2020 2: 51 PM PHOTOVOLTAIC FABRICATION TECHNICIAN Last Filed Vital Signs Vital Sign Reading Time Taken Comments Blood Pressure 123/89 08/13/2019 10:25 AM CDT Pulse 107 08/13/2019 10:25 AM CDT Temperature 36.4 C (97.6 F) 08/13/2019 8:31 AM CDT Respiratory Rate 21 08/13/2019 10:25 AM CDT Oxygen Saturation 100% 08/13/2019 8:31 AM CDT Inhaled Oxygen Concentration - - Weight 126.6 kg (279 lb) 09/08/2019 2:37 PM CDT Height 162.6 cm (5' 4 ) 09/08/2019 2:37 PM CDT Body Mass Index 47.89 09/08/2019 2:37 PM CDT Plan of Treatment Health Maintenance Due Date Last Done Comments BONE DENSITY TESTING 1955 COLOGUARD (AGES 45-75) - COL ON CA SCREENING [address] COLONOGRAPHY - COLON CA SCREENING 1955 FIT - COLON CA SCREENING 1955 FLEX SIG - COLON CA SCREENING 1955 LIPID TESTING 1955 MAMMOGRAM 1955 HEPATITIS C SCREENING 02/14/1974 DTAP/TDAP/TD VACCINES (1 - Tdap) 02/18/1975 PNEUMOCOCCAL VACCINE 50+ (1 of 1 - PCV) 02/18/2006 ZOSTER VACCINE (1 of 2) 02/18/2006 Respiratory Syncytial Virus (RSV) Vaccine Pt: or over 60 yrs (1 - Risk 60-74 years 1-dose series) 2016 SCREENING FOR DIABETES 08/09/2022 0, 07/20/2011 COVID-19 VACCINE (1 - 2023-2 5 season) 2023 INFLUENZA VACCINE (#1) 2023 01/13/2014 DEPRESSION SCREENING 04/15/2024 MEDICARE AWV CALENDAR YEAR 2024 COLONOSCOPY - COLON CA SCREENING 06/04/2029 06/04/2019, 03/15/2009 Colorectal Cancer Screening 06/04/2029 HEPATITIS B VACCINE Aged Out No longe r eligible based on patient's age to complete this topic HIB VACCINE Aged Out No longer eligi ble based on patient's age to complete this topic HPV VACCINE Aged Out No longer eligi ble based on patient's age to complete this topic MENINGOCOCCAL (Group B) VACCINE Aged Out No longer eligible b ased on patient's age to complete this topic MENINGOCOCCAL VACCINE Aged Out No aditya kellie eligible based on patient's age to complete this topic Procedures Procedure Name Priority Date/Time Associated Diagnosis Comments BASIC METABOLIC PANEL (CALCIUM TOTAL) STAT 08/10/2019 9:41 AM CDT Preoperative examination from Last 3 Months or Most Recently Relevant to Health Maintenance Results * (ABNORMAL) BASIC METABOLIC PANEL (CALCIUM TOTAL) (08/10/2019 9:41 AM CDT) Glucose 79 70 - 105 mg/dL 08/10/2019 10:19 AM CDT [facility] Sodium 140 136 - 145 mmol/L 08/10/2019 10:19 AM CDT [facility] Potassium 4.0 3.5 - 5.1 mmol/L 08/10/2019 10:19 AM CDT [facility] Chloride 111(H) 98 - 107 mmol/L 08/10/2019 10:19 AM CDT [facility] CO2 19(L) 23 - 31 mmol/L 08/10/2019 10:19 AM CDT [facility] Calcium 9.6 8.4 - 10.4 mg/dL 08/10/2019 10:19 AM CDT [facility] Anion Gap 10 8 - 16 mmol/L 08/10/2019 10:19 AM CDT [facility] BUN 23(H) 9.8 - 20.1 mg/dL 08/10/2019 10:19 AM CDT [facility] Creatinine 0.90 0.57 - 1.11 mg/dL 08/10/2019 10:19 AM CDT [facility] eGFR by MDRD >60 >60 mL/min/1.7 3m2 08/10/2019 10:19 AM CDT [facility] eGFR by MDRD >60 >60 mL/min/1.7 3m2 08/10/2019 10:19 AM CDT [facility] Blood BLOOD SPECIMEN / Unknown Venipuncture / Unknown 08/10/2019 9:41 AM CDT 08/10/2019 9:57 AM CDT Jacek Banks MD LAB - CHEMISTRY [facility] Organization Address City/State/[facility] Co de Phone Number [facility] [address] [phone] from Last 3 Months or Most Recently Relevant to Health Maintenance Care Teams Copy And Print Associate Relationship Specialty Start Date End Date Martínez Bradford MD PCP - General Internal Medicine 08/06/19 Everton Cuevas MD Rheumatology 07/19/11
--- OUTSIDE RECORDS SUMMARY | 2024-06-20 09:28 | XMS_ITS | Clinical Summary ---
Author Organization [facility] Address [address] [place] [address] Phone Care Team Providers Care Explosive Ordnance Disposal Technician Name Role Phone ELOINA LYNCH MD Unavailable [phone] Reason for Visit and Chief Complaint The Chief Complaint is: Follow up for depression/anxiety Problems Includes: Problems addressed during this encounter and other active Problems Current Visit Onset Date Resolved Date Provider Conditio n Status Panic Disorder 12/14/2017 Active Last Documented On 3 5:51PM ; [facility] Psychophysiological Insomnia 08/17/2016 Active Last Documented On 3 5:50PM ; [facility] Migraine Headache 07/28/2012 Active Last Documented On 3 5:45PM ; [facility] Major Depression, Recurrent 07/14/2012 Active Last Documented On 3 5:45PM ; 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 Last Documented On 3 5:45PM ; [facility] Gerd 05/08/2012 Active Last Documented On 3 5:43PM ; [facility] Hypertension Systemic 05/08/2012 Act florinda Last Documented On 3 5:43PM ; [facility] Hypothyroidism 05/08/2012 Active Last Documented On 3 5:43PM ; [facility] Plan of Treatment Major Depressive Disorder, [...] say for IBS - Last Documented On 03/03/2023 2:55AM ; [facility] Future Appointments Date Time Location Provi jovany PSYCH ADULT FOLLOW UP 06/30/2024 10:00AM [facility] ELOINA LYNCH MD Last Documented On 4 10:24AM ; [facility] Assessments Includes: Assessments from this encounter Findings - Migraine headache - Last Documented On 03/03/2023 2:55AM ; [facility] - Major depression, recurrent - Last Documented On 03/03/2023 2:55AM ; [facility] - Psychophysiological insomnia - Last Documented On 03/03/2023 2:55AM ; [facility] - Generalized anxiety disorder - Last Documented On 03/03/2023 2:55AM ; [facility] - Panic disorder - Last Documented On 03/03/2023 2:55AM ; [facility] Medical Equipment - Implanted Devices Includes: Current Devices No Medical Equipment Recorded Medications Includes: Medications discussed during this encounter and other current Medications New / Renewed during this visit ELOINA LYNCH MD on 02/28/2023 Dicyclomine HCl 20 MG Oral Tablet Provider: ELOINA LYNCH MD 30 day supply: 30 tablet, 1 refills Diagnosis: Irritable bowel syndrome with constipation One tablet daily Pharmacy: [facility] - [address] [place] [address], [id number] - Last Documented On 02/28/2023 10:10AM By Barbara Lynch MD ; [facility] Current Medications (continue as prescribed) Remicade 100 MG Intravenous Solution Reconstituted 08/2023 Provider: Diagnosis: 1 q 2 weeks for 1 month then 1 infusion q 2 joey hs Last Documented On 09/18/2023 9:29AM By DEMETRIA ARZATE ; [facility] traZODone HCl 100 MG Oral Tablet 09/13/2023 Provider: ELOINA LYNCH MD Diagnosis: Psychophysiologi c insomnia TAKE 2 TO 3 TABLETS BY MOUTH AT BEDTIME Last Documented On 09/13/2023 4:05PM By Barbara Lynch MD ; [facility] hydrALAZINE HCl 10 MG Oral Tablet 09/10/2023 Provide r: MARTELL ROBERTS MD Diagnosis: 1 tab daily Last Documented On 09/18/2023 9:29AM By DEMETRIA ARZATE ; [facility] Leflunomide 20 MG Oral Tablet 08/19/2023 Provider: Diagnosis: 1 tab daily Last Documented On 09/18/2023 9:30AM By DEMETRIA ARZATE ; [facility] Sertraline HCl 100 MG Oral Tablet 07/18/2023 Provide r: ELOINA LYNCH MD Diagnosis: 2 tabs po qd Last Documented On 07/18/2023 1:36PM By Barbara Lynch MD ; [facility] Sotalol HCl 80 MG Oral Tablet 07/18/2023 Provider: MARTELL ROBERTS MD Diagnosis: 1 tab bid Last Documented On 09/18/2023 9:30AM By DEMETRIA ARZATE ; [facility] buPROPion HCl ER (XL) 300 MG Oral Tablet Extended Release 24 Hour 06/19/2023 Provider: ELOINA LYNCH MD Diagnosis: Major depressive disorder, recurrent, unspecified TAKE ONE TABLET BY MOUTH DOMINIK RY MORNING Last Documented On 06/19/2023 10:14AM By Barbara Lynch MD ; [facility] Sertraline HCl 100 MG Oral Tablet 06/18/2023 Provide r: Diagnosis: 2 tabs po qd Last Documented On 07/18/2023 1:31PM By DEMETRIA ARZATE ; [facility] Torsemide 20 MG Oral Tablet 05/31/2023 Provider: Diagnosis: 1 tab daily Last Documented On 05/31/2023 9:23AM By DEMETRIA ARZATE ; [facility] busPIRone HCl 15 MG Oral Tablet 04/22/2023 Provider: ELOINA LYNCH MD Diagnosis: Generalized anxi ety disorder One tablet three times a day Last Documented On 04/22/2023 2:27PM By Barbara Lynch MD ; [facility] QUEtiapine Fumarate 50 MG Oral Tablet 03/14/2023 Provider: ELOINA LYNCH MD Diagnosis: Insomnia, unspec ified as directed 2 tablets at bedtime Last Documented On 03/14/2023 11:47AM By Barbara Lynch MD ; [facility] clonazePAM 0.5 MG OR TABS 06/14/2022 Provider: ME MATTIE LYNCH MD Diagnosis: Panic disorder [ episodic paroxysmal anxiety] ud - as directed as directed take as needed for anxiety Last Documented On 08/11/2022 5:27PM By Barbara Lynch MD ; [facility] Levothyroxine Sodium 50 MCG OR TABS 05/16/2021 Provi jovany: Diagnosis: 1 tab daily with 175 mcg 1.5 tabs daily Last Documented On 08/11/2022 5:27PM By DEMETRIA ARZATE ; [facility] Levothyroxine Sodium 175 MCG OR TABS 11/14/2020 Prov ider: Diagnosis: Take 1.5 tabs daily Last Documented On 08/11/2022 5:27PM By DEMETRIA ARZATE ; [facility] cloNIDine HCl 0.1 MG OR TABS 11/14/2020 Provider: Diagnosis: 1 tab prn if BP 160/? Last Documented On 08/11/2022 5:27PM By DEMETRIA ARZATE ; [facility] Vitamin D3 25 MCG (1000 UT) OR CHEW 05/25/2020 P rovider: Diagnosis: 1 tab bid otc Last Documented On 08/11/2022 5:27PM By DEMETRIA ARZATE ; [facility] Adult Aspirin EC Low Strength 81 MG OR TBEC 05/25/2020 Provider: Diagnosis: 1 tab daily Last Documented On 08/11/2022 5:27PM By DEMETRIA ARZATE ; [facility] Eliquis 5 MG OR TABS 11/17/2019 Provider: Diagnosis: 1 tab bid Last Documented On 08/11/2022 5:27PM By DEMETRIA ARZATE ; [facility] Hydroxychloroquine Sulfate 200 MG OR TABS 06/12/2018 Provider: Diagnosis: 1 TAB BID Last Documented On 08/11/2022 5:27PM By DEMETRIA ARZATE ; [facility] Potassium Chloride ER 10 MEQ OR TBCR 02/20/2018 Prov ider: Diagnosis: 1 tablet daily in the am Last Documented On 08/11/2022 5:27PM By DEMETRIA ARZATE ; [facility] Olmesartan Medoxomil 40 MG OR TABS 02/20/2018 Provid er: Diagnosis: 1 tab daily Last Documented On 08/11/2022 5:27PM By DEMETRIA ARZATE ; [facility] L-Lysine 500 MG OR TABS 02/20/2018 Provider: Diagnosis: 1 tab bid otc Last Documented On 08/11/2022 5:27PM By DEMETRIA ARZATE ; [facility] Calcium 1000 + D 1000-800 MG-UNIT OR TABS 04/24/2017 Provider: Diagnosis: 2 a day Last Documented On 08/11/2022 5:27PM By Barbara Lynch MD ; [facility] amLODIPine Besylate 10 MG OR TABS 01/19/2013 Provide r: Diagnosis: Last Documented On 08/11/2022 5:27PM By JACQUELINE ARZATE ; [facility] Hair Vitamins OR TABS 01/19/2013 Provider: Diagnosis: 1 in the a.m. 1 in the p.m. Last Documented On 08/11/2022 5:27PM By JACQUELINE ARZATE ; [facility] Betamethasone Dipropionate 0.05% EX OINT 07/28/2012 Provider: Diagnosis: Last Documented On 08/11/2022 5:27PM By JACQUELINE ALVAREZ ; [facility] Hydrocortisone 2.5% EX CREA 07/28/2012 Provider: Diagnosis: Last Documented On 08/11/2022 5:27PM By JACQUELINE ALVAREZ ; [facility] Omeprazole 20 MG OR CPDR 07/28/2012 Provider: Diagnosis: Last Documented On 08/11/2022 5:27PM By JACQUELINE ALVAREZ ; [facility] ZyrTEC Allergy 10 MG OR CAPS 07/28/2012 Provider: Diagnosis: Last Documented On 08/11/2022 5:27PM By JACQUELINE ALVAREZ ; [facility] Clobetasol Propionate 0.05% EX CREA 07/28/2012 Provi jovany: Diagnosis: Last Documented On 08/11/2022 5:27PM By JACQUELINE ALVAREZ ; [facility] Mupirocin 2% EX OINT 07/28/2012 Provider: Diagnosis: Last Documented On 08/11/2022 5:27PM By JACQUELINE ALVAREZ ; [facility] Past Medications on file Sertraline HCl 100 MG Oral Tablet 01/17/2023 - 07/16/2023 Provider: ELOINA LYNCH MD Diagnosis: Major depressive disorder, recurrent, moderate as directed -2 tabs daily Last Documented On 01/17/2023 10:58AM By Barbara Lynch MD ; [facility] Topiramate 50 MG Oral Tablet 01/17/2023 - 07/16/2023 Provider: ELOINA LYNCH MD Diagnosis: Migraine w/o aur a, not intractable, w/o status migrainosus one tablet every morning and 2 tablets every evening Last Documented On 01/17/2023 10:58AM By Barbara Lynch MD ; [facility] Amiodarone HCl 200 MG OR TABS 05/25/2020 - 06/24/2020 Provider: Diagnosis: pt states she takes 100 mg daily for Afib Last Documented On 08/11/2022 5:27PM By DEMETRIA ARZATE ; [facility] Aimovig 70 MG/ML SC SOAJ 12/03/2019 - 01/02/2020 Provider: ELOINA LYNCH MD Diagnosis: Migraine w/o aur a, not intractable, w/o status migrainosus as directed Last Documented On 08/11/2022 5:27PM By Barbara Lynch MD ; [facility] Medications Administered Includes: Administered Medications from this encounter No Administered Medications Recorded Vital Signs Includes: Vital Signs from this encounter Vital Name 02/28/2023 09:32A Blood Pressure Sitting L 142/85 BP Cuff Size Regular Pulse Rate-Sitting (bpm) 82 Pulse Rhythm Regular Height (in) 64 Weight (lb) 290 Body Mass Index 49.8 Body Surface Area 2.3 Note: self reported vitals Last Documented: On 02/28/2023 9:32AM ; [facility] Results Includes: Results discussed during this encounter No Results Recorded For Specified Dates History of Present Illness Includes: History of Present Illness from this encounter HPI EVENS BURGESS is a 68 year old female. - Allergy list reviewed - Past medical history reviewed - Medication list reviewed - Current/previous labs reviewed - labs from 11/20/22 showed: Cholesterol - 161, HDL - 71, LDL - 70, Triglycerides - 115, Glucose - 85, Chloride - 111 Pt is still grieving over her late daughter's passing. She got cremated but has not shed any tears. She thought maybe she does not have a gravesite to visit so she does not have some sort of closure. Pt has not been feeling as depressed. Pt gets occ anxious. Pt denied having any mood swings. Pt can get easily annoyed or irritable. Pt has been motivated in general in doing daily tasks except on some days where she gets tired. Sleep has been good. Pt has not been napping/sleeping too much during the daytime. Pt has not been feeling as tired. Appetite is good. Pt has not been feeling as bad about self. Pt is at times not able to focus and concentrate for the most part. Pt denied having any psychomotor restlessness. Pt denied suicidal thoughts. Pt denied having any delusions/hallucinations. Overall her psych meds are helping with mood and anxiety. MENTAL STATUS EXAM: Sensorium - alert, oriented to name, place, and time Attitude - cooperative Gait - ambulatory Sleep - good - compliant with dental device Interest/Energy/Motivation - some days not as motivated Guilt/Worthlessness - absent Concentration/Attention Span - at times hard to focus and concentrate Memory Recall - fairly good Appetite - good - on 11/21/22 pt weighed 293 lbs and on 02/28/23 she weighed 290 lbs so she lost 3 lbs Suicidal Thoughts - absent Homicidal Thoughts - absent Delusions - absent Hallucinations - absent Appearance - casually groomed Motor Behavior - calm Eye Contact - intermittent Speech - fluent Mood - grieving Affect - at times anxious Thought Process - coherent Insight and Judgment - intact Social History Description Last Updated Caffeine use: No coffee cons umption -- drinks 3 - 4 cans of diet soda a week, an occasional glass of decaf tea and no coffee.Tobacco use: Smoking status: Never smoker.Alcohol: Not using alcohol.Drug Use: Not using drugs (Illicit).Work: Work history -- Disabled.Marital: Marital history -- Pt was born and raised in [place], [place]. Pt was closer to her mother growing up. Both parents are . She has 1 son and 1 daughter. She had 12th grade education. She used to work at [employer] from 1990 - 1999 and then at the [employer] from 05/1999 - 04/2002. Pt is now disabled. Her hobbies include sewing and making wreaths. She denied having any past and pending legal history. 02/28/2023 Last Documented On 3 9:37AM ; [facility] Tobacco non-user - Never Smoker 02/29/20 Last Documented On 3 2:55AM ; [facility] Smoking Status Unknown Procedures and Surgical History Includes: Procedures from this encounter Procedures Code Diagnosis Performing Provider Service L ocation Service Date education and instructions Last Documented On 3 9:07AM ; [facility] supportive care and encourag ement--given positive reinforcement to keep patient motivated and active, grief supportive therapy provided Last Documented On 3 2:52AM ; [facility] I discussed the risks, benef its and side effects of Quetiapine to the patient including the possibility of metabolic and motor side effects such as tardive dyskinesia Last Documented On 3 9:30AM ; [facility] ~* Call [phone] and /or go t o the nearest emergency room or call me if suicidal/homicidal ideation or other serious concerns arise. ~ ~* I gave instructions to call me should there be any questions or concerns. ~ ~* Patient voiced understanding and agreed to treatment plan Last Documented On 3 9:30AM ; [facility] dangerousness assessment: no suicide risk 3085F Last Documented On 3 9:07AM ; [facility] use of tobacco assessment performed 1000F Last Documented On 3 9:07AM ; [facility] patient screened for future fall risk: documentation of any fall with injury in past year - no recent falls 1100F Last Documented On 3 9:07AM ; [facility] review of medications documented 1160F Last Documented On 3 9:07AM ; [facility] assessment of suicide risk performed - n ot suicidal Last Documented On 3 9:31AM ; [facility] screening for adult depressi on: impression and score - please see above treatment and PHQ score Last Documented On 3 9:07AM ; [facility] standardized depression screening: posit florinda for symptoms Last Documented On 3 9:07AM ; [facility] encouragement to exercise - balanced jem l plan, low fat low carb diet Last Documented On 3 9:30AM ; [facility] Clinical summary provided to patient Last Documented On 3 9:07AM ; [facility] PHQ-9: total score 7 Last Documented On 3 2:51AM ; [facility] Medical History Includes: Medical History addressed during this encounter Description Last Updated Primary Care Provider: Dr. Solo Jernigan -- Trial Manager -- [place] Dr. Jada Grajeda -- Coronary Clinical Specialist Dr. Martell Roberts -- Spice Cleaner Dr. Jorge Guzman -- Dentist Dr. Jacek Banks -- Vascular Surgeon at [facility] Dr. Adrienne King, BUBBA -- Sleep/Dental device Dr. Jamaal Silevrio -- GastroenterologistDiagnoses: Sinusitis - given Doxycycline 100 mg, Fluconazole 150 mg and Mupirocin ointment 2% on 05/08/22; Cefuroxime 500 mg 07/20/19. Herpes Zoster - Shingles 3Atrial fibrillation - 07/2019Mitral regurgitationMitral valve prolapseSystemic hypertensionVenous [...] Tonsillectomy Cardiac cath with no stent placementHysterectomy 03/03/2023 Last Documented On 3 2:54AM ; [facility] Family History Includes: Family History addressed during this encounter Description Last Updated Maternal grandfather's: Alco holism -- grandfatherSororal: Depression -- sister 02/28/2023 Last Documented On 3 9:07AM ; [facility] Review of Systems Includes: Review [...] Gastrointestinal: Heartburn. No nausea and no vomiting. Abdominal pain, diarrhea, and constipation. Genitourinary: No increase in urinary frequency. No dysuria. Endocrine: No polydipsia and no excessive sweating. Musculoskeletal: No muscle aches, no localized joint pain, and no localized joint stiffness. Neurological: No dizziness, no vertigo, no fainting, and no motor disturbances. Skin: Skin symptoms. No pruritus. No skin lesions and no [...] Active Last Documented On 09/18/2023 9:10AM ; [facility] Note: Imported from external source. Silvadine Allergy peels skin 05/08/2012 Active Last Documented On 09/18/2023 9:10AM ; [facility] Note: Imported from external source. Penicillin V Potassium Intolerance yeast infection 05/08/2012 Active Last Documented On 09/18/2023 9:10AM ; [facility] Note: Imported from external source. Omnipaque Allergy Hives / Urticaria 05/08/2012 Active Last Documented On 09/18/2023 9:10AM ; [facility] Note: Imported from external source. Neosporin Allergy Skin Rashes / Eruption of skin 05/08/2012 Active Last Documented On 09/18/2023 9:10AM ; [facility] Note: Imported from external source. Lisinopril Allergy cough 05/08/2012 Active Last Documented On 09/18/2023 9:10AM ; [facility] Note: Imported from external source. Latex Allergy skin peels off 05/08/2012 Acti ve Last Documented On 09/18/2023 9:10AM ; [facility] Note: Imported from external source. Bandaging Tape Allergy PEELS OFF SKIN 05/08/2012 Active Last Documented On 09/18/2023 9:10AM ; [facility] Note: Imported from external source. Bacitracin Allergy Skin Rashes / Eruption of skin 05/08/2012 Active Last Documented On 09/18/2023 9:10AM ; [facility] Note: Imported from external source. Encounters Encounter Provider Location Date Check-In Time Check-Out Time Diagnosis TELEHEALTH ADULT PSYCH ESTABLISHED ELOINA LYNCH MD [facility] 02/29/20 9:07AM 11:59PM Migraine Headache,Ирина r Depression, Recurrent,Gen eralized Anxiety Disorder,Psyc hophysiologic al Insomnia,Christina c Disorder Insurance Includes: Active Insurance Policies Plan Name Member ID Group # Subscriber Relationship Effect florinda Dates 1 - [employer] [id number] EVENS BURGESS Self Clinical Notes Includes: Clinical Notes from this encounter * Progress note Date Encounter Last Documented by 02/28/2023 TELEHEALTH ADULT PSYCH ESTABLISH ED Last documented on 03/03/2023; 2:55 AM, ELOINA LYNCH MD; [facility] Top of Document Medication psychotherapy 30 minutes Patient gave verbal consent for Telehealth 02/28/23. Location of patient: patient's home Location of [...] - Current/previous labs reviewed - labs from 11/20/22 showed: Cholesterol - 161, HDL - 71, LDL - 70, Triglycerides - 115, Glucose - 85, Chloride - 111 Pt is still grieving over her late daughter's passing. She got cremated but has not shed any tears. She thought maybe she does not have a gravesite to visit so she does not have some sort of closure. Pt has not been feeling as depressed. Pt gets occ anxious. Pt denied having any mood swings. Pt can get easily annoyed or irritable. Pt has been motivated in general in doing daily tasks except on some days where she gets tired. Sleep has been good. Pt has not been napping/sleeping too much during the daytime. Pt has not been feeling as tired. Appetite is good. Pt has not been feeling as bad about self. Pt is at times not able to focus and concentrate for the most part. Pt denied having any psychomotor restlessness. Pt denied suicidal thoughts. Pt denied having any delusions/hallucinations. Overall her psych meds are helping with mood and anxiety. MENTAL STATUS EXAM: Sensorium - alert, oriented to name, place, and time Attitude - cooperative Gait - ambulatory Sleep - good - compliant with dental device Interest/Energy/Motivation - some days not as motivated Guilt/Worthlessness - absent Concentration/Attention Span - at times hard to focus and concentrate Memory Recall - fairly good Appetite - good - on 11/21/22 pt weighed 293 lbs and on 02/28/23 she weighed 290 lbs so she lost 3 lbs Suicidal Thoughts - absent Homicidal Thoughts - absent Delusions - absent Hallucinations - absent Appearance - casually groomed Motor Behavior - calm Eye Contact - intermittent Speech - fluent Mood - grieving Affect - at times anxious Thought Process [...] tabs daily, 90 days, 0 refills - traZODone HCl 100 MG Oral Tablet TAKE 2-3 TABLETS BY MOUTH AT BEDTIME, 30 days, 1 refills - ZyrTEC Allergy 10 MG Capsule 1 capsule daily 0 days, 0 refills - - No side effects reported- No motor side effects reported i.e., no extrapyramidal side effects and no tardive dyskinesia. AIMS - 0 Past Medical/Surgical History Primary Care Provider: Dr. Yuriy Jernigan -- Trial Manager -- [place] Dr. Jada Grajeda -- Coronary Clinical Specialist Dr. Martell Roberts -- Spice Cleaner Dr. Jorge Guzman -- Dentist Dr. Jacek Banks -- Vascular Surgeon at [facility] Dr. Adrienne King, S -- Sleep/Dental device Dr. Jamaal Silverio -- Pigment Pusher Diagnoses: Sinusitis - given Doxycycline 100 mg, Fluconazole 150 mg and Mupirocin ointment 2% on 05/08/22; Cefuroxime 500 mg 07/20/19. Herpes Zoster - Shingles 02/2023 Atrial fibrillation - 07/2019 Mitral regurgitation Mitral [...] 4 Previous Psychiatric Hospitalizations: Patient was at [facility] Mar [address] Reyes, since [...] - 4 cans of diet soda a week, an occasional glass of decaf tea and no coffee. Tobacco use: Smoking status: Never smoker. Alcohol: Not using alcohol. Drug Use: Not using drugs (Illicit). Work: Work history -- Disabled. Marital: Marital history -- Pt was born and raised in [place], [place]. Pt was closer to her mother growing up. Both parents are . She has 1 son and 1 daughter. She had 12th grade education. She used to work at [employer] from 1990 - 1999 and then at the gra[employer] from 05/1999 - 04/2002. Pt is now [...] Gastrointestinal: Heartburn. No nausea and no vomiting. Abdominal pain, diarrhea, and constipation. Genitourinary: No increase in urinary frequency. No dysuria. Endocrine: No polydipsia and no excessive sweating. Musculoskeletal: No muscle aches, no localized joint pain, and no localized joint stiffness. Neurological: No dizziness, no vertigo, no fainting, and no motor disturbances. Skin: Skin symptoms. No pruritus. No skin lesions and no rash. Physical Findings - Vitals taken 02/28/2023 09:32 am self reported vitals BP-Sitting L 142/85 mmHg BP Cuff Size Regular Pulse Rate-Sitting 82 bpm Pulse Rhythm Regular Height 64 in Weight 290 lbs Body Mass Index 49.8 kg/m2 Body Surface Area 2.3 m2 Tests Educational Testing: Questionnaires PHQ-9: Value PHQ-9: total score 7 Assessment - Migraine headache - Major depression, recurrent - Psychophysiological insomnia - Generalized anxiety disorder - Panic disorder Therapy - Dangerousness assessment: no suicide risk. - Supportive care and encouragement--given positive reinforcement to keep patient motivated and active, grief supportive therapy provided. - Encouragement to exercise - balanced meal plan, low fat low carb diet. - Education and instructions. - Assessment of suicide risk performed - not suicidal - Clinical summary provided to patient. I discussed the risks, benefits and side effects of Quetiapine to the patient including the possibility of metabolic and motor side effects such as tardive dyskinesia. * Call [phone] and /or go to the nearest emergency room or call me if suicidal/homicidal ideation or other serious concerns arise. * I gave instructions to call me should there be any questions or concerns. * Patient voiced understanding and agreed to treatment plan. Plan StartCited - Irritable bowel syndrome with constipation Dicyclomine HCl 20 MG tablet One tablet daily, 30 days, 1 refills EndCited StartCited - Other Follow-up 05/31/23 EndCited Major Depressive Disorder, recurrent - Bupropion [...]
--- OUTSIDE RECORDS SUMMARY | 2024-06-20 09:28 | XMS_ITS | Patient Health Summary ---
Author Organization [facility] [employer] Address [address] [place] [address] Care Team Providers Care Biomedical Technician Name Role Phone Everton Cuevas MD Unavailable Unavailable Martínez Bradford MD Primary Care Provider [phone] Note from [facility],non-owned Affiliates and Associated Physician Practices is amultiple site organization consisting of ambulatory clinics and hospital sitesin [place], [place], [place] and [place]. This disclosure is being madepursuant to the Care Everywhere program and may not contain all information available regarding this patient. Last updated 18.[facility] Allergies * Adhesive Sensitivity * Valdecoxib * Contrast-Iodinated Agents For Ct/Other * Latex * Lisinopril(Cough) * Tyapfcmc-Cfpyeizsff-Drjygacck * Penicillins(Other) * Silver Sulfadiazine * Sulfa Drugs Medications * Be aware that medications may not be up to date on this document. Alwaysverify current medications with the patient. * levothyroxine (SYNTHROID) 175 MCG tablet Take 175 mcg by mouth every evening * omeprazole (PRILOSEC OTC) 20 MG tablet Take 20 mg by mouth daily before breakfast. * potassium chloride (KLOR-CON 10) 10 MEQ tablet Take 10 mEq by mouth once daily. * buPROPion XL 24hr (WELLBUTRIN-XL) 300 MG tablet Take 300 mg by mouth every morning. * sertraline (ZOLOFT) 100 MG tablet Take 200 mg by mouth at bedtime * cetirizine (ZYRTEC ALLERGY) 10 MG tablet Take 10 mg by mouth once daily. * Multiple Vitamins-Minerals (HAIR VITAMINS PO) Take by mouth. * CALCIUM-VITAMIN D PO Take by mouth. * Lysine 500 MG CAPS Take 500 mg by mouth 2 times daily. * clobetasol (TEMOVATE) 0.05 % ointment Apply to affected area 2 times daily. * hydrocortisone valerate 0.2 % cream - mupirocin 2 % cream 50:50 CREA Apply to affected area 2 times daily as needed. * Betamethasone Dipropionate 0.05 % LOTN by Apply externally route. * acetaminophen (TYLENOL) 500 MG tablet(Started 07/20/2011) Take 2 Tabs by mouth 3 times daily. Maximum allowable Acetaminophen amount = 4 Grams (4000 mg) / 24hours. * amLODIPine (NORVASC) 10 MG tablet Take 10 mg by mouth once daily * torsemide (DEMADEX) 20 MG tablet Take 20 mg by mouth once daily * olmesartan (BENICAR) 40 MG tablet Take 40 mg by mouth once daily * topiramate (TOPAMAX) 50 MG tablet Take 50 mg by mouth 2 times daily * hydroxychloroquine (PLAQUENIL) 200 MG tablet Take by mouth 2 times daily * busPIRone (BUSPAR) 15 MG tablet Take 15 mg by mouth 3 times daily * traZODone (DESYREL) 100 MG tablet Take 200 mg by mouth at bedtime * apixaban (ELIQUIS) 5 MG tablet Take 5 mg by mouth 2 times daily * levothyroxine (SYNTHROID) 50 MCG tablet Take 50 mcg by mouth every evening * HYDROcodone-acetaminophen (NORCO) 5-325 MG tablet(Started 08/13/2019) Take 1 tablet by mouth every 6 hours as needed for Pain * amiodarone (CORDARONE) 200 MG tablet Take 100 mg by mouth once daily * QUEtiapine (SEROQUEL) 50 MG tablet(Started 04/18/2020) Take 50 mg by mouth once daily * nebivolol (BYSTOLIC) 5 MG tablet(Started 10/12/2019) Take 5 mg by mouth once daily * Galcanezumab-gnlm (EMGALITY) 120 MG/ML auto-injector pen Inject 120 mg subcutaneously Active Problems Problem Noted Date Diagnosed Date 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 012 Obesity 07/20/2011 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 Social History Tobacco Use Types Packs/Day Years Used Date Smoking Tobacco: Never Smokeless Tobacco: Never Alcohol Use Standard Drinks/Week Comments No 0 (1 standard drink = 0.6 oz pur e alcohol) Sex and Gender Information Value Date Recorded Sex Assigned at Female 04/26/2020 2:51 PM [employer] Gender Identity Female 04/26/2020 2:51 PM [employer] Sexual Orientation Straight 04/26/2020 2: 51 PM [employer] Last Filed Vital Signs Vital Sign Reading [...] Mass Index 47.89 09/08/2019 2:37 PM CDT Procedures * VAS ARTERIAL ANKLE ARM INDEX(Performed 04/26/2020) Performed for PVD (peripheral vascular disease) (HCC) * EKG 12-LEAD(Performed 10/12/2019) Performed for PVD (peripheral vascular disease) (HCC) * VAS ARTERIAL ANKLE ARM INDEX(Performed 09/08/2019) Performed for PVD (peripheral vascular disease) (HCC) * APHERESIS/TRANSFUSION ORDER(Performed 08/18/2019) * CARDIAC RHYTHM STRIP ORDER(Performed 08/18/2019) * PATHOLOGY TISSUE EXAM (STL)(Performed 08/12/2019) Performed for Diagnosis unknown * EMBOLECTOMY/THROMBECTOMY(Performed 08/12/2019) * PT PTT PANEL(Performed 08/12/2019) * CBC W AUTO DIFFERENTIAL(Performed 08/12/2019) * EKG 12-LEAD(Performed 08/12/2019) Performed for Arterial occlusion * PTT(Performed 08/11/2019) * CBC W AUTO DIFFERENTIAL(Performed 08/11/2019) * PT PTT PANEL(Performed 08/11/2019) * FL KALYANI SURGERY(Performed 08/11/2019) Performed for Pain * KS INSERT CANNULA,ART-DANA,CARTON GLUING MACHINE OPERATOR(Performed 08/11/2019) * COAGULATION PANEL W D-DIMER(Performed 08/11/2019) Performed for Arterial occlusion * CBC W AUTO DIFFERENTIAL(Performed 08/11/2019) Performed for Arterial occlusion * PT PTT PANEL(Performed 08/11/2019) Performed for Arterial occlusion * PTT(Performed 08/11/2019) * COAGULATION PANEL W D-DIMER(Performed 08/11/2019) Performed for Arterial occlusion * COAGULATION PANEL W D-DIMER(Performed 08/10/2019) * COAGULATION PANEL W D-DIMER(Performed 08/10/2019) Performed for Arterial occlusion * CBC W AUTO DIFFERENTIAL(Performed 08/10/2019) Performed for Arterial occlusion * FL KALYANI SURGERY(Performed 08/10/2019) Performed for Pain * BLOOD TYPE VERIFICATION(Performed 08/10/2019) * ANGIOGRAM/ARTERIOGRAM(Performed 08/10/2019) * TYPE + SCREEN PANEL(Performed 08/10/2019) * BASIC METABOLIC PANEL (CALCIUM TOTAL)(Performed 08/10/2019) Performed for Preoperative examination * CBC W AUTO DIFFERENTIAL(Performed 08/10/2019) Performed for Preoperative examination * EKG 12-LEAD(Performed 08/10/2019) Performed for Preoperative examination * CT ANGIO LOWER EXTREMITY BILAT(Performed 08/06/2019) Performed for PVD (peripheral vascular disease) ([facility]) * CREATININE - POCT INTERFACED(Performed 08/06/2019) * ECHOCARDIOGRAM 2D WITH DOPPLER(Performed 08/06/2019) Performed for PVD (peripheral vascular disease) ([facility]) * VAS RIGHT VENOUS DUPLEX LE(Performed 08/05/2019) Performed for Deep vein thrombosis (DVT) of distal vein of right lower extremity, unspecified chronicity ([facility]) * VAS ARTERIAL MULTILEVEL LE(Performed 08/05/2019) Performed for PVD (peripheral vascular disease) ([facility]) * XR KNEE BILAT STANDING 1VW(Performed 07/20/2011) Performed for DJD (degenerative joint disease) of knee * XR KNEE RIGHT 2VW OR LESS(Performed 07/20/2011) Performed for DJD (degenerative joint disease) of knee * XR KNEE LEFT 2VW OR LESS(Performed 07/20/2011) Performed for DJD (degenerative joint disease) of knee * XR PELVIS W BILAT HIP 2VW(Performed 07/20/2011) Performed for DJD (degenerative joint disease) of knee * URINALYSIS AUTO - POINT OF CARE(Performed 07/20/2011) Performed for Discoid lupus * C-REACTIVE PROTEIN(Performed 07/20/2011) Performed for Discoid lupus * COMPREHENSIVE METABOLIC PANEL(Performed 07/20/2011) Performed for Discoid lupus * CBC W AUTO DIFFERENTIAL(Performed 07/20/2011) Performed for Discoid lupus * DEVIKA W REFLX (POSITIVE)(Performed 07/20/2011) Performed for Discoid lupus Results * VAS ARTERIAL ANKLE ARM INDEX (MARLYN - LIMITED PRESSURE STUDY) (04/26/2020 11:38 AM [employer]NER) Only the most recent of2 resultswithin the time period is included. Anatomical Region Laterality Modality Ankle / Foot, Upper Extremity Ul trasound 04/26/2020 11:2 5 AM [employer]NER Narrative Procedure Note Yash Veloz MD - 04/26/2020 [facility] [place] [address], [address] [place] [id number] Lower Extremity Arterial Doppler Report Pat.Name: AMCKENZIE MOREAU Pat.ID: [id number] St.Date: 04/26/2020 Exam Time: 11:25:00 AM Study Type:MARLYN/PVR Age: 11 1955,65Y Sex: FEMALE Sonogrphr: Elmer Ashraf Rvt Pat. Stat.:Outpatient ICD - 9: I73.9 Peripheral vascular disease CPT - 4: 49292 Procedures: Ankle Arm Index Visit ID: [id number] ++++++++++++++++++++++++++++++++++++ SUMMARY: ++++++++++++++++++++++++++++++++++++ No diminished arterial circulation of the lower extremeties bilaterally. ++++++++++++++++++++++++++++++++++++ FINDINGS: ++++++++++++++++++++++++++++++++++++ Procedure: The arterial vasculature of the lower extremities was evaluated by analysis of Doppler pressures and waveforms obtained in the legs at rest. Study Quality: This study is of adequate technical quality. MARLYN: Rt ankle brachial index is 1.0. Left ankle brachial index is 1.0 (normal greater than 0.90). Arterial doppler waveforms of the right [employer] are triphasic. Arterial doppler waveforms of the right DPA are triphasic. Arterial doppler waveforms of the left [employer] are triphasic. Arterial doppler waveforms of the left DPA are triphasic. ++++++++++++++++++++++++++++++++++++ MEASUREMENTS: ++++++++++++++++++++++++++++++++++++ PRESSURES Left MARLYN (DP) MARLYN (DP) 1 Left MARLYN (PT) MARLYN (PT) 1 Left Ankle DP AnkleDP P 152 mmHg Left Ankle PT AnklePT P 148 mmHg Right MARLYN (DP) MARLYN (DP) 0.97 Right MARLYN (PT) MARLYN (PT) 1 Right Ankle DP AnkleDP P 143 mmHg Right Ankle PT AnklePT P 155 mmHg Right Brachial Brach P 148 mmHg Signed 04/26/2020 12:39 PM Yash Veloz MD Jacek Banks MD VASCULAR LAB ORDERAB LES * EKG 12-LEAD (10/12/2019) Only the most recent of3 resultswithin the time period is included. Yash Veloz MD ECG ORDERABLES [facility] RESULT SCAN * APHERESIS/TRANSFUSION ORDER (08/18/2019 6:14 PM CDT) Narrative 08/18/2019 6:14 PM CDT Ordered by an unspecified provider. Scanned Document NURSING - VITAL SIGN S AND ASSESSMENT * CARDIAC RHYTHM STRIP ORDER (08/18/2019 6:14 PM CDT) Narrative 08/18/2019 6:14 PM CDT Ordered by an unspecified provider. Scanned Document CARDIAC SERVICES ORD ERABLES * GROSS + MICRO EXAM (STL) (08/12/2019 12:08 PM CDT) Case Report Surgical Pathology Report Case: [id number] Authorizing Provider: Jacek Banks MD Collected: 08/12/2019 12:08 PM Ordering Location: [facility] Received: 08/12/2019 01:23 PM Pathologist: Karl Fofana MD Specimen: Thrombus, RIGHT BRACHIAL ARTERY THROMBUS 08/14/2019 2:20 PM CDT [facility] Final Diagnosis 1. Right brachial artery thrombus, endarterectomy: -- Thrombus AB/[facility] 08/14/2019 2:20 PM CDT [facility] Gross Description Received in formalin labeled with the patient's name and thrombus are two pieces of roughly cylindrical brownish tissue measuring 0.5 x 0.3 and 1.3 x 0.3 cm. Both are submitted in A1. AB/[facility] 08/14/2019 2:20 PM CDT [facility] Microscopic Description The brachial artery thrombus sections show a portion of an organizing degenerating thrombus. AB/[facility] 08/14/2019 2:20 PM CDT [facility] Disclaimer All histochemical and/or immunohistochemical results are interpreted with controls that demonstrate appropriate staining reactions before reporting results. Note on use of immunocytochemistry reagents: This test was developed and its performance characteristic determined by [facility], Department of Laboratory Medicine. It has not been cleared or approved by the U.S. Food and Drug Administration (FDA). The FDA has determined that such clearance or approval is not necessary. The test is used for clinical purpose. It should not be regarded as investigational or for research. This laboratory is certified to perform high complexity testing. The performance characteristics of the IHC/NAYELI assays have been validated on formalin-fixed paraffin embedded tissues only. The assays have not been validated on decalcified tissues. Results should be interpreted with caution. 08/14/2019 2:20 PM CDT [facility] Embedded Images 08/14/2019 2:20 PM CDT [facility] Pathology/Cytolo gy THROMBUS / Unknown 08/12/2019 12:08 PM CDT 08/12/2019 1:23 PM CDT Jacek Banks MD LAB - PATHOLOGY/CYTO LOGY ORDERABLES Performing Organization Address [facility] Co de Phone Number [facility] [address] [place], [place] [id number] * (ABNORMAL) PT PTT PANEL (08/12/2019 4:07 AM CDT) Only the most recent of3 resultswithin the time period is included. PT 14.7 12.1 - 14.8 sec 08/12/2019 4:45 AM CDT [facility] INR 1.2(H) 0.9 - 1.1 08/12/2019 4:45 AM CDT [facility] PTT 37.2 23.0 - 38.4 sec 08/12/2019 4:45 AM CDT [facility] Blood BLOOD SPECIMEN / Unknown Venipuncture / Unknown 08/12/2019 4:07 AM CDT 08/12/2019 4:23 AM CDT Narrative [facility] - 08/12/2019 4:45 AM CDT Conventional Warfarin Anticoagulant Therapy: INR Reference Range: 2.0-3.0 Intensive Warfarin Anticoagulant Therapy: INR Reference Range: 2.5-3.5 Heparin Therapeutic Range for PTT: 71.0 - 109.0 seconds. Jacek Banks MD LAB - COAGULATION OR DERABLES Performing Organization Address [facility] de Phone Number [facility] [address] [place] [address] * (ABNORMAL) CBC W AUTO DIFFERENTIAL (08/12/2019 4:07 AM CDT) Only the most recent of6 resultswithin the time period is included. WBC 5.9 4.4 - 10.7 x10E9/L 08/12/2019 4:33 AM CDT [facility] WBC Corrected 08/12/2019 4:33 AM CDT [facility] RBC 2.99(L) 3.80 - 5.20 x10E12/L 08/12/2019 4:33 AM CDT [facility] Hemoglobin 9.0(L) 12.0 - 15.6 gm/dL 08/12/2019 4:33 AM CDT [facility] Hematocrit 29.1(L) 35.9 - 45.5 % 08/12/2019 4:33 AM CDT [facility] MCV 97.3 80.7 - 98.3 fl 08/12/2019 4:33 AM CDT [facility] MCH 30.1 26.7 - 34.0 pg 08/12/2019 4:33 AM CDT [facility] MCHC 30.9 30.8 - 35.9 gm/dL 08/12/2019 4:33 AM CDT [facility] Platelet Count 172 153 - 416 x10E9/L 08/12/2019 4:33 AM CDT [facility] RDW-CV 14.4 12.1 - 14.9 % 08/12/2019 4:33 AM CDT [facility] MPV 9.2(L) 9.4 - 12.9 fl 08/12/2019 4:33 AM CDT [facility] Neutrophils % 60.6 44.0 - 73.0 % 08/12/2019 4:33 AM CDT [facility] Lymphocytes % 24.1 20.0 - 43.0 % 08/12/2019 4:33 AM CDT [facility] Monocytes % 10.2 5.0 - 13.0 % 08/12/2019 4:33 AM CDT [facility] Eosinophils % 4.3 0.0 - 6.0 % 08/12/2019 4:33 AM CDT [facility] Basophils % 0.5 0.0 - 2.0 % 08/12/2019 4:33 AM CDT [facility] Immature Granulocytes 0.3 0 - 1 % 08/12/2019 4:33 AM CDT [facility] Neutrophil Absolute 3.55 2.01 - 7.14 x10E9/L 08/12/2019 4:33 AM CDT [facility] Lymphocytes Absolute 1.41 1.07 - 3.94 x10E9/L 08/12/2019 4:33 AM CDT [facility] Monocytes Absolute 0.60 0.26 - 1.07 x10E9/L 08/12/2019 4:33 AM CDT [facility] Eosinophils Absolute 0.25 0 - 0.47 x10E9/L 08/12/2019 4:33 AM CDT [facility] Basophils Absolute 0.03 0 - 0.08 x10E9/L 08/12/2019 4:33 AM CDT [facility] Immature Granulocytes Absolute 0.02 0.00 - 0.06 x10E9/L 08/12/2019 4:33 AM CDT [facility] nRBC Auto 0 /100 WBC 08/12/2019 4:33 AM CDT [facility] Blood BLOOD SPECIMEN / Unknown Venipuncture / Unknown 08/12/2019 4:07 AM CDT 08/12/2019 4:23 AM CDT Jacek Banks MD LAB - HEMATOLOGY ORD ERABLES Performing Organization Address [facility] de Phone Number [facility] [address] [place], [place] [id number] * PTT (08/11/2019 7:46 PM CDT) Only the most recent of2 resultswithin the time period is included. PTT 34.2 23.0 - 38.4 sec 08/11/2019 8:18 PM CDT [facility] Comment:This result represen ts a significant difference from this patient's most recent previous value. Clinical correlation is therefore recommended. Blood BLOOD SPECIMEN / Unknown Venipuncture / Unknown 08/11/2019 7:46 PM CDT 08/11/2019 8:00 PM CDT Narrative [facility] - 08/11/2019 8:18 PM CDT Heparin Therapeutic Range for PTT: 71.0 - 109.0 seconds. Jacek Banks MD LAB - COAGULATION OR DERABLES Performing Organization Address [facility] de Phone Number [facility] [address] [place] [address] * FL KALYANI SURGERY (08/11/2019 10:36 AM CDT) Only the most recent of2 resultswithin the time period is included. Anatomical Region Laterality Modality Radiographic Edie ging 08/11/2019 10:4 2 AM CDT Narrative 08/11/2019 10:38 AM CDT Fluoroscopy was provided. A radiologist was not present. *Reading Radiologist: Miguel Angel Wu on 08/11/2019 at 10:43 AM Procedure Note Miguel Angel Wu MD - 08/11/2019 Fluoroscopy was provided. A radiologist was not present. *Reading Radiologist: Miguel Angel Wu on 08/11/2019 at 10:43 AM Jacek Banks MD FLUOROSCOPY ORDERABL ES * (ABNORMAL) COAGULATION PANEL W D-DIMER (08/11/2019 6:01 AM CDT) Only the most recent of4 resultswithin the time period is included. [facility] PT 14.0 12.1 - 14.8 sec 08/11/2019 6:38 AM CDT [facility] INR 1.2(H) 0.9 - 1.1 08/11/2019 6:38 AM CDT [facility] PTT 136.5(HH) 23.0 - 38.4 sec 08/11/2019 6:38 AM CDT [facility] Fibrinogen 377 200 - 400 mg/dL 08/11/2019 6:38 AM CDT [facility] D-Dimer 1.65(H) 0.27 - 0.5 ug/mL FEU 08/11/2019 6:38 AM CDT [facility] Platelet Count 174 153 - 416 x10E9/L 08/11/2019 6:38 AM CDT [facility] Blood BLOOD SPECIMEN / Unknown Venipuncture / Unknown 08/11/2019 6:01 AM CDT 08/11/2019 6:05 AM CDT Narrative [facility] - 08/11/2019 6:38 AM CDT Conventional Warfarin Anticoagulant Therapy INR Reference Range: 2.0-3.0 Intensive Warfarin Anticoagulant Therapy INR Reference Range: 2.5-3.5 Heparin Therapeutic Range for PTT: 71.0 - 109.0 seconds. In the absence of clinical symptoms, a value less than or equal to 0.5 mcg/mL FEU significantly decreases the probability of PE/DVT (negative predictive value >95%). 1 mcg/ml FEU = 1 Fibrinogen Equivalent Unit (approximates 0.5 mcg/mL of D- dimer). ISTH DIAGNOSTIC SCORING SYSTEM FOR DIC ---- Score 0 1 2 3 Platelet Count (x10^3/uL) > 100 <100 < 50 N/A PT Prolongation above Upper limit of normal 0-3 3-6 > 6 N/A Range (seconds) Fibrinogen (mg/dL) >100 < 100 N/A N/A D-Dimer (mcg/mL FEU) < .50 N/A 0.50-5.0 > 5 Calculate Cumulative Score: > or = 5: compatible with overt DIC < 5: suggestive for non-overt DIC N/A = Non applicable Reference: Br. J. Haematol. 145:24-33,2009. Jacek Banks MD LAB - COAGULATION OR DERABLES Performing Organization Address City/[facility]/ZIP Co de Phone Number [facility] [address] [place] [address] * BLOOD TYPE VERIFICATION (08/10/2019 11:03 AM CDT) ABO A 08/10/2019 11:27 AM CDT [facility] Rh Type Positive 08/10/2019 11:27 AM CDT [facility] Blood Bank BLOOD SPECIMEN / Unknown Venipuncture / Unknown 08/10/2019 11:03 AM CDT 08/10/2019 11:06 AM CDT Jacek Banks MD LAB - BLOOD BANK ORD ERABLES Performing Organization Address [facility] Co de Phone Number [facility] [address] [place] [address] * TYPE + SCREEN PANEL (08/10/2019 9:41 AM CDT) ABO A 08/10/2019 10:53 AM CDT [facility] Rh Type Positive 08/10/2019 10:53 AM CDT [facility] Comment:History checked. Col lect retype. Antibody Screen Negative 08/10/2019 10:53 AM CDT [facility] Blood Bank BLOOD SPECIMEN / Unknown Venipuncture / Unknown 08/10/2019 9:41 AM CDT 08/10/2019 9:58 AM CDT Vincenzo Madera DO LAB - BLOOD BANK ORD ERABLES Performing Organization Address City/[facility] Co de Phone Number [facility] [address] [place] [address] * (ABNORMAL) BASIC METABOLIC PANEL (CALCIUM TOTAL) (08/10/2019 9:41 AM CDT) Glucose 79 70 - 105 mg/dL 08/10/2019 10:19 AM CDT [facility] Sodium 140 136 - 145 mmol/L 08/10/2019 10:19 AM CDT [facility] Potassium 4.0 3.5 - 5.1 mmol/L 08/10/2019 10:19 AM CDT [facility] Chloride 111(H) 98 - 107 mmol/L 08/10/2019 10:19 AM CDT [facility] CO2 19(L) 23 - 31 mmol/L 08/10/2019 10:19 AM CDT [facility] Calcium 9.6 8.4 - 10.4 mg/dL 08/10/2019 10:19 AM CDT [facility] Anion Gap 10 8 - 16 mmol/L 08/10/2019 10:19 AM CDT [facility] BUN 23(H) 9.8 - 20.1 mg/dL 08/10/2019 10:19 AM CDT [facility] Creatinine 0.90 0.57 - 1.11 mg/dL 08/10/2019 10:19 AM CDT [facility] eGFR by MDRD >60 >60 mL/min/1.7 3m2 08/10/2019 10:19 AM CDT [facility] eGFR by MDRD >60 >60 mL/min/1.7 3m2 08/10/2019 10:19 AM CDT [facility] Blood BLOOD SPECIMEN / Unknown Venipuncture / Unknown 08/10/2019 9:41 AM CDT 08/10/2019 9:57 AM CDT Jacek Banks MD LAB - CHEMISTRY [facility]ERN [facility]ANUEL[facility] Organization Address City/State/[facility] Co de Phone Number [facility] [address] [place] [address] * CT ANGIO LOWER EXTREMITY BILAT (08/06/2019 11:04 AM CDT) Anatomical Region Laterality Modality Lower Extremity Computed Tomogra phy 08/06/2019 12:3 3 PM CDT Impressions 08/06/2019 2:56 PM CDT Occluded right popliteal artery and proximal infrapopliteal runoff. No significant stenosis seen otherwise. *Reading Radiologist: Jacek Cardona on 08/06/2019 at 2:56 PM Narrative 08/06/2019 2:[address] ANGIOGRAM ABDOMINAL AORTA AND BILATERAL LOWER EXTREMITIES History: Peripheral vascular disease. Prior revascularization. Patient with recurrent symptoms. Technique: Axial images of the abdominal aorta and lower extremities were obtained and reconstructions performed. Isovue-370, 80 cc was administered intravenously. 3-D and MIP reconstructive images were obtained on an independent workstation. Vascular findings: Abdominal aorta: Minimal plaque identified in the abdominal aorta. No distal aortic stenosis. No AAA. The mesenteric arteries are all widely patent. No renal artery stenosis visualized. Iliac system: Minimal iliac plaque without hemodynamically significant iliac stenosis. Femoral arteries: Both common femoral arteries are widely patent. No significant superficial femoral artery stenosis. Right popliteal artery and infrapopliteal runoff: The right popliteal artery is occluded. The occlusion extends into the tibioperoneal trunk. The right anterior tibial artery is occluded proximally and then reconstitutes after a few centimeters. The right posterior tibial artery also reconstitutes proximally and is patent across the ankle. The peroneal artery is also occluded proximally and reconstitutes. Left popliteal artery and infrapopliteal runoff: No significant left popliteal artery stenosis. Patent three-vessel runoff to the foot. Nonvascular structures: No unexpected finding seen in the nonvascular structures. Procedure Note Jacek Cardona MD - 08/06/2019 CT ANGIOGRAM ABDOMINAL AORTA AND BILATERAL LOWER EXTREMITIES History: Peripheral vascular disease. Prior revascularization. Patient with recurrent symptoms. Technique: Axial images of the abdominal aorta and lower extremities were obtained and reconstructions performed. Isovue-370, 80 cc was administered intravenously. 3-D and MIP reconstructive images were obtained on an independent workstation. Vascular findings: Abdominal aorta: Minimal plaque identified in the abdominal aorta. No distal aortic stenosis. No AAA. The mesenteric arteries are all widely patent. No renal artery stenosis visualized. Iliac system: Minimal iliac plaque without hemodynamically significant iliac stenosis. Femoral arteries: Both common femoral arteries are widely patent. No significant superficial femoral artery stenosis. Right popliteal artery and infrapopliteal runoff: The right popliteal artery is occluded. The occlusion extends into the tibioperoneal trunk. The right anterior tibial artery is occluded proximally and then reconstitutes after a few centimeters. The right posterior tibial artery also reconstitutes proximally and is patent across the ankle. The peroneal artery is also occluded proximally and reconstitutes. Left popliteal artery and infrapopliteal runoff: No significant left popliteal artery stenosis. Patent three-vessel runoff to the foot. Nonvascular structures: No unexpected finding seen in the nonvascular structures. IMPRESSION Occluded right popliteal artery and proximal infrapopliteal runoff. No significant stenosis seen otherwise. *Reading Radiologist: Jacek Cardona on 08/06/2019 at 2:56 PM Yash Veloz MD CT ORDERABLES * CREATININE - POCT INTERFACED (08/06/2019 10:53 AM CDT) Creatinine POCT 0.9 0.7 - 1.2 mg/dL 08/06/2019 11:04 AM CDT [facility] Blood BLOOD SPECIMEN / Unknown 08/06/2019 10:53 AM CDT 08/06/2019 11:04 AM CDT Yash Veloz MD LAB - POINT OF C ARE ORDERABLES [facility] [address] [place] [address] * ECHOCARDIOGRAM 2D WITH DOPPLER (08/06/2019 8:48 AM CDT) 08/06/2019 8:48 AM CDT Narrative Procedure Note Nicholas Deluna MD - 08/07/[address] [facility] [address] [address] Echocardiography Examination Transthoracic Name: MACKENZIE MOREAU [facility] [[email or web address]]#: MR#: [id number] Admission Number: [id number] Study Date: 08/06/2019 Study Time: 08:52 AM Date Of : 1955 Age: 64 years Height: 63 in. (160.0 cm) Weight: 294 lbs. (133.36 kg) BSA: 2.28 m2 Gender: Female Blood Pressure: 146 mmHg / 88 mmHg Heart Rate: 107 bpm Rhythm: Infection: Emergency: Contrast Allergy: Procedure Staff Log Deck Tender: Carlita Nino RDCS Ordering Physician: Yash Veloz MD Reading Physician: Nicholas Deluna MD Indication: Severe peripheral arteriall disease Conclusions Left Ventricle: Left ventricle is normal in size. Normal global systolic left ventricular function. (Biplane EF 65 %). Left ventricle wall thickness is increased. There are no regional wall motion abnormalities. Left ventricular diastolic function parameters are normal. Follow up: Findings Left Ventricle: Left ventricle is normal in size. Normal global systolic left ventricular function. EF evaluated by visual assessment in the 50% range. (Biplane EF 65 %). Left ventricle wall thickness is increased. There are no regional wall motion abnormalities. Left ventricular diastolic function parameters are normal. IVS: The septum is intact. Right Ventricle: Normal size right ventricle. Right ventricular wall thickness is normal. Right ventricular systolic function is normal. Pulmonary artery pressure normal. Patient: MACKENZIE MOREAU Study Date: 08/06/2019 08:52 AM Page 1 of 3 Left Atrium: The left atrium is normal in size. IAS: Normal appearing atrial septum. Right Atrium: The right atrium is normal in size. Mitral Valve: Mitral leaflets exhibit normal cuspal separation. Trivial mitral regurgitation. No mitral valve stenosis. Aortic Valve: Aortic leaflets exhibit normal cuspal separation. No aortic valve regurgitation. There is no aortic stenosis. Tricuspid Valve: Tricuspid valve leaflets are normal. Trivial tricuspid regurgitation. No tricuspid valve stenosis. Pulmonic Valve: Pulmonic leaflets exhibit normal cuspal separation. No significant pulmonic valve regurgitation is evident. There is no pulmonic valve stenosis. Aorta: The aorta is normal. No dilatation of the aorta. The aortic root exhibits normal size. Great Vessels: Pulmonary Artery: The pulmonary artery morphology appears normal. IVC: The inferior vena cava is normal in size and course. Pericardium: The pericardium is normal in appearance. No pericardial effusion. Exam Details Procedure Ordered: ECHOCARDIOGRAM 2D W/DOPPLER Procedure Components: Complete 2D, M-mode, complete spectral Doppler, color Doppler Procedure Status: Routine study Image Quality: Adequate Contrast: Agitated saline was administered to evaluate shunting. Facility Location: [facility] V[facility] Clinical Data Primary Valvular HD Type: Mitral Regurgitation Comment: Hx Lupus Measurements Anatomy Label Value Normal Value Aorta AoRoot, MM 2.9 cm (2.2cm - 3.7cm) Aortic Valve AV Vmean 1.02 m/s Aortic Valve AV VTI 28.09 cm Aortic Valve AV PGmax 10 mmHg Aortic Valve AV PGmean 5 mmHg Aortic Valve AV Vmax, Curve 1.55 m/s (1m/s - 1.7m/s) Aortic Valve LVOT VTI / AV VTI 0.68 Aortic Valve DAVONTE D (continuity eq. VTI) 2.1 cm Aortic Valve DAVONTE Index (continuity 1.01 cm /m eq.Vmax) Aortic Valve LVOT Vmax / AV Vmax 0.74 Interventricular septum IVSd, MM 0.8 cm (0.6cm - 0.9cm) Patient: MACKENZIE MOREAU Study Date: 08/06/2019 08:52 AM Page 2 of 3 Left Atrium LADs, MM 3.9 cm (2.7cm - 3.8cm) Left Ventricle LVOT Vmax 1.15 m/s (0.7m/s - 1.1m/s) Left Ventricle LVOTd 2 cm (1.8cm - 2cm) Left Ventricle LVOT VTI 19.19 cm (18cm - 22cm) Left Ventricle LVOT PGmax 5 mmHg Left Ventricle LVDd, MM 4.5 cm (3.9cm - 5.3cm) Left Ventricle LVDs, MM 3.4 cm (2cm - 3.8cm) Left Ventricle LVPWd, MM 0.8 cm (0.6cm - 0.9cm) Left Ventricle FS, MM 24.44 % (27% - 45%) Left Ventricle LVOT PGmean 3 mmHg Left Ventricle LVOT Vmean 0.79 m/s Left Ventricle Diastolic MV E Vmax 0.82 m/s Function Right Ventricle Diastolic TR Pmax 21 mmHg Function Tricuspid Valve TR Vmax 2.29 m/s (No Signature Object) Patient: MACKENZIE MOREAU Study Date: 08/06/2019 08:52 AM Page 3 of 3 Yash Veloz MD ECHO ORDERABLES [facility] * VAS RIGHT VENOUS DUPLEX LE (08/05/2019 2:26 PM CDT) Anatomical Region Laterality Modality Lower Extremity Ultrasound 08/05/2019 1:29 PM CDT Narrative Procedure Note Yash Veloz MD - 08/05/2019 [facility] [place] [address], [address] [place] [address] Lower Extremity Venous Ultrasound Report Pat.Name: MACKENZIE MOREAU.ID: [id number] St.Date: 08/05/2019 Exam Time: 1:29:00 PM Study Type:LE Venous Age: 11 1955,64Y Sex: FEMALE Sonogrphr: Attila Ashraf RVT Pat. Stat.:Outpatient ICD - 9: I82.491 Acute embolism and thrombosis of other specified deep vein of right lower extremity CPT - 4: 65607 Procedures: Lower Extremity Venous - Right Visit ID: [id number] ++++++++++++++++++++++++++++++++++++ SUMMARY: ++++++++++++++++++++++++++++++++++++ There is no evidence of an acute deep or superficial venous thrombosis in the right lower extremity. ++++++++++++++++++++++++++++++++++++ FINDINGS: ++++++++++++++++++++++++++++++++++++ Procedure: Venous duplex imaging of the right lower extremity was performed using color flow and spectral Doppler analysis. The contralateral common femoral vein was also examined. Study Quality: This study is of adequate technical quality. Rt Leg: All vessels seen appear patent and compressible. There was spontaneous and phasic flow seen in all the major veins of the right lower extremity. Appropriate augmentation with distal compression. No evidence of reflux with proximal compression. Comments: There is an occluded right popliteal artery. Signed 08/05/2019 03:27 PM Yash Veloz MD Yash Veloz MD VASCULAR LAB ORD ERABLES * VAS ARTERIAL MULTILEVEL LE (FULL PRESSURE STUDY) (08/05/2019 2:26 PM CDT) Anatomical Region Laterality Modality Ultrasound 08/05/2019 1:44 PM CDT Narrative Procedure Note Yash Veloz MD - 08/05/2019 [facility] [place] [address], [address] [place] [address] Lower Extremity Arterial Doppler Report Pat.Name: MACKENZIE MOREAU Pat.ID: [id number] St.Date: 08/05/2019 Exam Time: 1:44:00 PM Study Type:UE Arterial Age: 11 1955,64Y Sex: FEMALE Sonogrphr: Elmer Ashraf Rvt Pat. 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 No arterial insufficiency left lower extremity at rest. There is moderate arterial insufficiency of the right upper extremity and no arterial insufficiency left upper extremity ++++++++++++++++++++++++++++++++++++ FINDINGS: ++++++++++++++++++++++++++++++++++++ Procedure: The arterial vasculature of the lower extremities was evaluated by analysis of Doppler pressures and waveforms obtained in the legs at rest. Study Quality: This study is of adequate technical quality. MARLYN: Rt ankle brachial index is .22. Left ankle brachial index is 1.2 (normal greater than 0.90). Arterial doppler waveforms of the right [employer] are monophasic. Arterial doppler waveforms of the right DPA are monophasic. Arterial doppler waveforms of the left [employer] are triphasic. Arterial doppler waveforms of the left DPA are triphasic. Right Arm: The right brachial pressure is 149. The right radial pressure is .54. The right ulnar pressure is .61. The brachial artery waveforms are triphasic. The radial artery waveforms are monophasic. Arterial: The brachial pressure is 139. The radial pressure is 135. The ulnar pressure is 136. ++++++++++++++++++++++++++++++++++++ MEASUREMENTS: ++++++++++++++++++++++++++++++++++++ ARM PRESS Left Brachial Brachial Press 139 mmHg Right Brachial Brachial Press 149 mmHg Right Radial Radial Press 80 mmHg Right Ulnar Ulnar Press 91 mmHg DOPPLER Radial Artery Left Radial Art 135 mmHg Ulnar Artery Left Ulnar Lita 136 mmHg PRESSURES Left MARLYN (DP) MARLYN (DP) 1.2 Left MARLYN (PT) MARLYN (PT) 1.1 Left Ankle DP AnkleDP P 170 mmHg Left Ankle PT AnklePT P 165 mmHg Right MARLYN (DP) MARLYN (DP) 0.22 Right MARLYN (PT) MARLYN (PT) 0.23 Right Ankle DP AnkleDP P 32 mmHg Right Ankle PT AnklePT P 34 mmHg Right Brachial Brach P 146 mmHg Signed 08/05/2019 3:29:34 PM Yash Veloz MD Revised Yash Veloz MD VASCULAR LAB ORD ERABLES * XR KNEES AP BILATERAL STANDING (07/20/2011 4:45 PM CDT) Anatomical Region Laterality Modality Lower Extremity Other Narrative 07/20/2011 4:45 PM CDT Everton Cuevas MD 07/20/2011 4:45 PM Mild medial JSN bilateral knees Procedure Note Everton Cuevas MD - 07/20/2011 4:45 PM CDT Mild medial JSN bilateral knees Everton Cuevas MD DIAGNOSTIC IMAGING O RDERABLES * XR KNEE 1 OR 2 VW RIGHT (07/20/2011 4:45 PM CDT) Anatomical Region Laterality Modality Lower Extremity Other Narrative 07/20/2011 4:45 PM CDT Everton Cuevas MD 07/20/2011 4:45 PM Mild medial JSN bilateral knees Procedure Note Everton Cuevas MD - 07/20/2011 4:45 PM CDT Mild medial JSN bilateral knees Everton Cuevas MD DIAGNOSTIC IMAGING O RDERABLES * XR KNEE 1 OR 2 VW LEFT (07/20/2011 4:45 PM CDT) Anatomical Region Laterality Modality Lower Extremity Other Narrative 07/20/2011 4:45 PM CDT Everton Cuevas MD 07/20/2011 4:45 PM Mild medial JSN bilateral knees Procedure Note Everton Cuevas MD - 07/20/2011 4:45 PM CDT Mild medial JSN bilateral knees Everton Cuevas MD DIAGNOSTIC IMAGING O RDERABLES * XR HIPS BILAT 2VWS W PELVIS (07/20/2011 4:45 PM CDT) Anatomical Region Laterality Modality Pelvis, Lower Extremity Other Narrative 07/20/2011 4:45 PM CDT Everton Cuevas MD 07/20/2011 4:45 PM Erosive change of right ischium suggesting traumatic inflammation of hamstring insertion (weavers bottom) Procedure Note Everton Cuevas MD - 07/20/2011 4:43 PM CDT Erosive change of right ischium suggesting traumatic inflammation ofhamstring insertion (weavers bottom) Everton Cuevas MD DIAGNOSTIC IMAGING O RDERABLES * URINALYSIS AUTO - POINT OF CARE (07/20/2011 1:48 PM CDT) Clarity UA POCT Comment:P:C normal Color UA POCT Leukocyte UA negative Negative Nitrite UA POCT negative Negative Urobilinogen UA POCT 0.1 - 1.0 EU/dL Protein UA POCT negative Negative pH UA 5.0 5.0 - 8.0 pH units Blood UA small Negative Specific Jackson UA POCT 1.015 1.002 - 1.030 Ketone UA negative Negative Bilirubin UA POCT Negative Glucose UA negative Negative Urine specimen (specimen) URINE / Unknown Everton Cuevas MD LAB - POINT OF CARE ORDERABLES * DEVIKA W REFLX (POSITIVE) (PO REF LAB) (07/20/2011 11:47 AM CDT) DEVIKA Direct Negative Negative [facility] INSURANCE BILL BLOOD SPECIMEN / Unknown 07/20/2011 11:47 AM CDT 07/20/2011 7:56 PM CDT Narrative Resulting Agency Comment [facility] [phone] Everton Cuevas MD LAB - SEROLOGY ORDER KAYLYN [facility] INSURANCE BILL * (ABNORMAL) C-REACTIVE PROTEIN (07/20/2011 11:47 AM CDT) C-Reactive Protein 5.0(H) 0.0 - 4.9 mg/L [facility] INSURANCE BILL Blood specimen (specimen) BLOOD SPECIMEN / Unknown 07/20/2011 11:47 AM CDT 07/20/2011 7:56 PM CDT Narrative Resulting Agency Comment [facility] [phone] Everton Cuevas MD LAB - CHEMISTRY ORDE LAKISHA [facility] INSURANCE BILL * (ABNORMAL) COMPREHENSIVE METABOLIC PANEL (07/20/2011 11:47 AM CDT) Glucose 83 65 - 99 mg/dL [facility] INSURANCE BILL BUN 19 6 - 24 mg/dL [facility] INSURANCE BILL Creatinine 0.67 0.57 - 1.00 mg/dL [facility] INSURANCE BILL eGFR by MDRD 99 >59 mL/min/1.7 3 [facility] INSURANCE BILL eGFR by MDRD 114 >59 mL/min/1.7 3 [facility] INSURANCE BILL Comment: Note: A persistent eGFR <60 mL/min/1.73 m2 (3 months or more) may indicate chronic kidney disease. An eGFR >59 mL/min/1.73 m2 with an elevated urine protein also may indicate chronic kidney disease. Calculated using CKD-EPI formula. BUN/Creatinine Ratio 28(H) 9 - 23 [facility] INSURANCE BILL Sodium 139 134 - 144 mmol/L [facility] INSURANCE BILL Potassium 4.5 3.5 - 5.2 mmol/L [facility] INSURANCE BILL Chloride 101 97 - 108 mmol/L [facility] INSURANCE BILL CO2 25 20 - 32 mmol/L [facility] INSURANCE BILL Calcium 9.6 8.7 - 10.2 mg/dL [facility] INSURANCE BILL Protein Total 6.9 6.0 - 8.5 g/dL [facility] INSURANCE BILL Albumin 4.1 3.5 - 5.5 g/dL [facility] INSURANCE BILL Globulin Total 2.8 1.5 - 4.5 g/dL [facility] INSURANCE BILL Albumin/Globulin Ratio 1.5 1.1 - 2.5 [facility] INSURANCE BILL Bilirubin Total 0.4 0.0 - 1.2 mg/dL [facility] INSURANCE BILL Alkaline Phosphatase 85 25 - 150 IU/L [facility] INSURANCE BILL AST 21 0 - 40 IU/L [facility] INSURANCE BILL ALT 20 0 - 40 IU/L [facility] INSURANCE BILL Blood specimen (specimen) BLOOD SPECIMEN / Unknown 07/20/2011 11:47 AM CDT 07/20/2011 7:56 PM CDT Narrative Resulting Agency Comment [facility] [address] [phone] Everton Cuevas MD LAB - CHEMISTRY FERN [facility] Organization Address City/State/ZIP Co de Phone Number [facility] INSURANCE BILL Care Teams Biomedical Technician Relationship Specialty Start Date End Date Martínez Bradford MD PCP - General Internal Medicine 08/06/19 Everton Cuevas MD Rheumatology 07/19/11
--- OUTSIDE RECORDS SUMMARY | 2024-06-20 09:28 | XMS_ITS ---
Author Organization [facility] Address [address] [place] [address] Phone Care Team Providers Care Manager Van Name Role Phone ELOINA LYNCH MD Unavailable [phone] Problems Includes: Active, inactive, and resolved Problems All Visits Onset Date Resolved Date Provider Condition S tatus Vitamin Deficiency 08/13/2018 Active Last Documented On 3 5:52PM ; [facility] Panic Disorder 12/14/2017 Active Last Documented On 3 5:51PM ; [facility] Psychophysiological Insomnia 08/17/2016 Active Last Documented On 3 5:50PM ; [facility] Anemia 02/16/2016 Active Last Documented On 3 5:50PM ; [facility] Cath Mitral Regurgitation 07/28/2012 Active Last Documented On 3 5:45PM ; [facility] 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 Last Documented On 3 5:45PM ; [facility] Migraine Headache 07/28/2012 Active Last Documented On 3 5:45PM ; [facility] 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 Last Documented On 3 5:45PM ; [facility] Major Depression, Recurrent 07/14/2012 Active Last Documented On 3 5:45PM ; [facility] Fracture Hip 05/08/2012 Unknown Resolved Last Documented On 3 5:43PM ; [facility] Generalized Anxiety Disorder 05/08/2012 Active Last Documented On 3 5:43PM ; [facility] Gerd 05/08/2012 Active Last Documented On 3 5:43PM ; [facility] Hypertension Systemic 05/08/2012 Act florinda Last Documented On 3 5:43PM ; [facility] Hypothyroidism 05/08/2012 Active Last Documented On 3 5:43PM ; [facility] Pelvic Fracture 05/08/2012 Unknown Resolved Last Documented On 3 5:43PM ; [facility] Plan of Treatment Future Appointments Date Time Location Provi jovany PSYCH ADULT FOLLOW UP 06/30/2024 10:00AM [facility] OUP-PSY ELOINA LYNCH MD Last Documented On 4 10:24AM ; [facility] Education and Decision Aids were provided during visit for: Discussed good sleep hygiene habits Last Documented On 4 1:51AM ; [facility] Calming techniques such as b reathing exercises/meditation and other relaxation techniques Last Documented On 4 1:51AM ; [facility] Calming techniques such as b reathing exercises/meditation and other relaxation techniques Last Documented On 4 10:17AM ; [facility] Discussed good sleep hygiene habits Last Documented On 3 11:17AM ; [facility] Assessments Includes: Assessments for all patient encounters Findings Encounter Date Generalized anxiety disorder TELEHEALTH ADULT PSYCH ESTABLISHED with ELOINA LYNCH MD 09/18/2023 Last Documented On 4 1:54AM ; [facility] Major depression, recurrent TELEHEALTH A DULT PSYCH ESTABLISHED with ELOINA LYNCH MD 09/18/2023 Last Documented On 4 1:54AM ; [facility] Migraine headache TELEHEALTH ADULT PSY CH ESTABLISHED with ELOINA LYNCH MD 09/18/2023 Last Documented On 4 1:54AM ; [facility] Panic disorder TELEHEALTH ADULT PSY CH ESTABLISHED with ELOINA LYNCH MD 09/18/2023 Last Documented On 4 1:54AM ; [facility] Psychophysiological insomnia TELEHEALTH ADULT PSYCH ESTABLISHED with ELOINA LYNCH MD 09/18/2023 Last Documented On 4 1:54AM ; [facility] Generalized anxiety disorder TELEHEALTH ADULT PSYCH ESTABLISHED with ELOINA LYNCH MD 05/31/2023 Last Documented On 4 10:20AM ; [facility] Major depression, recurrent TELEHEALTH A DULT PSYCH ESTABLISHED with ELOINA LYNCH MD 05/31/2023 Last Documented On 4 10:20AM ; [facility] Migraine headache TELEHEALTH ADULT PSY CH ESTABLISHED with ELOINA LYNCH MD 05/31/2023 Last Documented On 4 10:20AM ; [facility] Panic disorder TELEHEALTH ADULT PSY CH ESTABLISHED with ELOINA LYNCH MD 05/31/2023 Last Documented On 4 10:20AM ; [facility] Psychophysiological insomnia TELEHEALTH ADULT PSYCH ESTABLISHED with ELOINA LYNCH MD 05/31/2023 Last Documented On 4 10:20AM ; [facility] Generalized anxiety disorder TELEHEALTH ADULT PSYCH ESTABLISHED with ELOINA LYNCH MD 02/28/2023 Last Documented On 3 2:55AM ; [facility] Major depression, recurrent TELEHEALTH A DULT PSYCH ESTABLISHED with ELOINA LYNCH MD 02/28/2023 Last Documented On 3 2:55AM ; [facility] Migraine headache TELEHEALTH ADULT PSY CH ESTABLISHED with ELOINA LYNCH MD 02/28/2023 Last Documented On 3 2:55AM ; [facility] Panic disorder TELEHEALTH ADULT PSY CH ESTABLISHED with ELOINA LYNCH MD 02/28/2023 Last Documented On 3 2:55AM ; [facility] Psychophysiological insomnia TELEHEALTH ADULT PSYCH ESTABLISHED with ELOINA LYNCH MD 02/28/2023 Last Documented On 3 2:55AM ; [facility] Generalized anxiety disorder TELEHEALTH ADULT PSYCH ESTABLISHED with ELOINA LYNCH MD 11/21/2022 Last Documented On 3 9:09AM ; [facility] Major depression, recurrent TELEHEALTH A DULT PSYCH ESTABLISHED with ELOINA LYNCH MD 11/21/2022 Last Documented On 3 9:09AM ; [facility] Migraine headache TELEHEALTH ADULT PSY CH ESTABLISHED with ELOINA LYNCH MD 11/21/2022 Last Documented On 3 9:09AM ; [facility] Panic disorder TELEHEALTH ADULT PSY CH ESTABLISHED with ELOINA LYNCH MD 11/21/2022 Last Documented On 3 9:09AM ; [facility] Psychophysiological insomnia TELEHEALTH ADULT PSYCH ESTABLISHED with ELOINA LYNCH MD 11/21/2022 Last Documented On 3 9:09AM ; [facility] Instructions Includes: Instructions for all patient encounters Education and Decision Aids were provided during visit for: Discussed good sleep hygiene habits Last Documented On 4 1:51AM ; [facility] Calming techniques such as b reathing exercises/meditation and other relaxation techniques Last Documented On 4 1:51AM ; [facility] Calming techniques such as b reathing exercises/meditation and other relaxation techniques Last Documented On 4 10:17AM ; [facility] Discussed good sleep hygiene habits Last Documented On 3 11:17AM ; [facility] Medical Equipment - Implanted Devices Includes: Current and historical Devices No Medical Equipment Recorded Medications Includes: Current and historical Medications Current Medications (continue as prescribed) Remicade 100 MG Intravenous Solution Reconstituted 08/2023 Provider: Diagnosis: 1 q 2 weeks for 1 month then 1 infusion q 2 joey hs Last Documented On 09/18/2023 9:29AM By DEMETRIA ARZATE ; [facility] traZODone HCl 100 MG Oral Tablet 09/13/2023 Provider: ELOINA LYNCH MD Diagnosis: Psychophysiologi c insomnia TAKE 2 TO 3 TABLETS BY MOUTH AT BEDTIME Last Documented On 09/13/2023 4:05PM By Barbara Lynch MD ; [facility] hydrALAZINE HCl 10 MG Oral Tablet 09/10/2023 Provide r: MARTELL ROBERTS MD Diagnosis: 1 tab daily Last Documented On 09/18/2023 9:29AM By DEMETRIA ARZATE ; [facility] Leflunomide 20 MG Oral Tablet 08/19/2023 Provider: Diagnosis: 1 tab daily Last Documented On 09/18/2023 9:30AM By DEMETRIA ARZATE ; [facility] Sertraline HCl 100 MG Oral Tablet 07/18/2023 Provide r: ELOINA LYNCH MD Diagnosis: 2 tabs po qd Last Documented On 07/18/2023 1:36PM By Barbara Lynch MD ; [facility] Sotalol HCl 80 MG Oral Tablet 07/18/2023 Provider: MARTELL ROBERTS MD Diagnosis: 1 tab bid Last Documented On 09/18/2023 9:30AM By DEMETRIA ARZATE ; [facility] buPROPion HCl ER (XL) 300 MG Oral Tablet Extended Release 24 Hour 06/19/2023 Provider: ELOINA LYNCH MD Diagnosis: Major depressive disorder, recurrent, unspecified TAKE ONE TABLET BY MOUTH DOMINIK RY MORNING Last Documented On 06/19/2023 10:14AM By Barbara Lynch MD ; [facility] Sertraline HCl 100 MG Oral Tablet 06/18/2023 Provide r: Diagnosis: 2 tabs po qd Last Documented On 07/18/2023 1:31PM By DEMETRIA ARZATE ; [facility] Torsemide 20 MG Oral Tablet 05/31/2023 Provider: Diagnosis: 1 tab daily Last Documented On 05/31/2023 9:23AM By DEMETRIA ARZATE ; [facility] busPIRone HCl 15 MG Oral Tablet 04/22/2023 Provider: ELONIA LYNCH MD Diagnosis: Generalized anxi ety disorder One tablet three times a day Last Documented On 04/22/2023 2:27PM By Barbara Lynch MD ; [facility] QUEtiapine Fumarate 50 MG Oral Tablet 03/14/2023 Provider: ELOINA LYNCH MD Diagnosis: Insomnia, unspec ified as directed 2 tablets at bedtime Last Documented On 03/14/2023 11:47AM By Barbara Lynch MD ; [facility] Dicyclomine HCl 20 MG Oral Tablet 02/28/2023 Provider: ELOINA LYNCH MD Diagnosis: Irritable bowel syndrome with constipation One tablet daily Last Documented On 02/28/2023 10:10AM By Barbara Lynch MD ; [facility] clonazePAM 0.5 MG OR TABS 06/14/2022 Provider: ME MATTIE LYNCH MD Diagnosis: Panic disorder [ episodic paroxysmal anxiety] ud - as directed as directed take as needed for anxiety Last Documented On 08/11/2022 5:27PM By Barbara Lynch MD ; [facility] Levothyroxine Sodium 50 MCG OR TABS 05/16/2021 Provi jovany: Diagnosis: 1 tab daily with 175 mcg 1.5 tabs daily Last Documented On 08/11/2022 5:27PM By DEMETRIA ARZATE ; [facility] Levothyroxine Sodium 175 MCG OR TABS 11/14/2020 Prov ider: Diagnosis: Take 1.5 tabs daily Last Documented On 08/11/2022 5:27PM By DEMETRIA ARZATE ; [facility] cloNIDine HCl 0.1 MG OR TABS 11/14/2020 Provider: Diagnosis: 1 tab prn if BP 160/? Last Documented On 08/11/2022 5:27PM By DEMETRIA ARZATE ; [facility] Vitamin D3 25 MCG (1000 UT) OR CHEW 05/25/2020 P rovider: Diagnosis: 1 tab bid otc Last Documented On 08/11/2022 5:27PM By DEMETRIA ARZATE ; [facility] Adult Aspirin EC Low Strength 81 MG OR TBEC 05/25/2020 Provider: Diagnosis: 1 tab daily Last Documented On 08/11/2022 5:27PM By DEMETRIA ARZATE ; [facility] Eliquis 5 MG OR TABS 11/17/2019 Provider: Diagnosis: 1 tab bid Last Documented On 08/11/2022 5:27PM By DEMETRIA ARZATE ; [facility] Hydroxychloroquine Sulfate 200 MG OR TABS 06/12/2018 Provider: Diagnosis: 1 TAB BID Last Documented On 08/11/2022 5:27PM By DEMETRIA ARZATE ; [facility] Potassium Chloride ER 10 MEQ OR TBCR 02/20/2018 Prov ider: Diagnosis: 1 tablet daily in the am Last Documented On 08/11/2022 5:27PM By DEMETRIA ARZATE ; [facility] Olmesartan Medoxomil 40 MG OR TABS 02/20/2018 Provid er: Diagnosis: 1 tab daily Last Documented On 08/11/2022 5:27PM By DEMETRIA ARZATE ; [facility] L-Lysine 500 MG OR TABS 02/20/2018 Provider: Diagnosis: 1 tab bid otc Last Documented On 08/11/2022 5:27PM By DEMETRIA ARZATE ; [facility] Calcium 1000 + D 1000-800 MG-UNIT OR TABS 04/24/2017 Provider: Diagnosis: 2 a day Last Documented On 08/11/2022 5:27PM By Barbara Lynch MD ; [facility] amLODIPine Besylate 10 MG OR TABS 01/19/2013 Provide r: Diagnosis: Last Documented On 08/11/2022 5:27PM By JACQUELINE ARZATE ; [facility] Hair Vitamins OR TABS 01/19/2013 Provider: Diagnosis: 1 in the a.m. 1 in the p.m. Last Documented On 08/11/2022 5:27PM By JACQUELINE ARZATE ; [facility] Betamethasone Dipropionate 0.05% EX OINT 07/28/2012 Provider: Diagnosis: Last Documented On 08/11/2022 5:27PM By JACQUELINE ALVAREZ ; [facility] Hydrocortisone 2.5% EX CREA 07/28/2012 Provider: Diagnosis: Last Documented On 08/11/2022 5:27PM By JACQUELINE ALVAREZ ; [facility] Omeprazole 20 MG OR CPDR 07/28/2012 Provider: Diagnosis: Last Documented On 08/11/2022 5:27PM By JACQUELINE ALVAREZ ; [facility] ZyrTEC Allergy 10 MG OR CAPS 07/28/2012 Provider: Diagnosis: Last Documented On 08/11/2022 5:27PM By JACQUELINE ALVAREZ ; [facility] Clobetasol Propionate 0.05% EX CREA 07/28/2012 Provi jovany: Diagnosis: Last Documented On 08/11/2022 5:27PM By JACQUELINE ALVAREZ ; [facility] Mupirocin 2% EX OINT 07/28/2012 Provider: Diagnosis: Last Documented On 08/11/2022 5:27PM By JACQUELINE ALVAREZ ; [facility] Past Medications on file traZODone HCl 100 MG Oral Tablet 06/19/2023 - 09/13/2023 Provider: ELOINA LYNCH MD Diagnosis: Psychophysiologi c insomnia TAKE 2 TO 3 TABLETS BY MOUTH AT BEDTIME Last Documented On 09/13/2023 4:04PM By Barbara Lynch MD ; [facility] Remicade 100 MG Intravenous Solution Reconstituted 05/31/2023 - 09/18/2023 Provider: Diagnosis: 1 q 2 weeks for 1 month then 1 infusion q 2 months -- on hold due to heart problems (05/31/23) Last Documented On 09/18/2023 9:29AM By DEMETRIA ARZATE ; [facility] buPROPion HCl ER (XL) 300 MG Oral Tablet Extended Release 24 Hour 05/16/2023 - 06/19/2023 Provider: ELOINA CASTELLANOS MD Diagnosis: TAKE ONE TABLET BY MOUTH EVERY MORNING Last Documented On 06/19/2023 10:14AM By Barbara Lynch MD ; [facility] Flecainide Acetate 50 MG Oral Tablet 05/10/2023 - 08/2023 Provider: MARTELL ROBERTS MD Diagnosis: 1 tab bid Last Documented On 09/18/2023 9:11AM By DEMETRIA ARZATE ; [facility] busPIRone HCl 15 MG Oral Tablet 03/14/2023 - 04/22/2023 Provider: ELOINA LYNCH MD Diagnosis: Generalized anxi ety disorder One tablet three times a day Last Documented On 04/22/2023 2:26PM By Barbara Lynch MD ; [facility] QUEtiapine Fumarate 50 MG Oral Tablet 03/14/2023 - 03/14/2023 Provider: ELOINA LYNCH MD Diagnosis: Insomnia, unspec ified 2 tablets at bedtime Last Documented On 03/14/2023 2:25PM By GEO FLOR ; [facility] busPIRone HCl 15 MG Oral Tablet 03/14/2023 - 03/14/2023 Provider: ELOINA LYNCH MD Diagnosis: Generalized anxi ety disorder 1 tablet three times a day Last Documented On 03/14/2023 2:25PM By GEO FLOR ; [facility] traZODone HCl 100 MG Oral Tablet 03/13/2023 - 06/19/2023 Provider: ELOINA LYNCH MD Diagnosis: Psychophysiologi c insomnia TAKE 2 TO 3 TABLETS BY MOUTH AT BEDTIME Last Documented On 06/19/2023 10:14AM By Barbara Lynch MD ; [facility] Sertraline HCl 100 MG Oral Tablet 01/17/2023 - 01/18/2023 Provider: ELOINA LYNCH MD Diagnosis: Major depressive disorder, recurrent, moderate 2 tablets at bedtime Last Documented On 01/18/2023 9:04AM By GEO FLOR ; [facility] Topiramate 50 MG Oral Tablet 01/17/2023 - 01/18/2023 Provider: ELOINA LYNCH MD Diagnosis: Migraine w/o aur a, not intractable, w/o status migrainosus one tablet every morning and 2 tablets every evening Last Documented On 01/18/2023 9:04AM By GEO FLOR ; [facility] Sertraline HCl 100 MG Oral Tablet 01/17/2023 - 07/16/2023 Provider: ELOINA LYNCH MD Diagnosis: Major depressive disorder, recurrent, moderate as directed -2 tabs daily Last Documented On 01/17/2023 10:58AM By Barbara Lynch MD ; [facility] Topiramate 50 MG Oral Tablet 01/17/2023 - 07/16/2023 Provider: ELOINA LYNCH MD Diagnosis: Migraine w/o aur a, not intractable, w/o status migrainosus one tablet every morning and 2 tablets every evening Last Documented On 01/17/2023 10:58AM By Barbara Lynch MD ; [facility] traZODone HCl 100 MG Oral Tablet 01/16/2023 - 03/13/2023 Provider: ELOINA LYNCH MD Diagnosis: Psychophysiologi c insomnia TAKE 2-3 TABLETS BY MOUTH AT BEDTIME Last Documented On 03/13/2023 10:28AM By Barbara Lynch MD ; [facility] traZODone HCl 100 MG Oral Tablet 09/14/2022 - 01/16/2023 Provider: ELOINA LYNHC MD Diagnosis: Psychophysiologi c insomnia DIRECTED, TAKE 2 -3 TABLETS AT BEDTIME Last Documented On 01/16/2023 2:42PM By Barbara Lynch MD ; [facility] Sertraline HCl 100 MG OR TABS 07/16/2022 - 01/18/2023 Provider: ELOINA LYNCH MD Diagnosis: Major depressive disorder, recurrent, moderate TAKE 2 TABLETS BY MOUTH AT B EDTIME DIRECTED Last Documented On 01/18/2023 9:04AM By GEO FLOR ; [facility] Topiramate 50 MG OR TABS 07/16/2022 - 01/18/2023 Provider: ELOINA LYNCH MD Diagnosis: Migraine w/o aur a, not intractable, w/o status migrainosus TAKE ONE TABLET BY MOUTH DOMINIK RY MORNING AND TAKE TWO TABLETS BY MOUTH EVERY EVENING DIRECTED Last Documented On 01/18/2023 9:04AM By GEO FLOR ; [facility] buPROPion HCl ER (XL) 300 MG OR TB24 05/17/2022 - 05/16/2023 Provider: ELOINA CASTELLANOS MD Diagnosis: TAKE ONE TABLET BY MOUTH EVERY MORNING Last Documented On 05/16/2023 1:44PM By Barbara Lynch MD ; [facility] traZODone HCl 100 MG OR TABS 05/17/2022 - 09/14/2022 Provider: ELOINA LYNCH MD Diagnosis: Psychophysiologi c insomnia DIRECTED, TAKE 2 -3 TABLETS AT BEDTIME Last Documented On 09/14/2022 5:40PM By Barbara Lynch MD ; [facility] QUEtiapine Fumarate 50 MG OR TABS 03/19/2022 - 03/14/2023 Provider: ELOINA LYNCH MD Diagnosis: Insomnia, unspec ified as directed --2 at bedtime Last Documented On 03/14/2023 2:26PM By GEO FLOR ; [facility] busPIRone HCl 15 MG OR TABS 02/20/2022 - 03/14/2023 Provider: ELOINA LYNCH MD Diagnosis: Generalized anxi ety disorder One tablet three times a day Last Documented On 03/14/2023 2:26PM By GEO FLOR ; [facility] Topiramate 50 MG OR TABS 01/15/2022 - 07/16/2022 Provider: ELOINA LYNCH MD Diagnosis: Migraine w/o aur a, not intractable, w/o status migrainosus as directed - 1 in am and 2 in evening Last Documented On 08/11/2022 5:27PM By Barbara Lynch MD ; [facility] Zoloft 100 MG OR TABS 01/15/2022 - 07/16/2022 Provider : ELOINA LYNCH MD Diagnosis: Major depressive disorder, recurrent, moderate as directed -- 2 tablets at bedtime Last Documented On 08/11/2022 5:27PM By Barbara Lynch MD ; [facility] traZODone HCl 100 MG OR TABS 12/13/2021 - 05/17/2022 Provider: ELOINA LYNCH MD Diagnosis: Psychophysiologi c insomnia as directed 2 - 3 tablets at bed time Last Documented On 08/11/2022 5:27PM By Barbara Lynch MD ; [facility] Remicade 100 MG IV SOLR 11/23/2021 - 05/31/2023 Provid er: Diagnosis: 1 q 2 weeks for 1 month then 1 infusion q 2 joey hs Last Documented On 05/31/2023 9:33AM By DEMETRIA ARZATE ; [facility] Torsemide 10 MG OR TABS 10/25/2021 - 09/18/2023 Provid er: Diagnosis: 2 tabs daily Last Documented On 09/18/2023 9:12AM By DEMETRIA ARZATE ; [facility] traZODone HCl 100 MG OR TABS 10/19/2021 - 12/13/2021 Provider: ELOINA LYNCH MD Diagnosis: Psychophysiologi c insomnia as directed 2 - 3 tablets at bed time Last Documented On 08/11/2022 5:27PM By Barbara Lynch MD ; [facility] Topiramate 50 MG OR TABS 07/17/2021 - 01/15/2022 Provider: ELOINA LYNCH MD Diagnosis: Migraine w/o aur a, not intractable, w/o status migrainosus as directed - 1 in am and 2 in evening Last Documented On 08/11/2022 5:27PM By Barbara Lynch MD ; [facility] clonazePAM 0.5 MG OR TABS 06/16/2021 - 06/14/2022 Provider: ELOINA LYNCH MD Diagnosis: Panic disorder [episodic paroxysmal anxiety] ud - as directed as directed take as needed for anxiety Last Documented On 08/11/2022 5:27PM By Barbara Lynch MD ; [facility] Zoloft 100 MG OR TABS 05/22/2021 - 01/15/2022 Provider : ELOINA LYNCH MD Diagnosis: Major depressive disorder, recurrent, moderate as directed -- 2 tablets at bedtime Last Documented On 08/11/2022 5:27PM By Barbara Lynch MD ; [facility] buPROPion HCl ER (XL) 300 MG OR TB24 03/16/2021 - 05/23/2022 Provider: ELOINA LYNCH MD Diagnosis: Major depressive disorder, recurrent, moderate 1 tablet every morning Last Documented On 08/11/2022 5:27PM By Barbara Lynch MD ; [facility] QUEtiapine Fumarate 50 MG OR TABS 03/16/2021 - 03/19/2022 Provider: ELOINA LYNCH MD Diagnosis: Insomnia, unspec ified as directed --2 at bedtime Last Documented On 08/11/2022 5:27PM By Barbara Lynch MD ; [facility] busPIRone HCl 15 MG OR TABS 01/17/2021 - 02/20/2022 Provider: ELOINA LYNCH MD Diagnosis: Generalized anxi ety disorder One tablet three times a day Last Documented On 08/11/2022 5:27PM By Barbara Lynch MD ; [facility] traZODone HCl 100 MG OR TABS 12/16/2020 - 10/19/2021 Provider: ELOINA LYNCH MD Diagnosis: Psychophysiologi c insomnia as directed 2 - 3 tablets at bed time Last Documented On 08/11/2022 5:27PM By Barbara Lynch MD ; [facility] Topiramate 50 MG OR TABS 11/22/2020 - 07/17/2021 Provider: ELOINA LYNCH MD Diagnosis: Migraine w/o aur a, not intractable, w/o status migrainosus as directed - 1 in am and 2 in evening Last Documented On 08/11/2022 5:27PM By Barbara Lynch MD ; [facility] Iron 325 (65 Fe) MG OR TABS 11/22/2020 - Provider: Diagnosis: 2 tabs qod Last Documented On 08/11/2022 5:27PM By DEMETRIA ARZATE ; [facility] Metoprolol Succinate ER 50 MG OR TB24 10/14/2020 - 08/2023 Provider: Diagnosis: 1/2 tab daily Last Documented On 09/18/2023 9:12AM By DEMETRIA ARZATE ; [facility] busPIRone HCl 15 MG OR TABS 10/14/2020 - 01/17/2021 Provider: ELOINA LYNCH MD Diagnosis: Generalized anxi ety disorder One tablet three times a day Last Documented On 08/11/2022 5:27PM By Barbara Lynch MD ; [facility] Amiodarone HCl 200 MG OR TABS 10/14/2020 - 05/31/2023 Provider: Diagnosis: 1/2 tab daily Last Documented On 05/31/2023 9:11AM By DEMETRIA ARZATE ; [facility] traZODone HCl 100 MG OR TABS 10/14/2020 - 12/16/2020 Provider: ELOINA LYNCH MD Diagnosis: Psychophysiologi c insomnia as directed 2 - 3 tablets at bed time Last Documented On 08/11/2022 5:27PM By Barbara Lynch MD ; [facility] QUEtiapine Fumarate 50 MG OR TABS 06/16/2020 - 03/16/2021 Provider: ELOINA LYNCH MD Diagnosis: Insomnia, unspec ified as directed --2 at bedtime Last Documented On 08/11/2022 5:27PM By Barbara Lynch MD ; [facility] buPROPion HCl ER (XL) 300 MG OR TB24 06/16/2020 - 03/16/2021 Provider: ELOINA LYNCH MD Diagnosis: Major depressive disorder, recurrent, moderate 1 tablet every morning Last Documented On 08/11/2022 5:27PM By Barbara Lynch MD ; [facility] Amiodarone HCl 200 MG OR TABS 05/25/2020 - 06/24/2020 Provider: Diagnosis: pt states she takes 100 mg daily for Afib Last Documented On 08/11/2022 5:27PM By DEMETRIA ARZATE ; [facility] Topiramate 50 MG OR TABS 05/25/2020 - 11/22/2020 Provider: ELOINA LYNCH MD Diagnosis: Migraine w/o aur a, not intractable, w/o status migrainosus as directed - 1 in am and 2 in evening Last Documented On 08/11/2022 5:27PM By Barbara Lynch MD ; [facility] buPROPion HCl ER (XL) 300 MG OR TB24 05/17/2020 - 06/16/2020 Provider: ELOINA LYNCH MD Diagnosis: Major depressive disorder, recurrent, moderate 1 tablet every morning Last Documented On 08/11/2022 5:27PM By Barbara Lynch MD ; [facility] Zoloft 100 MG OR TABS 05/17/2020 - 05/22/2021 Provider : ELOINA LYNCH MD Diagnosis: Major depressive disorder, recurrent, moderate as directed -- 2 tablets at bedtime Last Documented On 08/11/2022 5:27PM By Barbara Lynch MD ; [facility] traZODone HCl 100 MG OR TABS 01/14/2020 - 10/14/2020 Provider: ELOINA LYNCH MD Diagnosis: Psychophysiologi c insomnia as directed 2 - 3 tablets at bed time Last Documented On 08/11/2022 5:27PM By Barbara Lynch MD ; [facility] Aimovig 70 MG/ML SC SOAJ 12/03/2019 - 01/02/2020 Provider: ELOINA LYNCH MD Diagnosis: Migraine w/o aur a, not intractable, w/o status migrainosus as directed Last Documented On 08/11/2022 5:27PM By Barbara Lynch MD ; [facility] Bystolic 5 MG OR TABS 12/03/2019 - 11/22/2020 Provider : Diagnosis: 1 tab daily Last Documented On 08/11/2022 5:27PM By DEMETRIA ARZATE ; [facility] Aimovig 70 MG/ML SC SOAJ 12/03/2019 - 11/22/2020 Provider: ELOINA CASTELLANOS MD Diagnosis: Migraine w/o aur a, not intractable, w/o status migrainosus 1 Capsule every morning Last Documented On 08/11/2022 5:27PM By Barbara Lynch MD ; [facility] Amiodarone HCl 200 MG OR TABS 11/16/2019 - 05/25/2020 Provider: Diagnosis: pt states she takes 75 mg daily for Afib Last Documented On 08/11/2022 5:27PM By DEMETRIA ARZATE ; [facility] busPIRone HCl 15 MG OR TABS 10/13/2019 - 10/14/2020 Provider: ELOINA LYNCH MD Diagnosis: Generalized anxi ety disorder One tablet three times a day Last Documented On 08/11/2022 5:27PM By Barbara Lynch MD ; [facility] Clopidogrel Bisulfate 75 MG OR TABS 10/12/2019 - 05/25 Provider: Diagnosis: 1 tab daily Last Documented On 08/11/2022 5:27PM By DEMETRIA ARZATE ; [facility] QUEtiapine Fumarate 50 MG OR TABS 06/16/2019 - 06/16/2020 Provider: ELOINA LYNCH MD Diagnosis: Insomnia, unspec ified as directed --2 at bedtime Last Documented On 08/11/2022 5:27PM By Barbara Lynch MD ; [facility] Zoloft 100 MG OR TABS 05/18/2019 - 05/17/2020 Provider : ELOINA LYNCH MD Diagnosis: Major depressive disorder, recurrent, moderate as directed -- 2 tablets at bedtime Last Documented On 08/11/2022 5:27PM By Barbara Lynch MD ; [facility] traZODone HCl 100 MG OR TABS 05/18/2019 - 01/14/2020 Provider: ELOINA LYNCH MD Diagnosis: Psychophysiologi c insomnia as directed 2 - 3 tablets at bed time Last Documented On 08/11/2022 5:27PM By Barbara Lynch MD ; [facility] buPROPion HCl ER (XL) 300 MG OR TB24 05/18/2019 - 05/17/2020 Provider: ELOINA LYNCH MD Diagnosis: Major depressive disorder, recurrent, moderate 1 tablet every morning Last Documented On 08/11/2022 5:27PM By Barbara Lynch MD ; [facility] Vitamin D3 25 MCG (1000 UT) OR CHEW 02/25/2019 - 0 05/25/2020 Provider: Diagnosis: 1 tab daily otc Last Documented On 08/11/2022 5:27PM By DEMETRIA ARZATE ; [facility] Emgality 120 MG/ML SC SOSY 02/25/2019 - 12/03/2019 Pro vider: Diagnosis: 1 injection once a month Last Documented On 08/11/2022 5:27PM By DEMETRIA ARZATE ; [facility] Leflunomide 10 MG OR TABS 02/25/2019 - 07/24/2019 Prov ider: Diagnosis: [address] Grajeda ([place]) Last Documented On 08/11/2022 5:27PM By DEMETRIA ARZATE ; [facility] busPIRone HCl 15 MG OR TABS 09/22/2018 - 10/13/2019 Provider: ELOINA LYNCH MD Diagnosis: Generalized anxi ety disorder One tablet three times a day Last Documented On 08/11/2022 5:27PM By Barbara Lynch MD ; [facility] QUEtiapine Fumarate 50 MG OR TABS 09/22/2018 - 06/16/2019 Provider: ELOINA LYNCH MD Diagnosis: Insomnia, unspec ified as directed --2 at bedtime Last Documented On 08/11/2022 5:27PM By Barbara Lynch MD ; [facility] clonazePAM 0.5 MG OR TABS 09/22/2018 - 06/16/2021 Provider: ELOINA LYNCH MD Diagnosis: Panic disorder [episodic paroxysmal anxiety] ud - as directed as directed take as needed for anxiety Last Documented On 08/11/2022 5:27PM By Barbara Lynch MD ; [facility] Zoloft 100 MG OR TABS 09/22/2018 - 05/18/2019 Provider : ELOINA LYNCH MD Diagnosis: Major depressive disorder, recurrent, moderate as directed -- 2 tablets at bedtime Last Documented On 08/11/2022 5:27PM By Barbara Lynch MD ; [facility] buPROPion HCl ER (XL) 300 MG OR TB24 09/22/2018 - 05/18/2019 Provider: ELOINA LYNCH MD Diagnosis: Major depressive disorder, recurrent, moderate 1 tablet every morning Last Documented On 08/11/2022 5:27PM By Barbara Lynch MD ; [facility] traZODone HCl 100 MG OR TABS 09/22/2018 - 05/18/2019 Provider: ELOINA LYNCH MD Diagnosis: Psychophysiologi c insomnia as directed 2 - 3 tablets at bed time Last Documented On 08/11/2022 5:27PM By Barbara Lynch MD ; [facility] traZODone HCl 100 MG OR TABS 09/15/2018 - 09/19/2018 Provider: ELOINA LYNCH MD Diagnosis: Psychophysiologi c insomnia as directed 2 - 3 tablets at bed time Last Documented On 08/11/2022 5:27PM By Barbara Lynch MD ; [facility] Mupirocin Calcium 2% EX CREA 07/02/2018 - 09/19/2018 Oumar brooks: Diagnosis: apply once a day prn to affected areas Last Documented On 08/11/2022 5:27PM By DEMETRIA ARZATE ; [facility] busPIRone HCl 15 MG OR TABS 06/14/2018 - 09/19/2018 Provider: ELOINA LYNCH MD Diagnosis: Generalized anxi ety disorder One tablet three times a day Last Documented On 08/11/2022 5:27PM By Barbara Lynch MD ; [facility] Zoloft 100 MG OR TABS 06/14/2018 - 09/19/2018 Provider : ELOINA LYNCH MD Diagnosis: Major depressive disorder, recurrent, moderate as directed -- 2 tablets at bedtime Last Documented On 08/11/2022 5:27PM By Barbara Lynch MD ; [facility] Rexulti 0.5 MG OR TABS 06/14/2018 - 06/14/2018 Provider: ELOINA CASTELLANOS MD Diagnosis: Major depressive disorder, recurrent, moderate as directed -- taper down to 0.5 mg a day for 1 week then stop Last Documented On 08/11/2022 5:27PM By Barbara Lynch MD ; [facility] buPROPion HCl ER (XL) 300 MG OR TB24 06/14/2018 - 09/19/2018 Provider: ELOINA LYNCH MD Diagnosis: Major depressive disorder, recurrent, moderate 1 tablet every morning Last Documented On 08/11/2022 5:27PM By Barbara Lynch MD ; [facility] clonazePAM 0.5 MG OR TABS 06/14/2018 - 09/19/2018 Provider: ELOINA LYNCH MD Diagnosis: Panic disorder [episodic paroxysmal anxiety] ud - as directed as directed take as needed for anxiety Last Documented On 08/11/2022 5:27PM By Barbara Lynch MD ; [facility] traZODone HCl 100 MG OR TABS 06/14/2018 - 09/15/2018 Provider: ELOINA LYNCH MD Diagnosis: Psychophysiologi c insomnia as directed 2 - 3 tablets at bed time Last Documented On 08/11/2022 5:27PM By Barbara Lynch MD ; [facility] QUEtiapine Fumarate 50 MG OR TABS 06/12/2018 - 06/12/2018 Provider: ELOINA LYNCH MD Diagnosis: Insomnia, unspec ified as directed Last Documented On 08/11/2022 5:27PM By Barbara Lynch MD ; [facility] QUEtiapine Fumarate 50 MG OR TABS 06/12/2018 - 09/19/2018 Provider: ELOINA LYNCH MD Diagnosis: Insomnia, unspec ified as directed --2 at bedtime Last Documented On 08/11/2022 5:27PM By Barbara Lynch MD ; [facility] buPROPion HCl ER (XL) 300 MG OR TB24 05/19/2018 - 06/12/2018 Provider: ELOINA LYNCH MD Diagnosis: Major depressive disorder, recurrent, moderate 1 tablet every morning Last Documented On 08/11/2022 5:27PM By Barbara Lynch MD ; [facility] Zoloft 100 MG OR TABS 05/19/2018 - 06/12/2018 Provider : ELOINA LYNCH MD Diagnosis: Major depressive disorder, recurrent, moderate as directed -- 2 tablets at bedtime Last Documented On 08/11/2022 5:27PM By Barbara Lynch MD ; [facility] QUEtiapine Fumarate 50 MG OR TABS 05/19/2018 - 06/12/2018 Provider: ELOINA LYNCH MD Diagnosis: Insomnia, unspec ified One tablet at bed time Last Documented On 08/11/2022 5:27PM By Barbara Lynch MD ; [facility] Rexulti 1 MG OR TABS 04/24/2018 - 09/19/2018 Provider: ELOINA LYNCH MD Diagnosis: Major depressive disorder, recurrent, moderate as directed -- 1 tab a day Last Documented On 08/11/2022 5:27PM By Barbara Lynch MD ; [facility] busPIRone HCl 15 MG OR TABS 03/05/2018 - 06/12/2018 Provider: ELOINA LYNCH MD Diagnosis: Generalized anxi ety disorder One tablet three times a day Last Documented On 08/11/2022 5:27PM By Barbara Lynch MD ; [facility] traZODone HCl 100 MG OR TABS 03/05/2018 - 06/12/2018 Provider: ELOINA LYNCH MD Diagnosis: Psychophysiologi c insomnia as directed 2 - 3 tablets at bed time Last Documented On 08/11/2022 5:27PM By Barbara Lynch MD ; [facility] Zoloft 100 MG OR TABS 03/05/2018 - 05/19/2018 Provider : ELOINA LYNCH MD Diagnosis: Major depressive disorder, recurrent, moderate as directed -- 2 tablets at bedtime Last Documented On 08/11/2022 5:27PM By Barbara Lynch MD ; [facility] QUEtiapine Fumarate 50 MG OR TABS 03/05/2018 - 05/19/2018 Provider: ELOINA LYNCH MD Diagnosis: Insomnia, unspec ified One tablet at bed time Last Documented On 08/11/2022 5:27PM By Barbara Lynch MD ; [facility] clonazePAM 0.5 MG OR TABS 03/05/2018 - 06/12/2018 Provider: ELOINA LYNCH MD Diagnosis: Panic disorder [episodic paroxysmal anxiety] ud - as directed as directed take as needed for anxiety Last Documented On 08/11/2022 5:27PM By Barbara Lynch MD ; [facility] buPROPion HCl ER (XL) 300 MG OR TB24 03/05/2018 - 05/19/2018 Provider: ELOINA LYNCH MD Diagnosis: Major depressive disorder, recurrent, moderate 1 tablet every morning Last Documented On 08/11/2022 5:27PM By Barbara Lynch MD ; [facility] Rexulti 1 MG OR TABS 02/20/2018 - 04/24/2018 Provider: ELOINA LYNCH MD Diagnosis: Major depressive disorder, recurrent, moderate as directed -- 1 tab a day Last Documented On 08/11/2022 5:27PM By Barbara Lynch MD ; [facility] busPIRone HCl 15 MG OR TABS 11/11/2017 - 02/20/2018 Provider: ELOINA LYNCH MD Diagnosis: Generalized anxi ety disorder One tablet three times a day Last Documented On 08/11/2022 5:27PM By Barbara Lynch MD ; [facility] Zoloft 100 MG OR TABS 11/11/2017 - 02/20/2018 Provider : ELOINA LYNCH MD Diagnosis: Major depressive disorder, recurrent, moderate as directed -- 2 tablets at bedtime Last Documented On 08/11/2022 5:27PM By Barbara Lynch MD ; [facility] traZODone HCl 100 MG OR TABS 11/11/2017 - 02/20/2018 Provider: ELOINA LYNCH MD Diagnosis: Psychophysiologi c insomnia as directed 3 tablets at bed time Last Documented On 08/11/2022 5:27PM By Barbara Lynch MD ; [facility] QUEtiapine Fumarate 50 MG OR TABS 11/11/2017 - 02/20/2018 Provider: ELOINA LYNCH MD Diagnosis: Insomnia, unspec ified One tablet at bed time Last Documented On 08/11/2022 5:27PM By Barbara Lynch MD ; [facility] Rexulti 0.5 MG OR TABS 10/23/2017 - 06/12/2018 Provider: ELOINA LYNCH MD Diagnosis: Major depressive disorder, recurrent, moderate as directed -- 0.5 mg a day for 1 week then 1 mg a day thereafter Last Documented On 08/11/2022 5:27PM By Barbara Lynch MD ; [facility] clonazePAM 0.5 MG OR TABS 10/23/2017 - 02/20/2018 Provider: ELOINA LYNCH MD Diagnosis: Generalized anxi ety disorder ud - as directed as directed take as needed for anxiety Last Documented On 08/11/2022 5:27PM By Barbara Lynch MD ; [facility] Acidophilus OR TABS 10/23/2017 - 11/22/2020 Provider: Diagnosis: Last Documented On 3 5:27PM By Jess Nazario MA ; [facility] Hydroxychloroquine Sulfate 200 MG OR TABS 10/15/2017 - 06/12/2018 Provider: Diagnosis: Last Documented On 3 5:27PM By Jess Nazario MA ; [facility] methylPREDNISolone 4 MG OR TBPK 10/08/2017 - 8 Provider: Diagnosis: Last Documented On 3 5:27PM By Jess Nazario MA ; [facility] clonazePAM 0.5 MG OR TABS 08/05/2017 - 10/23/2017 Provider: ELOINA LYNCH MD Diagnosis: Generalized anxi ety disorder ud - as directed as directed take as needed for anxiety Last Documented On 08/11/2022 5:27PM By Barbara Lynch MD ; [facility] QUEtiapine Fumarate 50 MG OR TABS 04/29/2017 - 10/23/2017 Provider: ELOINA LYNCH MD Diagnosis: Insomnia, unspec ified One tablet at bed time Last Documented On 08/11/2022 5:27PM By Barbara Lynch MD ; [facility] buPROPion HCl ER (XL) 300 MG OR TB24 04/29/2017 - 02/20/2018 Provider: ELOINA LYNCH MD Diagnosis: Major depressive disorder, recurrent, moderate 1 tablet every morning Last Documented On 08/11/2022 5:27PM By Barbara Lynch MD ; [facility] traZODone HCl 100 MG OR TABS 04/29/2017 - 10/23/2017 Provider: ELOINA LYNCH MD Diagnosis: Psychophysiologi c insomnia as directed 3 tablets at bed time Last Documented On 08/11/2022 5:27PM By Barbara Lynch MD ; [facility] busPIRone HCl 15 MG OR TABS 04/29/2017 - 10/23/2017 Provider: ELOINA LYNCH MD Diagnosis: Generalized anxi ety disorder One tablet three times a day Last Documented On 08/11/2022 5:27PM By Barbara Lynch MD ; [facility] Zoloft 100 MG OR TABS 04/29/2017 - 10/23/2017 Provider : ELOINA LYNCH MD Diagnosis: Major depressive disorder, recurrent, moderate as directed -- 2 tablets at bedtime Last Documented On 08/11/2022 5:27PM By Barbara Lynch MD ; [facility] traZODone HCl 100 MG OR TABS 04/22/2017 - 04/24/2017 Provider: ELOINA LYNCH MD Diagnosis: Insomnia, unspec ified as directed 3 tablets at bed time Last Documented On 08/11/2022 5:27PM By Barbara Lynch MD ; [facility] busPIRone HCl 15 MG OR TABS 12/18/2016 - 04/24/2017 Provider: ELOINA LYNCH MD Diagnosis: Generalized anxi ety disorder One tablet three times a day Last Documented On 08/11/2022 5:27PM By Barbara Lynch MD ; [facility] buPROPion HCl ER (XL) 300 MG OR TB24 10/16/2016 - 04/24/2017 Provider: ELOINA LYNCH MD Diagnosis: Major depressive disorder, recurrent, moderate 1 tablet every morning Last Documented On 08/11/2022 5:27PM By Barbara Lynch MD ; [facility] Rozerem 8 MG OR TABS 10/16/2016 - 04/24/2017 Provider: ELOINA LYNCH MD Diagnosis: Psychophysiologi c insomnia One tablet at bed time -- 24 tabs samples given on 08/17/16 --she uses it 1 x a week only Last Documented On 08/11/2022 5:27PM By Barbara Lynch MD ; [facility] traZODone HCl 100 MG OR TABS 10/16/2016 - 04/22/2017 Provider: ELOINA LYNCH MD Diagnosis: Insomnia, unspec ified as directed 3 tablets at bed time Last Documented On 08/11/2022 5:27PM By Barbara Lynch MD ; [facility] busPIRone HCl 15 MG OR TABS 10/16/2016 - 12/18/2016 Provider: ELOINA LYNCH MD Diagnosis: Generalized anxi ety disorder One tablet three times a day Last Documented On 08/11/2022 5:27PM By Barbara Lynch MD ; [facility] Zoloft 100 MG OR TABS 10/16/2016 - 04/24/2017 Provider : ELOINA LYNCH MD Diagnosis: Major depressive disorder, recurrent, moderate as directed -- 2 tablets at bedtime Last Documented On 08/11/2022 5:27PM By Barbara Lynch MD ; [facility] buPROPion HCl ER (XL) 300 MG OR TB24 10/15/2016 - 08/17/2016 Provider: ELOINA LYNCH MD Diagnosis: Major depressive disorder, recurrent, moderate 1 tablet every morning Last Documented On 08/11/2022 5:27PM By Barbara Lynch MD ; [facility] Zoloft 100 MG OR TABS 10/15/2016 - 08/17/2016 Provider : ELOINA LYNCH MD Diagnosis: Major depressive disorder, recurrent, moderate as directed -- 2 tablets at bedtime Last Documented On 08/11/2022 5:27PM By Barbara Lynch MD ; [facility] QUEtiapine Fumarate 50 MG OR TABS 10/15/2016 - 04/24/2017 Provider: ELOINA LYNCH MD Diagnosis: Insomnia, unspec ified One tablet at bed time Last Documented On 08/11/2022 5:27PM By Barbara Lynch MD ; [facility] Etodolac 200 MG OR CAPS 08/17/2016 - 02/20/2018 Provid er: Diagnosis: 1 twice a day Last Documented On 08/11/2022 5:27PM By ESTRADA OROZCO LPN ; [facility] clonazePAM 0.5 MG OR TABS 08/17/2016 - 08/05/2017 Provider: ELOINA LYNCH MD Diagnosis: Generalized anxi ety disorder ud - as directed as directed take as needed for anxiety Last Documented On 08/11/2022 5:27PM By Barbara Lynch MD ; [facility] QUEtiapine Fumarate 50 MG OR TABS 08/15/2016 - 07/24/2019 Provider: ELOINA LYNCH MD Diagnosis: Insomnia, unspec ified One tablet at bed time Last Documented On 08/11/2022 5:27PM By Barbara Lynch MD ; [facility] traZODone HCl 100 MG OR TABS 08/15/2016 - 08/17/2016 Provider: ELOINA LYNCH MD Diagnosis: Insomnia, unspec ified as directed 3 tablets at bed time Last Documented On 08/11/2022 5:27PM By Barbara Lynch MD ; [facility] buPROPion HCl ER (XL) 300 MG OR TB24 04/12/2016 - 10/15/2016 Provider: ELOINA LYNCH MD Diagnosis: Major depressive disorder, recurrent, moderate 1 tablet every morning Last Documented On 08/11/2022 5:27PM By Barbara Lynch MD ; [facility] buPROPion HCl ER (XL) 300 MG OR TB24 04/02/2016 - 04/12/2016 Provider: ELOINA LYNCH MD Diagnosis: Major depressive disorder, recurrent, moderate 1 tablet every morning Last Documented On 08/11/2022 5:27PM By Barbara Lynch MD ; [facility] busPIRone HCl 15 MG OR TABS 04/02/2016 - 08/17/2016 Provider: ELOINA LYNCH MD Diagnosis: Generalized anxi ety disorder One tablet three times a day Last Documented On 08/11/2022 5:27PM By Barbara Lynch MD ; [facility] busPIRone HCl 15 MG OR TABS 03/16/2016 - 02/16/2016 Provider: ELOINA LYNCH MD Diagnosis: Generalized anxi ety disorder One tablet three times a day Last Documented On 08/11/2022 5:27PM By Barbara Lynch MD ; [facility] Rozerem 8 MG OR TABS 02/16/2016 - 08/17/2016 Provider: ELOINA LYNCH MD Diagnosis: Oth insomnia not due to a substance or known physiol cond One tablet at bed time -- 24 tabs samples given on 02/16/16 --she uses it 1 x a week only Last Documented On 08/11/2022 5:27PM By Barbara Lynch MD ; [facility] QUEtiapine Fumarate 50 MG OR TABS 01/16/2016 - 08/15/2016 Provider: ELOINA LYNCH MD Diagnosis: Insomnia, unspec ified One tablet at bed time Last Documented On 08/11/2022 5:27PM By Barbara Lynch MD ; [facility] traZODone HCl 100 MG OR TABS 01/16/2016 - 08/15/2016 Provider: ELOINA LYNCH MD Diagnosis: Insomnia, unspec ified as directed 3 tablets at bed time Last Documented On 08/11/2022 5:27PM By Barbara Lynch MD ; [facility] Zoloft 100 MG OR TABS 01/16/2016 - 08/15/2016 Provider : ELOINA LYNCH MD Diagnosis: Major depressive disorder, recurrent, moderate as directed 2 tablets at bedtime Last Documented On 08/11/2022 5:27PM By Barbara Lynch MD ; [facility] Levothyroxine Sodium 50 MCG OR TABS 12/15/2015 - 11/22 Provider: Diagnosis: 1 daily Last Documented On 08/11/2022 5:27PM By ESTRADA OROZCO LPN ; [facility] buPROPion HCl ER (XL) 300 MG OR TB24 10/13/2015 - 02/16/2016 Provider: ELOINA LYNCH MD Diagnosis: Major depressive disorder, recurrent, moderate 1 tablet every morning Last Documented On 08/11/2022 5:27PM By Barbara Lynch MD ; [facility] Rozerem 8 MG OR TABS 08/15/2015 - 02/16/2016 Provider: ELOINA LYNCH MD Diagnosis: Oth insomnia not due to a substance or known physiol cond One tablet at bed time --36 samples given + silenor 3 mg 1 tab at sa --24 tablets samples to alternate with rozerem Last Documented On 08/11/2022 5:27PM By Barbara Lynch MD ; [facility] clonazePAM 0.5 MG OR TABS 08/15/2015 - 08/17/2016 Provider: ELOINA LYNCH MD Diagnosis: Generalized anxi ety disorder ud - as directed as directed take as needed for anxiety --- has meds -- about 6 left Last Documented On 08/11/2022 5:27PM By Barbara Lynch MD ; [facility] QUEtiapine Fumarate 50 MG OR TABS 06/17/2015 - 01/16/2016 Provider: ELOINA LYNCH MD Diagnosis: Insomnia, unspec ified One tablet at bed time Last Documented On 08/11/2022 5:27PM By Barbara Lynch MD ; [facility] Zoloft 100 MG OR TABS 06/17/2015 - 01/16/2016 Provider : ELOINA LYNCH MD Diagnosis: Major depressive disorder, recurrent, moderate as directed 2 tablets at bedtime Last Documented On 08/11/2022 5:27PM By Barbara Lynch MD ; [facility] traZODone HCl 100 MG OR TABS 06/17/2015 - 01/16/2016 Provider: ELOINA LYNCH MD Diagnosis: Insomnia, unspec ified as directed 3 tablets at bed time Last Documented On 08/11/2022 5:27PM By Barbara Lynch MD ; [facility] Zoloft 100 MG OR TABS 06/16/2015 - 01/18/2023 Provider : Diagnosis: Major depressive disorder, recurrent, moderate 2 tablets at bedtime Last Documented On 01/18/2023 9:05AM By GEO FLOR ; [facility] traZODone HCl 100 MG OR TABS 06/16/2015 - 01/18/2023 P florader: Diagnosis: Insomnia, unspec ified 3 tablets at bed time Last Documented On 01/18/2023 9:05AM By GEO FLOR ; [facility] QUEtiapine Fumarate 50 MG OR TABS 06/16/2015 - 023 Provider: Diagnosis: Insomnia, unspec ified One tablet at bed time Last Documented On 01/18/2023 9:05AM By GEO FLOR ; [facility] busPIRone HCl 15 MG OR TABS 05/17/2015 - 03/16/2016 Provider: ELOINA LYNCH MD Diagnosis: Generalized anxi ety disorder One tablet three times a day Last Documented On 08/11/2022 5:27PM By Barbara Lynch MD ; [facility] busPIRone HCl 15 MG OR TABS 05/16/2015 - 01/18/2023 Pr ovider: Diagnosis: Generalized anxi ety disorder One tablet three times a day Last Documented On 01/18/2023 9:05AM By GEO FLOR ; [facility] Rozerem 8 MG OR TABS 03/15/2015 - 08/15/2015 Provider: ELOINA LYNCH MD Diagnosis: Oth insomnia not due to a substance or known physiol cond One tablet at bed time --60 samples given + silenor 3 mg 1 tab at sa -- 8 tablet samples to try Last Documented On 08/11/2022 5:27PM By Barbara Lynch MD ; [facility] buPROPion HCl ER (XL) 300 MG OR TB24 03/15/2015 - 10/13/2015 Provider: ELOINA LYNCH MD Diagnosis: Major depressive disorder, recurrent, moderate 1 tablet every morning Last Documented On 08/11/2022 5:27PM By Barbara Lynch MD ; [facility] Rozerem 8 MG OR TABS 10/31/2014 - 03/15/2015 Provider: ELOINA LYNCH MD Diagnosis: PERSISTENT INSOM DWIGHT One tablet at bed time -- 24 samples given Last Documented On 08/11/2022 5:27PM By Barbara Lynch MD ; [facility] Meloxicam 7.5 MG OR TABS 10/26/2014 - 08/17/2016 Provi jovany: Diagnosis: Take 1 tablet by mouth daily Last Documented On 08/11/2022 5:27PM By ESTRADA OROZCO LPN ; [facility] Estradiol 1 MG OR TABS 10/26/2014 - 08/15/2015 Provide r: Diagnosis: Take 1 tablet by mouth every morning Last Documented On 08/11/2022 5:27PM By ESTRADA OROZCO LPN ; [facility] busPIRone HCl 15 MG OR TABS 10/26/2014 - 05/16/2015 Provider: ELOINA LYNCH MD Diagnosis: GENERALIZED ANXI ETY DIS One tablet three times a day Last Documented On 08/11/2022 5:27PM By Barbara Lynch MD ; [facility] QUEtiapine Fumarate 50 MG OR TABS 10/26/2014 - 08/15/2015 Provider: ELOINA CASTELLANOS MD Diagnosis: PERSISTENT INSOM DWIGHT One tablet at bed time Last Documented On 08/11/2022 5:27PM By Barbara Lynch MD ; [facility] Rozerem 8 MG OR TABS 10/26/2014 - 02/16/2016 Provider: ELOINA LYNCH MD Diagnosis: PERSISTENT INSOM DWIGHT One tablet at bed time Last Documented On 08/11/2022 5:27PM By Barbara Lynch MD ; [facility] traZODone HCl 100 MG OR TABS 10/26/2014 - 02/16/2016 Provider: ELOINA CASTELLANOS MD Diagnosis: PERSISTENT INSOM DWIGHT as directed 3 at bedtime Last Documented On 08/11/2022 5:27PM By Barbara Lynch MD ; [facility] Wellbutrin SR 150 MG OR TB12 10/26/2014 - 08/17/2016 Provider: ELOINA LYNCH MD Diagnosis: MAJOR DEPRESSION DISORDER/RECURRENT as directed 1 in the morning, 1 in the PM Last Documented On 08/11/2022 5:27PM By Barbara Lynch MD ; [facility] Zoloft 100 MG OR TABS 10/26/2014 - 02/16/2016 Provider : ELOINA LYNCH MD Diagnosis: MAJOR DEPRESSION DISORDER/RECURRENT as directed 2 tabs at bedtime Last Documented On 08/11/2022 5:27PM By Barbara Lynch MD ; [facility] busPIRone HCl 15 MG OR TABS 10/14/2014 - 10/26/2014 Provider: ELOINA LYNCH MD Diagnosis: GENERALIZED ANXI ETY DIS One tablet three times a day Last Documented On 08/11/2022 5:27PM By Barbara Lynch MD ; [facility] Levothyroxine Sodium 25 MCG OR TABS 10/13/2014 - 10/31 Provider: Diagnosis: Take 1/2 tab at bedtime Last Documented On 08/11/2022 5:27PM By ESTRADA OROZCO LPN ; [facility] Levothyroxine Sodium 175 MCG OR TABS 08/13/2014 - 11/13 Provider: Diagnosis: HYPOTHYROIDISM N OS Take 1 tablet daily at bedtime Last Documented On 08/11/2022 5:27PM By ESTRADA OROZCO LPN ; [facility] clonazePAM 0.5 MG OR TABS 06/16/2014 - 08/15/2015 Provider: ELOINA LYNCH MD Diagnosis: GENERALIZED ANXI ETY DIS take as needed for anxiety Last Documented On 08/11/2022 5:27PM By Barbara Lynch MD ; [facility] QUEtiapine Fumarate 50 MG OR TABS 05/14/2014 - 10/26/2014 Provider: ELOINA CASTELLANOS MD Diagnosis: PERSISTENT INSOM DWIGHT Last Documented On 08/11/2022 5:27PM By Barbara Lynch MD ; [facility] valACYclovir HCl 1 GM OR TABS 05/14/2014 - 02/16/2016 Provider: Diagnosis: prn Last Documented On 08/11/2022 5:27PM By ESTRADA OROZCO LPN ; [facility] Meloxicam 15 MG OR TABS 05/14/2014 - 10/26/2014 Provid er: Diagnosis: prn Last Documented On 08/11/2022 5:27PM By ESTRADA OROZCO LPN ; [facility] Valsartan 320 MG OR TABS 05/14/2014 - 02/20/2018 Provi jovany: Diagnosis: Last Documented On 08/11/2022 5:27PM By ESTRADA OROZCO LPN ; [facility] Potassium Chloride 10 MEQ/50ML IV SOLN 05/14/2014 - Provider: Diagnosis: Last Documented On 08/11/2022 5:27PM By ESTRADA OROZCO LPN ; [facility] Levothyroxine Sodium 25 MCG OR TABS 05/14/2014 - 10/26 Provider: Diagnosis: take 1/2 at bedtime Last Documented On 08/11/2022 5:27PM By ESTRADA OROZCO LPN ; [facility] Levothyroxine Sodium 175 MCG OR TABS 05/14/2014 - 10/13 Provider: Diagnosis: Last Documented On 08/11/2022 5:27PM By ESTRADA OROZCO LPN ; [facility] clonazePAM 0.5 MG OR TABS 05/14/2014 - 10/26/2014 Prov ider: Diagnosis: take as needed for anxiety Last Documented On 08/11/2022 5:27PM By ESTRADA OROZCO LPN ; [facility] QUEtiapine Fumarate 25 MG OR TABS 05/14/2014 - 015 Provider: Diagnosis: Last Documented On 08/11/2022 5:27PM By ESTRADA OROZCO LPN ; [facility] busPIRone HCl 15 MG OR TABS 05/14/2014 - 10/14/2014 Provider: ELOINA LYNCH MD Diagnosis: GENERALIZED ANXI ETY DIS Last Documented On 08/11/2022 5:27PM By Barbara Lynch MD ; [facility] Wellbutrin SR 150 MG OR TB12 05/14/2014 - 10/26/2014 Provider: ELOINA LYNCH MD Diagnosis: MAJOR DEPRESSION DISORDER/RECURRENT 1 in the morning, 1 in the PM Last Documented On 08/11/2022 5:27PM By Barbara Lynch MD ; [facility] Rozerem 8 MG OR TABS 05/14/2014 - 10/26/2014 Provider: ELOINA LYNCH MD Diagnosis: PERSISTENT INSOM DWIGHT Last Documented On 08/11/2022 5:27PM By Barbara Lynch MD ; [facility] traZODone HCl 100 MG OR TABS 05/14/2014 - 10/26/2014 Provider: ELOINA CASTELLANOS MD Diagnosis: PERSISTENT INSOM DWIGHT 3 at bedtime Last Documented On 08/11/2022 5:27PM By Barbara Lynch MD ; [facility] Sertraline HCl 100 MG OR TABS 05/14/2014 - 02/25/2019 Provider: ELOINA LYNCH MD Diagnosis: MAJOR DEPRESSION DISORDER/RECURRENT 2 tablets a day Last Documented On 08/11/2022 5:27PM By Barbara Lynch MD ; [facility] busPIRone HCl 15 MG OR TABS 04/16/2014 - 05/14/2014 Provider: ELOINA LYNCH MD Diagnosis: GENERALIZED ANXI ETY DIS Last Documented On 08/11/2022 5:27PM By Barbara Lynch MD ; [facility] traZODone HCl 100 MG OR TABS 03/16/2014 - 05/14/2014 Provider: ELOINA CASTELLANOS MD Diagnosis: PERSISTENT INSOM DWIGHT 2 at bedtime Last Documented On 08/11/2022 5:27PM By Barbara Lynch MD ; [facility] traZODone HCl 100 MG OR TABS 12/17/2013 - 03/16/2014 Provider: ELOINA CASTELLANOS MD Diagnosis: PERSISTENT INSOM DWIGHT --may try 1 and 1/2 to 2 at bedtime w/o Rozerem if this will work for her Last Documented On 08/11/2022 5:27PM By Barbara Lynch MD ; [facility] Hydroxychloroquine Sulfate 200 MG OR TABS 12/17/2013 - 06/12/2018 Provider: Diagnosis: one tablet daily Last Documented On 08/11/2022 5:27PM By JACQUELINE ARZATE ; [facility] Sertraline HCl 100 MG OR TABS 12/17/2013 - 05/14/2014 Provider: ELOINA LYNCH MD Diagnosis: MAJOR DEPRESSION DISORDER/RECURRENT 2 tablets a day Last Documented On 08/11/2022 5:27PM By Barbara Lynch MD ; [facility] busPIRone HCl 15 MG OR TABS 12/17/2013 - 04/16/2014 Provider: ELOINA LYNCH MD Diagnosis: GENERALIZED ANXI ETY DIS Last Documented On 08/11/2022 5:27PM By Barbara Lynch MD ; [facility] QUEtiapine Fumarate 25 MG OR TABS 12/17/2013 - 10/26/2014 Provider: ELOINA CASTELLANOS MD Diagnosis: PERSISTENT INSOM DWIGHT Last Documented On 08/11/2022 5:27PM By Barbara Lynch MD ; [facility] Wellbutrin SR 150 MG OR TB12 12/17/2013 - 05/14/2014 Provider: ELOINA LYNCH MD Diagnosis: MAJOR DEPRESSION DISORDER/RECURRENT 1 in the morning, 1 in the PM Last Documented On 08/11/2022 5:27PM By Barbara Lynch MD ; [facility] Rozerem 8 MG OR TABS 12/17/2013 - 05/14/2014 Provider: ELOINA LYNCH MD Diagnosis: PERSISTENT INSOM DWIGHT will try Silenor in place si nce she is on a medicare gap--given 6 samples Last Documented On 08/11/2022 5:27PM By Barbara Lynch MD ; [facility] traZODone HCl 100 MG OR TABS 07/20/2013 - 12/17/2013 Provider: ELOINA CASTELLANOS MD Diagnosis: PERSISTENT INSOM DWIGHT Last Documented On 08/11/2022 5:27PM By Barbara Lynch MD ; [facility] QUEtiapine Fumarate 25 MG OR TABS 07/20/2013 - 12/17/2013 Provider: ELOINA CASTELLANOS MD Diagnosis: PERSISTENT INSOM DWIGHT Last Documented On 08/11/2022 5:27PM By Barbara Lynch MD ; [facility] Wellbutrin SR 150 MG OR TB12 07/20/2013 - 12/17/2013 Provider: ELOINA LYNCH MD Diagnosis: MAJOR DEPRESSION DISORDER/RECURRENT 1 in the morning, 1 in the PM Last Documented On 08/11/2022 5:27PM By Barbara Lynch MD ; [facility] Sertraline HCl 100 MG OR TABS 07/20/2013 - 12/17/2013 Provider: ELOINA LYNCH MD Diagnosis: MAJOR DEPRESSION DISORDER/RECURRENT 2 tablets a day Last Documented On 08/11/2022 5:27PM By Barbara Lynch MD ; [facility] Torsemide 20 MG OR TABS 07/20/2013 - 11/23/2021 Provid er: Diagnosis: Last Documented On 08/11/2022 5:27PM By Barbara Lynch MD ; [facility] clonazePAM 0.5 MG OR TABS 07/20/2013 - 05/14/2014 Provider: ELOINA LYNCH MD Diagnosis: GENERALIZED ANXI ETY DIS Last Documented On 08/11/2022 5:27PM By Barbara Lynch MD ; [facility] busPIRone HCl 15 MG OR TABS 07/20/2013 - 12/17/2013 Provider: ELOINA LYNCH MD Diagnosis: GENERALIZED ANXI ETY DIS Last Documented On 08/11/2022 5:27PM By Barbara Lynch MD ; [facility] Rozerem 8 MG OR TABS 07/20/2013 - 12/17/2013 Provider: ELOINA LYNCH MD Diagnosis: PERSISTENT INSOM DWIGHT Last Documented On 08/11/2022 5:27PM By Barbara Lynch MD ; [facility] Furosemide 40 MG OR TABS 01/19/2013 - 07/20/2013 Provi jovany: Diagnosis: Last Documented On 08/11/2022 5:27PM By JACQUELINE ARZATE ; [facility] clonazePAM 0.5 MG OR TABS 01/19/2013 - 07/20/2013 Provider: ELOINA LYNCH MD Diagnosis: GENERALIZED ANXI ETY DIS 1/2 to 1 tablet daily as nee ded for anxiety---has meds left Last Documented On 08/11/2022 5:27PM By Barbara Lynch MD ; [facility] Wellbutrin SR 150 MG OR TB12 01/19/2013 - 07/20/2013 Provider: ELOINA LYNCH MD Diagnosis: MAJOR DEPRESSION DISORDER/RECURRENT 1 in the morning, 1 in the PM Last Documented On 08/11/2022 5:27PM By Barbara Lynch MD ; [facility] Sertraline HCl 100 MG OR TABS 01/19/2013 - 07/20/2013 Provider: ELOINA LYNCH MD Diagnosis: MAJOR DEPRESSION DISORDER/RECURRENT Last Documented On 08/11/2022 5:27PM By Barbara Lynch MD ; [facility] busPIRone HCl 15 MG OR TABS 01/19/2013 - 07/20/2013 Provider: ELOINA LYNCH MD Diagnosis: GENERALIZED ANXI ETY DIS Last Documented On 08/11/2022 5:27PM By Barbara Lynch MD ; [facility] QUEtiapine Fumarate 25 MG OR TABS 01/19/2013 - 07/20/2013 Provider: ELOINA LYNCH MD Diagnosis: GENERALIZED ANXI ETY DIS Last Documented On 08/11/2022 5:27PM By Barbara Lynch MD ; [facility] Potassium Chloride ER 10 MEQ OR CPCR 01/19/2013 - 06/2015 Provider: Diagnosis: Last Documented On 08/11/2022 5:27PM By JACQUELINE ARZATE ; [facility] Sertraline HCl 100 MG OR TABS 01/19/2013 - 01/19/2013 Provider: Diagnosis: 2 in the a.m. Last Documented On 08/11/2022 5:27PM By JACQUELINE ARZATE ; [facility] traZODone HCl 100 MG OR TABS 01/19/2013 - 07/20/2013 Provider: ELOINA CASTELLANOS MD Diagnosis: PERSISTENT INSOM DWIGHT Last Documented On 08/11/2022 5:27PM By Barbara Lynch MD ; [facility] Rozerem 8 MG OR TABS 01/19/2013 - 07/20/2013 Provider: ELOINA LYNCH MD Diagnosis: PERSISTENT INSOM DWIGHT given samples of Rozerem - 4 8 tablets--she said it is costing her $98 per month --so samples given to help her out Last Documented On 08/11/2022 5:27PM By Barbara Lynch MD ; [facility] Levothyroxine Sodium 25 MCG OR TABS 07/28/2012 - 10/26 Provider: Diagnosis: Last Documented On 08/11/2022 5:27PM By JACQUELINE ALVAREZ ; [facility] Diovan 320 MG OR TABS 07/28/2012 - 02/20/2018 Provider : Diagnosis: Last Documented On 08/11/2022 5:27PM By JACQUELINE ALVAREZ ; [facility] Furosemide 20 MG OR TABS 07/28/2012 - 01/19/2013 Provi jovany: Diagnosis: Last Documented On 08/11/2022 5:27PM By JACQUELINE ALVAREZ ; [facility] Levothyroxine Sodium 175 MCG OR TABS 07/28/2012 - 10/13 Provider: Diagnosis: Last Documented On 08/11/2022 5:27PM By JACQUELINE ALVAREZ ; [facility] clonazePAM 0.5 MG OR TABS 07/28/2012 - 01/19/2013 Provider: ELOINA LYNCH MD Diagnosis: GENERALIZED ANXI ETY DIS 1/2 to 1 tablet daily as nee ded for anxiety---has 25 left Last Documented On 08/11/2022 5:27PM By Barbara Lynch MD ; [facility] QUEtiapine Fumarate 25 MG OR TABS 07/28/2012 - 01/19/2013 Provider: ELOINA LYNCH MD Diagnosis: GENERALIZED ANXI ETY DIS Last Documented On 08/11/2022 5:27PM By Barbara Lynch MD ; [facility] busPIRone HCl 15 MG OR TABS 07/28/2012 - 01/19/2013 Provider: ELOINA LYNCH MD Diagnosis: GENERALIZED ANXI ETY DIS Last Documented On 08/11/2022 5:27PM By Barbara Lynch MD ; [facility] Bystolic 10 MG OR TABS 07/28/2012 - 12/03/2019 Provide r: Diagnosis: Last Documented On 08/11/2022 5:27PM By JACQUELINE ALVAREZ ; [facility] Calcium 1500 MG OR TABS 07/28/2012 - 04/24/2017 Provid er: Diagnosis: Last Documented On 08/11/2022 5:27PM By JACQUELINE ALVAREZ ; [facility] Estradiol 2 MG OR TABS 07/28/2012 - 10/26/2014 Provide r: Diagnosis: Last Documented On 08/11/2022 5:27PM By JACQUELINE ALVAREZ ; [facility] Topiramate 50 MG OR TABS 07/28/2012 - 05/23/2022 Provi jovany: Diagnosis: Last Documented On 08/11/2022 5:27PM By JACQUELINE ALVAREZ ; [facility] L-Lysine 1000 MG OR TABS 07/28/2012 - 02/20/2018 Provi jovany: Diagnosis: Last Documented On 08/11/2022 5:27PM By JACQUELINE ALVAREZ ; [facility] kcl 20meq OR TABS 07/28/2012 - 01/19/2013 Provider: Diagnosis: Last Documented On 08/11/2022 5:27PM By JACQUELINE ALVAREZ ; [facility] Wellbutrin SR 150 MG OR TB12 07/28/2012 - 01/19/2013 Provider: ELOINA LYNCH MD Diagnosis: MAJOR DEPRESSION DISORDER/RECURRENT 1 in the morning, 1 in the PM Last Documented On 08/11/2022 5:27PM By Barbara Lynch MD ; [facility] Zoloft 100 MG OR TABS 07/28/2012 - 10/26/2014 Provider: ELOINA CASTELLANOS MD Diagnosis: MAJOR DEPRESSION DISORDER/RECURRENT 2 tabs at bedtime Last Documented On 08/11/2022 5:27PM By Barbara Lynch MD ; [facility] Rozerem 8 MG OR TABS 07/28/2012 - 01/19/2013 Provider: ELOINA LYNCH MD Diagnosis: INSOMNIA DT MENT AL DISOR Last Documented On 08/11/2022 5:27PM By Barbara Lynch MD ; [facility] traZODone HCl 100 MG OR TABS 07/28/2012 - 01/19/2013 Provider: ELOINA CASTELLANOS MD Diagnosis: INSOMNIA DT MENT AL DISOR Last Documented On 08/11/2022 5:27PM By Barbara Lynch MD ; [facility] Plaquenil 200 MG OR TABS 07/28/2012 - 01/19/2013 Provi jovany: Diagnosis: 1/2 tablet twice daily Last Documented On 08/11/2022 5:27PM By JACQUELINE ALVAREZ ; [facility] Wellbutrin SR 150 MG OR TB12 05/08/2012 - 07/28/2012 P rovider: Diagnosis: 1 in the morning, 1 in the PM Last Documented On 08/11/2022 5:27PM By JACQUELINE ALVAREZ ; [facility] traZODone HCl 100 MG OR TABS 05/08/2012 - 07/28/2012 P rovider: Diagnosis: Last Documented On 08/11/2022 5:27PM By JACQUELINE ALVAREZ ; [facility] traZODone HCl 50 MG OR TABS 05/08/2012 - 07/20/2013 Pr ovider: Diagnosis: 1/2 three times daily as needed Last Documented On 08/11/2022 5:27PM By JACQUELINE ALVAREZ ; [facility] busPIRone HCl 15 MG OR TABS 05/08/2012 - 07/28/2012 Pr ovider: Diagnosis: as needed Last Documented On 08/11/2022 5:27PM By JACQUELINE ALVAREZ ; [facility] QUEtiapine Fumarate 25 MG OR TABS 05/08/2012 - 013 Provider: Diagnosis: Last Documented On 08/11/2022 5:27PM By JACQUELINE ALVAREZ ; [facility] Zoloft 100 MG OR TABS 05/08/2012 - 07/28/2012 Provider : Diagnosis: 2 tabs at bedtime Last Documented On 08/11/2022 5:27PM By JACQUELINE ALVAREZ ; [facility] Rozerem 8 MG OR TABS 05/08/2012 - 07/28/2012 Provider: Diagnosis: Last Documented On 08/11/2022 5:27PM By JACQUELINE ALVAREZ ; [facility] clonazePAM 0.5 MG OR TABS 05/08/2012 - 07/28/2012 Prov ider: Diagnosis: 1/2 to 1 tablet daily as needed for anxiety Last Documented On 08/11/2022 5:27PM By JACQUELINE ALVAREZ ; [facility] Medications Administered Includes: Administered Medications in patient's chart No Administered Medications Recorded Vital Signs Includes: Vital Signs from 06/21/2023 through 06/20/2024 Vital Name 09/18/2023 09:37A Blood Pressure Sitting L 142/83 BP Cuff Size Regular Pulse Rate-Sitting (bpm) 73 Pulse Rhythm Regular Height (in) 64 Weight (lb) 295 Body Mass Index 50.6 Body Surface Area 2.3 Note: self reported vitals Last Documented: On 09/18/2023 9:38AM ; [facility] Results Includes: Results from 06/21/2023 through 06/20/2024 No Results Recorded For Specified Dates History of Present Illness History of Present Illness not supported for this document type No History of Present Illness Recorded Social History Description Last Updated Tobacco non-user - Never Smoker 09/18/19 Last Documented On 4 1:54AM ; [facility] Smoking Status Unknown Procedures and Surgical History Includes: Procedures from 06/21/2023 through 06/20/2024 Procedures Code Diagnosis Performing Provider Service Location Service Date PSYCHOTHERAPY 30 MIN W/ [place] [address] Major depressive disorder, recurrent, moderate, Generalized anxiety disorder, Panic disorder [episodic paroxysmal anxiety], Psychophysiologic insomnia ELOINA LYNCH MD [facility] 09/18/2023 Last Documented On 4 1:58PM ; [facility] Medical History Includes: Medical History in patient's chart No Medical History Recorded Family History Includes: Family History in patient's chart No Family History Recorded Review of Systems Review of Systems not supported for this document type No Review of Systems Recorded Mental Status Description Major depression, recurrent Functional Status No Functional Status Recorded Physical Exam Physical Exam not supported for this document type No Physical Exam Recorded Allergies Includes: Active, inactive, and resolved Allergies Substance Type Reaction Onset Date Resolved Date Statu s Sulfa Antibiotics Allergy Hives / Urticaria 05/08/2012 Active Last Documented On 09/18/2023 9:10AM ; [facility] Note: Imported from external source. Silvadine Allergy peels skin 05/08/2012 Active Last Documented On 09/18/2023 9:10AM ; [facility] Note: Imported from external source. Penicillin V Potassium Intolerance yeast infection 05/08/2012 Active Last Documented On 09/18/2023 9:10AM ; [facility] Note: Imported from external source. Omnipaque Allergy Hives / Urticaria 05/08/2012 Active Last Documented On 09/18/2023 9:10AM ; [facility] Note: Imported from external source. Neosporin Allergy Skin Rashes / Eruption of skin 05/08/2012 Active Last Documented On 09/18/2023 9:10AM ; [facility] Note: Imported from external source. Lisinopril Allergy cough 05/08/2012 Active Last Documented On 09/18/2023 9:10AM ; [facility] Note: Imported from external source. Latex Allergy skin peels off 05/08/2012 Acti ve Last Documented On 09/18/2023 9:10AM ; [facility] Note: Imported from external source. Bandaging Tape Allergy PEELS OFF SKIN 05/08/2012 Active Last Documented On 09/18/2023 9:10AM ; [facility] Note: Imported from external source. Bacitracin Allergy Skin Rashes / Eruption of skin 05/08/2012 Active Last Documented On 09/18/2023 9:10AM ; [facility] Note: Imported from external source. Encounters Includes: Encounters from 06/21/2023 through 06/20/2024 Encounter Provider Location Date Check-In Time Check-Out Time Diagnosis TELEHEALTH ADULT PSYCH ESTABLISHED ELOINA LYNCH MD [facility] 09/18/19 24 9:06AM 03/20/2012 11:59PM Migraine Headache,Ирина r Depression, Recurrent,Gen eralized Anxiety Disorder,Psyc hophysiologic al Insomnia,Christina c Disorder CHART UPDATE ELOINA LYNCH MD [facility] 06/24/19 24 05/31/2023 12:26PM 03/20/2012 11:59PM Insurance Includes: Active Insurance Policies Plan Name Member ID Group # Subscriber Relationship Effect florinda Dates 1 - [employer] [id number] [place] Self Clinical Notes Includes: Signed Clinical Notes starting from 05/04/2022 * Progress note Date Encounter Last Documented by 09/18/2023 TELEHEALTH ADULT PSYCH ESTABLISH ED Last documented on 09/23/2023; 1:54 AM, ELOINA LYNCH MD; [facility] Top of Document Medication [...] Provider: Dr. Yuriy Bradford - going to [facility] -- pt will stay with someone in that office Dr. Hernando Jernigan -- Director Clinical Information Services -- [place] Dr. Jada Grajeda -- Services Tech Dr. Martell Roberts/Virgen Ward NP -- Fisheries Biologist Dr. Jorge Guzman -- Dentist Dr. Jacek Banks -- Vascular Surgeon at [facility] Dr. Joey Bautista -- Environment Coordinator Diagnoses: Fever blisters -- given Valacyclovir 1 [...] Previous Psychiatric Hospitalizations: Patient was at [facility] [address] Reyes, since [...] -- Pt was born and raised in [place], [place]. Pt was closer to her mother growing up. Both parents are . She has 1 son and 1 daughter. She had 12th grade education. She used to work at [email or web address] from 1990 - 1999 and then at [email or web address] from 05/1999 - 04/2002. Pt is now [...] effects such as tardive dyskinesia. * Call [phone] and /or go to the nearest emergency [...] see above for treatment and PHQ score. * Progress note Date Encounter Last Documented by 06/24/2023 CHART UPDATE Last documented on 06/24/2023; 12:41 PM, DEMETRIA ARZATE; [facility] Active Problems & Conditions [...] Care Provider: Dr. Yuriy Bradford/ Caroline Villalobos, [facility] Dr. Hernando Jernigan -- Director Clinical Information Services -- [place] Dr. Jada Grajeda -- Services Tech Dr. Martell Roberts -- Fisheries Biologist Dr. Jorge Guzman -- Dentist Dr. Jacek Banks -- Vascular Surgeon at [facility] Dr. Adrienne King, S -- Sleep/Dental device Dr. Jamaal Silverio -- Lithograph Designer Diagnoses: Fever blisters -- given Valacyclovir 1 [...]
--- OUTSIDE RECORDS SUMMARY | 2024-06-20 09:28 | XMS_ITS | Clinical Summary ---
Author Organization [facility] Address [address] [place] [address] Phone Care Team Providers Care Bearingizer Name Role Phone Unavailable Primary Care Provider Unavailabl e Allergies Active Allergy Reactions Criticality Noted Date Comments Bacitracin Other (see Comments) 12/22/2019 Eats away at skin per patient report Latex Other (see Comments) 12/22/2019 Peels skin per patient report Lisinopril Other (see Comments) 12/22/2019 Causes patient to cough per patient report Other-Environmental Allergen (Not Found In Search) Other (see Comments) 12/22/2019 Adhesive tape- causes skin tears Penicillins Other (see Comments) 12/22/2019 Yeast infection Sulfa Antibiotics Anaphylaxis 12/22/2019 Medications No known medications Social History Tobacco Use Types Packs/Day Years Used Date Smoking Tobacco: Never Assessed Comments Unknown Sex and Gender Information Value Date Recorded Sex Assigned at Not on file Legal Sex Female 10:44 PM CDT Gender Identity Not on file Sexual Orientation Not on file Plan of Treatment Health Maintenance Due Date Last Done Comments DEXA Bone Density 1955 Hepatitis C Virus (HCV) Screening 1955 Mammogram 1955 TdaP Immunization 1955 Colonoscopy 02/18/2001 Colorectal Cancer Screening 02/18/2001 Cologuard 02/18/2006 Immunochemical Fecal Occult Blood 02/18/2006 Pneumococcal Immunization (5 0+ years) (1 of 1 - PCV) 02/18/2006 Zoster Immunization (1 of 2) 02/18/2006 Influenza Immunization (#1) 2023 SARS-COV-2 Immunization (3 - season) 2023 02/28/2021, 02/07/2021 Respiratory Syncytial Virus (RSV) Immunization (Adult) (1 - 1-dose 75+ series) 02/18/2031 Hepatitis B Immunization Aged Out No longer eligible based on patient's age to complete this topic Meningococcal Immunization (ACWY) Aged Out No longer eligible b ased on patient's age to complete this topic Rotavirus Immunization Aged Out No lo nger eligible based on patient's age to complete this topic
--- OUTSIDE RECORDS SUMMARY | 2024-06-20 09:28 | XMS_ITS | Referral Summary ---
Author Organization [facility] Address [address] [place] [address] Care Team Providers Care Wind Turbine Sheet Metal Worker Name Role Phone Everton Cuevas MD Unavailable Unavailable Martínez Bradford MD Primary Care Provider [phone] Source Comments [facility]non-owned Affiliates and Associated Physician Practices is amultiple site organization consisting of ambulatory clinics and hospital sitesin [place], [place], [place]. This disclosure is being madepursuant to the Care Everywhere program and may not contain all information available regarding this patient. Last updated 18.[facility] Allergies Active Allergy Reactions Criticality Noted Date Comments Adhesive Sensitivity 07/20/2011 Valdecoxib 07/20/2011 Contrast-Iodinated Agents Fo r Ct/Other 07/20/2011 Latex 07/20/2011 Lisinopril Cough 07/20/2011 Kdqrriru-Ndjbznsqew-Gezrvjuqg 2011 Penicillins Other 07/20/2011 Yeast infection Silver [...] for 3 years Eye exams routinely ok Social History Tobacco Use Types Packs/Day Years Used Date Smoking Tobacco: Never Smokeless Tobacco: Never Alcohol Use Standard Drinks/Week Comments No 0 (1 standard drink = 0.6 oz pur e alcohol) Sex and Gender Information Value Date Recorded Sex Assigned at Female 04/26/2020 2:51 PM 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 Gender Identity Female 04/26/2020 2:51 PM 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 Sexual Orientation Straight 04/26/2020 2: 51 PM 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 Last Filed Vital Signs Vital Sign Reading [...] 09/08/2019 2:37 PM CDT Plan of Treatment Not on file Procedures Procedure Name Priority Date/Time Associated Diagnosis Comments BASIC METABOLIC PANEL (CALCIUM TOTAL) STAT 08/10/2019 9:41 AM CDT Preoperative examination from Last 3 Months or Most Recently Relevant to Health Maintenance Results * (ABNORMAL) BASIC METABOLIC PANEL (CALCIUM TOTAL) (08/10/2019 9:41 AM CDT) Glucose 79 70 - 105 mg/dL 08/10/2019 10:19 AM CDT [facility] Sodium 140 136 - 145 mmol/L 08/10/2019 10:19 AM CDT [facility] Potassium 4.0 3.5 - 5.1 mmol/L 08/10/2019 10:19 AM CDT [facility] Chloride 111(H) 98 - 107 mmol/L 08/10/2019 10:19 AM CDT [facility] CO2 19(L) 23 - 31 mmol/L 08/10/2019 10:19 AM CDT [facility] Calcium 9.6 8.4 - 10.4 mg/dL 08/10/2019 10:19 AM CDT [facility] Anion Gap 10 8 - 16 mmol/L 08/10/2019 10:19 AM CDT [facility] BUN 23(H) 9.8 - 20.1 mg/dL 08/10/2019 10:19 AM CDT [facility] Creatinine 0.90 0.57 - 1.11 mg/dL 08/10/2019 10:19 AM CDT [facility] eGFR by MDRD >60 >60 mL/min/1.7 3m2 08/10/2019 10:19 AM CDT [facility] eGFR by MDRD >60 >60 mL/min/1.7 3m2 08/10/2019 10:19 AM CDT [facility] Blood BLOOD SPECIMEN / Unknown Venipuncture / Unknown 08/10/2019 9:41 AM CDT 08/10/2019 9:57 AM CDT Jacek Banks MD LAB - CHEMISTRY [facility] Organization Address City/State/ZIP Co de Phone Number [facility] [address] [place] [address] from Last 3 Months or Most Recently Relevant to Health Maintenance Care Teams Wind Turbine Sheet Metal Worker Relationship Specialty Start Date End Date Martínez Bradford MD PCP - General Internal Medicine 08/06/19 Everton Cuevas MD Rheumatology 07/19/11
--- OUTSIDE RECORDS SUMMARY | 2024-06-20 09:28 | XMS_ITS | Continuity of Care Document ---
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 Name Role Phone Sivakumar OD, Wu Unavailable Unavailable Allergies, Adverse Reactions, Alerts Substance Reaction Status Criticality latex Active No Information valdecoxib Active No Information PENICILLIN Active No Information polymyxin B Active No Information NEOMYCIN SULFATE Active No Informat ion BACITRACIN ZINC Active No Informati on bacitracin Active No Information silver sulfadiazine Active No Infor mation lisinopril Active No Information Sulfa (Sulfonamide Antibiotics) Active No Information Medications Medication Instructions Dosage Effective Dates (start - stop) Status Comments sertraline 100 mg tablet take 1 tablet b y oral route every day 100 MG - Active buspirone 15 mg tablet take 1 tablet by oral route 2 times every day 15 MG - Active quetiapine 50 mg tablet take 1 tablet by oral route 2 times every day 50 MG - Active olmesartan 40 mg tablet take 1 tablet by oral route every day 40 MG - Active CALCIUM CARBONATE/VITAMIN D3 (unknown strength) Not Available - Active lysine 1,000 mg tablet - Active Acidophilus capsule - Active ZYRTEC (unknown strength) Not Available - Active amlodipine 10 mg tablet take 1 tablet by oral route every day 10 MG - Active valsartan 320 mg tablet take 1 tablet by oral route every day 320 MG - Active Bystolic 10 mg tablet take 2 tablet by oral route every day 20 MG - Active torsemide 20 mg tablet take 1 tablet by oral route every day 20 MG - Active POTASSIUM (unknown strength) Not Available - Active omeprazole 20 mg capsule,delayed release take 1 capsule by oral route every day before a meal 20 MG - Active Trokendi XR 50 mg capsule, extended release take 1 capsule by oral route every day 50 MG - Active bupropion (bulk) 100 % powder - Active hydroxychloroquine powder - Active meloxicam 15 mg tablet take 1 tablet by oral route every day 15 MG - Active levothyroxine 175 mcg tablet take 1 tablet by oral route every day 175 MCG - Active Tirosint 25 mcg capsule take 1 capsule b y oral route every day 25 MCG - Active trazodone 100 mg tablet take 1 tablet by oral route 2 times every day after meals 100 MG - Active Procedures Procedure Date SCODI, GDX Retina SCODI, Retina SCODI, GDX Retina Advance Directives Directive Yes / No Effective Date File Name No Information Encounters Encounter Description Practice Location Reason(s) For Visit Diagnoses Date Provider Providers Copied on Encounter [facility], [address] [place] [address] [address], [place], [place], [id number], tel:[phone] [facility] Professional OCT (chief complaint) No Information 9 Sivakumar Washburn. [facility], [address] [facility], [place], [address], [place]. tel:[phone] Referring Provider: Martin Lam OD, [facility] [address] [place], [address]. tel:[phone] [facility], [address] [place] [address] [address], [place], [place], [id number], [place] tel:[phone] SEC [place] Professional Testing only (chief complaint) No Information 8 Guevara Malone. [address] [facility] [place] [address], [place], [place], [id number], [place]. tel:[phone] Referring Provider: Martin Lam OD, [facility] [address] [place], [address]. tel:[phone] [facility], [address], [place], [place], [id number], [place] tel:[phone] SEC [facility] Professional OCT (chief complaint) No Information 6 Sumeet Dueñas. [address] [employer] [address], [facility] [address], [place], [place], [id number], [place]. tel:[phone] Referring Provider: Martin Lam OD, [facility] [address] [facility], [place], [address]. tel:[phone] [facility], [address], [place], [place], [id number], [place] tel:[phone] [facility] [place] [facility] No Information 6 Sumeet Dueñas. [address] [employer], [facility] [address], [place], [place], [id number], [place]. tel:[phone] Family History Family Member Type Diagnosis Age At Onset Problem (finding) Family history of glauc dottie Problem (finding) Family history of Diabe nicole mellitus Payers Payer name Insurance type Covered alliance party ID Authoriza tijo(s) AARP Medicare Complete CI [id number] Social History Type Description Quantity Date Captured Comments Alcohol Use Details No Caffeine Use Details soda Tobacco Use Status No Information Smoking Status Unknown if ever smoked 19 Non-Smoking Tobacco Use Details : No Details Available : No Details Available Sex Female Chief Complaint And Reason For Visit From encounter dated '02/04/2019 09:15'. OCT (chief complaint). Description: The 63 year old female presents for evaluation of OCT in the right eye and left eye. Pt referred to us by Dr. Lam. Reason For Referral Reason For Referral No Information History Of Present Illness Encounter Date Complaint History Of Prese nt Illness OCT The 63 year old female presents for evaluation of OCT in the right eye and left eye. Pt referred to us by Dr. Lam. Testing only The 62 year old female presents for an OCT mac only for plaquenil use for Lupus. OCT Functional Status Date Functional Assessmen t No Information Instructions Date Instruction Additional Infor mation No Information Assessments Type Assessment Date No Information Patient Care Teams Name Effective Dates (start - stop) Status Members No Information
== END 2024-06-20 09:23 | disposition home or self-care (01) ==
LOC: ANHIMG 09:24
PROVIDERS: PCP Internal Medicine; Visit Provider Obstetrics & Gynecology
DX: Z12.31 Encounter for screening mammogram for malignant neoplasm of breast (principal)
CPT/HCPCS: 77063; 77067